=== PATIENT | female | born 1995 | race American Indian/Alaskan Native ===

== ENCOUNTER 2017-08-14 15:13 | Outpatient (CLI) | payer MEDICAID | END 2017-08-14 15:14 | disposition critical access hospital (66) | LOC: EMS 15:13 | PROVIDERS: ATTEND Surgery | DX: M25.562 Pain in left knee (principal); W18.39XA Other fall on same level, initial encounter; Y93.02 Activity, running; Y92.481 Parking lot as the place of occurrence of the external cause | CPT/HCPCS: A0425; A0429 ==

== ENCOUNTER 2017-08-14 15:29 | Emergency (ER) | payer MEDICAID ==
[2017-08-14] MEDS ORDERED: HYDROmorphone 1 MG/ML SYRINGE IM STA ×2 (15:36→16:57)
[2017-08-14] MEDS ORDERED: HYDROmorphone 1 MG/ML SYRINGE ONE ×2 (15:44→17:14)
--- NOTE | 2017-08-14 16:40 | XRAY Preliminary Report ---
Exam: XR Knee 2 View LT IMPRESSION: Stable postoperative changes. No acute findings. [facility] SITE ID: [id number]
--- NOTE | 2017-08-14 16:43 | XRAY Report ---
EXAM: LEFT KNEE RADIOGRAPHY EXAM DATE: 08/14/2017 04:30 PM. CLINICAL HISTORY: Left knee pain and immobility. COMPARISON: 03/03/2014. TECHNIQUE: 2 views. FINDINGS: Bones: No traumatic or destructive bone abnormalities. Stable anterior tibial screws with no sign of loosening or failure. Joints: Normal. No effusion. No subluxations. Soft Tissues: Normal. No soft tissue swelling. IMPRESSION: Stable postoperative changes. No acute findings. [facility] Referring Provider Line: [phone] SITE ID: [id number]
--- NOTE | 2017-08-14 17:57 | PROVIDER PROGRESS NOTE ---
Subjective - Prog Note Date Prog Note Date: 08/14/17 Prog Note Time: 17:54 - Subjective Subjective: [place] left "knee cap" pop out laterally while running today. Hx of multiple knee "dislocations since tibial tubercle transfers in [place] 5 years ago. Objective - Vital Signs/Intake & Output Vital Signs: Vital Signs x48h Temp Pulse Resp BP Pulse Ox 08/14/17 17:31 36.0 C L 64 18 118/66 99 08/14/17 16:17 36.0 C L 70 18 126/74 96 08/14/17 15:32 36.2 C L 76 22 147/79 H 97 - Diagnostic Imaging Diagnostic Imaging Comments: No FRACTURE; ?LATERAL PATELLA SUBLUXATION - Other Results/Comments Other Results/Comments: EXAM: multiple anterior knee scars from prior surgeries. Minimal knee swelling/ effusion. With knee extension and patella manipulation, patella reduced from its lateral subluxed position. Patella is now mobile and tracking better with knee flexion Assessment/Plan - Problem List (1) Lateral subluxation of patella Impression: Reduced PLAN: Knee immobilizer x 3-5 days, then wean off immobilizer. Quadraceps strengthening program. Offered PT but she declined. Follow up as needed in orthopedic office vs follow up with operating surgeon in [place]. Qualifiers: Encounter type: initial encounter Laterality: left Qualified Code(s): S83.012A - Lateral subluxation of left patella, initial encounter
--- NOTE | 2017-08-14 18:08 | ED Physician Documentation ---
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: Ovarian cysts : Chronic bladder infection, Other HEENT: None Psych: None Musculoskeletal: None Derm: Eczema - Past Surgical History Past Surgical History: No Ortho: ACL reconstruction, Arthroscopic surgery HEENT: Myringotomy (tubes), Tonsil/Adenoidectomy - Present Medications Home Medications: Ambulatory Orders Medication Instructions Recorded Confirmed Potassium Chloride 20 meq PO TID 04/08/14 10/07/15 Ibuprofen [Motrin] 800 mg PO Q8H PRN #20 tablet 05/21/14 10/07/15 Magnesium 05/21/14 10/07/15 Potassium Chloride 20 meq PO DAILY #15 tablet.er 09/12/15 10/07/15 Famotidine [Pepcid] 20 mg PO BID #60 tablet 10/07/15 HYDROcod/ACETAM 5/325 [[place] 5/325] 1 ea PO Q6H PRN #10 tablet 10/07/15 Promethazine [Phenergan] 12.5 mg PO Q6H PRN #12 tablet 10/07/15 Sucralfate [Carafate] 1 gm PO ACHS #120 udc 10/07/15 - Allergies Allergies/Adverse Reactions: Allergies Allergy/AdvReac Type Severity Reaction Status Date / Time bismuth subsalicylate Allergy Respiratory Verified 12/11/15 12:45 [From Pepto-Bismol] lorazepam [From Ativan] Allergy Hives Verified 08/14/17 15:38 ondansetron HCl * Allergy Itching Verified 10/07/15 20:36 [From Zofran (as hydrochloride)] - Social History Does the pt smoke?: Yes Smoking Status: Former smoker Does the pt drink ETOH?: No Does the pt have substance abuse?: No - Immunizations Immunizations are current?: Yes Immunizations: Other immun not current - POLST Patient has POLST: No PD ED PE NORMAL - Vitals Vital signs reviewed: Yes - General General: Alert and oriented X 3 - HEENT HEENT: Atraumatic - Extremities Extremities: Other (K knee held slightly bent and externally rotated and her body habitus makes palpation of landmarks diffilcutl, pt scream when she is touched and will not allow me to manipulate her knee in any way to test for ligamentous stability, it appars her patella is laterally subluxed, MSV intact distal) Results - Vitals Vitals: Vital Signs - 24 hr 08/14/17 08/14/17 08/14/17 15:32 16:17 17:31 Temperature 36.2 C L 36.0 C L 36.0 C L Heart Rate 76 70 64 Respiratory 22 18 18 Rate Blood Pressure 147/79 H 126/74 118/66 O2 Saturation 97 96 99 Oxygen O2 Source Room air - Rads (name of study) knee Radiology: See rad report (limited views 2/2 pt pain, no fx, cant tell if subluxed patella) PD MEDICAL DECISION MAKING - ED course ED course: pt arrives screaming loudly and refused to allow me to properly examine her knee or manipulate it in any way after IM dilaudid she is a bit calmer she states she has had prior surgery and has hardware and only orthopedics can reduce her knee because of the hardware and needs to be done a special way so Dr Aixa wiggins came in, gave pt another IM dilaudid shortly prior to his arrival, and with minimal pressure her patella easily reduced - fo future reference he advises that her hardward does not preclude ER reduction of patellar sublux dislocation, MSV after per Dr Vela, given immobilizer and dced Departure - Departure Disposition: 01 Home, Self Care Clinical Impression: Patellar dislocation Qualifiers: Encounter type: initial encounter Laterality: left Qualified Code(s): S83.005A - Unspecified dislocation of left patella, initial encounter Condition: Good Instructions: ED Dislocation Patella Follow-Up: [facility] [Provider Group] Comments: Wear the knee immobilizer to stabilize your patella Ice and elevation for swelling Naproxen for pain Follow up with your internet network specialist or call ortho clinic for follow up if needed Forms: Activity restrictions
[2017-08-14 18:48] VITALS: BP 121/58
== END 2017-08-14 18:49 | disposition home or self-care (01) ==
LOC: EDUNIT# → ED 15:29
DX: S83.005A Unspecified dislocation of left patella, initial encounter (principal); X58.XXXA Exposure to other specified factors, initial encounter; Y93.02 Activity, running; Y92.481 Parking lot as the place of occurrence of the external cause; Z87.891 Personal history of nicotine dependence
CPT/HCPCS: 73560; 96372; 99283; 99284; J1170

== ENCOUNTER 2017-11-14 17:45 | Emergency (ER) | payer MEDICAID ==
[2017-11-14 17:52] VITALS: BP 140/76
[2017-11-14 18:11] LABS: BILIRUBIN,URINE NEGATIVE (NEGATIVE)
[2017-11-14 18:12] LABS: HCG UR QUAL NEGATIVE; UA w/ MICROSCOPIC CHARGE YES
--- NOTE | 2017-11-14 18:13 | ED Physician Documentation ---
PD HPI ABD PAIN - Stated complaint Stated Complaint: FEMALE ,ABD PX - Chief complaint Chief Complaint: Abd Pain - History obtained from History obtained from: Patient - History of Present Illness Timing - onset: Other (This is a 22-year-old G0 with potassium wasting renal tubular acidosis who has not had her blood drawn in 7 months and feels like her potassium is low complicated by a late menses that is quite heavy with clots and some pelvic pain since yesterday. No dizziness though.) Review of Systems Ten Systems: 10 systems reviewed and negative Constitutional: reports: Fatigue. 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: Ovarian cysts : Chronic bladder infection, Other HEENT: None Psych: None Musculoskeletal: None Derm: Eczema Other Past Medical History: potassium disorder chronically runs low - Past Surgical History Past Surgical History: No Ortho: ACL reconstruction, Arthroscopic surgery HEENT: Myringotomy (tubes), Tonsil/Adenoidectomy - Present Medications Home Medications: Ambulatory Orders Medication Instructions Recorded Confirmed Potassium Chloride 20 meq PO BID 04/08/14 11/14/17 Magnesium 30 mg PO BID 05/21/14 11/14/17 Famotidine [Pepcid] 20 mg PO BID #30 tablet 11/14/17 Ibuprofen [Motrin] 800 mg PO Q8H PRN #30 tablet 11/14/17 Potassium Phosphate 11/14/17 - Allergies Allergies/Adverse Reactions: Allergies Allergy/AdvReac Type Severity Reaction Status Date / Time bismuth subsalicylate Allergy Respiratory Verified 12/11/15 12:45 [From Pepto-Bismol] lorazepam [From Ativan] Allergy Hives Verified 08/14/17 15:38 ondansetron HCl * Allergy Itching Verified 10/07/15 20:36 [From Zofran (as hydrochloride)] - Social History Does the pt smoke?: Yes Smoking Status: Current every day smoker Does the pt drink ETOH?: No Does the pt have substance abuse?: No - Immunizations Immunizations are current?: Yes Immunizations: Other immun not current - POLST Patient has POLST: No PD ED PE NORMAL - Vitals Vital signs reviewed: Yes - General General: Alert and oriented X 3, No acute distress - HEENT HEENT: PERRL, EOMI - Neck Neck: Supple, no meningeal sign, No bony TTP - Cardiac Cardiac: RRR, No murmur - Respiratory Respiratory: No respiratory distress, Clear bilaterally - Abdomen Abdomen: Normal bowel sounds, Soft, Non tender - Female Female : Sas Clinical Programmer present (Ese Pennington RN), Other (Mild blood in vault, no TTP , no CMT) - Back Back: No CVA TTP, No spinal TTP - Extremities Extremities: No edema, No calf tenderness / cord - Neuro Neuro: Alert and oriented X 3, Normal speech - Psych Psych: Normal mood, Normal affect Results - Vitals Vitals: Vital Signs - 24 hr 11/14/17 17:49 Temperature 36.7 C Heart Rate 78 Respiratory 16 Rate Blood Pressure 140/76 H O2 Saturation 100 Oxygen O2 Source Room air - Labs Labs: Microbiology 11/14/17 18:15 JOSSUE Preparation - Final Fluid - Vaginal 11/14/17 18:15 Wet Prep - Final Genital - Vaginal Laboratory Tests 11/14/17 11/14/17 11/14/17 17:55 18:25 18:25 WBC 11.6 H RBC 4.45 Hgb 13.9 Hct 39.5 MCV 88.7 MCH 31.2 H MCHC 35.2 RDW 12.8 Plt Count 392 MPV 6.6 L Neut # 7.1 H Lymph # 3.3 [place] # 0.8 Eos # 0.2 Baso # 0.1 Absolute Nucleated RBC 0.00 Nucleated RBC % 0.0 Sodium 139 Potassium 3.2 L Chloride 98 L Carbon Dioxide 27 Anion Gap 14.0 H BUN 9 Creatinine 0.5 Estimated GFR (MDRD) 157 Glucose 111 H Calcium 9.4 Total Bilirubin 0.5 AST 28 ALT 22 Alkaline Phosphatase 47 Total Protein 7.9 Albumin 4.1 Globulin 3.8 Albumin/Globulin Ratio 1.1 Lipase 23 Urine Color YELLOW Urine Clarity HAZY Urine pH 8.0 H Ur Specific [place] 1.015 Urine Protein NEGATIVE Urine Glucose (UA) NEGATIVE Urine Ketones NEGATIVE Urine Occult Blood SMALL H Urine Nitrite NEGATIVE Urine Bilirubin NEGATIVE Urine Urobilinogen 0.2 (NORMAL) Ur Leukocyte Esterase NEGATIVE Urine RBC 11-25 H Urine WBC 6-10 H Ur Squamous Epith Cells FEW Squamous Urine Bacteria Few Urine Yeast PRESENT Ur Microscopic Review INDICATED Urine Culture Comments INDICATED Urine HCG, Qual NEGATIVE Ethyl Alcohol < 5.0 PD MEDICAL DECISION MAKING - ED course ED course: 22-year-old with heavy vaginal bleeding, but she is not and her H&H is fine. She also wanted her potassium checked, it was mildly low and she was given an extra oral dose here. STD testing is pending. Urinalysis was unimpressive and we will wait for the culture. The patient and family were counseled as to the diagnosis and need for follow- up. I counseled the patient with regard to signs and symptoms that would necessitate an urgent reevaluation in the emergency department. They understand they are welcome to return at any time if worse or if not improving as expected. This document was made in part using voice recognition software. While efforts are made to proofread this documents, sound alike and grammatical errors may occur. Departure - Departure Disposition: Home, Self Care Clinical Impression: Hypokalemia, Abnormal uterine bleeding Condition: Good Record reviewed to determine appropriate education?: Yes Instructions: ED Pelvic Pain [facility] Prescriptions: Famotidine [Pepcid] 20 mg PO BID #30 tablet Ibuprofen [Motrin] 800 mg PO Q8H PRN #30 tablet PRN Reason: PAIN &/OR FEVER Comments: You are not , and her potassium was only mildly low, you received an extra dose here. Initially her swabs are negative but we will perform STD testing to and call you if the results are positive. Follow-up with your physician. Your blood pressure was elevated today on check into the emergency department. This does not mean that you have hypertension, it is a common phenomenon to come to the emergency department and have elevated blood pressure. I recommend that you see your primary care physician within the week to have it rechecked when you are feeling better. Forms: Activity restrictions Discharge Date/Time: 11/14/17 18:52
[2017-11-14 18:22] LABS: UR CULTURE IF IND INDICATED
[2017-11-14 18:30] LABS: BASOPHILS # (AUTO) 0.1 10^3/uL (0.0-0.1); BASOPHILS % (AUTO) 0.8 %; EOSINOPHILS # (AUTO) 0.2 10^3/uL (0.0-0.7); HCT - HEMATOCRIT 39.5 % (37.0-47.0); HGB - HEMOGLOBIN 13.9 g/dL (12.0-16.0); LYMPHOCYTES # (AUTO) 3.3 10^3/uL (1.5-3.5); MEAN CORPUSCULAR HEMOGLOBIN 31.2 pg (27.0-31.0); MEAN CORPUSCULAR HGB CONC 35.2 g/dL (32.0-36.0); MEAN CORPUSCULAR VOLUME 88.7 fL (81.0-99.0); MEAN PLATELET VOLUME 6.6 fL (7.9-10.8); MONOCYTES # (AUTO) 0.8 10^3/uL (0.0-1.0); MONOCYTES % (AUTO) 6.7 %; NEUTROPHILS # (AUTO) 7.1 10^3/uL (1.5-6.6); NEUTROPHILS % (AUTO) 61.5 %; RED BLOOD COUNT 4.45 10^6/uL (4.20-5.40); RED CELL DISTRIBUTION WIDTH 12.8 % (12.0-15.0); UNCORRECTED WHITE BLOOD COUNT 11.6 x10^3/uL; WHITE BLOOD COUNT 11.6 x10^3/uL (4.8-10.8)
[2017-11-14 18:42] LABS: ALBUMIN/GLOBULIN RATIO 1.1 (1.0-2.2); BILIRUBIN,TOTAL 0.5 mg/dL (0.2-1.0); BUN - BLOOD UREA NITROGEN 9 mg/dL (6-20); CALCIUM 9.4 mg/dL (8.5-10.3); CARBON DIOXIDE - CO2 27 mmol/L (21-32); CHLORIDE 98 mmol/L (101-111); CREATININE 0.5 mg/dL (0.4-1.0); GFR - MDRD 157 (>89); GLUCOSE 111 mg/dL (70-100); LIPASE 23 U/L (22-51); POTASSIUM 3.2 mmol/L (3.5-5.0); SODIUM 139 mmol/L (135-145); TOTAL PROTEIN 7.9 g/dL (6.7-8.2)
[2017-11-14] MEDS ORDERED: POTASSIUM BICARB 25 MEQ TABLET PO STA (18:44)
== END 2017-11-14 18:52 | disposition home or self-care (01) ==
LOC: ED 17:45
DX: N25.89 Other disorders resulting from impaired renal tubular function (principal); N93.9 Abnormal uterine and vaginal bleeding, unspecified; E87.6 Hypokalemia; R03.0 Elevated blood-pressure reading, without diagnosis of hypertension; F17.200 Nicotine dependence, unspecified, uncomplicated
CPT/HCPCS: 36415; 80053; 80320; 81001; 81025; 83690; 85025; 87086; 87210; 87220; 87491; 87591; 99283; 99284; A9270; 81003; 84132

== ENCOUNTER 2017-11-18 16:31 | Emergency (ER) | payer MEDICAID ==
[2017-11-18 17:01] LABS: BILIRUBIN,URINE NEGATIVE (NEGATIVE); PH,URINE 8.5 PH (5.0-7.5)
[2017-11-18 17:02] LABS: UA w/ MICROSCOPIC CHARGE YES
[2017-11-18 17:03] LABS: HCG UR QUAL NEGATIVE
[2017-11-18 17:12] LABS: UR CULTURE IF IND NOT INDICATED; WBC,URINE 0-3 /HPF (0-5)
--- NOTE | 2017-11-18 17:37 | ED Physician Documentation ---
PD HPI ABD PAIN - Stated complaint Stated Complaint: ABD PX/FEVER - Chief complaint Chief Complaint: Abd Pain - History obtained from History obtained from: Patient - History of Present Illness Timing - onset: How many days ago (several) Timing - duration: Days Timing - details: Gradual onset, Still present, Waxing and waning Quality: Cramping, Aching, Pain Location: LLQ Radiation: Left flank Improved by: Position. No: Eating Worsened by: Position (lying on side), Palpation. No: Eating Associated symptoms: Nausea, Vomiting, Vaginal bleeding, Vaginal dc. No: Fever , Diarrhea, Dysuria Recently seen: Emergency Dept (had pelvic and labs here few days ago. She had not heard back yet on her pelvic cultures.) Review of Systems Constitutional: reports: Chills, Myalgias. denies: Fever Nose: denies: Rhinorrhea / runny nose, Congestion Throat: denies: Sore throat Cardiac: denies: Chest pain / pressure Respiratory: denies: Cough GI: reports: Abdominal Pain, Nausea, Vomiting. denies: Constipation, Diarrhea : reports: Discharge (green). 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: Ovarian cysts : Chronic bladder infection, Other HEENT: None Psych: None Musculoskeletal: None Derm: Eczema - Past Surgical History Past Surgical History: No Ortho: ACL reconstruction, Arthroscopic surgery HEENT: Myringotomy (tubes), Tonsil/Adenoidectomy - Present Medications Home Medications: Ambulatory Orders Medication Instructions Recorded Confirmed Potassium Chloride 20 meq PO BID 04/08/14 11/14/17 Magnesium 30 mg PO BID 05/21/14 11/14/17 Famotidine [Pepcid] 20 mg PO BID #30 tablet 11/14/17 Ibuprofen [Motrin] 800 mg PO Q8H PRN #30 tablet 11/14/17 Potassium Phosphate 11/14/17 Doxycycline Monohydrate 100 mg PO BID #14 tablet 11/18/17 Oxycodone HCl/Acetaminophen 1 each PO Q6H PRN #20 tablet 11/18/17 [Percocet 5-325 mg Tablet] Promethazine [Phenergan] 25 mg PO Q6H PRN #30 tab 11/18/17 - Allergies Allergies/Adverse Reactions: Allergies Allergy/AdvReac Type Severity Reaction Status Date / Time bismuth subsalicylate Allergy Respiratory Verified 11/19/17 20:47 [From Pepto-Bismol] cinnamon Allergy Anaphylaxis Verified 11/20/17 07:54 lorazepam [From Ativan] Allergy Hives Verified 11/19/17 20:47 ondansetron HCl * Allergy Itching Verified 11/19/17 20:47 [From Zofran (as hydrochloride)] - Social History Does the pt smoke?: Yes Smoking Status: Current every day smoker Does the pt drink ETOH?: No Does the pt have substance abuse?: No - Immunizations Immunizations are current?: Yes Immunizations: Other immun not current - POLST Patient has POLST: No PD ED PE NORMAL - Vitals Vital signs reviewed: Yes - General General: Alert and oriented X 3, Well developed/nourished, Other (appears uncomfortable) - HEENT HEENT: Pharynx benign - Neck Neck: Supple, no meningeal sign, No adenopathy - Cardiac Cardiac: RRR, No murmur - Respiratory Respiratory: Clear bilaterally - Abdomen Abdomen: Normal bowel sounds, Soft, Non distended, No organomegaly, Other ( tender left lower abd) - Female Female : Deferred (recent ED visit with pelvic and culture resulting GC, so will treat for that and defer pelvic now. ) - Rectal Rectal: Deferred - Back Back: No CVA TTP - Derm Derm: Normal color, No rash - Extremities Extremities: No deformity, No tenderness to palpate, Normal ROM s pain - Neuro Neuro: Alert and oriented X 3, No motor deficit, Normal speech - Psych Psych: Normal mood Results - Vitals Vitals: Oxygen O2 Source Room air - Labs Labs: Laboratory Tests 11/18/17 11/18/17 16:48 19:30 Sodium 136 Potassium 2.3 L* Chloride 95 L Carbon Dioxide 30 Anion Gap 11.0 BUN 12 Creatinine 0.6 Estimated GFR (MDRD) 127 Glucose 96 Calcium 8.6 Urine Color YELLOW Urine Clarity CLEAR Urine pH 8.5 H Ur Specific [place] 1.020 Urine Protein NEGATIVE Urine Glucose (UA) NEGATIVE Urine Ketones NEGATIVE Urine Occult Blood MODERATE H Urine Nitrite NEGATIVE Urine Bilirubin NEGATIVE Urine Urobilinogen 0.2 (NORMAL) Ur Leukocyte Esterase NEGATIVE Urine RBC 6-10 H Urine WBC 0-3 Ur Squamous Epith Cells NONE SEEN Urine Bacteria None Seen Ur Microscopic Review INDICATED Urine Culture Comments NOT INDICATED Urine HCG, Qual NEGATIVE PD MEDICAL DECISION MAKING - ED course Complexity details: considered differential (several meds for nausea and pain. given IM for the GC. Checked her potassium and it was low, and she still had emesis so started IV. She would prefer going home and taking PO. Was doing better after IV meds, so will see how she does with PO meds at home. ), d/w patient Departure - Departure Disposition: , Self Care Clinical Impression: Lower abdominal pain, PID (acute pelvic inflammatory disease), Hypokalemia, RTA (renal tubular acidosis) Nausea & vomiting Qualifiers: Vomiting type: unspecified Vomiting Intractability: non-intractable Qualified Code(s): R11.2 - Nausea with vomiting, unspecified Condition: Stable Record reviewed to determine appropriate education?: Yes Instructions: ED PID, ED Nausea Vomiting Prescriptions: Doxycycline Monohydrate 100 mg PO BID #14 tablet Oxycodone HCl/Acetaminophen [Percocet 5-325 mg Tablet] 1 each PO Q6H PRN #20 tablet PRN Reason: Pain Promethazine [Phenergan] 25 mg PO Q6H PRN #30 tab PRN Reason: Nausea / Vomiting Comments: Drink lots of fluids. The antibiotics should be improving the infection over the next few days and therefore decrease the pain and nausea. Take her potassium supplements at home. Your potassium level is 2.3 here. Use Phenergan if needed for nausea. Use Percocet if needed for pain. Recheck if not improving over the next few days. We did give you the one Phenergan and some Percocet to go home with this evening. Unfortunately pharmacies will not be open tomorrow. Discharge Date/Time: 11/18/17 22:41
[2017-11-18] MEDS ORDERED: KETOROLAC 60 MG/2 ML VIAL IM STA (18:16)
[2017-11-18] MEDS ORDERED: HYDROmorphone 1 MG/ML SYRINGE IM STA ×2 (18:16→19:15)
[2017-11-18] MEDS ORDERED: cefTRIAXone 500 MG VIAL IM STA (18:17)
[2017-11-18] MEDS ORDERED: DOXYCYCLINE 100 MG TABLET PO STA (18:17)
[2017-11-18] MEDS ORDERED: LIDOCAINE 1% 2 ML VIAL ONE (18:29)
[2017-11-18] MEDS ORDERED: oxyCODONE/ACET 5/325 Prepack 4 PO STA (18:59)
[2017-11-18] MEDS ORDERED: ONDANSETRON ODT 4 MG TABLET TL STA (19:27)
[2017-11-18] MEDS ORDERED: PROMETHAZINE 25 MG TABLET PO STA ×3 (19:36→20:24)
[2017-11-18] MEDS ORDERED: PROMETHAZINE 25 MG TABLET ONE (19:44)
[2017-11-18 20:08] LABS: CALCIUM 8.6 mg/dL (8.5-10.3); CREATININE 0.6 mg/dL (0.4-1.0)
[2017-11-18 20:09] LABS: POTASSIUM 2.3 mmol/L (3.5-5.0)
[2017-11-18] MEDS ORDERED: POTASSIUM BICARB 25 MEQ TABLET PO STA (20:09)
[2017-11-18] MEDS ORDERED: PROMETHAZINE INJ 12.5 MG in SODIUM CHLORIDE 0.9% 50 ML IV STA (20:35)
[2017-11-18] MEDS ORDERED: POTASSIUM CHLOR 10 MEQ/100 ML 10 MEQ/100 ML BAG IV ONE (20:35)
[2017-11-18] MEDS ORDERED: HYDROmorphone 1 MG/ML SYRINGE IVP STA (21:48)
[2017-11-18 22:29] VITALS: BP 137/89
== END 2017-11-18 22:41 | disposition home or self-care (01) ==
LOC: ED 16:31
DX: R10.32 Left lower quadrant pain (principal); N73.9 Female pelvic inflammatory disease, unspecified; E87.6 Hypokalemia; N25.89 Other disorders resulting from impaired renal tubular function; R11.2 Nausea with vomiting, unspecified; F17.200 Nicotine dependence, unspecified, uncomplicated
CPT/HCPCS: 36415; 80048; 81001; 81025; 96365; 96372; 96375; 99283; 99284; A9270; J1170; J7040; Q0169; 81003; 87086

== ENCOUNTER 2017-11-19 20:41 | Observation (INO) | payer MEDICAID ==
[2017-11-19] MEDS ORDERED: MORPHINE 10 MG/ML VIAL IVP STA ×2 (21:04→22:50)
--- NOTE | 2017-11-19 21:07 | ED Physician Documentation ---
History of Present Illness - Stated complaint Stated Complaint: ABD PX - Chief complaint Chief Complaint: Abd Pain - History obtained from History obtained from: Patient - History of Present Illness Timing: How many days ago (4) Pain level max: 8 Pain level now: 8 Improved by: percocet Worsened by: movement, palpation - Additonal information Additional information: Patient is a 22-year-old female who presents to the emergency department with lower abdominal and pelvic pain for the past 4 days. She is being treated for gonorrhea. She is being treated for pelvic inflammatory disease. Given Rocephin last night and unable to fill her doxycycline today because of the holiday. She also has a history of Gettleman syndrome and frequently has issues with her potassium and magnesium. She states that she is especially susceptible of these issues when she has an infection. She is concerned that her potassium and magnesium are dropping today. Review of Systems Ten Systems: 10 systems reviewed and negative Constitutional: denies: Fever, Chills Ears: denies: Ear pain Nose: denies: Rhinorrhea / runny nose, Congestion Throat: denies: Sore throat Cardiac: denies: Chest pain / pressure Respiratory: denies: Cough GI: reports: Abdominal Pain (pelvic pain). denies: Nausea, Vomiting, Diarrhea : reports: Dysuria. denies: Frequency, Hesitancy, Incontinent Skin: denies: Rash Musculoskeletal: denies: Neck pain, Back pain Neurologic: reports: Generalized weakness. denies: Focal weakness, Numbness, Headache PD PAST MEDICAL HISTORY - Past Medical History Cardiovascular: None Respiratory: Pneumonia Neuro: Headache/migraine Endocrine/Autoimmune: None GI: None RN WOUND CARE: Ovarian cysts : Chronic bladder infection, Other HEENT: None Psych: None Musculoskeletal: None Derm: Eczema - Past Surgical History Past Surgical History: No Ortho: ACL reconstruction, Arthroscopic surgery HEENT: Myringotomy (tubes), Tonsil/Adenoidectomy - Present Medications Home Medications: Ambulatory Orders Medication Instructions Recorded Confirmed Potassium Chloride 20 meq PO BID 04/08/14 11/14/17 Magnesium 30 mg PO BID 05/21/14 11/14/17 Famotidine [Pepcid] 20 mg PO BID #30 tablet 11/14/17 Ibuprofen [Motrin] 800 mg PO Q8H PRN #30 tablet 11/14/17 Potassium Phosphate 11/14/17 Doxycycline Monohydrate 100 mg PO BID #14 tablet 11/18/17 Oxycodone HCl/Acetaminophen 1 each PO Q6H PRN #20 tablet 11/18/17 [Percocet 5-325 mg Tablet] Promethazine [Phenergan] 25 mg PO Q6H PRN #30 tab 11/18/17 - Allergies Allergies/Adverse Reactions: Allergies Allergy/AdvReac Type Severity Reaction Status Date / Time bismuth subsalicylate Allergy Respiratory Verified 11/19/17 20:47 [From Pepto-Bismol] lorazepam [From Ativan] Allergy Hives Verified 11/19/17 20:47 ondansetron HCl * Allergy Itching Verified 11/19/17 20:47 [From Zofran (as hydrochloride)] - Social History Does the pt smoke?: Yes Smoking Status: Current every day smoker Does the pt drink ETOH?: No Does the pt have substance abuse?: No - Immunizations Immunizations are current?: Yes Immunizations: Other immun not current - POLST Patient has POLST: No PD ED PE NORMAL - Vitals Vital signs reviewed: Yes - General General: Alert and oriented X 3, No acute distress - HEENT HEENT: Moist mucous membranes - Neck Neck: Supple, no meningeal sign - Cardiac Cardiac: RRR, Strong equal pulses - Respiratory Respiratory: No respiratory distress, Clear bilaterally - Abdomen Abdomen: Soft, Non distended, Other (mild low abd TTP. ) - Derm Derm: Warm and dry, No rash - Neuro Neuro: Alert and oriented X 3 - Psych Psych: Normal mood, Normal affect Results - Vitals Vitals: Vital Signs - 24 hr 11/19/17 11/19/17 20:43 22:47 Temperature 36.4 C L Heart Rate 101 H 72 Respiratory 20 12 Rate Blood Pressure 135/71 H 117/53 L O2 Saturation 100 99 Oxygen O2 Source Room air - Labs Labs: Laboratory Tests 11/19/17 11/19/17 21:10 21:10 WBC 13.4 H RBC 4.31 Hgb 13.4 Hct 38.5 MCV 89.3 MCH 31.1 H MCHC 34.8 RDW 12.8 Plt Count 401 MPV 6.5 L Neut # 8.7 H Lymph # 3.5 [place] # 0.9 Eos # 0.4 Baso # 0.1 Absolute Nucleated RBC 0.01 Nucleated RBC % 0.0 Sodium 137 Potassium 2.6 L Chloride 97 L Carbon Dioxide 30 Anion Gap 10.0 BUN 8 Creatinine 0.6 Estimated GFR (MDRD) 127 Glucose 91 Calcium 8.4 L Phosphorus 2.8 Magnesium 1.4 L Total Bilirubin 0.7 AST 24 ALT 25 Alkaline Phosphatase 62 Total Protein 8.3 H Albumin 4.0 Globulin 4.3 H Albumin/Globulin Ratio 0.9 L Lipase 26 - Rads (name of study) pelvic US Radiology: Prelim report reviewed, EMP read contemporaneously, See rad report ( uterus and ovaries normal except dominant 1.8x1.5cm R ovarian follicle. Blood flow seen in both ovaries. ) PD MEDICAL DECISION MAKING - ED course Complexity details: reviewed old records, reviewed results, re-evaluated patient , considered differential, d/w patient, d/w clinical science consultant ED course: Patient is a 22-year-old female with a history of Gettleman syndrome that presents to the emergency department with continued pain from pelvic inflammatory disease. Has not started her doxycycline at home. He was given a dose of doxycycline here. Was also given a pelvic ultrasound to rule out TOA. No tubo-ovarian abscess seen on ultrasound. She does have a simple cyst on the right ovary. She also has an increasing leukocytosis over the past 4 days. Her white blood cell count is now up to 13. Her potassium and magnesium are both low here. Was treated with oral potassium and IV magnesium. She states that normally when her infections are worsening her Gettleman syndrome becomes worse and her magnesium and potassium levels can drop precipitously. Therefore we will place her in observation tonight to ensure that her electrolytes did not drop further in the morning. Discussed the case with Dr. Cassidy, hospitalist who accepts. This document was made in part using voice recognition software. While efforts are made to proofread this document, sound alike and grammatical errors may occur. Departure - Departure Disposition: ED Place in Observation Clinical Impression: PID (acute pelvic inflammatory disease), Hypokalemia, Hypomagnesemia Ovarian cyst Qualifiers: Laterality: right Qualified Code(s): N83.201 - Unspecified ovarian cyst, right side Leukocytosis Qualifiers: Leukocytosis type: unspecified Qualified Code(s): D72.829 - Elevated white blood cell count, unspecified Condition: Stable
[2017-11-19] MEDS ORDERED: DOXYCYCLINE 100 MG TABLET PO STA (21:13)
[2017-11-19 21:18] LABS: BASOPHILS # (AUTO) 0.1 10^3/uL (0.0-0.1); BASOPHILS % (AUTO) 0.5 %; EOSINOPHILS # (AUTO) 0.4 10^3/uL (0.0-0.7); EOSINOPHILS % (AUTO) 2.7 %; HGB - HEMOGLOBIN 13.4 g/dL (12.0-16.0); LYMPHOCYTES # (AUTO) 3.5 10^3/uL (1.5-3.5); LYMPHOCYTES % (AUTO) 25.8 %; MEAN CORPUSCULAR HEMOGLOBIN 31.1 pg (27.0-31.0); MEAN CORPUSCULAR HGB CONC 34.8 g/dL (32.0-36.0); MEAN CORPUSCULAR VOLUME 89.3 fL (81.0-99.0); MEAN PLATELET VOLUME 6.5 fL (7.9-10.8); MONOCYTES # (AUTO) 0.9 10^3/uL (0.0-1.0); MONOCYTES % (AUTO) 6.4 %; NEUTROPHILS # (AUTO) 8.7 10^3/uL (1.5-6.6); NEUTROPHILS % (AUTO) 64.6 %; PLT - PLATELET COUNT 401 10^3/uL (130-450); RED BLOOD COUNT 4.31 10^6/uL (4.20-5.40); RED CELL DISTRIBUTION WIDTH 12.8 % (12.0-15.0); WHITE BLOOD COUNT 13.4 x10^3/uL (4.8-10.8)
[2017-11-19] MEDS: SODIUM CHLORIDE 0.9% 1,000 ML IV ONE (21:18)
[2017-11-19] MEDS ORDERED: PROMETHAZINE INJ 25 MG in SODIUM CHLORIDE 0.9% 50 ML IV STA (21:24)
[2017-11-19 21:33] LABS: ALBUMIN/GLOBULIN RATIO 0.9 (1.0-2.2); BILIRUBIN,TOTAL 0.7 mg/dL (0.2-1.0); CALCIUM 8.4 mg/dL (8.5-10.3); CREATININE 0.6 mg/dL (0.4-1.0); MAGNESIUM 1.4 mg/dL (1.7-2.8); PHOSPHORUS 2.8 mg/dL (2.5-4.6); TOTAL PROTEIN 8.3 g/dL (6.7-8.2)
[2017-11-19] MEDS ORDERED: MAGNESIUM SULFATE 2 GRAM 2 GM/50 ML BAG IV ONE (21:41)
[2017-11-19] MEDS ORDERED: POTASSIUM BICARB 25 MEQ TABLET PO STA (21:45)
[2017-11-19] MEDS ORDERED: cefOXitin 2 GM in SODIUM CHLORIDE 0.9% MINIBAG 100 ML IV STA (22:49)
--- NOTE | 2017-11-19 22:49 | Ultrasound Preliminary Report ---
Exam: US PELVIC NON OB W/DOPPLER LTD IMPRESSION: 1. Uterus and ovaries appear normal aside from a dominant 1.8 x 1.5 cm right ovarian follicle. 2. Blood flow seen in both ovaries. 3. No free fluid seen. [facility] SITE ID: [id number]
--- NOTE | 2017-11-19 22:49 | Ultrasound Preliminary Report ---
Exam: US TRANSVAGINAL IMPRESSION: 1. Uterus and ovaries appear normal aside from a dominant 1.8 x 1.5 cm right ovarian follicle. 2. Blood flow seen in both ovaries. 3. No free fluid seen. [facility] SITE ID: [id number]
--- NOTE | 2017-11-19 22:51 | Ultrasound Report ---
EXAM: PELVIC ULTRASOUND EXAM DATE: 11/19/2017 10:37 PM. CLINICAL HISTORY: Pelvic pain, + gonorrhea, LLQ pain. COMPARISON: None. TECHNIQUE: Realtime transabdominal pelvic scan performed to identify the uterus and adnexa and as an overview of other pelvic structures, followed by transvaginal scan to provide greater detail of the u terus and adnexa, with static image documentation. FINDINGS: Uterus: 6.2 x 3.0 x 4 cm, volume 39 cc. Retroverted position. Normal overall size and echotexture. Masses: None. Endometrium: 4 mm. Normal. Cervix: Unremarkable. Right Ovary: 2.7 x 2.4 x 1.9 cm, volume 6.3 cc. Dominant follicle measuring 1.8 x 1.5 x 1.5 cm. Trish l echotexture and blood flow. Left Ovary: 3.7 x 1.8 x 2.1 cm, volume 7.3 cc. Normal echotexture and blood flow. Free Fluid: None. Other: None. IMPRESSION: 1. Uterus and ovaries appear normal aside from a dominant 1.8 x 1.5 cm right ovarian follicle. 2. Blood flow seen in both ovaries. 3. No free fluid seen. [facility] Referring Provider Line: [phone] SITE ID: [id number]
[2017-11-19] MEDS ORDERED: TEMAZEPAM 15 MG CAPSULE PO PRN (23:12)
--- NOTE | 2017-11-19 23:41 | HISTORY & PHYSICAL EXAMINATION ---
Chief Complaint - Chief Complaint Chief Complaint: Abdominal/pelvic pain History of Present Illness - Admitted From Admitted From:: Home - History of Present Illness HPI Comment/Other: Ms. Elayne Roman is a 22-year-old female who began to have abdominal/pelvic pain about 2 or 3 days ago. She was diagnosed with pelvic inflammatory disease here at the [facility] emergency department. She has a history significant for Gitelman syndrome which affects her potassium and magnesium levels specifically, especially when she has an infection.At this time she is very concerned about her electrolyte levels as she has had problems with this in the past. She relates that she has a brother who also has Gitelman syndrome.At the time of her admission her potassium level was 2.6 and her magnesium level was 1.4. History - Past Medical History Cardiovascular: reports: None Respiratory: reports: Pneumonia Neuro: reports: Headache/migraine Endocrine/Autoimmune: reports: None GI: reports: None RESEARCH EDITOR: reports: Ovarian cysts : reports: Chronic bladder infection, Other HEENT: reports: None Psych: reports: None Musculoskeletal: reports: None Derm: reports: Eczema MRSA Hx?: No - Past Surgical History Ortho: reports: ACL reconstruction, Arthroscopic surgery HEENT: reports: Myringotomy (tubes), Tonsil/Adenoidectomy - Family & Social History Family History: Mother: Alive and Well, Hypertension, Father: Alive and Well, Diabetes, Type 2, Brother: Alive and Well, Other family: CAD, Cancer Living arrangement: At home Living Situation: With family Social History Notes: The patient's Mother sent a note with the patient expressing her permission/desire that the patient be treated in the ED. - Substance History Use: Uses substance without health or social issues: NONE Abuse: Recurrent use of substance despite neg consequences: NONE Dependence: Experiences withdrawal or developed tolerances: NONE - POLST Patient has POLST: No Meds/Allgy - Home Medications Home Medications: Ambulatory Orders Medication Instructions Recorded Confirmed Potassium Chloride 20 meq PO BID 04/08/14 11/14/17 Magnesium 30 mg PO BID 05/21/14 11/14/17 Famotidine [Pepcid] 20 mg PO BID #30 tablet 11/14/17 Ibuprofen [Motrin] 800 mg PO Q8H PRN #30 tablet 11/14/17 Potassium Phosphate 11/14/17 Doxycycline Monohydrate 100 mg PO BID #14 tablet 11/18/17 Oxycodone HCl/Acetaminophen 1 each PO Q6H PRN #20 tablet 11/18/17 [Percocet 5-325 mg Tablet] Promethazine [Phenergan] 25 mg PO Q6H PRN #30 tab 11/18/17 - Allergies Allergies/Adverse Reactions: Allergies Allergy/AdvReac Type Severity Reaction Status Date / Time bismuth subsalicylate Allergy Respiratory Verified 11/19/17 20:47 [From Pepto-Bismol] lorazepam [From Ativan] Allergy Hives Verified 11/19/17 20:47 ondansetron HCl * Allergy Itching Verified 11/19/17 20:47 [From Zofran (as hydrochloride)] Review of Systems - Constitutional Constitutional: reports: Fatigue, Malaise, Weakness. denies: Fever, Chills, Poor appetite - Eyes Eyes: denies: Pain, Irritation, Amaurosis, Blurred vision, Field loss - Ears, Nose & Throat Ears, Nose & Throat: denies: Ear pain, Hearing loss, Hearing aids, Tinnitus, Vertigo - Cardiovascular Cariovascular: denies: Irregular heart rate, Palpitations, Chest pain, Edema - Respiratory Respiratory: denies: Cough, Sputum production, Wheezing, Snoring - Gastrointestinal Gastrointestinal: denies: Abdominal pain, Abdominal distention, Constipation, Diarrhea, Change in bowel habits - Genitourinary Genitourinary: denies: Dysuria, Frequency, Urgency, Hematuria - Musculoskeletal Musculoskeletal: reports: Back pain, Muscle weakness. denies: Muscle pain, Muscle aches, Stiffness - Integumentary Integumentary: denies: Rash, Pruritis, Lesions, Dryness - Neurological Neurological: denies: General weakness, Focal weakness, Headache, Dizziness - Psychiatric Psychiatric: reports: Depression, Anxiety. denies: Suicidal, Delusions, Hallucinations - Endocrine Endocrine: denies: Polyuria, Polydypsia, Polyphagia - Hematologic/Lymphatic Hematologic/Lymphatic: denies: Anemia, Bruising, Petechiae, Blood clots - All Other Systems All Other Systems: reports: Reviewed and negative Exam - Vital Signs Reviewed Vital Signs: Yes Vital Signs: Vital Signs x48h Temp Pulse Resp BP Pulse Ox 11/19/17 22:47 72 12 117/53 L 99 11/19/17 20:43 36.4 C L 101 H 20 135/71 H 100 - Physical Exam General Appearance: positive: No acute distress, Alert. negative: Anxious Eyes Bilateral: positive: Normal inspection, PERRL, EOMI ENT: positive: ENT inspection nml, Pharynx nml, No signs of dehydration Neck: positive: Nml inspection, Thyroid nml, No JVD, Trachea midline. negative : Thyromegaly Respiratory: positive: Chest non-tender, No respiratory distress, Breath sounds nml. negative: Wheezes, Rales, Rhonchi Cardiovascular: positive: Regular rate & rhythm, No murmur, No gallop. negative : Systolic murmur, Diastolic murmur Peripheral Pulses: positive: 2+ Abdomen: positive: No organomegaly, Nml bowel sounds, No distention, Tenderness , Guarding Back: positive: Nml inspection. negative: CVA tenderness (R), CVA tenderness (L ) Skin: positive: Color nml, No rash, Warm, Dry. negative: Diaphoresis Extremities: positive: Non-tender, Full ROM, Nml appearance, No pedal edema Neurologic/Psychiatric: positive: Oriented x3, CN's nml (2-12), Motor nml, Sensation nml, Mood/affect nml Conclusion/Plan - Problem List (1) PID (acute pelvic inflammatory disease) Conclusion/Plan: We will continue with the IV antibiotics that were started in the emergency department and will monitor her closely overnight. We will address any other issues as they arise. (2) Hypokalemia Conclusion/Plan: Related to the patient's Gitelman syndrome.Will replace potassium through both IV and oral routes. (3) Hypomagnesemia Conclusion/Plan: Likely related to the patient's Gitelman syndrome.We will monitor closely and order replacement magnesium. - Lab Results Fish Bones: 11/19/17 21:10 11/19/17 21:10 - Diagnostic Imaging Results Diagnostic Imaging Results: positive: Final report reviewed Diagnostic Imaging Results Comments: EXAM: PELVIC ULTRASOUND EXAM DATE: 11/19/2017 10:37 PM. CLINICAL HISTORY: Pelvic pain, + gonorrhea, LLQ pain. COMPARISON: None. TECHNIQUE: Realtime transabdominal pelvic scan performed to identify the uterus and adnexa and as an overview of other pelvic structures, followed by transvaginal scan to provide greater detail of the uterus and adnexa, with static image documentation. FINDINGS: Uterus: 6.2 x 3.0 x 4 cm, volume 39 cc. Retroverted position. Normal overall size and echotexture. Masses: None. Endometrium: 4 mm. Normal. Cervix: Unremarkable. Right Ovary: 2.7 x 2.4 x 1.9 cm, volume 6.3 cc. Dominant follicle measuring 1.8 x 1.5 x 1.5 cm. Normal echotexture and blood flow. Left Ovary: 3.7 x 1.8 x 2.1 cm, volume 7.3 cc. Normal echotexture and blood flow. Free Fluid: None. Other: None. IMPRESSION: 1. Uterus and ovaries appear normal aside from a dominant 1.8 x 1.5 cm right ovarian follicle. 2. Blood flow seen in both ovaries. 3. No free fluid seen. Issues/Core Measures - Anticipated LOS Anticipated Stay Length: Less than 2 midnights - [facility] Requirement for [facility] I expect patient to be DC'd or transferred within 96 hours.: Yes - DVT/VTE - Prophylaxis VTE/DVT Device ordered at admit?: Yes
[2017-11-20] MEDS ORDERED: POTASSIUM CHLOR 20 MEQ/100 ML 20 MEQ/100 ML BAG IV SCH
[2017-11-20] MEDS: oxyCOD/ACETAMIN 5 MG/325 MG TABLET PO PRN ×2 (00:29→10:47)
[2017-11-20] MEDS: cefOXitin 2 GM in SODIUM CHLORIDE 0.9% MINIBAG 100 ML IV SCH ×2 (01:04→01:06)
[2017-11-20] MEDS: MAGNESIUM SULFATE 2 GRAM 2 GM/50 ML BAG IV SCH ×2 (01:05→01:06)
[2017-11-20] MEDS: MORPHINE 2 MG/ML SYRINGE IVP PRN ×5 (03:37→20:12)
[2017-11-20] MEDS: SODIUM CHLORIDE FLUSH 0.9% 10 ML SYRINGE IVP SCH ×3 (04:18→20:13)
[2017-11-20] MEDS: POTASSIUM CHLOR 10 MEQ/100 ML 20 MEQ/200 ML BAG IV SCH ×2 (05:21→10:48)
[2017-11-20] MEDS: SODIUM CHLORIDE 0.9% 1,000 ML IV ONE (05:45)
[2017-11-20 06:25] LABS: BASOPHILS # (AUTO) 0.1 10^3/uL (0.0-0.1); BASOPHILS % (AUTO) 1.2 %; EOSINOPHILS # (AUTO) 0.5 10^3/uL (0.0-0.7); EOSINOPHILS % (AUTO) 4.7 %; HGB - HEMOGLOBIN 11.6 g/dL (12.0-16.0); LYMPHOCYTES # (AUTO) 3.7 10^3/uL (1.5-3.5); LYMPHOCYTES % (AUTO) 36.8 %; MEAN CORPUSCULAR HGB CONC 34.8 g/dL (32.0-36.0); MEAN CORPUSCULAR VOLUME 89.3 fL (81.0-99.0); MEAN PLATELET VOLUME 6.6 fL (7.9-10.8); MONOCYTES # (AUTO) 0.7 10^3/uL (0.0-1.0); MONOCYTES % (AUTO) 6.9 %; NEUTROPHILS # (AUTO) 5.1 10^3/uL (1.5-6.6); NEUTROPHILS % (AUTO) 50.4 %; PLT - PLATELET COUNT 332 10^3/uL (130-450); RED BLOOD COUNT 3.73 10^6/uL (4.20-5.40); RED CELL DISTRIBUTION WIDTH 12.7 % (12.0-15.0); WHITE BLOOD COUNT 10.1 x10^3/uL (4.8-10.8)
[2017-11-20 06:33] LABS: CALCIUM 7.9 mg/dL (8.5-10.3); CREATININE 0.5 mg/dL (0.4-1.0); MAGNESIUM 1.8 mg/dL (1.7-2.8); PHOSPHORUS 2.5 mg/dL (2.5-4.6)
[2017-11-20] MEDS: DOXYCYCLINE 100 MG TABLET PO SCH ×2 (08:15→20:10)
[2017-11-20] MEDS: POLYETHYLENE GLYCOL 3350 17 GM PACKET PO SCH (08:15)
[2017-11-20] MEDS: FAMOTIDINE 20 MG TABLET PO SCH ×2 (08:15→20:10)
[2017-11-20] MEDS ORDERED: DOXYCYCLINE 100 MG TABLET PO SCH (09:00)
[2017-11-20] MEDS ORDERED: POTASSIUM CHLORIDE 20 MEQ TABLET PO SCH ×2 (09:00→10:30)
[2017-11-20] MEDS ORDERED: A & D OINTMENT 5 GM PACKET TOP PRN (09:24)
[2017-11-20] MEDS ORDERED: POTASS CIT/CITRIC ACID ORAL 1 EACH PACKET PO SCH (10:00)
[2017-11-20] MEDS: PHENAZOPYRIDINE 100 MG TABLET PO SCH ×3 (10:47→21:28)
[2017-11-20] MEDS: PROCHLORPERAZINE 10 MG/2 ML VIAL IVP PRN ×2 (12:49→17:11)
--- NOTE | 2017-11-20 16:34 | PROVIDER PROGRESS NOTE ---
Assessment/Plan - Problem List (1) Ectopic atrial rhythm Assessment/Plan: This is asymptomatic Could be due to electrolyte abnormalities or structural or intrinsic electrical abnormality Will continue to monitor on telemetry and obtain an Echo (2) Hypokalemia Assessment/Plan: Pt gets hypokalemic when has infection and she currently has pelvic inflammatory disease. Continue to replace K and monitor labs (3) Hypomagnesemia Assessment/Plan: Mg was low at admission but is corrected. Continue to monitor labs (4) PID (acute pelvic inflammatory disease) Assessment/Plan: Pt on oral antibiotic for PUD Will add A&D ointment plus Pyridium for dysuria - Current Meds Current Meds: Current Medications Generic Name Dose Route Start Last Admin Trade Name Freq PRN Reason Stop Dose Admin Doxycycline Hyclate 100 mg 11/20/17 09:00 11/20/17 08:15 Vibramycin PO 100 mg BID YOLANDA Administration Famotidine 20 mg 11/20/17 09:00 11/20/17 08:15 Pepcid PO 20 mg BID YOLANDA Administration Morphine Sulfate 2 mg 11/20/17 02:56 11/20/17 08:08 Morphine IVP 2 mg Q2H PRN Administration PAIN Oxycodone/Acetaminophen 1 tab 11/19/17 23:35 11/20/17 10:47 Percocet 5 Mg/325 Mg PO 1 tab Q6H PRN Administration PAIN (Magnesium [ 1 each 11/20/17 09:00 11/20/17 11:03 Magnesium] 30 Mg) PO Not Given Tab BID YOLANDA Phenazopyridine HCl 100 mg 11/20/17 10:00 11/20/17 15:20 Pyridium PO 100 mg TID YOLANDA Administration Polyethylene Glycol 17 gm 11/20/17 09:00 11/20/17 08:15 Miralax PO Not Given DAILY YOLANDA Prochlorperazine Edisylate 10 mg 11/19/17 23:12 11/20/17 12:49 Compazine Inj IVP 10 mg Q6HR PRN Administration Nausea / Vomiting Sodium Chloride 10 ml 11/20/17 06:00 11/20/17 13:50 Normal Saline Flush 0.9% IVP Not Given Q8HR YOLANDA - Lab Result Fish Bone Diagrams: 11/20/17 06:15 11/20/17 15:08 - Additional Planning My Orders: My Active Orders 11/20/17 09:24 A & D Ointment [Vitamin A & D Ointment] 1 applic TOP TID PRN 11/20/17 10:00 Phenazopyridine [Pyridium] 100 mg PO TID 11/20/17 12:12 Telemetry (24 Hour) [RC] Q4HR 11/20/17 16:00 Calcium Carbonate [Tums] 500 mg PO BID 11/20/17 17:30 Potassium Chloride [K-Dur] 40 meq PO BIDWM Subjective - Subjective Patient Reports: Other (Feels weak) Nursing Reports: Other (Has new dysuria. Telemetry showing runs of low atrial pacemaker, HR OK) Objective Vital Signs: Vital Signs - 24 hr 11/19/17 11/20/17 11/20/17 23:49 00:08 04:49 Temperature 36.7 C 36.5 C 36.7 C Heart Rate 88 Heart Rate [ 84 70 Brachial] Respiratory 18 20 18 Rate Blood Pressure 118/64 Blood Pressure [Left Brachial artery] Blood Pressure 106/49 L 97/46 L [Right Brachial artery] O2 Saturation 98 99 97 11/20/17 11/20/17 11/20/17 07:47 13:09 16:00 Temperature 36.8 C 36.4 C L 36.4 C L Heart Rate Heart Rate [ 64 76 80 Brachial] Respiratory 18 20 16 Rate Blood Pressure Blood Pressure 103/50 L 108/54 L 92/46 L [Left Brachial artery] Blood Pressure [Right Brachial artery] O2 Saturation 99 97 98 Oxygen O2 Source Room air I&O (Last 24 Hrs): Intake and Output Totals x24h 11/18/17 11/19/17 11/20/17 23:59 23:59 23:59 Intake Total 650 3640 Balance 650 3640 General: Alert, Other (Appears fatigued) HEENT: Mucous membr. moist/pink Neck: Supple Neuro: Oriented Times 3 Cardiovascular: Regular rate Respiratory: No respiratory distress Abdomen: Soft Genitourinary: Other (Per RN: redness in vaginal area) Extremities: No edema - Results Results: Laboratory Results WBC 10.1 x10^3/uL (4.8-10.8) 11/20/17 06:15 RBC 3.73 10^6/uL (4.20-5.40) L 11/20/17 06:15 Hgb 11.6 g/dL (12.0-16.0) L 11/20/17 06:15 Hct 33.3 % (37.0-47.0) L 11/20/17 06:15 MCV 89.3 fL (81.0-99.0) 11/20/17 06:15 MCH 31.0 pg (27.0-31.0) 11/20/17 06:15 MCHC 34.8 g/dL (32.0-36.0) 11/20/17 06:15 RDW 12.7 % (12.0-15.0) 11/20/17 06:15 Plt Count 332 10^3/uL (130-450) 11/20/17 06:15 MPV 6.6 fL (7.9-10.8) L 11/20/17 06:15 Neut # 5.1 10^3/uL (1.5-6.6) 11/20/17 06:15 Lymph # 3.7 10^3/uL (1.5-3.5) H 11/20/17 06:15 [place] # 0.7 10^3/uL (0.0-1.0) 11/20/17 06:15 Eos # 0.5 10^3/uL (0.0-0.7) 11/20/17 06:15 Baso # 0.1 10^3/uL (0.0-0.1) 11/20/17 06:15 Absolute Nucleated RBC 0.01 x10^3/uL 11/20/17 06:15 Nucleated RBC % 0.1 /100WBC 11/20/17 06:15 Sodium 137 mmol/L (135-145) 11/20/17 06:15 Potassium 3.5 mmol/L (3.5-5.0) 11/20/17 15:08 Chloride 98 mmol/L (101-111) L 11/20/17 06:15 Carbon Dioxide 30 mmol/L (21-32) 11/20/17 06:15 Anion Gap 9.0 (6-13) 11/20/17 06:15 BUN 8 mg/dL (6-20) 11/20/17 06:15 Creatinine 0.5 mg/dL (0.4-1.0) 11/20/17 06:15 Estimated GFR (MDRD) 157 (>89) 11/20/17 06:15 Glucose 117 mg/dL (70-100) H 11/20/17 06:15 Calcium 7.8 mg/dL (8.5-10.3) L 11/20/17 06:15 Phosphorus 2.5 mg/dL (2.5-4.6) 11/20/17 06:15 Magnesium 1.8 mg/dL (1.7-2.8) 11/20/17 06:15 Total Bilirubin 0.7 mg/dL (0.2-1.0) 11/19/17 21:10 AST 24 IU/L (10-42) 11/19/17 21:10 ALT 25 IU/L (10-60) 11/19/17 21:10 Alkaline Phosphatase 62 IU/L (42-121) 11/19/17 21:10 Total Protein 8.3 g/dL (6.7-8.2) H 11/19/17 21:10 Albumin 4.0 g/dL (3.2-5.5) 11/19/17 21:10 Globulin 4.3 g/dL (2.1-4.2) H 11/19/17 21:10 Albumin/Globulin Ratio 0.9 (1.0-2.2) L 11/19/17 21:10 Lipase 26 U/L (22-51) 11/19/17 21:10
[2017-11-20] MEDS: CALCIUM CARBONATE CHEW 500 MG TABLET PO SCH ×2 (17:11→20:12)
[2017-11-20] MEDS: POTASSIUM CHLORIDE 20 MEQ TABLET PO SCH (17:11)
[2017-11-20] MEDS: SODIUM CHLORIDE FLUSH 0.9% 10 ML SYRINGE IVP PRN (20:13)
[2017-11-21] MEDS: SODIUM CHLORIDE FLUSH 0.9% 10 ML SYRINGE IVP PRN (00:10)
[2017-11-21] MEDS: MORPHINE 2 MG/ML SYRINGE IVP PRN ×2 (00:10→10:20)
[2017-11-21] MEDS: oxyCOD/ACETAMIN 5 MG/325 MG TABLET PO PRN ×2 (05:32→16:44)
[2017-11-21] MEDS: PHENAZOPYRIDINE 100 MG TABLET PO SCH ×2 (05:32→14:38)
[2017-11-21] MEDS: SODIUM CHLORIDE FLUSH 0.9% 10 ML SYRINGE IVP SCH ×2 (05:33→14:40)
[2017-11-21 05:55] LABS: CALCIUM 8.5 mg/dL (8.5-10.3); CREATININE 0.5 mg/dL (0.4-1.0); MAGNESIUM 1.4 mg/dL (1.7-2.8); PHOSPHORUS 4.2 mg/dL (2.5-4.6)
[2017-11-21] MEDS ORDERED: MAGNESIUM SULFATE 2 GRAM 2 GM/50 ML BAG IV ONE (08:00)
[2017-11-21] MEDS: PROCHLORPERAZINE 10 MG/2 ML VIAL IVP PRN (08:20)
[2017-11-21] MEDS: POTASSIUM CHLORIDE 20 MEQ TABLET PO SCH ×2 (08:23→16:43)
[2017-11-21] MEDS: IBUPROFEN 600 MG TABLET PO PRN ×2 (08:23→16:44)
[2017-11-21] MEDS: FAMOTIDINE 20 MG TABLET PO SCH (08:23)
[2017-11-21] MEDS: POLYETHYLENE GLYCOL 3350 17 GM PACKET PO SCH (08:24)
[2017-11-21] MEDS: CALCIUM CARBONATE CHEW 500 MG TABLET PO SCH (08:24)
[2017-11-21] MEDS: DOXYCYCLINE 100 MG TABLET PO SCH (08:24)
[2017-11-21] MEDS ORDERED: POTASSIUM CHLORIDE IV SCH (10:00)
[2017-11-21] MEDS ORDERED: NACL IV SCH (10:00)
[2017-11-21] MEDS ORDERED: DEXTROSE IV SCH (10:00)
[2017-11-21 15:32] VITALS: BP 137/68
--- NOTE | 2017-11-21 16:55 | Discharge Plan ---
Discharge Plan Disposition: 01 Home, Self Care Condition: Fair Prescriptions: Ibuprofen [Motrin] 600 mg PO Q6HR PRN #30 tablet PRN Reason: Pain 1 to 4 Doxycycline Hyclate [Vibramycin] 100 mg PO BID #24 capsule Phenazopyridine [Pyridium] 100 mg PO BID #14 tablet Vits A and D/White Pet/Lanolin [A and D Ointment] 1 applic TP BID PRN #42.5 oint...g. PRN Reason: Pain Diet: Regular Activity Restrictions: Activity as Tolerated Shower Restrictions: No Driving Restrictions: No Additional Instructions or Follow Up instructions: See your PAPER BAGS SEWING MACHINE OPERATOR or your PCP for follow-up in 1-2 weeks. Take all the new antibiotic pills till they are done. There are new prescriptions for Pyridium and A&D ointment for painful urination , an Motrin for pain. Resume your Potassium and Magnesium tablets as you took before. No Smoking: If you smoke, Please STOP! Call for help.
--- NOTE | 2018-01-07 07:07 | DISCHARGE SUMMARY ---
Physician: Virginia Olson MD DATE OF ADMISSION: 11/19/2017 DATE OF DISCHARGE: 11/21/2017 HISTORY OF PRESENT ILLNESS: This is a 22-year-old white female with a history of obesity, Gitelman's syndrome and she has significant drops in potassium and magnesium because of this when she has infections. She also has migraine headaches, ovarian cysts, recurrent UTIs and eczema. The patient was diagnosed with pelvic inflammatory disease after developing abdominal and pelvic pain 2 or 3 days prior to this admission. She started to develop weakness and was concerned that she had low electrolytes and therefore presented to the emergency room. She was indeed low and kept in observation because of admission potassium of 2.6 and magnesium of 1.4 that required replacement therapy. HOSPITAL COURSE AND DISCHARGE DIAGNOSES: 1. Pelvic inflammatory disease. The patient received several doses of iv cefoxitin and then was returned back to her doxycycline 100 mg p.o. b.i.d. that had been started prior to this admission. The patient did have dysuria for which she required initiation of Pyridium, A and D ointment and Motrin p.r.n. pain and these were new prescriptions at the time of discharge. 2. Hypokalemia, due to Gitelman's syndrome. The patient required oral and IV replacement of potassium. At discharge, she was advised to resume her usual dose of oral Potassium as prescribed by her PCP. 3. Hypomagnesemia. She required IV and p.o. replacement of magnesium. She had significant weakness when potassium and magnesium levels were low, but felt better after approximately 48 hours with replacement. She was advised to resume her prior dose of magnesium at the time of discharge. 4. Ectopic atrial rhythm. The patient was noted to have bradycardia and was placed on telemetry, which showed that she had abnormal P waves and was diagnosed with ectopic atrial rhythm. Her blood pressure was stable and she had no symptoms related to this. This was felt to be possibly due to her low electrolytes, but a structural cardiac abnormality or intrinsic electric abnormality were not ruled out and should be considered for evaluation in the future. LABS AND IMAGING: Reviewed and summarized above ALLERGIES: PEPTO-BISMOL, ATIVAN, ZOFRAN. MEDICATIONS AT THE TIME OF DISCHARGE: 1. Potassium chloride 20 mEq p.o. b.i.d. 2. Magnesium 30 mg p.o. b.i.d. 3. Pepcid 20 mg p.o. b.i.d. 4. Motrin 800 mg q.8h. p.r.n. pain. 5. Doxycycline 100 mg p.o. b.i.d. for an additional 12 days more. 6. Phenergan p.r.n. 7. Oxycodone/Tylenol which she had before admission. 8. Pyridium 100 mg p.o. b.i.d. p.r.n. dysuria. 9. A and D ointment topically p.r.n. dysuria. CONDITION AT DISCHARGE: Stable. PHYSICAL EXAMINATION AT DISCHARGE: VITAL SIGNS: Afebrile, blood pressure 137/68, pulse of 87 in normal sinus rhythm. HEENT: Unremarkable with moist mucosa. NECK: No JVD or lymphadenopathy. CHEST: Clear. CARDIOVASCULAR: Sounds normal. ABDOMEN: Soft and normal bowel sounds, obese. EXTREMITIES: No clubbing, cyanosis or edema. NEUROLOGIC: Grossly intact. CODE STATUS: FULL CODE. FOLLOWUP: With her PCP in 1-2 weeks. Time required to complete this entire discharge: 30 minutes. TD: 01/07/2018 07:05 JL
== END 2017-11-21 17:30 | disposition home or self-care (01) ==
LOC: ED 20:41 → OBS 23:12
PROVIDERS: ADMIT Hospitalist; ATTEND Internal Medicine
DX: A54.24 Gonococcal female pelvic inflammatory disease (principal); E83.42 Hypomagnesemia; N25.89 Other disorders resulting from impaired renal tubular function; I49.1 Atrial premature depolarization; N83.291 Other ovarian cyst, right side; F17.200 Nicotine dependence, unspecified, uncomplicated; E66.9 Obesity, unspecified; Z68.41 Body mass index [BMI] 40.0-44.9, adult
CPT/HCPCS: 36415; 76830; 76856; 80048; 80053; 82310; 83690; 83735; 84100; 84132; 85025; 93976; 96361; 96365; 96366; 96367; 96368; 96375; 96376; 99283; 99285; A9270; G0378; J2270; J7040

== ENCOUNTER 2017-11-28 23:49 | Emergency (ER) | payer MEDICAID ==
[2017-11-29 00:17] LABS: BASOPHILS # (AUTO) 0.2 10^3/uL (0.0-0.1); BASOPHILS % (AUTO) 1.2 %; EOSINOPHILS # (AUTO) 0.6 10^3/uL (0.0-0.7); HGB - HEMOGLOBIN 13.1 g/dL (12.0-16.0); LYMPHOCYTES % (AUTO) 33.2 %; MEAN CORPUSCULAR HEMOGLOBIN 31.4 pg (27.0-31.0); MEAN CORPUSCULAR HGB CONC 35.7 g/dL (32.0-36.0); MEAN PLATELET VOLUME 6.4 fL (7.9-10.8); MONOCYTES # (AUTO) 0.8 10^3/uL (0.0-1.0); MONOCYTES % (AUTO) 5.2 %; NEUTROPHILS # (AUTO) 8.5 10^3/uL (1.5-6.6); NEUTROPHILS % (AUTO) 56.4 %; PLT - PLATELET COUNT 405 10^3/uL (130-450); RED BLOOD COUNT 4.18 10^6/uL (4.20-5.40); RED CELL DISTRIBUTION WIDTH 12.8 % (12.0-15.0); WHITE BLOOD COUNT 15.1 x10^3/uL (4.8-10.8)
[2017-11-29 00:22] LABS: BILIRUBIN,URINE NEGATIVE (NEGATIVE); GLUCOSE, URINE (UA) NEGATIVE (NEGATIVE); KETONES,URINE (UA) NEGATIVE (NEGATIVE); LEUKOCYTE ESTERASE, URINE NEGATIVE (NEGATIVE); NITRITE,URINE NEGATIVE (NEGATIVE); OCCULT BLOOD,URINE SMALL (NEGATIVE); PH,URINE 7.5 PH (5.0-7.5); PROTEIN,URINE NEGATIVE (NEGATIVE); UROBILINOGEN,URINE 0.2 (NORMAL) E.U./dL (NORMAL)
[2017-11-29 00:24] LABS: CLARITY,URINE CLEAR (CLEAR); HCG UR QUAL NEGATIVE
[2017-11-29 00:27] LABS: BACTERIA,URINE Rare /HPF (None Seen); SQUAMOUS EPITHELIAL CELL,UR FEW Squamous (<= Few)
--- NOTE | 2017-11-29 00:31 | ED Physician Documentation ---
History of Present Illness - Stated complaint Stated Complaint: CHEST PX - Chief complaint Chief Complaint: Cardiac - History obtained from History obtained from: Patient - History of Present Illness Timing: Today - Additonal information Additional information: patient is a 22 year old female with a history of giltman's syndrome who is presenting to the emergency department for body cramps and spasm. patient states that she gets this way when her potassium and magnesium get too low. they normally get low when patient is fighting and infection, and currently patient is being treated for pid. Review of Systems Constitutional: reports: Myalgias. denies: Fever, Chills Eyes: denies: Decreased vision, Photophobia Ears: denies: Ear pain, Drainage/discharge Nose: denies: Congestion Throat: denies: Sore throat Cardiac: reports: Palpitations Respiratory: denies: Cough, Wheezing GI: reports: Abdominal Pain. 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 - Past Surgical History Past Surgical History: No Ortho: ACL reconstruction, Arthroscopic surgery HEENT: Myringotomy (tubes), Tonsil/Adenoidectomy - Present Medications Home Medications: Ambulatory Orders Medication Instructions Recorded Confirmed Doxycycline Hyclate [Vibramycin] 100 mg PO BID #24 capsule 11/21/17 11/29/17 Ibuprofen [Motrin] 600 mg PO Q6HR PRN #30 tablet 11/21/17 11/29/17 Magnesium Oxide [Mag Ox] 400 mg PO TIDWM 11/21/17 11/29/17 Phenazopyridine [Pyridium] 100 mg PO BID #14 tablet 11/21/17 11/29/17 Potassium Chloride [Klor-Con 10] 60 meq PO BIDWM 11/21/17 11/29/17 Potassium Phosphate,Monobasic 500 mg PO .1-2 TIMES DAILY 11/21/17 11/29/17 [K-Phos Original] Vits A and D/White Pet/Lanolin [A 1 applic TP BID PRN #42.5 oint...g. 11/21/17 11/29/17 and D Ointment] - Allergies Allergies/Adverse Reactions: Allergies Allergy/AdvReac Type Severity Reaction Status Date / Time bismuth subsalicylate Allergy Respiratory Verified 11/29/17 00:01 [From Pepto-Bismol] cinnamon Allergy Anaphylaxis Verified 11/29/17 00:01 lorazepam [From Ativan] Allergy Hives Verified 11/29/17 00:01 ondansetron HCl * Allergy Itching Verified 11/29/17 00:01 [From Zofran (as hydrochloride)] - Social History Does the pt smoke?: Yes Smoking Status: Current every day smoker Does the pt drink ETOH?: No Does the pt have substance abuse?: No - Immunizations Immunizations are current?: Yes Immunizations: Other immun not current - POLST Patient has POLST: No PD ED PE NORMAL - Vitals Vital signs reviewed: Yes - General General: Alert and oriented X 3, No acute distress - HEENT HEENT: Atraumatic, PERRL - Neck Neck: Supple, no meningeal sign - Cardiac Cardiac: RRR, No murmur - Respiratory Respiratory: No respiratory distress, Clear bilaterally - Abdomen Abdomen: Soft, Non tender, Non distended - Female Female : Deferred - Derm Derm: Normal color, Warm and dry, No rash - Extremities Extremities: No deformity, No edema - Neuro Neuro: Alert and oriented X 3, No motor deficit, No sensory deficit, Normal speech Results - Vitals Vitals: Vital Signs - 24 hr 11/28/17 11/29/17 23:52 01:18 Temperature 36.9 C Heart Rate 81 87 Respiratory 18 18 Rate Blood Pressure 137/60 H 123/56 L O2 Saturation 100 100 Oxygen O2 Source Room air - EKG (time done) 2359 Rate: Rate (enter#) (76) Rhythm: NSR [place]: Normal Intervals: Normal [place] QRS: Normal Ischemia: Normal ST segments Compare to prior EKG: Unchanged from prior EKG - Labs Labs: Laboratory Tests 11/29/17 11/29/17 11/29/17 00:09 00:09 00:14 WBC 15.1 H RBC 4.18 L Hgb 13.1 Hct 36.8 L MCV 88.0 MCH 31.4 H MCHC 35.7 RDW 12.8 Plt Count 405 MPV 6.4 L Neut # 8.5 H Lymph # 5.0 H [place] # 0.8 Eos # 0.6 Baso # 0.2 H Absolute Nucleated RBC 0.01 Nucleated RBC % 0.0 Sodium 138 Potassium 2.6 L Chloride 100 L Carbon Dioxide 27 Anion Gap 11.0 BUN 12 Creatinine 0.7 Estimated GFR (MDRD) 107 Glucose 90 Calcium 8.4 L Phosphorus 3.9 Magnesium 1.3 L Total Bilirubin 0.4 AST 28 ALT 23 Alkaline Phosphatase 48 Total Protein 7.4 Albumin 4.0 Globulin 3.4 Albumin/Globulin Ratio 1.2 Lipase 32 Urine Color YELLOW Urine Clarity CLEAR Urine pH 7.5 Ur Specific [place] 1.015 Urine Protein NEGATIVE Urine Glucose (UA) NEGATIVE Urine Ketones NEGATIVE Urine Occult Blood SMALL H Urine Nitrite NEGATIVE Urine Bilirubin NEGATIVE Urine Urobilinogen 0.2 (NORMAL) Ur Leukocyte Esterase NEGATIVE Urine RBC 6-10 H Urine WBC 0-3 Ur Squamous Epith Cells FEW Squamous Urine Bacteria Rare Ur Microscopic Review INDICATED Urine Culture Comments NOT INDICATED Urine HCG, Qual NEGATIVE PD MEDICAL DECISION MAKING - ED course Complexity details: reviewed old records, reviewed results, re-evaluated patient , considered differential, d/w patient ED course: Patient was seen and examined at bedside. ekg was performed and within normal limits. labs were drawn and urine was collected. when patient's results came back she was found to have low magnesium and potassium. patient was treated with IV 10meq and 40meq or oral potassium. Patient refused the second IV dose stating she had oral potassium at home she would take and she felt better with the first dose of potassium. patient's magnesium was also replenished. Patient was educated on the importance of antibiotic compliance. Patient asked for and HIV test as well and it was sent off. Patient was able to tolerate PO and could continue with oral electrolyte therapy. patient required no further inpatient work up and was stable for discharge with outpatient follow up. Departure - Departure Disposition: 01 Home, Self Care Clinical Impression: Hypokalemia, Hypomagnesemia Condition: Good Instructions: ED Diet High Potassium Follow-Up: primary,care provider [Other] - Tomorrow Comments: Your labs today showed that your potassium and magnesium were both low. while we replaced some in the emergency department today it is important that you take your supplements when you get home. You also need to make sure you are taking the antibiotics as scheduled to get the full effect. You should follow up with your doctor this week for re-evaluation and lab draw. You may return to the emergency department at any time for new, worsening or uncontrollable symptoms.
[2017-11-29 00:44] LABS: ALBUMIN/GLOBULIN RATIO 1.2 (1.0-2.2); BILIRUBIN,TOTAL 0.4 mg/dL (0.2-1.0); CALCIUM 8.4 mg/dL (8.5-10.3); CREATININE 0.7 mg/dL (0.4-1.0); MAGNESIUM 1.3 mg/dL (1.7-2.8); PHOSPHORUS 3.9 mg/dL (2.5-4.6); TOTAL PROTEIN 7.4 g/dL (6.7-8.2)
[2017-11-29] MEDS ORDERED: POTASSIUM CHLOR 10 MEQ/100 ML 10 MEQ/100 ML BAG IV ONE ×2 (00:48→02:07)
[2017-11-29] MEDS ORDERED: POTASSIUM CHLORIDE 20 MEQ TABLET PO STA (00:49)
[2017-11-29] MEDS ORDERED: MAGNESIUM SULFATE 2 GRAM 2 GM/50 ML BAG IV ONE (00:49)
[2017-11-29 03:23] VITALS: BP 111/68
[2017-11-29 08:54] LABS: PLATELET ESTIMATE, MANUAL NORMAL (130-450,000) (NORMAL)
[2017-11-30 14:18] LABS: HIV AG/AB 4TH GEN NON-REACTIVE (NON-REACTIVE)
== END 2017-11-29 03:25 | disposition home or self-care (01) ==
LOC: ED 23:49
DX: E87.6 Hypokalemia (principal); E83.42 Hypomagnesemia; F17.200 Nicotine dependence, unspecified, uncomplicated
CPT/HCPCS: 36415; 80053; 81001; 81025; 83690; 83735; 84100; 85025; 87389; 93005; 96365; 96367; 99283; 99284; A9270; 81003; 87086

== ENCOUNTER 2018-01-02 13:57 | Inpatient (IN) | payer MEDICAID ==
--- NOTE | 2018-01-02 14:13 | ED Physician Documentation ---
History of Present Illness - Stated complaint Stated Complaint: HEART FLUTTERS/BLURRY VISION - Chief complaint Chief Complaint: General - History obtained from History obtained from: Patient - History of Present Illness Timing: Other (22-year-old woman with chronic electrolyte abnormalities, she says she has been compliant with her supplements but has been working more and feels like her electrolytes are low with classic symptoms of muscle cramps and heart fluttering. She also has pelvic pain and vaginal discharge feeling like the gonorrhea that she had a few months ago was back. She has been sexually active using condoms since then.) Review of Systems Ten Systems: 10 systems reviewed and negative Constitutional: denies: Fever, Chills Nose: denies: Rhinorrhea / runny nose, Congestion Cardiac: reports: Palpitations. 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: Ovarian cysts : Chronic bladder infection, Other HEENT: None Psych: None Musculoskeletal: None Derm: Eczema - Past Surgical History Past Surgical History: No Ortho: ACL reconstruction, Arthroscopic surgery HEENT: Myringotomy (tubes), Tonsil/Adenoidectomy - Present Medications Home Medications: Ambulatory Orders Medication Instructions Recorded Confirmed Magnesium Oxide [Mag Ox] 400 mg PO TIDWM 11/21/17 01/02/18 Potassium Chloride [Klor-Con 10] 60 meq PO BIDWM 11/21/17 01/02/18 Potassium Phosphate,Monobasic 500 mg PO BIDWM 11/21/17 01/02/18 [K-Phos Original] Loperamide [Imodium] 2 mg PO BIDWM 01/02/18 01/02/18 - Allergies Allergies/Adverse Reactions: Allergies Allergy/AdvReac Type Severity Reaction Status Date / Time bismuth subsalicylate Allergy Respiratory Verified 11/29/17 00:01 [From Pepto-Bismol] cinnamon Allergy Anaphylaxis Verified 11/29/17 00:01 lorazepam [From Ativan] Allergy Hives Verified 11/29/17 00:01 ondansetron HCl * Allergy Itching Verified 11/29/17 00:01 [From Zofran (as hydrochloride)] - Social History Does the pt smoke?: Yes Smoking Status: Current every day smoker Does the pt drink ETOH?: No Does the pt have substance abuse?: No - Family History Family history: reports: Non contributory - Immunizations Immunizations are current?: Yes Immunizations: Other immun not current - POLST Patient has POLST: No PD ED PE NORMAL - Vitals Vital signs reviewed: Yes - General General: Alert and oriented X 3, No acute distress - HEENT HEENT: PERRL, EOMI - Neck Neck: Supple, no meningeal sign, No bony TTP - Cardiac Cardiac: RRR, No murmur - Respiratory Respiratory: No respiratory distress, Clear bilaterally - Abdomen Abdomen: Normal bowel sounds, Soft, Non tender - Female Female : Veterinary Bacteriologist present (Annia Chamorro RN), Other (some blood in vault: on menses, cx closed. Swabs taken. No CMT.) - Back Back: No CVA TTP, No spinal TTP - Derm Derm: Normal color, Warm and dry, No rash - Extremities Extremities: No edema, No calf tenderness / cord - Neuro Neuro: Alert and oriented X 3 - Psych Psych: Normal mood, Normal affect Results - Vitals Vitals: Vital Signs - 24 hr 01/02/18 01/02/18 14:02 14:37 Temperature 36.4 C L Heart Rate 75 Respiratory 14 Rate Blood Pressure 132/71 H O2 Saturation 97 Oxygen O2 Source Room air - EKG (time done) 1405 Rate: Rate (enter#) (72) Rhythm: NSR [place]: Normal Intervals: Normal [place] QRS: Normal Ischemia: Normal ST segments Computer interpretation: Agree with computer - Labs Labs: Microbiology 01/02/18 14:52 Wet Prep - Final Cervix Laboratory Tests 01/02/18 01/02/18 01/02/18 14:11 14:20 14:20 WBC 11.5 H RBC 4.52 Hgb 13.8 Hct 39.2 MCV 86.8 MCH 30.6 MCHC 35.2 RDW 12.7 Plt Count 431 MPV 6.4 L Neut # 8.8 H Lymph # 2.0 [place] # 0.5 Eos # 0.1 Baso # 0.1 Absolute Nucleated RBC 0.00 Nucleated RBC % 0.0 Sodium 138 Potassium 2.5 L* Chloride 98 L Carbon Dioxide 28 Anion Gap 12.0 BUN 11 Creatinine 0.6 Estimated GFR (MDRD) 127 Glucose 106 H Calcium 9.0 Phosphorus 3.3 Magnesium 1.0 L* Total Bilirubin 0.4 AST 25 ALT 26 Alkaline Phosphatase 46 Troponin I < 0.04 Total Protein 8.1 Albumin 4.5 Globulin 3.6 Albumin/Globulin Ratio 1.3 Lipase 23 Urine Color Urine Clarity Urine pH Ur Specific [place] Urine Protein Urine Glucose (UA) Urine Ketones Urine Occult Blood Urine Nitrite Urine Bilirubin Urine Urobilinogen Ur Leukocyte Esterase Urine RBC Urine WBC Ur Squamous Epith Cells Urine Crystals Urine Bacteria Ur Microscopic Review Urine Culture Comments Urine HCG, Qual 01/02/18 14:35 WBC RBC Hgb Hct MCV MCH MCHC RDW Plt Count MPV Neut # Lymph # [place] # Eos # Baso # Absolute Nucleated RBC Nucleated RBC % Sodium Potassium Chloride Carbon Dioxide Anion Gap BUN Creatinine Estimated GFR (MDRD) Glucose Calcium Phosphorus Magnesium Total Bilirubin AST ALT Alkaline Phosphatase Troponin I Total Protein Albumin Globulin Albumin/Globulin Ratio Lipase Urine Color YELLOW Urine Clarity CLEAR Urine pH 8.5 H Ur Specific [place] 1.010 Urine Protein 100 H Urine Glucose (UA) NEGATIVE Urine Ketones NEGATIVE Urine Occult Blood LARGE H Urine Nitrite NEGATIVE Urine Bilirubin NEGATIVE Urine Urobilinogen 0.2 (NORMAL) Ur Leukocyte Esterase NEGATIVE Urine RBC 11-25 H Urine WBC 0-3 Ur Squamous Epith Cells NONE SEEN Urine Crystals 11-25 Triple Phos Urine Bacteria Few Ur Microscopic Review INDICATED Urine Culture Comments NOT INDICATED Urine HCG, Qual NEGATIVE PD MEDICAL DECISION MAKING - ED course ED course: 22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 IV repletion started in the emergency department but probably needs one night in the hospital for continued medications and lab recheck. Spoke with Dr. Mancilla for observation at 2:52 PM. At approximately 3:40 PM I was notified by the nurse that she did have a 9 beat run of V. tach without syncope on the monitor, I called Dr. Mancilla to update. Departure - Departure Disposition: ED Place in Observation Clinical Impression: Hypokalemia Condition: Stable Discharge Date/Time: 01/02/18 16:15
[2018-01-02 14:26] LABS: BASOPHILS # (AUTO) 0.1 10^3/uL (0.0-0.1); BASOPHILS % (AUTO) 0.8 %; EOSINOPHILS # (AUTO) 0.1 10^3/uL (0.0-0.7); EOSINOPHILS % (AUTO) 0.9 %; HGB - HEMOGLOBIN 13.8 g/dL (12.0-16.0); LYMPHOCYTES % (AUTO) 17.5 %; MEAN CORPUSCULAR HEMOGLOBIN 30.6 pg (27.0-31.0); MEAN CORPUSCULAR HGB CONC 35.2 g/dL (32.0-36.0); MEAN CORPUSCULAR VOLUME 86.8 fL (81.0-99.0); MEAN PLATELET VOLUME 6.4 fL (7.9-10.8); MONOCYTES # (AUTO) 0.5 10^3/uL (0.0-1.0); MONOCYTES % (AUTO) 4.4 %; NEUTROPHILS # (AUTO) 8.8 10^3/uL (1.5-6.6); NEUTROPHILS % (AUTO) 76.4 %; PLT - PLATELET COUNT 431 10^3/uL (130-450); RED BLOOD COUNT 4.52 10^6/uL (4.20-5.40); RED CELL DISTRIBUTION WIDTH 12.7 % (12.0-15.0); WHITE BLOOD COUNT 11.5 x10^3/uL (4.8-10.8)
[2018-01-02] MEDS ORDERED: POTASSIUM CHLOR 10 MEQ/100 ML 10 MEQ/100 ML BAG IV ONE ×2 (14:39)
[2018-01-02] MEDS ORDERED: MAGNESIUM SULFATE 2 GRAM 2 GM/50 ML BAG IV ONE (14:39)
[2018-01-02 14:40] LABS: ALBUMIN 4.5 g/dL (3.2-5.5); ALBUMIN/GLOBULIN RATIO 1.3 (1.0-2.2); BILIRUBIN,TOTAL 0.4 mg/dL (0.2-1.0); CREATININE 0.6 mg/dL (0.4-1.0); PHOSPHORUS 3.3 mg/dL (2.5-4.6); TOTAL PROTEIN 8.1 g/dL (6.7-8.2)
[2018-01-02 14:55] LABS: BILIRUBIN,URINE NEGATIVE (NEGATIVE); GLUCOSE, URINE (UA) NEGATIVE (NEGATIVE); KETONES,URINE (UA) NEGATIVE (NEGATIVE); LEUKOCYTE ESTERASE, URINE NEGATIVE (NEGATIVE); NITRITE,URINE NEGATIVE (NEGATIVE); OCCULT BLOOD,URINE LARGE (NEGATIVE); PH,URINE 8.5 PH (5.0-7.5); PROTEIN,URINE 100 mg/dL (NEGATIVE); UROBILINOGEN,URINE 0.2 (NORMAL) E.U./dL (NORMAL)
[2018-01-02 14:58] LABS: CLARITY,URINE CLEAR (CLEAR)
[2018-01-02 14:59] LABS: HCG UR QUAL NEGATIVE
[2018-01-02] MEDS ORDERED: SODIUM CHLORIDE 0.9% 1,000 ML IV ONE (15:04)
[2018-01-02 15:07] LABS: BACTERIA,URINE Few /HPF (None Seen); SQUAMOUS EPITHELIAL CELL,UR NONE SEEN (<= Few)
[2018-01-02 15:08] LABS: CRYSTALS,URINE 11-25 Triple Phos /LPF
[2018-01-02] MEDS ORDERED: SODIUM CHLORIDE FLUSH 0.9% 10 ML SYRINGE IVP PRN (15:17)
[2018-01-02] MEDS ORDERED: POTASSIUM CHLOR 20 MEQ/100 ML 20 MEQ/100 ML BAG IV ONE (15:28)
--- NOTE | 2018-01-02 15:39 | HISTORY & PHYSICAL EXAMINATION ---
Chief Complaint - Chief Complaint Chief Complaint: palpitation and whole body muscle spasm and cramp History of Present Illness - Admitted From Admitted From:: ER - History Obtained From History obtained from: pt - History of Present Illness HPI Comment/Other: is 22-year-old female with a past medical history significant for family potassium wasting renal tubular acidosis, hypokalemia, hypomagnesemia, headache/migraine, ovarian cysts, chronic bladder infection, who present ER for complaint of midsternal chest pain, palpitation and whole body muscle spasm and cramp. Pt report she recently works lots, and feel whole body ache, muscle spasm. Pt also report right chest and midsternal sharp chest pain. The chest pain does not radiate to other locations. Pt denies diaphoresis. Pt report nausea but without vomiting. Pt report she missed her Magnesium medications before yesterday. Pt state " I know my potassium and magnesium is lower. As before, I had the similar situation." Lab test in ER reveals her potassium is 2.5, Mag is 1. Troponin and D-dimer all negative. EKG is SR. Pt is admitted in observation for electrolytic replacement, and chest pain work up. 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 Living arrangement: At home Living Situation: With family Social History Notes: The patient's Mother sent a note with the patient expressing her permission/desire that the patient be treated in the ED. - Substance History Use: Uses substance without health or social issues: NONE - POLST Patient has POLST: No POLST Status: Full Code Meds/Allgy - Home Medications Home Medications: Ambulatory Orders Medication Instructions Recorded Confirmed Magnesium Oxide [Mag Ox] 400 mg PO TIDWM 11/21/17 01/02/18 Potassium Chloride [Klor-Con 10] 60 meq PO BIDWM 11/21/17 01/02/18 Potassium Phosphate,Monobasic 500 mg PO BIDWM 11/21/17 01/02/18 [K-Phos Original] Loperamide [Imodium] 2 mg PO BIDWM 01/02/18 01/02/18 - Allergies Allergies/Adverse Reactions: Allergies Allergy/AdvReac Type Severity Reaction Status Date / Time bismuth subsalicylate Allergy Respiratory Verified 11/29/17 00:01 [From Pepto-Bismol] cinnamon Allergy Anaphylaxis Verified 11/29/17 00:01 lorazepam [From Ativan] Allergy Hives Verified 11/29/17 00:01 ondansetron HCl * Allergy Itching Verified 11/29/17 00:01 [From Zofran (as hydrochloride)] Review of Systems - Constitutional Constitutional: denies: Fatigue, Fever, Chills, Malaise, Weakness, Poor appetite , Diaphoresis, Night sweats - Eyes Eyes: denies: Pain, Irritation, Amaurosis, Blurred vision, Spots in vision, Field loss, Vision loss, Dipolpia - Ears, Nose & Throat Ears, Nose & Throat: denies: Ear pain, Hearing loss, Hearing aids, Tinnitus, Vertigo, Nasal pain, Nasal discharge, Nosebleeds, Nasal obstruction, Nasal congestion, Postnasal drainage, Sore throat, Mouth lesions, Bleeding gums - Cardiovascular Cariovascular: reports: Palpitations, Chest pain. denies: Irregular heart rate , Edema, Lightheadedness, Syncope, Exertional dyspnea, Decr. exercise tolerance - Respiratory Respiratory: denies: Cough, Sputum production, Wheezing, Snoring, Hemoptysis, Orthopnea, SOB at rest, SOB with exertion, Apnea - Gastrointestinal Gastrointestinal: reports: Abdominal pain, Nausea. denies: Abdominal distention , Constipation, Diarrhea, Change in bowel habits, Rectal bleeding, Black stools , Bloody stools, Vomiting, Bile emesis, [place] blood emesis, Coffee grounds emesis, Reflux/heartburn, Bloating, Poor appetite - Genitourinary Genitourinary: denies: Dysuria, Frequency, Urgency, Hematuria, Incontinence, Flank pain, Nocturia, Urethral discharge - Musculoskeletal Musculoskeletal: reports: Muscle aches. denies: Back pain, Stiffness, Limited range of motion, Muscle weakness, Gout, Joint pain, Joint swelling - Integumentary Integumentary: denies: Rash, Pruritis, Lesions, Dryness, Lumps, Acne, Pigment changes - Neurological Neurological: denies: General weakness, Focal weakness, Headache, Dizziness, Numbness, Memory problems, Pre-existing deficit, Abnormal gait, Seizures, Incoordination, Slurred speech - Psychiatric Psychiatric: denies: Depression, Anxiety, Suicidal, Delusions, Hallucinations, Homicidal - Endocrine Endocrine: denies: Polyuria, Polydypsia, Polyphagia, Intolerance to cold, Intolerance to heat - Hematologic/Lymphatic Hematologic/Lymphatic: denies: Anemia, Bruising, Petechiae, Blood clots, Lymphadenopathy, Bleeding tendencies Exam - Vital Signs Reviewed Vital Signs: Yes Vital Signs: Vital Signs x48h Temp Pulse Resp BP Pulse Ox 01/02/18 15:17 69 18 117/63 99 01/02/18 14:37 36.4 C L 01/02/18 14:02 75 14 132/71 H 97 - Physical Exam General Appearance: positive: No acute distress, Alert. negative: Lethargic Eyes Bilateral: positive: Normal inspection, PERRL, No lid inflammation, Conjunctivae nml ENT: positive: ENT inspection nml, Pharynx nml, No signs of dehydration. negative: Purulent nasal drainage, Pharyngeal erythema, Oral lesions Neck: positive: Nml inspection, Thyroid nml, No JVD, Trachea midline. negative : Thyromegaly, Lymphadenopathy (R), Lymphadenopathy (L), Stiff neck, Carotid bruit, Swelling/bruising, Tracheal deviation Respiratory: positive: Chest non-tender, No respiratory distress, Breath sounds nml. negative: Wheezes, Rales, Rhonchi Cardiovascular: positive: Regular rate & rhythm, No murmur, No gallop. negative : Irregularly irregular, Extrasystoles, Tachycardia, Bradycardia, JVD present, Systolic murmur, Diastolic murmur Peripheral Pulses: positive: 2+ Abdomen: positive: Non-tender, No organomegaly, Nml bowel sounds, No distention. negative: Tenderness, Guarding, Rebound Back: positive: Nml inspection. negative: CVA tenderness (R), CVA tenderness (L ) Skin: positive: Color nml, No rash, Warm, Dry. negative: Cyanosis, Diaphoresis , Pallor, Skin rash Extremities: positive: Non-tender, Full ROM, Nml appearance. negative: Calf tenderness, Joint swelling, Kylee's sign/cords Neurologic/Psychiatric: positive: Oriented x3, Motor nml, Sensation nml. negative: Sensory loss, Facial droop, Slurred/abnml speech, Depressed mood/ affect Conclusion/Plan - Problem List (1) Chest pain Conclusion/Plan: pt with family potassium wasting renal tubular acidosis syndrome, significant lower potassium and mag, whole body ache, initiate Troponin is negative, EKG NSR. serial troponin EKG PRN ECHO replacement of K and Mag recheck K and Mag once Aspirin 325 mg daily aspirin 81 mg (2) Hypokalemia Conclusion/Plan: chronic, with family potassium wasting renal tubular acidosis. pt took 120 meq potassium daily at home replacement of potassium resume home potassium recheck potassium EKG PRN on tele monitor vital monitor (3) Hypomagnesemia Conclusion/Plan: chronic, with family potassium wasting renal tubular acidosis, pt has home Mag 400mg Tid resume home Mag replacement of Mag recheck Mag tele, vital monitor (4) Medical non-compliance Conclusion/Plan: pt state she did not take Magnesium at home consult for pt's medical compliance for pt (5) Potassium wasting nephropathy Conclusion/Plan: chronic, family, pt's brother with the similar medical problem continue manage and electrolytic monitor, and replacement follow up nephrology as out-pt (6) DVT prophylaxis Conclusion/Plan: pt refuse SCD, add Lovenox (7) Full code status Conclusion/Plan: pt request full code status - Lab Results Fish Bones: 01/03/18 03:05 01/03/18 03:05 Core Measures - Anticipated LOS I expect patient to be DC'd or transferred within 96 hours.: Yes - DVT/VTE - Prophylaxis VTE/DVT Device ordered at admit?: No VTE/DVT Prophylaxis med ordered at admit?: Yes - Stroke - Rehab Assessment Rehab services assessment to be ordered?: No - AMI - Statin at Admit Aspirin Prescribed on Admit: Yes
[2018-01-02] MEDS ORDERED: POTASSIUM CHLORIDE 20 MEQ TABLET PO SCH (16:00)
[2018-01-02] MEDS ORDERED: POTASSIUM CHLOR 10 MEQ/100 ML 10 MEQ/100 ML BAG IV SCH ×2 (16:00→17:00)
[2018-01-02] MEDS ORDERED: MORPHINE 10 MG/ML VIAL IVP PRN (16:22)
[2018-01-02] MEDS: PROCHLORPERAZINE 10 MG/2 ML VIAL IVP PRN ×2 (16:57→21:35)
[2018-01-02] MEDS: ACETAMINOPHEN 325 MG TABLET PO PRN (16:57)
--- NOTE | 2018-01-02 16:57 | XRAY Report ---
EXAM: CHEST RADIOGRAPHY EXAM DATE: 01/02/2018 04:37 PM. CLINICAL HISTORY: Right chest pain. COMPARISON: 03/03/2014. TECHNIQUE: 1 view. FINDINGS: Lungs/Pleura: No focal opacities evident. No pleural effusion. No pneumothorax. Mediastinum: Within exam limitations, the cardiomediastinal contour is normal. Other: No bony abnormalities noted. IMPRESSION: Normal single view chest. [facility] Referring Provider Line: [phone] SITE ID: [id number]
[2018-01-02] MEDS ORDERED: ASPIRIN 325 MG TABLET PO SCH (17:00)
[2018-01-02] MEDS: SODIUM CHLORIDE FLUSH 0.9% 10 ML SYRINGE IVP SCH (18:56)
[2018-01-02] MEDS: POTASSIUM CHLOR 10 MEQ/100 ML 10 MEQ/100 ML BAG IV SCH ×2 (18:56→20:14)
[2018-01-02] MEDS: MAGNESIUM OXIDE 400 MG TABLET PO SCH (18:57)
[2018-01-02] MEDS: POTASSIUM CHLORIDE 10 MEQ CAPSULE PO SCH (18:57)
[2018-01-02] MEDS: NEUTRA-PHOS 250 MG TABLET PO SCH (19:06)
[2018-01-02] MEDS: MORPHINE 2 MG/ML CARPUJECT IVP PRN (21:30)
[2018-01-02] MEDS: BACLOFEN 10 MG TABLET PO SCH (21:31)
[2018-01-02] MEDS: SODIUM CHLORIDE 0.9% 1,000 ML IV SCH (21:39)
[2018-01-03 03:20] LABS: BASOPHILS # (AUTO) 0.1 10^3/uL (0.0-0.1); BASOPHILS % (AUTO) 1.3 %; EOSINOPHILS # (AUTO) 0.4 10^3/uL (0.0-0.7); EOSINOPHILS % (AUTO) 4.1 %; HGB - HEMOGLOBIN 12.7 g/dL (12.0-16.0); LYMPHOCYTES # (AUTO) 4.2 10^3/uL (1.5-3.5); LYMPHOCYTES % (AUTO) 40.8 %; MEAN CORPUSCULAR HEMOGLOBIN 31.2 pg (27.0-31.0); MEAN CORPUSCULAR HGB CONC 35.6 g/dL (32.0-36.0); MEAN CORPUSCULAR VOLUME 87.8 fL (81.0-99.0); MEAN PLATELET VOLUME 6.4 fL (7.9-10.8); MONOCYTES # (AUTO) 0.8 10^3/uL (0.0-1.0); MONOCYTES % (AUTO) 8.2 %; NEUTROPHILS # (AUTO) 4.7 10^3/uL (1.5-6.6); NEUTROPHILS % (AUTO) 45.6 %; PLT - PLATELET COUNT 387 10^3/uL (130-450); RED BLOOD COUNT 4.05 10^6/uL (4.20-5.40); RED CELL DISTRIBUTION WIDTH 12.6 % (12.0-15.0); WHITE BLOOD COUNT 10.2 x10^3/uL (4.8-10.8)
[2018-01-03 03:28] LABS: ALBUMIN 3.5 g/dL (3.2-5.5); ALBUMIN/GLOBULIN RATIO 1.1 (1.0-2.2); BILIRUBIN,TOTAL 0.5 mg/dL (0.2-1.0); CALCIUM 8.5 mg/dL (8.5-10.3); CREATININE 0.5 mg/dL (0.4-1.0); MAGNESIUM 1.5 mg/dL (1.7-2.8); TOTAL PROTEIN 6.8 g/dL (6.7-8.2)
[2018-01-03] MEDS ORDERED: POTASSIUM CHLOR 10 MEQ/100 ML 10 MEQ/100 ML BAG IV ONE ×3 (06:03→08:30)
[2018-01-03] MEDS ORDERED: MAGNESIUM SULFATE 2 GRAM 2 GM/50 ML BAG IV ONE ×2 (06:04→15:02)
[2018-01-03] MEDS: BACLOFEN 10 MG TABLET PO SCH ×3 (06:30→21:10)
[2018-01-03] MEDS: SODIUM CHLORIDE FLUSH 0.9% 10 ML SYRINGE IVP SCH ×3 (07:32→21:10)
[2018-01-03] MEDS: SODIUM CHLORIDE 0.9% 1,000 ML IV SCH (07:33)
[2018-01-03] MEDS: POTASSIUM CHLORIDE 10 MEQ CAPSULE PO SCH ×2 (08:53→16:26)
[2018-01-03] MEDS: MAGNESIUM OXIDE 400 MG TABLET PO SCH ×3 (08:53→16:26)
[2018-01-03] MEDS: NEUTRA-PHOS 250 MG TABLET PO SCH ×2 (08:53→16:26)
[2018-01-03] MEDS: ENOXAPARIN 40 MG/0.4 ML SYRINGE SUBQ SCH (08:54)
[2018-01-03] MEDS: ASPIRIN CHEW 81 MG TABLET PO SCH (08:54)
[2018-01-03] MEDS: POLYETHYLENE GLYCOL 3350 17 GM PACKET PO SCH (08:54)
[2018-01-03] MEDS: FAMOTIDINE 20 MG TABLET PO SCH (08:54)
[2018-01-03] MEDS ORDERED: POTASSIUM CHLORIDE 20 MEQ TABLET PO ONE ×2 (12:00→15:05)
[2018-01-03] MEDS ORDERED: POTASSIUM CHLOR 20 MEQ/100 ML 20 MEQ/100 ML BAG IV ONE (15:04)
[2018-01-03] MEDS ORDERED: MAGNESIUM OXIDE 400 MG TABLET PO SCH (16:00)
[2018-01-03] MEDS: PROCHLORPERAZINE 10 MG/2 ML VIAL IVP PRN ×2 (16:27→21:09)
[2018-01-03] MEDS: MORPHINE 2 MG/ML CARPUJECT IVP PRN ×2 (16:27→21:10)
--- NOTE | 2018-01-03 16:37 | PROVIDER PROGRESS NOTE ---
Subjective - Prog Note Date Prog Note Date: 01/03/18 - Subjective Pt reports feeling: Improved Subjective: pt feels per body pain is much better. Denies chest pain, shortness of breath, cough, fever, chill Current Medications - Current Medications Current Medications: Potassium Chloride [Klor-Con 10] 60 meq PO BIDWM 11/21/17 Potassium Phosphate,Monobasic [K-Phos Original] 500 mg PO BIDWM 11/21/17 Loperamide [Imodium] 2 mg PO BIDWM 01/02/18 Objective - Vital Signs/Intake & Output Vital Signs: Vital Signs x48h Temp Pulse Resp BP Pulse Ox 01/03/18 16:06 36.7 C 72 18 114/59 L 99 01/03/18 11:45 36.5 C 80 16 121/60 98 Intake & Output: Intake & Output 12/31/17 01/01/18 01/02/18 01/03/18 23:59 23:59 23:59 23:59 Intake Total 1849 2034 Balance 1849 2034 - Objective General Appearance: positive: No acute distress, Alert. negative: Lethargic Eyes Bilateral: positive: Normal inspection, PERRL, No lid inflammation, Conjunctivae nml ENT: positive: ENT inspection nml, Pharynx nml, No signs of dehydration. negative: Purulent nasal drainage, Pharyngeal erythema, Oral lesions Neck: positive: Nml inspection, Thyroid nml, No JVD, Trachea midline. negative : Thyromegaly, Lymphadenopathy (R), Lymphadenopathy (L), Stiff neck, Carotid bruit, Swelling/bruising, Tracheal deviation Respiratory: positive: Chest non-tender, No respiratory distress, Breath sounds nml. negative: Wheezes, Rales, Rhonchi Cardiovascular: positive: Regular rate & rhythm, No murmur, No gallop. negative : Irregularly irregular, Extrasystoles, Tachycardia, Bradycardia, JVD present, Systolic murmur, Diastolic murmur Peripheral Pulses: 2+ Radial (R), 2+ Radial (L), 2+ Dorsalis pedis (R), 2+ Dorsalis pedis (L) Abdomen: positive: Non-tender, No organomegaly, Nml bowel sounds, No distention. negative: Tenderness, Guarding, Rebound Back: positive: Nml inspection. negative: CVA tenderness (R), CVA tenderness (L ) Skin: positive: Color nml, No rash, Warm, Dry. negative: Cyanosis, Diaphoresis , Pallor, Skin rash Extremities: positive: Non-tender, Full ROM, Nml appearance. negative: Calf tenderness, Joint swelling, Kylee's sign/cords Neurologic/Psychiatric: positive: Oriented x3, Motor nml, Sensation nml, Mood/ affect nml. negative: Sensory loss, Facial droop, Slurred/abnml speech, Depressed mood/affect - Lab Results Fish Bones: 01/04/18 05:28 01/04/18 05:28 Other Labs: Lab Results x24hrs 01/03/18 01/03/18 01/03/18 Range/Units 14:10 14:10 03:05 WBC (4.8-10.8) x10^3/uL RBC (4.20-5.40) 10^6/uL Hgb (12.0-16.0) g/dL Hct (37.0-47.0) % MCV (81.0-99.0) fL MCH (27.0-31.0) pg MCHC (32.0-36.0) g/dL RDW (12.0-15.0) % Plt Count (130-450) 10^3/uL MPV (7.9-10.8) fL Neut # (1.5-6.6) 10^3/uL Lymph # (1.5-3.5) 10^3/uL Kimball # (0.0-1.0) 10^3/uL Eos # (0.0-0.7) 10^3/uL Baso # (0.0-0.1) 10^3/uL Absolute Nucleated RBC x10^3/uL Nucleated RBC % /100WBC Sodium (135-145) mmol/L Potassium 3.1 L (3.5-5.0) mmol/L Chloride (101-111) mmol/L Carbon Dioxide (21-32) mmol/L Anion Gap (6-13) BUN (6-20) mg/dL Creatinine (0.4-1.0) mg/dL Estimated GFR (MDRD) (>89) Glucose (70-100) mg/dL Calcium (8.5-10.3) mg/dL Magnesium 1.4 L (1.7-2.8) mg/dL Total Bilirubin (0.2-1.0) mg/dL AST (10-42) IU/L ALT (10-60) IU/L Alkaline Phosphatase (42-121) IU/L Troponin I < 0.04 (<0.49) ng/mL Total Protein (6.7-8.2) g/dL Albumin (3.2-5.5) g/dL Globulin (2.1-4.2) g/dL Albumin/Globulin Ratio (1.0-2.2) 01/03/18 01/03/18 Range/Units 03:05 03:05 WBC 10.2 (4.8-10.8) x10^3/uL RBC 4.05 L (4.20-5.40) 10^6/uL Hgb 12.7 (12.0-16.0) g/dL Hct 35.6 L (37.0-47.0) % MCV 87.8 (81.0-99.0) fL MCH 31.2 H (27.0-31.0) pg MCHC 35.6 (32.0-36.0) g/dL RDW 12.6 (12.0-15.0) % Plt Count 387 (130-450) 10^3/uL MPV 6.4 L (7.9-10.8) fL Neut # 4.7 (1.5-6.6) 10^3/uL Lymph # 4.2 H (1.5-3.5) 10^3/uL Kimball # 0.8 (0.0-1.0) 10^3/uL Eos # 0.4 (0.0-0.7) 10^3/uL Baso # 0.1 (0.0-0.1) 10^3/uL Absolute Nucleated RBC 0.00 x10^3/uL Nucleated RBC % 0.0 /100WBC Sodium 139 (135-145) mmol/L Potassium 2.8 L (3.5-5.0) mmol/L Chloride 102 (101-111) mmol/L Carbon Dioxide 25 (21-32) mmol/L Anion Gap 12.0 (6-13) BUN 11 (6-20) mg/dL Creatinine 0.5 (0.4-1.0) mg/dL Estimated GFR (MDRD) 157 (>89) Glucose 99 (70-100) mg/dL Calcium 8.5 (8.5-10.3) mg/dL Magnesium 1.5 L (1.7-2.8) mg/dL Total Bilirubin 0.5 (0.2-1.0) mg/dL AST 23 (10-42) IU/L ALT 22 (10-60) IU/L Alkaline Phosphatase 35 L (42-121) IU/L Troponin I (<0.49) ng/mL Total Protein 6.8 (6.7-8.2) g/dL Albumin 3.5 (3.2-5.5) g/dL Globulin 3.3 (2.1-4.2) g/dL Albumin/Globulin Ratio 1.1 (1.0-2.2) Assessment/Plan - Problem List (1) Chest pain Impression: (1) Chest pain Conclusion/Plan: pt denies more chest pain, but state she still feel some flutter and palpitations in her chest. Troponin serial negative, ECHO unremarkable. pt refused several times scheduled medications per nurse reported continue tele, EKG prn continue replace potassium and mag, since test showed serum Potassium and Mag is still lower, because pt refused to take some meds pt with family potassium wasting renal tubular acidosis syndrome, significant lower potassium and mag, whole body ache, initiate Troponin is negative, EKG NSR. serial troponin EKG PRN ECHO replacement of K and Mag recheck K and Mag once Aspirin 325 mg daily aspirin 81 mg (2) Hypokalemia Conclusion/Plan: still lower, continue replacement. pt refused to take some potassium replacement chronic, with family potassium wasting renal tubular acidosis. pt took 120 meq potassium daily at home replacement of potassium resume home potassium recheck potassium EKG PRN on tele monitor vital monitor (3) Hypomagnesemia Conclusion/Plan: still lower, continue replacement. pt refused to take some potassium replacement chronic, with family potassium wasting renal tubular acidosis, pt has home Mag 400mg Tid resume home Mag replacement of Mag recheck Mag tele, vital monitor (4) Medical non-compliance Conclusion/Plan: pt refused to take some medications even at hospital advise pt for medical compliance pt state she did not take Magnesium at home consult for pt's medical compliance for pt (5) Potassium wasting nephropathy Conclusion/Plan: chronic, family, pt's brother with the similar medical problem continue manage and electrolytic monitor, and replacement follow up nephrology as out-pt
[2018-01-03] MEDS: POTASSIUM CHLOR 10 MEQ/100 ML 10 MEQ/100 ML BAG IV SCH ×2 (16:48→17:39)
[2018-01-03] MEDS ORDERED: LOPERAMIDE 2 MG CAPSULE PO PRN (23:21)
[2018-01-04] MEDS: SODIUM CHLORIDE FLUSH 0.9% 10 ML SYRINGE IVP SCH ×2 (05:46→08:43)
[2018-01-04] MEDS: BACLOFEN 10 MG TABLET PO SCH (05:46)
[2018-01-04 05:57] LABS: BASOPHILS # (AUTO) 0.1 10^3/uL (0.0-0.1); BASOPHILS % (AUTO) 0.7 %; EOSINOPHILS # (AUTO) 0.5 10^3/uL (0.0-0.7); EOSINOPHILS % (AUTO) 5.9 %; LYMPHOCYTES # (AUTO) 3.4 10^3/uL (1.5-3.5); LYMPHOCYTES % (AUTO) 38.3 %; MEAN CORPUSCULAR HEMOGLOBIN 30.4 pg (27.0-31.0); MEAN CORPUSCULAR HGB CONC 34.1 g/dL (32.0-36.0); MEAN CORPUSCULAR VOLUME 89.2 fL (81.0-99.0); MEAN PLATELET VOLUME 6.6 fL (7.9-10.8); MONOCYTES # (AUTO) 0.6 10^3/uL (0.0-1.0); MONOCYTES % (AUTO) 7.1 %; NEUTROPHILS # (AUTO) 4.3 10^3/uL (1.5-6.6); PLT - PLATELET COUNT 387 10^3/uL (130-450); RED BLOOD COUNT 4.27 10^6/uL (4.20-5.40); RED CELL DISTRIBUTION WIDTH 12.7 % (12.0-15.0)
[2018-01-04 06:07] LABS: ALBUMIN 3.6 g/dL (3.2-5.5); ALBUMIN/GLOBULIN RATIO 1.2 (1.0-2.2); BILIRUBIN,TOTAL 0.6 mg/dL (0.2-1.0); CALCIUM 8.8 mg/dL (8.5-10.3); CREATININE 0.5 mg/dL (0.4-1.0); MAGNESIUM 1.5 mg/dL (1.7-2.8); TOTAL PROTEIN 6.7 g/dL (6.7-8.2)
[2018-01-04] MEDS ORDERED: MAGNESIUM SULFATE 2 GRAM 2 GM/50 ML BAG IV ONE (07:07)
[2018-01-04] MEDS: ACETAMINOPHEN 325 MG TABLET PO PRN (07:42)
[2018-01-04] MEDS: ENOXAPARIN 40 MG/0.4 ML SYRINGE SUBQ SCH (08:18)
[2018-01-04] MEDS: NEUTRA-PHOS 250 MG TABLET PO SCH (08:18)
[2018-01-04] MEDS: FAMOTIDINE 20 MG TABLET PO SCH (08:18)
[2018-01-04] MEDS: POTASSIUM CHLORIDE 10 MEQ CAPSULE PO SCH (08:18)
[2018-01-04] MEDS: ASPIRIN CHEW 81 MG TABLET PO SCH (08:18)
[2018-01-04] MEDS: MAGNESIUM OXIDE 400 MG TABLET PO SCH ×2 (08:19→09:18)
[2018-01-04] MEDS: POLYETHYLENE GLYCOL 3350 17 GM PACKET PO SCH (08:24)
[2018-01-04 08:32] VITALS: BP 118/60
[2018-01-04] MEDS ORDERED: HYDROcod/ACETAM 5/325 MG TABLET PO PRN (08:47)
[2018-01-04] MEDS ORDERED: MAGNESIUM OXIDE 400 MG TABLET PO SCH (09:00)
--- NOTE | 2018-01-04 10:38 | Discharge Plan ---
Discharge Plan Disposition: 01 Home, Self Care Condition: Stable Diet: Regular Activity Restrictions: Activity as Tolerated Shower Restrictions: No Driving Restrictions: No Weight Bearing: Full Weight Instruction Topics: Heart Risk, Potassium, Hypomagnesemia Dc Additional Instructions or Follow Up instructions: May follow up PCP in 3-4 days, follow up factory engineer in one week. Should symptoms return or worsen, present ER or call 911 for help. No Smoking: If you smoke, Please STOP! Call for help.
--- NOTE | 2018-01-04 10:45 | DISCHARGE SUMMARY ---
Discharge Summary Discharge Date: 01/04/18 Discharging Provider: ORTEGA Primary Care Provider: give pt a new PCP list, pt can choose her PCP Condition at Discharge: Stable Discharge Disposition: 01 Home, Self Care Discharge Facility Name: home - DIAGNOSES Admission Diagnoses: (1) Chest pain (2) Hypokalemia (3) Hypomagnesemia (4) Medical non-compliance (5) Potassium wasting nephropathy Discharge Diagnoses with Status of Each Condition: (1) Chest pain resolved. no more chest pain. troponin serial negative, EKG NSR, ECHO unremarkable (2) Hypokalemia resolved, continue home meds regime, follow up PCP and radiation control technician (3) Hypomagnesemia replaced, improved. pt refused to take some scheduled medication at hospital. continue home meds regime, follow up PCP and radiation control technician (4) Medical non-compliance advise pt for medical compliance. pt even refused to take medications at hospital. (5) Potassium wasting nephropathy follow up radiation control technician as out-pt - HPI History of Present Illness: is 22-year-old female with a past medical history significant for family potassium wasting renal tubular acidosis, hypokalemia, hypomagnesemia, headache/migraine, ovarian cysts, chronic bladder infection, who present ER for complaint of midsternal chest pain, palpitation and whole body muscle spasm and cramp. Pt report she recently works lots, and feel whole body ache, muscle spasm. Pt also report right chest and midsternal sharp chest pain. The chest pain does not radiate to other locations. Pt denies diaphoresis. Pt report nausea but without vomiting. Pt report she missed her Magnesium medications before yesterday. Pt state " I know my potassium and magnesium is lower. As before, I had the similar situation." Lab test in ER reveals her potassium is 2.5, Mag is 1. Troponin and D-dimer all negative. EKG is SR. Pt is admitted in observation for electrolytic replacement, and chest pain work up. - HOSPITAL COURSE Hospital Course: pt was admitted for hypokalemia and hypomagnesium, and chest pain. Chest pain seems atypical, and be caused by abnormal electrolytic. The troponin serial negative, EKG is NSR, ECHO is unremarkable, no more chest pain reported after first episode. Potassium and Mag were replaced but unfortunately pt refused to take some meds at hospital. Pt was discharged today, Her potassium became normal , Mag is great improved and continue to be replaced. - ALLERGIES Allergies/Adverse Reactions: Allergies Allergy/AdvReac Type Severity Reaction Status Date / Time bismuth subsalicylate Allergy Respiratory Verified 11/29/17 00:01 [From Pepto-Bismol] cinnamon Allergy Anaphylaxis Verified 11/29/17 00:01 lorazepam [From Ativan] Allergy Hives Verified 11/29/17 00:01 ondansetron HCl * Allergy Itching Verified 11/29/17 00:01 [From Zofran (as hydrochloride)] - MEDICATIONS Home Medications: Ambulatory Orders Medication Instructions Recorded Confirmed Potassium Chloride [Klor-Con 10] 60 meq PO BIDWM 11/21/17 01/02/18 Potassium Phosphate,Monobasic 500 mg PO BIDWM 11/21/17 01/02/18 [K-Phos Original] Loperamide [Imodium] 2 mg PO BIDWM 01/02/18 01/02/18 Magnesium Oxide 400 mg PO QID #50 tablet 01/04/18 Magnesium Oxide [Mag Ox] 400 mg PO QID #0 01/04/18 01/02/18 - PHYSICAL EXAM AT DISCHARGE General Appearance: positive: No acute distress, Alert. negative: Lethargic Eyes Bilateral: positive: Normal inspection, PERRL, No lid inflammation, Conjunctivae nml ENT: positive: ENT inspection nml, Pharynx nml, No signs of dehydration. negative: Purulent nasal drainage, Pharyngeal erythema, Oral lesions Neck: positive: Nml inspection, Thyroid nml, No JVD, Trachea midline. negative : Thyromegaly, Lymphadenopathy (R), Lymphadenopathy (L), Stiff neck, Carotid bruit, Swelling/bruising, Tracheal deviation Respiratory: positive: Chest non-tender, No respiratory distress, Breath sounds nml. negative: Wheezes, Rales, Rhonchi Cardiovascular: positive: Regular rate & rhythm, No murmur, No gallop. negative : Irregularly irregular, Extrasystoles, Tachycardia, Bradycardia, Systolic murmur, Diastolic murmur Peripheral Pulses: positive: 2+ Abdomen: positive: Non-tender, No organomegaly, Nml bowel sounds, No distention. negative: Tenderness, Guarding, Rebound Back: positive: Nml inspection. negative: CVA tenderness (R), CVA tenderness (L ) Skin: positive: Color nml, No rash, Warm, Dry. negative: Cyanosis, Diaphoresis , Pallor Extremities: positive: Non-tender, Full ROM, Nml appearance. negative: Calf tenderness, Joint swelling, Kylee's sign/cords Neurologic/Psychiatric: positive: Oriented x3, Motor nml, Sensation nml, Mood/ affect nml. negative: Sensory loss, Facial droop, Slurred/abnml speech, Depressed mood/affect - LABS Result Diagrams: 01/04/18 05:28 01/04/18 05:28 - FOLLOW UP Follow Up: May follow up PCP in 3-4 days, follow up radiation control technician in one week. Resume home meds. Magnesium is up to 400mg QID. Should symptoms return or worsen, present ER or call 911 for help. - TIME SPENT Time Spent in Discharge (Minutes): 50
== END 2018-01-04 11:25 | disposition home or self-care (01) | DRG 700 ==
LOC: ED 13:57 → OBS 15:17 → OBSVTOIN 01-03 18:14 → MS2 01-03 18:31
PROVIDERS: ADMIT Nurse Practitioner Gerontology; ATTEND Nurse Practitioner Gerontology
DX: N25.89 Other disorders resulting from impaired renal tubular function (principal); E83.42 Hypomagnesemia; T47.1X6A Underdosing of other antacids and anti-gastric-secretion drugs, initial encounter; T50.3X6A Underdosing of electrolytic, caloric and water-balance agents, initial encounter; Z91.128 Patient's intentional underdosing of medication regimen for other reason; Y92.230 Patient room in hospital as the place of occurrence of the external cause; F17.200 Nicotine dependence, unspecified, uncomplicated; Z87.440 Personal history of urinary (tract) infections; Z86.19 Personal history of other infectious and parasitic diseases
CPT/HCPCS: 36415; 71045; 80053; 81001; 81003; 81025; 83690; 83735; 84100; 84132; 84484; 85025; 85379; 87086; 87210; 87491; 87591; 93005; 93306; 96361; 96365; 96366; 96375; 96376; 99284; 99285

== ENCOUNTER 2018-03-15 19:57 | Emergency (ER) | payer SELFPAY ==
--- NOTE | 2018-03-15 20:54 | ED Physician Documentation ---
PD HPI CHEST PAIN - Stated complaint Stated Complaint: PALPITATIONS - Chief complaint Chief Complaint: General - History obtained from History obtained from: Patient - History of Present Illness Timing - onset: How many days ago Timing - onset during: Rest, Light activity Timing - duration: Days (she has felt general weakness and palpitations the past 2 days, worsening. This is common when her electrolytes get too low from her Gitelman syndrome (variant of RTA). She has been taking her medications.) Timing - details: Gradual onset, Still present Quality: Aching, Other (muscle spasms generally and feeling of palpitations of heart.) Location: Substernal Worsened by: No: Exertion, Inspiration Associated symptoms: Nausea, Palpitations. No: Shortness of air, Feeling faint / dizzy Similar symptoms before: Diagnosis (hypokalemia and hypomag from her kidney disease.) Recently seen: Not recently seen (last seen 2 months ago for similar and was placed in OBS due to mag=1.0 and K=2.3) Review of Systems Constitutional: denies: Fever, Chills Nose: denies: Rhinorrhea / runny nose, Congestion Throat: denies: Sore throat Respiratory: denies: Cough GI: reports: Nausea. 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: Ovarian cysts : Chronic bladder infection, Other HEENT: None Psych: None Musculoskeletal: None Derm: Eczema - Past Surgical History Past Surgical History: No Ortho: ACL reconstruction, Arthroscopic surgery HEENT: Myringotomy (tubes), Tonsil/Adenoidectomy - Present Medications Home Medications: Ambulatory Orders Medication Instructions Recorded Confirmed Potassium Chloride [Klor-Con 10] 60 meq PO BIDWM 11/21/17 01/02/18 Potassium Phosphate,Monobasic 500 mg PO BIDWM 11/21/17 01/02/18 [K-Phos Original] Loperamide [Imodium] 2 mg PO BIDWM 01/02/18 01/02/18 Magnesium Oxide 400 mg PO QID #50 tablet 01/04/18 Magnesium Oxide [Mag Ox] 400 mg PO QID #0 01/04/18 01/02/18 - Allergies Allergies/Adverse Reactions: Allergies Allergy/AdvReac Type Severity Reaction Status Date / Time bismuth subsalicylate Allergy Respiratory Verified 03/15/18 20:04 [From Pepto-Bismol] cinnamon Allergy Anaphylaxis Verified 03/15/18 20:04 lorazepam [From Ativan] Allergy Hives Verified 03/15/18 20:04 ondansetron HCl * Allergy Itching Verified 03/15/18 20:04 [From Zofran (as hydrochloride)] - Social History Does the pt smoke?: Yes Smoking Status: Current every day smoker Does the pt drink ETOH?: No Does the pt have substance abuse?: No - Immunizations Immunizations are current?: Yes Immunizations: Other immun not current - POLST Patient has POLST: No POLST Status: Full Code PD ED PE NORMAL - Vitals Vital signs reviewed: Yes - General General: Alert and oriented X 3, No acute distress, Well developed/nourished - HEENT HEENT: Pharynx benign - Neck Neck: Supple, no meningeal sign, No adenopathy - Cardiac Cardiac: RRR, No murmur - Respiratory Respiratory: Clear bilaterally - Abdomen Abdomen: Soft, Non tender - Derm Derm: Normal color, Warm and dry - Extremities Extremities: No tenderness to palpate, Normal ROM s pain, No edema, No calf tenderness / cord - Neuro Neuro: Alert and oriented X 3, 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, No motor deficit, No sensory deficit, Normal speech Results - Vitals Vitals: Oxygen O2 Source Room air - Labs Labs: Laboratory Tests 03/15/18 03/15/18 03/16/18 20:51 20:51 00:10 WBC 12.3 H RBC 4.08 L Hgb 12.6 Hct 36.6 L MCV 89.7 MCH 31.0 MCHC 34.5 RDW 12.8 Plt Count 418 MPV 6.5 L Neut # 7.0 H Lymph # 3.8 H Baxter # 0.6 Eos # 0.7 Baso # 0.2 H Absolute Nucleated RBC 0.00 Nucleated RBC % 0.0 Sodium 137 Potassium 2.4 L* Chloride 99 L Carbon Dioxide 31 Anion Gap 7.0 BUN 7 Creatinine 0.5 Estimated GFR (MDRD) 157 Glucose 98 Calcium 8.1 L Phosphorus 3.0 Magnesium 1.2 L Total Bilirubin 0.3 AST 24 ALT 23 Alkaline Phosphatase 43 Total Protein 6.8 Albumin 3.8 Globulin 3.0 Albumin/Globulin Ratio 1.3 Lipase 40 Urine Color YELLOW Urine Clarity CLEAR Urine pH 7.5 Ur Specific [place] 1.010 Urine Protein NEGATIVE Urine Glucose (UA) NEGATIVE Urine Ketones NEGATIVE Urine Occult Blood TRACE-LYSE Urine Nitrite NEGATIVE Urine Bilirubin NEGATIVE Urine Urobilinogen 0.2 (NORMAL) Ur Leukocyte Esterase NEGATIVE Ur Microscopic Review NOT INDICATED Urine Culture Comments NOT INDICATED PD MEDICAL DECISION MAKING - ED course Complexity details: reviewed results, re-evaluated patient (patient feeling moderately better with IV meds, and only wanted couple doses of potassium and then was taking orals. Wanted to go home and increase oral supplements. ), considered differential, d/w patient Departure - Departure Disposition: 01 Home, Self Care Clinical Impression: Hypomagnesemia, Hypokalemia due to loss of potassium, Heart palpitations, Generalized weakness Condition: Stable Record reviewed to determine appropriate education?: Yes Comments: Stay well-hydrated. Continue usual oral supplements of potassium and magnesium and take extra doses of potassium the next 2-3 days. Return if persistent or worsening symptoms to get more IV doses if needed. Forms: Activity restrictions Discharge Date/Time: 03/16/18 00:40
[2018-03-15 20:56] LABS: BASOPHILS # (AUTO) 0.2 10^3/uL (0.0-0.1); BASOPHILS % (AUTO) 1.3 %; EOSINOPHILS # (AUTO) 0.7 10^3/uL (0.0-0.7); EOSINOPHILS % (AUTO) 5.6 %; HGB - HEMOGLOBIN 12.6 g/dL (12.0-16.0); LYMPHOCYTES # (AUTO) 3.8 10^3/uL (1.5-3.5); MEAN CORPUSCULAR HGB CONC 34.5 g/dL (32.0-36.0); MEAN CORPUSCULAR VOLUME 89.7 fL (81.0-99.0); MEAN PLATELET VOLUME 6.5 fL (7.9-10.8); MONOCYTES # (AUTO) 0.6 10^3/uL (0.0-1.0); MONOCYTES % (AUTO) 5.2 %; NEUTROPHILS % (AUTO) 56.9 %; PLT - PLATELET COUNT 418 10^3/uL (130-450); RED BLOOD COUNT 4.08 10^6/uL (4.20-5.40); RED CELL DISTRIBUTION WIDTH 12.8 % (12.0-15.0); WHITE BLOOD COUNT 12.3 x10^3/uL (4.8-10.8)
[2018-03-15] MEDS ORDERED: SODIUM CHLORIDE 0.9% 1,000 ML IV ONE (21:10)
[2018-03-15] MEDS ORDERED: KETOROLAC 30 MG/ML VIAL IVP STA (21:10)
[2018-03-15] MEDS ORDERED: MAGNESIUM SULFATE 2 GRAM 2 GM/50 ML BAG IV ONE (21:10)
[2018-03-15] MEDS ORDERED: MORPHINE 10 MG/ML VIAL IVP STA (21:10)
[2018-03-15] MEDS ORDERED: POTASSIUM CHLOR 10 MEQ/100 ML 10 MEQ/100 ML BAG IV ONE ×2 (21:10→22:26)
[2018-03-15 21:23] LABS: ALBUMIN 3.8 g/dL (3.2-5.5); ALBUMIN/GLOBULIN RATIO 1.3 (1.0-2.2); BILIRUBIN,TOTAL 0.3 mg/dL (0.2-1.0); CALCIUM 8.1 mg/dL (8.5-10.3); CREATININE 0.5 mg/dL (0.4-1.0); MAGNESIUM 1.2 mg/dL (1.7-2.8); TOTAL PROTEIN 6.8 g/dL (6.7-8.2)
[2018-03-16 00:17] VITALS: BP 108/64
[2018-03-16 00:23] LABS: BILIRUBIN,URINE NEGATIVE (NEGATIVE); GLUCOSE, URINE (UA) NEGATIVE (NEGATIVE); KETONES,URINE (UA) NEGATIVE (NEGATIVE); LEUKOCYTE ESTERASE, URINE NEGATIVE (NEGATIVE); NITRITE,URINE NEGATIVE (NEGATIVE); OCCULT BLOOD,URINE TRACE-LYSE (NEGATIVE); PH,URINE 7.5 PH (5.0-7.5); PROTEIN,URINE NEGATIVE (NEGATIVE); UROBILINOGEN,URINE 0.2 (NORMAL) E.U./dL (NORMAL)
[2018-03-16 00:35] LABS: CLARITY,URINE CLEAR (CLEAR)
== END 2018-03-16 00:40 | disposition home or self-care (01) ==
LOC: ED 19:57
DX: R00.2 Palpitations (principal); E83.42 Hypomagnesemia; E87.6 Hypokalemia; R53.1 Weakness; F17.200 Nicotine dependence, unspecified, uncomplicated
CPT/HCPCS: 36415; 80053; 81001; 81003; 83690; 83735; 84100; 85025; 87086; 93005; 99283

== ENCOUNTER 2018-03-21 19:08 | Emergency (ER) | payer SELFPAY ==
[2018-03-21 20:26] LABS: ALBUMIN 3.7 g/dL (3.2-5.5); ALBUMIN/GLOBULIN RATIO 1.2 (1.0-2.2); BILIRUBIN,TOTAL 0.2 mg/dL (0.2-1.0); CALCIUM 8.6 mg/dL (8.5-10.3); CREATININE 0.6 mg/dL (0.4-1.0); MAGNESIUM 1.2 mg/dL (1.7-2.8); TOTAL PROTEIN 6.7 g/dL (6.7-8.2)
[2018-03-21] MEDS ORDERED: MAGNESIUM SULFATE 2 GRAM 2 GM/50 ML BAG IV ONE (20:38)
[2018-03-21] MEDS ORDERED: POTASSIUM CHLOR 10 MEQ/100 ML 10 MEQ/100 ML BAG IV ONE (20:38)
[2018-03-21] MEDS ORDERED: SODIUM CHLORIDE 0.9% 1,000 ML IV ONE (20:38)
[2018-03-21 20:39] LABS: BASOPHILS # (AUTO) 0.1 10^3/uL (0.0-0.1); BASOPHILS % (AUTO) 0.9 %; EOSINOPHILS # (AUTO) 0.7 10^3/uL (0.0-0.7); EOSINOPHILS % (AUTO) 5.4 %; HGB - HEMOGLOBIN 12.5 g/dL (12.0-16.0); LYMPHOCYTES # (AUTO) 3.9 10^3/uL (1.5-3.5); LYMPHOCYTES % (AUTO) 29.8 %; MEAN CORPUSCULAR HGB CONC 35.5 g/dL (32.0-36.0); MEAN CORPUSCULAR VOLUME 90.2 fL (81.0-99.0); MEAN PLATELET VOLUME 6.5 fL (7.9-10.8); MONOCYTES # (AUTO) 0.9 10^3/uL (0.0-1.0); MONOCYTES % (AUTO) 6.9 %; NEUTROPHILS # (AUTO) 7.4 10^3/uL (1.5-6.6); PLT - PLATELET COUNT 362 10^3/uL (130-450); RED CELL DISTRIBUTION WIDTH 12.7 % (12.0-15.0); WHITE BLOOD COUNT 12.9 x10^3/uL (4.8-10.8)
[2018-03-21 20:50] LABS: MUDS CUTOFF CONCENTRATIONS CUTOFF CONC BELOW:
[2018-03-21 20:53] LABS: BILIRUBIN,URINE NEGATIVE (NEGATIVE); GLUCOSE, URINE (UA) NEGATIVE (NEGATIVE); KETONES,URINE (UA) NEGATIVE (NEGATIVE); LEUKOCYTE ESTERASE, URINE NEGATIVE (NEGATIVE); NITRITE,URINE NEGATIVE (NEGATIVE); OCCULT BLOOD,URINE MODERATE (NEGATIVE); PH,URINE 7.5 PH (5.0-7.5); PROTEIN,URINE NEGATIVE (NEGATIVE); UROBILINOGEN,URINE 0.2 (NORMAL) E.U./dL (NORMAL)
--- NOTE | 2018-03-21 20:53 | ED Physician Documentation ---
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 patient reports that today she felt like her magnesium was low. patient states that she had muscle spams and cramping and passed out at work. patient states that she has been compliant with her potassium and denies any recent illness. Review of Systems Constitutional: reports: Myalgias. denies: Fever, Chills Eyes: reports: Photophobia Ears: reports: Reviewed and negative Nose: reports: Reviewed and negative GI: reports: Nausea, Vomiting. denies: Diarrhea : denies: Dysuria, Frequency, Hesitancy Neurologic: reports: Generalized weakness, Numbness, Syncope. 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: Ovarian cysts : Chronic bladder infection, Other HEENT: None Psych: None Musculoskeletal: None Derm: Eczema - Past Surgical History Past Surgical History: No Ortho: ACL reconstruction, Arthroscopic surgery HEENT: Myringotomy (tubes), Tonsil/Adenoidectomy - Present Medications Home Medications: Ambulatory Orders Medication Instructions Recorded Confirmed Potassium Chloride [Klor-Con 10] 60 meq PO BIDWM 11/21/17 01/02/18 Loperamide [Imodium] 2 mg PO BIDWM 01/02/18 01/02/18 Magnesium Oxide 400 mg PO QID #50 tablet 01/04/18 - Allergies Allergies/Adverse Reactions: Allergies Allergy/AdvReac Type Severity Reaction Status Date / Time bismuth subsalicylate Allergy Respiratory Verified 03/21/18 19:14 [From Pepto-Bismol] cinnamon Allergy Anaphylaxis Verified 03/21/18 19:14 lorazepam [From Ativan] Allergy Hives Verified 03/21/18 19:14 ondansetron HCl * Allergy Itching Verified 03/21/18 19:14 [From Zofran (as hydrochloride)] - Social History Does the pt smoke?: Yes Smoking Status: Current every day smoker Does the pt drink ETOH?: No Does the pt have substance abuse?: No - Immunizations Immunizations are current?: Yes Immunizations: Other immun not current - POLST Patient has POLST: No POLST Status: Full Code PD ED PE NORMAL - Vitals Vital signs reviewed: Yes - General General: Alert and oriented X 3, No acute distress, Well developed/nourished - HEENT HEENT: Atraumatic, Moist mucous membranes - Cardiac Cardiac: RRR, No murmur - Respiratory Respiratory: No respiratory distress - Abdomen Abdomen: Non distended - Derm Derm: Normal color, Warm and dry, No rash - Extremities Extremities: No deformity - Neuro Neuro: Alert and oriented X 3, scheduler 2-12 intact, No motor deficit, No sensory deficit, Normal speech Eye Opening: Spontaneous Motor: Obeys Commands Verbal: Oriented GCS Score: 15 Results - Vitals Vitals: Vital Signs - 24 hr 03/21/18 03/21/18 19:11 21:06 Temperature 36.8 C Heart Rate 81 87 Respiratory 16 20 Rate Blood Pressure 140/80 H 96/55 L O2 Saturation 97 100 Oxygen O2 Source Room air - EKG (time done) 1920 Rate: Rate (enter#) (79) Rhythm: NSR [place]: Normal Intervals: Normal [place] QRS: Normal Ischemia: Normal ST segments Compare to prior EKG: Unchanged from prior EKG - Labs Labs: Laboratory Tests 03/21/18 03/21/18 03/21/18 20:05 20:26 20:45 WBC 12.9 H RBC 3.90 L Hgb 12.5 Hct 35.2 L MCV 90.2 MCH 32.0 H MCHC 35.5 RDW 12.7 Plt Count 362 MPV 6.5 L Neut # 7.4 H Lymph # 3.9 H [place] # 0.9 Eos # 0.7 Baso # 0.1 Absolute Nucleated RBC 0.00 Nucleated RBC % 0.0 Sodium 136 Potassium 3.0 L Chloride 100 L Carbon Dioxide 26 Anion Gap 10.0 BUN 9 Creatinine 0.6 Estimated GFR (MDRD) 127 Glucose 94 Calcium 8.6 Phosphorus 4.0 Magnesium 1.2 L Total Bilirubin 0.2 AST 23 ALT 20 Alkaline Phosphatase 46 Total Protein 6.7 Albumin 3.7 Globulin 3.0 Albumin/Globulin Ratio 1.2 Lipase 37 Urine Color Urine Clarity Urine pH Ur Specific [place] Urine Protein Urine Glucose (UA) Urine Ketones Urine Occult Blood Urine Nitrite Urine Bilirubin Urine Urobilinogen Ur Leukocyte Esterase Urine RBC Urine WBC Ur Squamous Epith Cells Urine Bacteria Ur Microscopic Review Urine Culture Comments Urine HCG, Qual Urine Opiates Screen NEGATIVE Ur Oxycodone Screen NEGATIVE Urine Methadone Screen NEGATIVE Ur Propoxyphene Screen NEGATIVE Ur Barbiturates Screen NEGATIVE Ur Tricyclics Screen NEGATIVE Ur Phencyclidine Scrn NEGATIVE Ur Amphetamine Screen NEGATIVE U Methamphetamines Scrn NEGATIVE U Benzodiazepines Scrn NEGATIVE Urine Cocaine Screen NEGATIVE U Cannabinoids Screen POSITIVE H 03/21/18 20:45 WBC RBC Hgb Hct MCV MCH MCHC RDW Plt Count MPV Neut # Lymph # [place] # Eos # Baso # Absolute Nucleated RBC Nucleated RBC % Sodium Potassium Chloride Carbon Dioxide Anion Gap BUN Creatinine Estimated GFR (MDRD) Glucose Calcium Phosphorus Magnesium Total Bilirubin AST ALT Alkaline Phosphatase Total Protein Albumin Globulin Albumin/Globulin Ratio Lipase Urine Color YELLOW Urine Clarity CLEAR Urine pH 7.5 Ur Specific [place] 1.015 Urine Protein NEGATIVE Urine Glucose (UA) NEGATIVE Urine Ketones NEGATIVE Urine Occult Blood MODERATE H Urine Nitrite NEGATIVE Urine Bilirubin NEGATIVE Urine Urobilinogen 0.2 (NORMAL) Ur Leukocyte Esterase NEGATIVE Urine RBC 6-10 H Urine WBC 0-3 Ur Squamous Epith Cells FEW Squamous Urine Bacteria None Seen Ur Microscopic Review INDICATED Urine Culture Comments NOT INDICATED Urine HCG, Qual NEGATIVE Urine Opiates Screen Ur Oxycodone Screen Urine Methadone Screen Ur Propoxyphene Screen Ur Barbiturates Screen Ur Tricyclics Screen Ur Phencyclidine Scrn Ur Amphetamine Screen U Methamphetamines Scrn U Benzodiazepines Scrn Urine Cocaine Screen U Cannabinoids Screen PD MEDICAL DECISION MAKING - ED course Complexity details: reviewed old records, reviewed results, re-evaluated patient , considered differential, d/w patient ED course: Patient was seen and examined at bedside. Patient was well appearing and in no acute distress. Labs were drawn. Patient was found to have low potassium and magnesium. patient stated that her potassium was normally around three and that she could take the potassium orally. patient's magnesium was replaced via IV and was treated with tylenol for pain. Patient required no further work up and was stable for discharge with outpatient follow up. Departure - Departure Disposition: Home, Self Care Clinical Impression: Hypomagnesemia Condition: Good Instructions: Electrolytes Follow-Up: primary,care provider [Other] - Within 3 Days Comments: Your magnesium and potassium were low today. it is important that you stick with your electrolyte replacement management. You should follow up with your doctor if your symptoms return. You may return to the emergency department at any time for new, worsening or uncontrollable symptoms.
[2018-03-21 20:55] LABS: CLARITY,URINE CLEAR (CLEAR); HCG UR QUAL NEGATIVE
[2018-03-21 21:00] LABS: BACTERIA,URINE None Seen /HPF (None Seen); SQUAMOUS EPITHELIAL CELL,UR FEW Squamous (<= Few)
[2018-03-21] MEDS ORDERED: POTASSIUM CHLORIDE 20 MEQ/15 ML UDC PO SCH (21:00)
[2018-03-21 21:04] LABS: AMPHETAMINE SCREEN,URINE NEGATIVE (NEGATIVE); BENZODIAZEPINES SCREEN, URINE NEGATIVE (NEGATIVE); COCAINE SCREEN URINE NEGATIVE (NEGATIVE); METHADONE SCREEN, URINE NEGATIVE (NEGATIVE); METHAMPHETAMINES SCREEN, URINE NEGATIVE (NEGATIVE); OPIATE SCREEN, URINE NEGATIVE (NEGATIVE); OXYCODONE SCREEN, URINE NEGATIVE (NEGATIVE); PROPOXYPHENE SCREEN, URINE NEGATIVE (NEGATIVE); TRICYCLIC ANTIDEPRESSANT,URINE NEGATIVE (NEGATIVE)
[2018-03-21] MEDS ORDERED: ACETAMINOPHEN 500 MG TABLET PO STA (21:11)
[2018-03-21 21:54] VITALS: BP 109/57
== END 2018-03-21 22:30 | disposition home or self-care (01) ==
LOC: ED 19:08
DX: E83.42 Hypomagnesemia (principal); F17.200 Nicotine dependence, unspecified, uncomplicated
CPT/HCPCS: 36415; 80053; 80306; 81001; 81025; 83690; 83735; 84100; 85025; 93005; 96365; 96368; 99283; 99284; A9270; 81003; 87086

== ENCOUNTER 2018-03-28 19:02 | Emergency (ER) | payer SELFPAY ==
[2018-03-28] MEDS ORDERED: LACTATED RINGERS 1,000 ML IV STA (19:09)
--- NOTE | 2018-03-28 19:12 | ED Physician Documentation ---
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 denies: Fever, Chills Respiratory: denies: Dyspnea, Cough GI: reports: Nausea. 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: Ovarian cysts : Chronic bladder infection, Other HEENT: None Psych: None Musculoskeletal: None Derm: Eczema - Past Surgical History Past Surgical History: No Ortho: ACL reconstruction, Arthroscopic surgery HEENT: Myringotomy (tubes), Tonsil/Adenoidectomy - Present Medications Home Medications: Ambulatory Orders Medication Instructions Recorded Confirmed Potassium Chloride [Klor-Con 10] 60 meq PO BIDWM 11/21/17 01/02/18 Loperamide [Imodium] 2 mg PO BIDWM 01/02/18 01/02/18 Magnesium Oxide 400 mg PO QID #50 tablet 01/04/18 - Allergies Allergies/Adverse Reactions: Allergies Allergy/AdvReac Type Severity Reaction Status Date / Time bismuth subsalicylate Allergy Respiratory Verified 03/28/18 19:11 [From Pepto-Bismol] cinnamon Allergy Anaphylaxis Verified 03/28/18 19:11 lorazepam [From Ativan] Allergy Hives Verified 03/28/18 19:11 ondansetron HCl * Allergy Itching Verified 03/28/18 19:11 [From Zofran (as hydrochloride)] - Social History Does the pt smoke?: Yes Smoking Status: Current every day smoker Does the pt drink ETOH?: No Does the pt have substance abuse?: No - Family History Family history: reports: Non contributory - Immunizations Immunizations are current?: Yes Immunizations: Other immun not current - POLST Patient has POLST: No POLST Status: Full Code PD ED PE NORMAL - Vitals Vital signs reviewed: Yes - General General: Alert and oriented X 3, Other (She smells heavily of marijuana but denies use today.) - HEENT HEENT: PERRL, EOMI - Neck Neck: Supple, no meningeal sign, No bony TTP - Cardiac Cardiac: RRR, No murmur - Respiratory Respiratory: No respiratory distress, Clear bilaterally - Abdomen Abdomen: Normal bowel sounds, Soft, Non tender - Extremities Extremities: No edema, No calf tenderness / cord - Neuro Neuro: Alert and oriented X 3 Eye Opening: Spontaneous Motor: Obeys Commands Verbal: Oriented GCS Score: 15 - Psych Psych: Normal mood, Normal affect Results - Vitals Vitals: Vital Signs - 24 hr 03/28/18 19:07 Temperature 36.7 C Heart Rate 78 Respiratory 18 Rate Blood Pressure 102/49 L O2 Saturation 100 Oxygen O2 Source Room air - EKG (time done) 1916 Rate: Rate (enter#) (68) Rhythm: NSR [place]: Normal Intervals: Normal [place] QRS: Normal Ischemia: Non specific changes (Flat T waves especially inferior) Computer interpretation: Agree with computer - Labs Labs: Laboratory Tests 03/28/18 03/28/18 03/28/18 19:30 19:30 19:54 WBC 13.5 H RBC 4.14 L Hgb 12.7 Hct 37.3 MCV 90.0 MCH 30.6 MCHC 34.0 RDW 12.3 Plt Count 418 MPV 6.5 L Neut # 8.4 H Lymph # 3.4 [place] # 0.8 Eos # 0.8 H Baso # 0.1 Absolute Nucleated RBC 0.00 Nucleated RBC % 0.0 Sodium Potassium Chloride Carbon Dioxide Anion Gap BUN Creatinine Estimated GFR (MDRD) Glucose Calcium Phosphorus Magnesium Total Bilirubin AST ALT Alkaline Phosphatase Total Protein Albumin Globulin Albumin/Globulin Ratio Lipase Ur Specific [place] <=1.005 Urine HCG, Qual NEGATIVE Urine Opiates Screen NEGATIVE Ur Oxycodone Screen NEGATIVE Urine Methadone Screen NEGATIVE Ur Propoxyphene Screen NEGATIVE Ur Barbiturates Screen NEGATIVE Ur Tricyclics Screen NEGATIVE Ur Phencyclidine Scrn NEGATIVE Ur Amphetamine Screen NEGATIVE U Methamphetamines Scrn NEGATIVE U Benzodiazepines Scrn NEGATIVE Urine Cocaine Screen NEGATIVE U Cannabinoids Screen POSITIVE H 03/28/18 19:54 WBC RBC Hgb Hct MCV MCH MCHC RDW Plt Count MPV Neut # Lymph # [place] # Eos # Baso # Absolute Nucleated RBC Nucleated RBC % Sodium 137 Potassium 2.4 L* Chloride 98 L Carbon Dioxide 28 Anion Gap 11.0 BUN 10 Creatinine 0.6 Estimated GFR (MDRD) 127 Glucose 97 Calcium 9.1 Phosphorus 3.9 Magnesium 1.2 L Total Bilirubin 0.4 AST 29 ALT 23 Alkaline Phosphatase 44 Total Protein 7.9 Albumin 4.4 Globulin 3.5 Albumin/Globulin Ratio 1.3 Lipase 34 Ur Specific [place] Urine HCG, Qual Urine Opiates Screen Ur Oxycodone Screen Urine Methadone Screen Ur Propoxyphene Screen Ur Barbiturates Screen Ur Tricyclics Screen Ur Phencyclidine Scrn Ur Amphetamine Screen U Methamphetamines Scrn U Benzodiazepines Scrn Urine Cocaine Screen U Cannabinoids Screen PD MEDICAL DECISION MAKING - ED course ED course: 22-year-old woman with history of hypomagnesemia and hypokalemia presents with symptoms of same, also concern for recurrent gonorrhea which she was tested for at her request. Potassium was 2.4 and magnesium was 1.2. She refused IV potassium supplementation so was repleted aggressively orally and she was given IV magnesium. Departure - Departure Disposition: 01 Home, Self Care Clinical Impression: Hypokalemia, Hypomagnesemia Condition: Stable Record reviewed to determine appropriate education?: Yes Comments: Take your regular make medications including her potassium tonight. Return for new or worsening symptoms. Follow-up with your physician, next available appointment. If STD testing is positive we will call you. Forms: Activity restrictions
[2018-03-28 19:57] LABS: MUDS CUTOFF CONCENTRATIONS CUTOFF CONC BELOW:
[2018-03-28 20:00] LABS: HCG UR QUAL NEGATIVE
[2018-03-28 20:02] LABS: BASOPHILS # (AUTO) 0.1 10^3/uL (0.0-0.1); BASOPHILS % (AUTO) 0.9 %; EOSINOPHILS # (AUTO) 0.8 10^3/uL (0.0-0.7); EOSINOPHILS % (AUTO) 5.9 %; HGB - HEMOGLOBIN 12.7 g/dL (12.0-16.0); LYMPHOCYTES # (AUTO) 3.4 10^3/uL (1.5-3.5); MEAN CORPUSCULAR HEMOGLOBIN 30.6 pg (27.0-31.0); MEAN PLATELET VOLUME 6.5 fL (7.9-10.8); MONOCYTES # (AUTO) 0.8 10^3/uL (0.0-1.0); MONOCYTES % (AUTO) 6.1 %; NEUTROPHILS # (AUTO) 8.4 10^3/uL (1.5-6.6); NEUTROPHILS % (AUTO) 62.1 %; PLT - PLATELET COUNT 418 10^3/uL (130-450); RED BLOOD COUNT 4.14 10^6/uL (4.20-5.40); RED CELL DISTRIBUTION WIDTH 12.3 % (12.0-15.0); WHITE BLOOD COUNT 13.5 x10^3/uL (4.8-10.8)
[2018-03-28 20:09] LABS: AMPHETAMINE SCREEN,URINE NEGATIVE (NEGATIVE); BENZODIAZEPINES SCREEN, URINE NEGATIVE (NEGATIVE); COCAINE SCREEN URINE NEGATIVE (NEGATIVE); METHADONE SCREEN, URINE NEGATIVE (NEGATIVE); METHAMPHETAMINES SCREEN, URINE NEGATIVE (NEGATIVE); OPIATE SCREEN, URINE NEGATIVE (NEGATIVE); OXYCODONE SCREEN, URINE NEGATIVE (NEGATIVE); PROPOXYPHENE SCREEN, URINE NEGATIVE (NEGATIVE); TRICYCLIC ANTIDEPRESSANT,URINE NEGATIVE (NEGATIVE)
[2018-03-28] MEDS ORDERED: POTASS CIT/CITRIC ACID ORAL 1 EACH PACKET PO STA (20:26)
[2018-03-28 20:27] LABS: ALBUMIN 4.4 g/dL (3.2-5.5); ALBUMIN/GLOBULIN RATIO 1.3 (1.0-2.2); BILIRUBIN,TOTAL 0.4 mg/dL (0.2-1.0); CALCIUM 9.1 mg/dL (8.5-10.3); CREATININE 0.6 mg/dL (0.4-1.0); MAGNESIUM 1.2 mg/dL (1.7-2.8); PHOSPHORUS 3.9 mg/dL (2.5-4.6); TOTAL PROTEIN 7.9 g/dL (6.7-8.2)
[2018-03-28] MEDS ORDERED: MAGNESIUM SULFATE 2 GRAM 2 GM/50 ML BAG IV ONE (20:27)
[2018-03-28 21:43] VITALS: BP 123/77
== END 2018-03-28 21:44 | disposition home or self-care (01) ==
LOC: ED 19:02
DX: E83.42 Hypomagnesemia (principal); E87.6 Hypokalemia; Z86.39 Personal history of other endocrine, nutritional and metabolic disease; F17.200 Nicotine dependence, unspecified, uncomplicated
CPT/HCPCS: 36415; 80053; 80306; 81025; 83690; 83735; 84100; 85025; 87491; 87591; 93005; 96365; 99283; A9270; J7120

== ENCOUNTER 2018-04-19 15:17 | Emergency (ER) | payer SELFPAY ==
--- NOTE | 2018-04-19 15:33 | ED Physician Documentation ---
PD HPI NVD - Stated complaint Stated Complaint: CHEST TIGHTNESS/VOMITING - History obtained from History obtained from: Patient - History of Present Illness Timing - onset: Today Timing - details: Gradual onset, Still present (worsening) Associated symptoms: Other (nausea with only couple episodes of vomiting. Feeling general malaise and weakness.). No: Near syncope / syncope, Loss of appetite Contributing factors: No: Sick contact, Bad food, Recent antibiotics, Diabetes Worsened by: Eating Similar symptoms before: Diagnosis (feeling similar to very low electrolytes. She has been taking her supplements. She says she feels general malaise as well which is not common with her low potassium.) Review of Systems Constitutional: denies: Fever, Chills Nose: denies: Rhinorrhea / runny nose, Congestion Cardiac: denies: Chest pain / pressure Respiratory: reports: Dyspnea. denies: Cough GI: reports: Nausea, Vomiting. denies: Abdominal Pain, Diarrhea : denies: Dysuria, Frequency, Discharge Musculoskeletal: denies: Neck pain, Back pain Neurologic: reports: Generalized weakness. 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 ) HEENT: None Psych: None Musculoskeletal: None Derm: Eczema - Past Surgical History Past Surgical History: No Ortho: ACL reconstruction, Arthroscopic surgery HEENT: Myringotomy (tubes), Tonsil/Adenoidectomy - Present Medications Home Medications: Ambulatory Orders Medication Instructions Recorded Confirmed Potassium Chloride [Klor-Con 10] 60 meq PO BIDWM 11/21/17 01/02/18 Loperamide [Imodium] 2 mg PO BIDWM 01/02/18 01/02/18 Magnesium Oxide 400 mg PO QID #50 tablet 01/04/18 - Allergies Allergies/Adverse Reactions: Allergies Allergy/AdvReac Type Severity Reaction Status Date / Time bismuth subsalicylate Allergy Respiratory Verified 03/28/18 19:11 [From Pepto-Bismol] cinnamon Allergy Anaphylaxis Verified 03/28/18 19:11 lorazepam [From Ativan] Allergy Hives Verified 03/28/18 19:11 ondansetron HCl * Allergy Itching Verified 03/28/18 19:11 [From Zofran (as hydrochloride)] - Social History Does the pt smoke?: Yes Smoking Status: Current every day smoker Does the pt drink ETOH?: No Does the pt have substance abuse?: No - Immunizations Immunizations are current?: Yes Immunizations: Other immun not current - POLST Patient has POLST: No POLST Status: Full Code PD ED PE NORMAL - Vitals Vital signs reviewed: Yes - General General: Alert and oriented X 3, No acute distress, Well developed/nourished - HEENT HEENT: Moist mucous membranes, Pharynx benign - Neck Neck: Supple, no meningeal sign, No adenopathy - Cardiac Cardiac: RRR, No murmur - Respiratory Respiratory: Clear bilaterally - Abdomen Abdomen: Soft, Non tender - Derm Derm: Normal color, Warm and dry - Extremities Extremities: No tenderness to palpate, Normal ROM s pain, No edema, No calf tenderness / cord - Neuro Neuro: Alert and oriented X 3, No motor deficit, Normal speech Results - Vitals Vitals: Vital Signs - 24 hr 04/19/18 04/19/18 04/19/18 15:36 16:54 19:17 Temperature 36.8 C Heart Rate 86 68 81 Respiratory 16 14 17 Rate Blood Pressure 140/89 H 140/89 H 128/76 O2 Saturation 99 98 100 Oxygen O2 Source Room air - Labs Labs: Laboratory Tests 04/19/18 04/19/18 04/19/18 16:18 16:18 18:48 WBC 12.3 H RBC 4.11 L Hgb 12.7 Hct 36.7 L MCV 89.2 MCH 30.9 MCHC 34.6 RDW 12.3 Plt Count 355 MPV 6.8 L Neut # 8.4 H Lymph # 2.2 [place] # 0.9 Eos # 0.8 H Baso # 0.1 Absolute Nucleated RBC 0.01 Nucleated RBC % 0.1 Sodium 135 Potassium 2.6 L Chloride 100 L Carbon Dioxide 27 Anion Gap 8.0 BUN 9 Creatinine 0.6 Estimated GFR (MDRD) 127 Glucose 128 H Calcium 8.4 L Phosphorus 2.1 L Magnesium 1.4 L Total Bilirubin 0.8 AST 24 ALT 21 Alkaline Phosphatase 40 L Total Protein 7.0 Albumin 3.8 Globulin 3.2 Albumin/Globulin Ratio 1.2 Lipase 37 Urine Color Urine Clarity Urine pH Ur Specific [place] <=1.005 Urine Protein Urine Glucose (UA) Urine Ketones Urine Occult Blood Urine Nitrite Urine Bilirubin Urine Urobilinogen Ur Leukocyte Esterase Urine RBC Urine WBC Ur Squamous Epith Cells Urine Bacteria Ur Microscopic Review Urine Culture Comments Urine HCG, Qual NEGATIVE 04/19/18 18:48 WBC RBC Hgb Hct MCV MCH MCHC RDW Plt Count MPV Neut # Lymph # [place] # Eos # Baso # Absolute Nucleated RBC Nucleated RBC % Sodium Potassium Chloride Carbon Dioxide Anion Gap BUN Creatinine Estimated GFR (MDRD) Glucose Calcium Phosphorus Magnesium Total Bilirubin AST ALT Alkaline Phosphatase Total Protein Albumin Globulin Albumin/Globulin Ratio Lipase Urine Color YELLOW Urine Clarity CLEAR Urine pH 7.0 Ur Specific [place] <=1.005 Urine Protein NEGATIVE Urine Glucose (UA) NEGATIVE Urine Ketones NEGATIVE Urine Occult Blood SMALL H Urine Nitrite NEGATIVE Urine Bilirubin NEGATIVE Urine Urobilinogen 0.2 (NORMAL) Ur Leukocyte Esterase NEGATIVE Urine RBC 6-10 H Urine WBC 0-3 Ur Squamous Epith Cells MOD Squamous H Urine Bacteria Rare Ur Microscopic Review INDICATED Urine Culture Comments NOT INDICATED Urine HCG, Qual PD MEDICAL DECISION MAKING - ED course Complexity details: considered differential (symptoms common with her electrolytes getting low. However she did have feeling of general malaise as well. No URI symptoms per se. UA and HCG negative. She is feeling better with lytes replacement. ), d/w patient Departure - Departure Disposition: 01 Home, Self Care Clinical Impression: General weakness, Electrolyte and fluid disorder Condition: Stable Record reviewed to determine appropriate education?: Yes Comments: Continue usual medications. Drink lots of fluids. Recheck if not improved over the next couple of days. Your urine test looked normal without any signs of infection. He may have a little bit of a cold or virus type illness making you feel ill as well. Tylenol if needed for pains. Forms: Activity restrictions Discharge Date/Time: 04/19/18 19:21
[2018-04-19] MEDS ORDERED: POTASSIUM CHLOR 10 MEQ/100 ML 10 MEQ/100 ML BAG IV ONE (15:37)
[2018-04-19] MEDS ORDERED: SODIUM CHLORIDE 0.9% 1,000 ML IV ONE (15:37)
[2018-04-19] MEDS ORDERED: MAGNESIUM SULFATE 2 GRAM 2 GM/50 ML BAG IV ONE (15:39)
[2018-04-19 16:35] LABS: BASOPHILS # (AUTO) 0.1 10^3/uL (0.0-0.1); BASOPHILS % (AUTO) 0.6 %; EOSINOPHILS # (AUTO) 0.8 10^3/uL (0.0-0.7); EOSINOPHILS % (AUTO) 6.2 %; HGB - HEMOGLOBIN 12.7 g/dL (12.0-16.0); LYMPHOCYTES # (AUTO) 2.2 10^3/uL (1.5-3.5); LYMPHOCYTES % (AUTO) 17.9 %; MEAN CORPUSCULAR HEMOGLOBIN 30.9 pg (27.0-31.0); MEAN CORPUSCULAR HGB CONC 34.6 g/dL (32.0-36.0); MEAN CORPUSCULAR VOLUME 89.2 fL (81.0-99.0); MEAN PLATELET VOLUME 6.8 fL (7.9-10.8); MONOCYTES # (AUTO) 0.9 10^3/uL (0.0-1.0); MONOCYTES % (AUTO) 7.1 %; NEUTROPHILS # (AUTO) 8.4 10^3/uL (1.5-6.6); NEUTROPHILS % (AUTO) 68.2 %; PLT - PLATELET COUNT 355 10^3/uL (130-450); RED BLOOD COUNT 4.11 10^6/uL (4.20-5.40); RED CELL DISTRIBUTION WIDTH 12.3 % (12.0-15.0); WHITE BLOOD COUNT 12.3 x10^3/uL (4.8-10.8)
[2018-04-19 16:46] LABS: ALBUMIN 3.8 g/dL (3.2-5.5); ALBUMIN/GLOBULIN RATIO 1.2 (1.0-2.2); BILIRUBIN,TOTAL 0.8 mg/dL (0.2-1.0); CALCIUM 8.4 mg/dL (8.5-10.3); CREATININE 0.6 mg/dL (0.4-1.0); MAGNESIUM 1.4 mg/dL (1.7-2.8); PHOSPHORUS 2.1 mg/dL (2.5-4.6)
[2018-04-19] MEDS ORDERED: NEUTRA-PHOS 250 MG TABLET PO STA (17:02)
[2018-04-19 18:56] LABS: BILIRUBIN,URINE NEGATIVE (NEGATIVE); GLUCOSE, URINE (UA) NEGATIVE (NEGATIVE); KETONES,URINE (UA) NEGATIVE (NEGATIVE); LEUKOCYTE ESTERASE, URINE NEGATIVE (NEGATIVE); NITRITE,URINE NEGATIVE (NEGATIVE); OCCULT BLOOD,URINE SMALL (NEGATIVE); PROTEIN,URINE NEGATIVE (NEGATIVE); UROBILINOGEN,URINE 0.2 (NORMAL) E.U./dL (NORMAL)
[2018-04-19 18:58] LABS: CLARITY,URINE CLEAR (CLEAR)
[2018-04-19 18:59] LABS: HCG UR QUAL NEGATIVE
[2018-04-19 19:09] LABS: SQUAMOUS EPITHELIAL CELL,UR MOD Squamous (<= Few)
[2018-04-19 19:10] LABS: BACTERIA,URINE Rare /HPF (None Seen)
[2018-04-19 19:19] VITALS: BP 128/76
== END 2018-04-19 19:21 | disposition home or self-care (01) ==
LOC: ED 15:17
DX: R53.1 Weakness (principal); E87.8 Other disorders of electrolyte and fluid balance, not elsewhere classified; R53.81 Other malaise; R11.2 Nausea with vomiting, unspecified; F17.200 Nicotine dependence, unspecified, uncomplicated
CPT/HCPCS: 36415; 80053; 81001; 81025; 83690; 83735; 84100; 85025; 93005; 96365; 96375; 99283; 99284; A9270; 81003; 87086

== ENCOUNTER 2018-05-09 05:05 | Emergency (ER) | payer SELFPAY ==
[2018-05-09] MEDS ORDERED: POTASSIUM CHLOR 10 MEQ/100 ML 10 MEQ/100 ML BAG IV ONE ×2 (05:21→06:20)
[2018-05-09] MEDS ORDERED: SODIUM CHLORIDE 0.9% 1,000 ML IV ONE (05:28)
--- NOTE | 2018-05-09 05:29 | ED Physician Documentation ---
PD HPI CHEST PAIN - Stated complaint Stated Complaint: CHEST PX - Chief complaint Chief Complaint: Cardiac - History obtained from History obtained from: Patient - History of Present Illness Timing - onset: How many days ago (3) Timing - details: Gradual onset, Still present Quality: Pressure, Tightness Location: Substernal Associated symptoms: No: Shortness of air, Diaphoresis Similar symptoms before: Work up / diagnostics, Treatment Recently seen: Not recently seen - Additional information Additional information: Patient is a 22 year old female with a history of RTA and recurrent electrolyte imbalance who is presenting to the emergency department for chest pressure and cramping. patient states that it has been going on for the last few days. patient states that she has been compliant with her medications. Review of Systems Constitutional: denies: Fever, Chills Cardiac: reports: Chest pain / pressure, Palpitations Respiratory: reports: Dyspnea. 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 ) HEENT: None Psych: None Musculoskeletal: None Derm: Eczema - Past Surgical History Past Surgical History: No Ortho: ACL reconstruction, Arthroscopic surgery HEENT: Myringotomy (tubes), Tonsil/Adenoidectomy - Present Medications Home Medications: Ambulatory Orders Medication Instructions Recorded Confirmed Potassium Chloride [Klor-Con 10] 60 meq PO BIDWM 11/21/17 01/02/18 Loperamide [Imodium] 2 mg PO BIDWM 01/02/18 01/02/18 Magnesium Oxide 400 mg PO QID #50 tablet 01/04/18 Cyclobenzaprine [Flexeril] 10 mg PO TID PRN #10 tablet 05/09/18 - Allergies Allergies/Adverse Reactions: Allergies Allergy/AdvReac Type Severity Reaction Status Date / Time bismuth subsalicylate Allergy Respiratory Verified 05/09/18 05:43 [From Pepto-Bismol] cinnamon Allergy Anaphylaxis Verified 05/09/18 05:43 lorazepam [From Ativan] Allergy Hives Verified 05/09/18 05:43 ondansetron HCl * Allergy Itching Verified 05/09/18 05:43 [From Zofran (as hydrochloride)] - Social History Does the pt smoke?: Yes Smoking Status: Current every day smoker Does the pt drink ETOH?: No Does the pt have substance abuse?: No - Immunizations Immunizations are current?: Yes Immunizations: Other immun not current - POLST Patient has POLST: No POLST Status: Full Code PD ED PE NORMAL - Vitals Vital signs reviewed: Yes - General General: Alert and oriented X 3, No acute distress - HEENT HEENT: Atraumatic - Neck Neck: Supple, no meningeal sign - Cardiac Cardiac: RRR, No murmur - Respiratory Respiratory: Clear bilaterally - Abdomen Abdomen: Soft, Non tender, Non distended - Derm Derm: Normal color, Warm and dry - Extremities Extremities: No deformity - Neuro Neuro: Alert and oriented X 3, No motor deficit, Normal speech Eye Opening: Spontaneous Results - Vitals Vitals: Vital Signs - 24 hr 05/09/18 05/09/18 05/09/18 05:05 05:54 06:51 Temperature 36.5 C Heart Rate 67 80 57 L Respiratory 18 21 14 Rate Blood Pressure 122/49 L 100/79 94/46 L O2 Saturation 98 100 100 Oxygen O2 Source Room air - EKG (time done) 0517 Rate: Rate (enter#) (60) Rhythm: NSR [place]: Normal Intervals: Normal [place] QRS: Normal Compare to prior EKG: Unchanged from prior EKG - Labs Labs: Laboratory Tests 05/09/18 05/09/18 05/09/18 05:20 05:20 05:20 WBC 12.9 H RBC 4.08 L Hgb 12.8 Hct 37.1 MCV 90.9 MCH 31.4 H MCHC 34.5 RDW 11.9 L Plt Count 419 MPV 6.7 L Neut # (Auto) 6.7 H Lymph # (Auto) 4.3 H [place] # (Auto) 0.9 Eos # (Auto) 0.9 H Baso # (Auto) 0.1 Absolute Nucleated RBC 0.01 Nucleated RBC % 0.1 Sodium 134 L Potassium 2.7 L Chloride 98 L Carbon Dioxide 30 Anion Gap 6.0 BUN 9 Creatinine 0.5 Estimated GFR (MDRD) 157 Glucose 89 Calcium 8.0 L Phosphorus 4.2 Magnesium 1.3 L Total Bilirubin 0.3 AST 28 ALT 22 Alkaline Phosphatase 43 Troponin I < 0.04 Total Protein 7.0 Albumin 3.6 Globulin 3.4 Albumin/Globulin Ratio 1.1 Lipase 40 Urine Color Urine Clarity Urine pH Ur Specific [place] Urine Protein Urine Glucose (UA) Urine Ketones Urine Occult Blood Urine Nitrite Urine Bilirubin Urine Urobilinogen Ur Leukocyte Esterase Urine RBC Urine WBC Ur Squamous Epith Cells Urine Bacteria Ur Microscopic Review Urine Culture Comments Urine HCG, Qual Urine Opiates Screen Ur Oxycodone Screen Urine Methadone Screen Ur Propoxyphene Screen Ur Barbiturates Screen Ur Tricyclics Screen Ur Phencyclidine Scrn Ur Amphetamine Screen U Methamphetamines Scrn U Benzodiazepines Scrn Urine Cocaine Screen U Cannabinoids Screen Ethyl Alcohol < 5.0 05/09/18 05/09/18 05:30 05:30 WBC RBC Hgb Hct MCV MCH MCHC RDW Plt Count MPV Neut # (Auto) Lymph # (Auto) [place] # (Auto) Eos # (Auto) Baso # (Auto) Absolute Nucleated RBC Nucleated RBC % Sodium Potassium Chloride Carbon Dioxide Anion Gap BUN Creatinine Estimated GFR (MDRD) Glucose Calcium Phosphorus Magnesium Total Bilirubin AST ALT Alkaline Phosphatase Troponin I Total Protein Albumin Globulin Albumin/Globulin Ratio Lipase Urine Color YELLOW Urine Clarity CLEAR Urine pH 7.0 Ur Specific [place] 1.010 Urine Protein NEGATIVE Urine Glucose (UA) NEGATIVE Urine Ketones NEGATIVE Urine Occult Blood SMALL H Urine Nitrite NEGATIVE Urine Bilirubin NEGATIVE Urine Urobilinogen 0.2 (NORMAL) Ur Leukocyte Esterase NEGATIVE Urine RBC 6-10 H Urine WBC 0-3 Ur Squamous Epith Cells FEW Squamous Urine Bacteria Rare Ur Microscopic Review INDICATED Urine Culture Comments NOT INDICATED Urine HCG, Qual NEGATIVE Urine Opiates Screen NEGATIVE Ur Oxycodone Screen NEGATIVE Urine Methadone Screen NEGATIVE Ur Propoxyphene Screen NEGATIVE Ur Barbiturates Screen NEGATIVE Ur Tricyclics Screen NEGATIVE Ur Phencyclidine Scrn NEGATIVE Ur Amphetamine Screen NEGATIVE U Methamphetamines Scrn NEGATIVE U Benzodiazepines Scrn NEGATIVE Urine Cocaine Screen NEGATIVE U Cannabinoids Screen POSITIVE H Ethyl Alcohol - Rads (name of study) chest x-ray Radiology: Final report received (normal) PD MEDICAL DECISION MAKING - ED course Complexity details: reviewed old records, reviewed results, re-evaluated patient , considered differential, d/w patient ED course: patient was seen and examined at bedside. ekg was performed and showed normal sinus. Iv access was gained and labs were drawn. chest x-ray was ordered. Patient was found to have low potassium and magnesium which is fairly common for her. patient was treated with two runs of potassium 10meq IV, oral potassium and magnesium IV . Patient's chest x-ray was within normal limits. patient required no further inpatient work up at this time and was stable for discharge with outpatient follow up. - Sepsis Event Vital Signs: Vital Signs - 24 hr 05/09/18 05/09/18 05/09/18 05:05 05:54 06:51 Temperature 36.5 C Heart Rate 67 80 57 L Respiratory 18 21 14 Rate Blood Pressure 122/49 L 100/79 94/46 L O2 Saturation 98 100 100 Oxygen O2 Source Room air Departure - Departure Disposition: Home, Self Care Clinical Impression: RTA (renal tubular acidosis) Condition: Good Instructions: ED Diet High Potassium Follow-Up: [facility] [Provider Group] [facility] [Provider Group] Prescriptions: Cyclobenzaprine [Flexeril] 10 mg PO TID PRN #10 tablet PRN Reason: Spasms Forms: Activity restrictions
[2018-05-09 05:31] LABS: BASOPHILS # (AUTO) 0.1 10^3/uL (0.0-0.1); EOSINOPHILS # (AUTO) 0.9 10^3/uL (0.0-0.7); EOSINOPHILS % (AUTO) 6.9 %; HGB - HEMOGLOBIN 12.8 g/dL (12.0-16.0); LYMPHOCYTES # (AUTO) 4.3 10^3/uL (1.5-3.5); LYMPHOCYTES % (AUTO) 33.4 %; MEAN CORPUSCULAR HEMOGLOBIN 31.4 pg (27.0-31.0); MEAN CORPUSCULAR HGB CONC 34.5 g/dL (32.0-36.0); MEAN CORPUSCULAR VOLUME 90.9 fL (81.0-99.0); MEAN PLATELET VOLUME 6.7 fL (7.9-10.8); MONOCYTES # (AUTO) 0.9 10^3/uL (0.0-1.0); MONOCYTES % (AUTO) 6.7 %; NEUTROPHILS # (AUTO) 6.7 10^3/uL (1.5-6.6); PLT - PLATELET COUNT 419 10^3/uL (130-450); RED BLOOD COUNT 4.08 10^6/uL (4.20-5.40); RED CELL DISTRIBUTION WIDTH 11.9 % (12.0-15.0); WHITE BLOOD COUNT 12.9 x10^3/uL (4.8-10.8)
[2018-05-09 05:42] LABS: ALBUMIN 3.6 g/dL (3.2-5.5); ALBUMIN/GLOBULIN RATIO 1.1 (1.0-2.2); ALKALINE PHOSPHATASE 43 IU/L (42-121); ALT ALANINE AMINOTRANSFERASE 22 IU/L (10-60); AST ASPARTATE AMINOTRANSFERASE 28 IU/L (10-42); BILIRUBIN,TOTAL 0.3 mg/dL (0.2-1.0); BUN - BLOOD UREA NITROGEN 9 mg/dL (6-20); CARBON DIOXIDE - CO2 30 mmol/L (21-32); CHLORIDE 98 mmol/L (101-111); CREATININE 0.5 mg/dL (0.4-1.0); GFR - MDRD 157 (>89); GLUCOSE 89 mg/dL (70-100); LIPASE 40 U/L (22-51); MAGNESIUM 1.3 mg/dL (1.7-2.8); PHOSPHORUS 4.2 mg/dL (2.5-4.6); SODIUM 134 mmol/L (135-145)
[2018-05-09] MEDS ORDERED: MAGNESIUM SULFATE 1 GM/2 ML VIAL IVP STA (05:43)
[2018-05-09] MEDS ORDERED: POTASSIUM BICARB 25 MEQ TABLET PO STA (05:44)
[2018-05-09 05:46] LABS: MUDS CUTOFF CONCENTRATIONS CUTOFF CONC BELOW:
[2018-05-09 05:49] LABS: BILIRUBIN,URINE NEGATIVE (NEGATIVE); GLUCOSE, URINE (UA) NEGATIVE (NEGATIVE); KETONES,URINE (UA) NEGATIVE (NEGATIVE); LEUKOCYTE ESTERASE, URINE NEGATIVE (NEGATIVE); NITRITE,URINE NEGATIVE (NEGATIVE); OCCULT BLOOD,URINE SMALL (NEGATIVE); PROTEIN,URINE NEGATIVE (NEGATIVE); UROBILINOGEN,URINE 0.2 (NORMAL) E.U./dL (NORMAL)
[2018-05-09 05:51] LABS: CLARITY,URINE CLEAR (CLEAR); HCG UR QUAL NEGATIVE
--- NOTE | 2018-05-09 05:52 | XRAY Report ---
Procedure Date: 05/09/2018 Accession Number: [id number] / [id number] Procedure: XR - Chest 1 View X-Ray CPT Code: 21646 FULL RESULT: EXAM: CHEST RADIOGRAPHY EXAM DATE: 05/09/2018 05:44 AM. CLINICAL HISTORY: Chest pain. COMPARISON: 01/02/2018. TECHNIQUE: 1 view. FINDINGS: Lungs/Pleura: No focal opacities evident. No pleural effusion. No pneumothorax. Mediastinum: Within exam limitations, the cardiomediastinal contour is normal. Other: None. IMPRESSION: Stable negative single view chest. RADIA
[2018-05-09 05:55] LABS: BACTERIA,URINE Rare /HPF (None Seen); SQUAMOUS EPITHELIAL CELL,UR FEW Squamous (<= Few)
[2018-05-09 05:59] LABS: AMPHETAMINE SCREEN,URINE NEGATIVE (NEGATIVE); BENZODIAZEPINES SCREEN, URINE NEGATIVE (NEGATIVE); COCAINE SCREEN URINE NEGATIVE (NEGATIVE); METHADONE SCREEN, URINE NEGATIVE (NEGATIVE); METHAMPHETAMINES SCREEN, URINE NEGATIVE (NEGATIVE); OPIATE SCREEN, URINE NEGATIVE (NEGATIVE); OXYCODONE SCREEN, URINE NEGATIVE (NEGATIVE); PROPOXYPHENE SCREEN, URINE NEGATIVE (NEGATIVE); TRICYCLIC ANTIDEPRESSANT,URINE NEGATIVE (NEGATIVE)
[2018-05-09] MEDS ORDERED: MAGNESIUM SULFATE 2 GRAM 2 GM/50 ML BAG IV ONE (06:13)
[2018-05-09 09:07] VITALS: BP 118/56
== END 2018-05-09 09:38 | disposition home or self-care (01) ==
LOC: ED 05:05
DX: N25.89 Other disorders resulting from impaired renal tubular function (principal); F17.200 Nicotine dependence, unspecified, uncomplicated
CPT/HCPCS: 36415; 71045; 80053; 80306; 80320; 81001; 81025; 83690; 83735; 84100; 84484; 85025; 93005; 96365; 96366; 96375; 99283; 99284; A9270; 81003; 87086

== ENCOUNTER 2018-07-16 11:17 | Emergency (ER) | payer SELFPAY ==
[2018-07-16 11:31] VITALS: BP 116/57
== END 2018-07-16 13:32 | disposition left against medical advice (07) ==
LOC: ED 11:17
DX: Z53.21 Procedure and treatment not carried out due to patient leaving prior to being seen by health care provider (principal)
CPT/HCPCS: 80053; 83690; 83735; 84100; 85025

== ENCOUNTER 2018-07-16 17:23 | Emergency (ER) | payer SELFPAY ==
[2018-07-16] MEDS ORDERED: SODIUM CHLORIDE 0.9% 1,000 ML IV ONE ×2 (18:01→18:54)
--- NOTE | 2018-07-16 18:18 | ED Physician Documentation ---
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 Also has abdominal pain. This is typical for her. No fevers. No diarrhea. States that her urine is dark. Has not taken anything for the nausea and vomiting. No fevers. No changes in her medications. Review of Systems Ten Systems: 10 systems reviewed and negative Constitutional: denies: Fever, Chills Ears: denies: Ear pain Nose: denies: Rhinorrhea / runny nose, Congestion Cardiac: denies: Chest pain / pressure Respiratory: denies: Cough GI: reports: Nausea, Vomiting. denies: Diarrhea : denies: Dysuria Musculoskeletal: denies: Neck pain, Back pain Neurologic: reports: Generalized weakness. 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 ) HEENT: None Psych: None Musculoskeletal: None Derm: Eczema - Past Surgical History Past Surgical History: No Ortho: ACL reconstruction, Arthroscopic surgery HEENT: Myringotomy (tubes), Tonsil/Adenoidectomy - Present Medications Home Medications: Ambulatory Orders Medication Instructions Recorded Confirmed Potassium Chloride [Klor-Con 10] 60 meq PO BIDWM 11/21/17 07/16/18 Cephalexin [Keflex] 500 mg PO Q6H #20 capsule 07/16/18 Magnesium 1 tab PO DAILY 07/16/18 07/16/18 Promethazine [Phenergan] 25 mg PO Q6H PRN #10 tab 07/16/18 - Allergies Allergies/Adverse Reactions: Allergies Allergy/AdvReac Type Severity Reaction Status Date / Time bismuth subsalicylate Allergy Respiratory Verified 07/16/18 17:35 [From Pepto-Bismol] cinnamon Allergy Anaphylaxis Verified 07/16/18 17:35 lorazepam [From Ativan] Allergy Hives Verified 07/16/18 17:35 ondansetron HCl * Allergy Itching Verified 07/16/18 17:35 [From Zofran (as hydrochloride)] - Social History Does the pt smoke?: Yes Smoking Status: Current every day smoker Does the pt drink ETOH?: No Does the pt have substance abuse?: No - Immunizations Immunizations are current?: Yes Immunizations: Other immun not current - POLST Patient has POLST: No POLST Status: Full Code PD ED PE NORMAL - Vitals Vital signs reviewed: Yes - General General: Alert and oriented X 3 - HEENT HEENT: Moist mucous membranes - Neck Neck: Supple, no meningeal sign - Cardiac Cardiac: RRR, Strong equal pulses - Respiratory Respiratory: No respiratory distress, Clear bilaterally - Abdomen Abdomen: Soft, Non tender, Non distended - Back Back: No CVA TTP, No spinal TTP - Derm Derm: Warm and dry - Extremities Extremities: No edema - Neuro Neuro: Alert and oriented X 3 - Psych Psych: Normal mood, Normal affect Results - Vitals Vitals: Vital Signs - 24 hr 07/16/18 07/16/18 17:33 20:39 Temperature 36.2 C L Heart Rate 84 88 Respiratory 20 20 Rate Blood Pressure 116/65 104/52 L O2 Saturation 100 100 Oxygen O2 Source Room air - EKG (time done) 1843 Rate: Rate (enter#) (90) Rhythm: NSR [place]: Normal Intervals: Normal [place], Prolonged QT QRS: Normal Ischemia: Normal ST segments - Labs Labs: Laboratory Tests 07/16/18 07/16/18 07/16/18 12:30 18:58 19:18 WBC 16.8 H RBC 5.04 Hgb 15.6 Hct 45.1 MCV 89.6 MCH 31.0 MCHC 34.6 RDW 13.3 Plt Count 185 MPV 8.1 Neut # (Auto) Not Reportable Lymph # (Auto) Not Reportable [place] # (Auto) Not Reportable Eos # (Auto) Not Reportable Baso # (Auto) Not Reportable Absolute Nucleated RBC Not Reportable Total Counted 100 Band Neuts % (Manual) 1 Reactive Lymphs % (Man) 29 Abnorm Lymph % (Manual) 0 Nucleated RBC % Not Reportable Neutrophils # (Manual) 3.2 Lymphocytes # (Manual) 12.1 H Monocytes # (Manual) 1.5 H Eosinophils # (Manual) 0.0 Basophils # (Manual) 0.0 Differential Comment MANUAL DIFFERENTIAL Platelet Estimate NORMAL (130-450,000) Platelet Morphology NORMAL APPEARANCE RBC Morph Micro Appear NORMAL APPEARANCE Sodium 138 Potassium 2.9 L Chloride 97 L Carbon Dioxide 31 Anion Gap 10.0 BUN 9 Creatinine 0.6 Estimated GFR (MDRD) 126 Glucose 103 H Calcium 8.1 L Phosphorus 2.3 L Magnesium 1.7 Total Bilirubin 3.7 H AST 216 H ALT 320 H Alkaline Phosphatase 250 H Total Protein 7.6 Albumin 3.8 Globulin 3.8 Albumin/Globulin Ratio 1.0 Lipase 38 Urine Color DARK YELLOW Urine Clarity CLEAR Urine pH 8.5 H Ur Specific [place] 1.020 Urine Protein 30 H Urine Glucose (UA) NEGATIVE Urine Ketones NEGATIVE Urine Occult Blood SMALL H Urine Nitrite NEGATIVE Urine Bilirubin MODERATE H Urine Urobilinogen 4 H Ur Leukocyte Esterase NEGATIVE Urine RBC 11-25 H Urine WBC 0-3 Ur Squamous Epith Cells MOD Squamous H Urine Bacteria Rare Urine Mucus Few Strands Ur Microscopic Review INDICATED Urine Culture Comments NOT INDICATED Urine HCG, Qual NEGATIVE - Rads (name of study) Right upper quadrant ultrasound Radiology: Prelim report reviewed, EMP read contemporaneously, See rad report ( No acute abnormality) PD MEDICAL DECISION MAKING - ED course Complexity details: reviewed old records, reviewed results, re-evaluated patient , considered differential, d/w patient ED course: Patient is a 23-year-old female who presents to the emergency department vomiting today. Her potassium is mildly decreased from normal lab values, but is above her normal range. Her normal potassium is only approximately 2.5. Magnesium is also within her normal range. She feels better after IV fluids and Phenergan. Tolerating p.o. without difficulty. She does have bacteriuria and she states this is similar to her prior urinary tract infections, therefore she was given Rocephin and will place on antibiotics for home. We will also prescribe Phenergan for home. She is well-appearing, nontoxic. Patient counseled regarding signs and symptoms for which I believe and urgent re- evaluation would be necessary. Patient with good understanding of and agreement to plan and is comfortable going home at this time This document was made in part using voice recognition software. While efforts are made to proofread this document, sound alike and grammatical errors may occur. - Sepsis Event Vital Signs: Vital Signs - 24 hr 07/16/18 07/16/18 17:33 20:39 Temperature 36.2 C L Heart Rate 84 88 Respiratory 20 20 Rate Blood Pressure 116/65 104/52 L O2 Saturation 100 100 Oxygen O2 Source Room air Departure - Departure Disposition: 01 Home, Self Care Clinical Impression: Dehydration UTI (urinary tract infection) Qualifiers: Urinary tract infection type: acute cystitis Hematuria presence: without hematuria Qualified Code(s): N30.00 - Acute cystitis without hematuria Condition: Good Instructions: ED UTI Cystitis Female Follow-Up: your,doctor in 3 days [Other] Prescriptions: Cephalexin [Keflex] 500 mg PO Q6H #20 capsule Promethazine [Phenergan] 25 mg PO Q6H PRN #10 tab PRN Reason: Nausea / Vomiting Comments: return if you worsen. Drink plenty of fluids. Take all antibiotics until gone. Forms: Activity restrictions Discharge Date/Time: 07/16/18 21:46
[2018-07-16 18:39] LABS: BASOPHILS % (AUTO) 1.3 %; EOSINOPHILS % (AUTO) 0.4 %; HGB - HEMOGLOBIN 15.6 g/dL (12.0-16.0); LYMPHOCYTES % (AUTO) 68.3 %; MEAN CORPUSCULAR HGB CONC 34.6 g/dL (32.0-36.0); MEAN CORPUSCULAR VOLUME 89.6 fL (81.0-99.0); MEAN PLATELET VOLUME 8.1 fL (7.9-10.8); MONOCYTES % (AUTO) 6.1 %; NEUTROPHILS % (AUTO) 23.9 %; PLT - PLATELET COUNT 185 10^3/uL (130-450); RED BLOOD COUNT 5.04 10^6/uL (4.20-5.40); RED CELL DISTRIBUTION WIDTH 13.3 % (12.0-15.0); WHITE BLOOD COUNT 16.8 x10^3/uL (4.8-10.8)
[2018-07-16 19:00] LABS: ABNORMAL LYMPHS % (MANUAL) 0 %
[2018-07-16 19:15] LABS: ALBUMIN 3.8 g/dL (3.2-5.5); BILIRUBIN,TOTAL 3.7 mg/dL (0.2-1.0); CALCIUM 8.1 mg/dL (8.5-10.3); CREATININE 0.6 mg/dL (0.4-1.0); MAGNESIUM 1.7 mg/dL (1.7-2.8); PHOSPHORUS 2.3 mg/dL (2.5-4.6); TOTAL PROTEIN 7.6 g/dL (6.7-8.2)
[2018-07-16 19:21] LABS: GLUCOSE, URINE (UA) NEGATIVE (NEGATIVE); KETONES,URINE (UA) NEGATIVE (NEGATIVE); LEUKOCYTE ESTERASE, URINE NEGATIVE (NEGATIVE); NITRITE,URINE NEGATIVE (NEGATIVE); OCCULT BLOOD,URINE SMALL (NEGATIVE); PH,URINE 8.5 PH (5.0-7.5); PROTEIN,URINE 30 mg/dL (NEGATIVE); UROBILINOGEN,URINE 4 E.U./dL (NORMAL)
[2018-07-16 19:24] LABS: BILIRUBIN,URINE MODERATE (NEGATIVE); CLARITY,URINE CLEAR (CLEAR); HCG UR QUAL NEGATIVE; ICTOTEST,URINE POSITIVE
[2018-07-16 19:30] LABS: SQUAMOUS EPITHELIAL CELL,UR MOD Squamous (<= Few)
[2018-07-16 19:31] LABS: BACTERIA,URINE Rare /HPF (None Seen); MUCUS,URINE Few Strands
[2018-07-16 19:36] LABS: BAND NEUTROPHILS % (MANUAL) 1 %; LYMPHOCYTES # (MANUAL) 12.1 10^3/uL (1.5-3.5); LYMPHOCYTES % (MANUAL) 43 %; MONOCYTES # (MANUAL) 1.5 10^3/uL (0.0-1.0); NEUTROPHILS # (MANUAL) 3.2 10^3/uL (1.5-6.6); NEUTROPHILS % (MANUAL) 18 %; RBC MORPHOLOGY (MULTIPLE) NORMAL APPEARANCE (NORMAL)
[2018-07-16 19:37] LABS: DIFFERENTIAL COMMENT MANUAL DIFFERENTIAL; PLATELET ESTIMATE, MANUAL NORMAL (130-450,000) (NORMAL); PLATELET MORPHOLOGY NORMAL APPEARANCE (NORMAL)
[2018-07-16 20:40] VITALS: BP 104/52
[2018-07-16] MEDS ORDERED: PROMETHAZINE INJ 25 MG in SODIUM CHLORIDE 0.9% 50 ML IV STA (20:45)
--- NOTE | 2018-07-16 20:56 | Ultrasound Report ---
Procedure Date: 07/16/2018 Accession Number: [id number] / [id number] Procedure: US - Abdomen Limited CPT Code: FULL RESULT: EXAM: ABDOMEN ULTRASOUND LIMITED, RUQ EXAM DATE: 07/16/2018 08:16 PM. CLINICAL HISTORY: Right upper quadrant pain, vomiting, elevated LFT. COMPARISON: None. TECHNIQUE: Real-time scanning was performed with static images obtained. FINDINGS: Liver: Normal in size and echotexture. 19.2 cm. Main portal vein flow: Hepatopetal. Gallbladder: Gallbladder is contracted. No focal tenderness. No stones nor sludge. No pericholecystic fluid. Biliary System: CBD measures 3 mm. No intrahepatic or extrahepatic ductal dilatation. Other: Normal right kidney. IMPRESSION: Contracted gallbladder. No cholelithiasis nor cholecystitis. RADIA
[2018-07-16] MEDS ORDERED: cefTRIAXone 1 GM VIAL IM STA (21:17)
[2018-07-16] MEDS ORDERED: LIDOCAINE 1% 2 ML VIAL SUBQ ONE (21:17)
[2018-07-16] MEDS: cefTRIAXone 1 GM VIAL IVP STA ×2 (21:27→21:28)
== END 2018-07-16 21:46 | disposition home or self-care (01) ==
LOC: ED 17:23
DX: E86.0 Dehydration (principal); N30.00 Acute cystitis without hematuria; N25.89 Other disorders resulting from impaired renal tubular function; F17.200 Nicotine dependence, unspecified, uncomplicated
CPT/HCPCS: 36415; 76705; 80053; 81001; 81025; 83690; 83735; 84100; 85025; 93005; 96361; 96365; 96372; 99283; 99284; J7040; 81003; 87086

== ENCOUNTER 2018-08-03 10:59 | Emergency (ER) | payer MEDICAID ==
--- NOTE | 2018-08-03 11:41 | ED Physician Documentation ---
PD HPI CHEST PAIN - Stated complaint Stated Complaint: DIZZY/CHEST PX - Chief complaint Chief Complaint: Cardiac - History obtained from History obtained from: Patient - History of Present Illness Timing - onset: Yesterday Timing - onset during: Rest Timing - duration: Days (2) Timing - details: Gradual onset, Still present Quality: Pressure, Tightness Location: Substernal, Left chest Radiation: Neck Improved by: Rest Worsened by: Inspiration, Movement, Palpation Associated symptoms: Shortness of air Similar symptoms before: Diagnosis (low potassium) Recently seen: Emergency Dept - Additional information Additional information: 23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 She has had some diarrhea with this as well and she states that she has been able to take her potassium and she has not vomited up pills. She feels weak and appears to have spasms of her upper and lower extremities periodically. She states that she feels fatigued and did not get her break sometime yesterday at work. Review of Systems Constitutional: reports: Myalgias, Fatigue, Sweats. denies: Fever, Chills Eyes: denies: Decreased vision Ears: denies: Ear pain Nose: denies: Rhinorrhea / runny nose, Congestion Throat: denies: Dental pain / toothache, Oral lesions / sores Cardiac: reports: Chest pain / pressure. denies: Palpitations, Pedal edema, Calf pain Respiratory: reports: Dyspnea. 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 : Chronic bladder infection, Other HEENT: None Psych: None Musculoskeletal: None Derm: Eczema - Past Surgical History Past Surgical History: No Ortho: ACL reconstruction, Arthroscopic surgery HEENT: Myringotomy (tubes), Tonsil/Adenoidectomy - Present Medications Home Medications: Ambulatory Orders Medication Instructions Recorded Confirmed Potassium Chloride [Klor-Con 10] 60 meq PO BIDWM 11/21/17 07/16/18 Magnesium 1 tab PO DAILY 07/16/18 07/16/18 Promethazine [Phenergan] 25 mg PO Q6H PRN #10 tab 07/16/18 - Allergies Allergies/Adverse Reactions: Allergies Allergy/AdvReac Type Severity Reaction Status Date / Time bismuth subsalicylate Allergy Respiratory Verified 08/03/18 11:13 [From Pepto-Bismol] cinnamon Allergy Anaphylaxis Verified 08/03/18 11:13 lorazepam [From Ativan] Allergy Hives Verified 08/03/18 11:13 ondansetron HCl * Allergy Itching Verified 08/03/18 11:13 [From Zofran (as hydrochloride)] - Social History Does the pt smoke?: Yes Smoking Status: Current every day smoker Does the pt drink ETOH?: No Does the pt have substance abuse?: No - Immunizations Immunizations are current?: Yes Immunizations: Other immun not current - POLST Patient has POLST: No POLST Status: Full Code PD ED PE NORMAL - Vitals Vital signs reviewed: Yes (hypertensive mild diastolic ) - General General: Alert and oriented X 3, No acute distress, Well developed/nourished - HEENT HEENT: Atraumatic, PERRL, EOMI - Neck Neck: Supple, no meningeal sign, No bony TTP - Cardiac Cardiac: RRR, No murmur - Respiratory Respiratory: No respiratory distress, Clear bilaterally - Abdomen Abdomen: Soft, Non tender - Back Back: No CVA TTP, No spinal TTP - Derm Derm: Normal color, Warm and dry, No rash - Extremities Extremities: No deformity, No edema - Neuro Neuro: Alert and oriented X 3, 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, No motor deficit, No sensory deficit, Normal speech Eye Opening: Spontaneous Motor: Obeys Commands Verbal: Oriented GCS Score: 15 - Psych Psych: Normal mood, Other (affect is flat ) Results - Vitals Vitals: Vital Signs - 24 hr 08/03/18 08/03/18 11:08 13:46 Temperature 37.1 C Heart Rate 75 66 Respiratory 18 16 Rate Blood Pressure 119/81 H 103/87 H O2 Saturation 96 98 Oxygen O2 Source Room air - EKG (time done) 1110 Rate: Rate (enter#) (59) Rhythm: NSR Ischemia: Normal ST segments Compare to prior EKG: Changed from prior EKG (SPT 07-16-18 rate has decreased) Computer interpretation: Agree with computer - Labs Labs: Laboratory Tests 08/03/18 08/03/18 08/03/18 12:14 12:14 12:14 WBC 6.3 RBC 4.42 Hgb 13.4 Hct 37.9 MCV 85.7 MCH 30.3 MCHC 35.4 RDW 13.4 Plt Count 414 MPV 6.3 L Neut # (Auto) 2.6 Lymph # (Auto) 2.8 [place] # (Auto) 0.7 Eos # (Auto) 0.1 Baso # (Auto) 0.1 Absolute Nucleated RBC 0.00 Nucleated RBC % 0.0 Sodium 139 Potassium 2.9 L Chloride 103 Carbon Dioxide 27 Anion Gap 9.0 BUN 12 Creatinine 0.6 Estimated GFR (MDRD) 126 Glucose 97 Calcium 8.9 Magnesium 1.1 L Total Bilirubin 0.7 AST 25 ALT 23 Alkaline Phosphatase 54 Troponin I < 0.04 Total Protein 7.3 Albumin 3.8 Globulin 3.5 Albumin/Globulin Ratio 1.1 Lipase 42 Urine Color Urine Clarity Urine pH Ur Specific [place] Urine Protein Urine Glucose (UA) Urine Ketones Urine Occult Blood Urine Nitrite Urine Bilirubin Urine Urobilinogen Ur Leukocyte Esterase Ur Microscopic Review Urine Culture Comments Urine HCG, Qual 08/03/18 08/03/18 12:43 12:57 WBC RBC Hgb Hct MCV MCH MCHC RDW Plt Count MPV Neut # (Auto) Lymph # (Auto) [place] # (Auto) Eos # (Auto) Baso # (Auto) Absolute Nucleated RBC Nucleated RBC % Sodium Potassium Chloride Carbon Dioxide Anion Gap BUN Creatinine Estimated GFR (MDRD) Glucose Calcium Magnesium Total Bilirubin AST ALT Alkaline Phosphatase Troponin I Total Protein Albumin Globulin Albumin/Globulin Ratio Lipase Urine Color YELLOW Urine Clarity CLEAR Urine pH 8.0 H Ur Specific [place] 1.010 1.010 Urine Protein NEGATIVE Urine Glucose (UA) NEGATIVE Urine Ketones NEGATIVE Urine Occult Blood TRACE-INTA Urine Nitrite NEGATIVE Urine Bilirubin NEGATIVE Urine Urobilinogen 0.2 (NORMAL) Ur Leukocyte Esterase NEGATIVE Ur Microscopic Review NOT INDICATED Urine Culture Comments NOT INDICATED Urine HCG, Qual NEGATIVE Procedures - IVC sono (time) 1150 Bedside IVC sono: IVC measures (cm) (1.65), IVC collapsed c insp (cm) (1.28), Euvolemia PD MEDICAL DECISION MAKING - ED course Complexity details: reviewed results, re-evaluated patient, considered differential, d/w patient ED course: 23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 She is administered potassium in the form of [place] with improvement. She refuses intravenous fluids. - Sepsis Event Vital Signs: Vital Signs - 24 hr 08/03/18 08/03/18 11:08 13:46 Temperature 37.1 C Heart Rate 75 66 Respiratory 18 16 Rate Blood Pressure 119/81 H 103/87 H O2 Saturation 96 98 Oxygen O2 Source Room air Departure - Departure Disposition: 01 Home, Self Care Clinical Impression: Hypokalemia Condition: Stable Instructions: ED Potassium Deficiency, ED Diet High Potassium Follow-Up: [facility] [Provider Group] Forms: Activity restrictions Discharge Date/Time: 08/03/18 13:47
[2018-08-03 12:18] LABS: BASOPHILS # (AUTO) 0.1 10^3/uL (0.0-0.1); BASOPHILS % (AUTO) 1.3 %; EOSINOPHILS # (AUTO) 0.1 10^3/uL (0.0-0.7); EOSINOPHILS % (AUTO) 1.5 %; HGB - HEMOGLOBIN 13.4 g/dL (12.0-16.0); LYMPHOCYTES # (AUTO) 2.8 10^3/uL (1.5-3.5); LYMPHOCYTES % (AUTO) 44.9 %; MEAN CORPUSCULAR HEMOGLOBIN 30.3 pg (27.0-31.0); MEAN CORPUSCULAR HGB CONC 35.4 g/dL (32.0-36.0); MEAN CORPUSCULAR VOLUME 85.7 fL (81.0-99.0); MEAN PLATELET VOLUME 6.3 fL (7.9-10.8); MONOCYTES # (AUTO) 0.7 10^3/uL (0.0-1.0); MONOCYTES % (AUTO) 11.2 %; NEUTROPHILS # (AUTO) 2.6 10^3/uL (1.5-6.6); NEUTROPHILS % (AUTO) 41.1 %; PLT - PLATELET COUNT 414 10^3/uL (130-450); RED BLOOD COUNT 4.42 10^6/uL (4.20-5.40); RED CELL DISTRIBUTION WIDTH 13.4 % (12.0-15.0); WHITE BLOOD COUNT 6.3 x10^3/uL (4.8-10.8)
[2018-08-03 12:30] LABS: ALBUMIN 3.8 g/dL (3.2-5.5); ALBUMIN/GLOBULIN RATIO 1.1 (1.0-2.2); BILIRUBIN,TOTAL 0.7 mg/dL (0.2-1.0); CALCIUM 8.9 mg/dL (8.5-10.3); CREATININE 0.6 mg/dL (0.4-1.0); MAGNESIUM 1.1 mg/dL (1.7-2.8); TOTAL PROTEIN 7.3 g/dL (6.7-8.2)
[2018-08-03] MEDS ORDERED: SODIUM CHLORIDE 0.9% 1,000 ML IV ONE (12:36)
[2018-08-03] MEDS ORDERED: POTASSIUM BICARB 25 MEQ TABLET PO STA (12:39)
[2018-08-03] MEDS ORDERED: PROMETHAZINE INJ 25 MG in SODIUM CHLORIDE 0.9% 50 ML IV STA (12:39)
[2018-08-03 12:58] LABS: BILIRUBIN,URINE NEGATIVE (NEGATIVE); GLUCOSE, URINE (UA) NEGATIVE (NEGATIVE); KETONES,URINE (UA) NEGATIVE (NEGATIVE); LEUKOCYTE ESTERASE, URINE NEGATIVE (NEGATIVE); NITRITE,URINE NEGATIVE (NEGATIVE); OCCULT BLOOD,URINE TRACE-INTA (NEGATIVE); PROTEIN,URINE NEGATIVE (NEGATIVE); UROBILINOGEN,URINE 0.2 (NORMAL) E.U./dL (NORMAL)
[2018-08-03 12:59] LABS: CLARITY,URINE CLEAR (CLEAR)
[2018-08-03] MEDS ORDERED: POTASSIUM CHLOR 10 MEQ/100 ML 10 MEQ/100 ML BAG IV SCH (13:00)
[2018-08-03 13:02] LABS: HCG UR QUAL NEGATIVE
[2018-08-03] MEDS ORDERED: POTASSIUM CHLORIDE 20 MEQ TABLET PO STA (13:02)
[2018-08-03 13:47] VITALS: BP 103/87
== END 2018-08-03 13:47 | disposition home or self-care (01) ==
LOC: ED 10:59
DX: E87.6 Hypokalemia (principal); N25.89 Other disorders resulting from impaired renal tubular function; F17.200 Nicotine dependence, unspecified, uncomplicated
CPT/HCPCS: 36415; 80053; 81003; 81025; 83690; 83735; 84484; 85025; 93005; 96365; 99283; A9270; J7040; 81001; 87086

== ENCOUNTER 2018-09-17 13:02 | Emergency (ER) | payer MEDICAID ==
--- NOTE | 2018-09-17 13:31 | ED Physician Documentation ---
PD HPI CHEST PAIN - Stated complaint Stated Complaint: HEART FLUTTERING - Chief complaint Chief Complaint: Cardiac - History obtained from History obtained from: Patient - History of Present Illness Timing - onset: How many days ago (2) Timing - onset during: Light activity Timing - duration: Days (2) Timing - details: Gradual onset, Still present (she is having urinary frequency, left flank pain, nausea, and with weakness and general muscle cramping. Feeling similar to low electrolytes. Also feels she might have UTI. history of stones in the past as well.) Quality: Aching, Pain (in left flank and low abd. Today having fluttering feeling in chest, c/w low potassium.) Location: Substernal Associated symptoms: Nausea, Vomiting, Palpitations. 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 denies: Fever, Chills Nose: denies: Rhinorrhea / runny nose, Congestion Throat: denies: Sore throat Respiratory: denies: Cough GI: reports: Abdominal Pain, Nausea, Vomiting (vomiting some rust blood couple of times, small amount.). denies: Diarrhea, Bloody / black stool : reports: Frequency. denies: Dysuria, Hematuria Skin: denies: Rash, Lesions Neurologic: reports: Generalized weakness. 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[employer]: Ovarian cysts : Chronic bladder infection, Other (Gitelman's/RTA) HEENT: None Psych: None Musculoskeletal: None Derm: None, Eczema - Past Surgical History Past Surgical History: No Ortho: ACL reconstruction, Arthroscopic surgery HEENT: Myringotomy (tubes), Tonsil/Adenoidectomy - Present Medications Home Medications: Ambulatory Orders Medication Instructions Recorded Confirmed Potassium Chloride [Klor-Con 10] 60 meq PO BIDWM 11/21/17 09/17/18 Magnesium 1 tab PO DAILY 07/16/18 09/17/18 Promethazine [Phenergan] 25 mg PO Q6H PRN #10 tab 07/16/18 09/17/18 Famotidine [Pepcid] 20 mg PO ONCE #30 tablet 09/17/18 HYDROcod/ACETAM 5/325 [[place] 5/325] 1 tab PO Q6H PRN #15 tablet 09/17/18 Methocarbamol [Robaxin] 500 mg PO Q6H PRN #20 tablet 09/17/18 Promethazine [Phenergan] 25 mg PO Q6H PRN #30 tab 09/17/18 - Allergies Allergies/Adverse Reactions: Allergies Allergy/AdvReac Type Severity Reaction Status Date / Time bismuth subsalicylate Allergy Respiratory Verified 09/17/18 13:14 [From Pepto-Bismol] cinnamon Allergy Anaphylaxis Verified 09/17/18 13:14 lorazepam [From Ativan] Allergy Hives Verified 09/17/18 13:14 ondansetron HCl * Allergy Itching Verified 09/17/18 13:14 [From Zofran (as hydrochloride)] - Social History Does the pt smoke?: Yes Smoking Status: Current every day smoker Does the pt drink ETOH?: No Does the pt have substance abuse?: No - Immunizations Immunizations are current?: Yes Immunizations: Other immun not current - POLST Patient has POLST: No POLST Status: Full Code PD ED PE NORMAL - Vitals Vital signs reviewed: Yes - General General: Alert and oriented X 3, Well developed/nourished, Other (appears uncomfortable and nauseated) - HEENT HEENT: Pharynx benign - Neck Neck: Supple, no meningeal sign, No adenopathy - Cardiac Cardiac: RRR, No murmur - Respiratory Respiratory: Clear bilaterally - Abdomen Abdomen: Normal bowel sounds, Soft, Non distended, No organomegaly, Other (some tenderness lower abd/left side, with left flank tenderness. ) - Female Female : Deferred - Rectal Rectal: Deferred - Back Back: No spinal TTP - Derm Derm: Normal color, Warm and dry, No rash - Extremities Extremities: No tenderness to palpate, Normal ROM s pain, No edema, No calf tenderness / cord - Neuro Neuro: Alert and oriented X 3, No motor deficit, Normal speech Results - Vitals Vitals: Vital Signs - 24 hr 09/17/18 09/17/18 13:07 14:44 Temperature 37.2 C Heart Rate 70 60 Respiratory 16 15 Rate Blood Pressure 117/64 97/52 L O2 Saturation 98 97 Oxygen O2 Source Room air - Labs Labs: Laboratory Tests 09/17/18 09/17/18 09/17/18 14:20 14:20 14:20 WBC 8.5 RBC 4.41 Hgb 13.6 Hct 38.1 MCV 86.4 MCH 30.8 MCHC 35.7 RDW 13.3 Plt Count 377 MPV 6.8 L Neut # (Auto) 4.5 Lymph # (Auto) 2.7 [place] # (Auto) 0.5 Eos # (Auto) 0.7 Baso # (Auto) 0.1 Absolute Nucleated RBC 0.00 Nucleated RBC % 0.0 Sodium 138 Potassium 2.9 L Chloride 101 Carbon Dioxide 29 Anion Gap 8.0 BUN 7 Creatinine 0.6 Estimated GFR (MDRD) 126 Glucose 94 Calcium 9.4 Phosphorus 4.1 Magnesium 1.2 L Total Bilirubin 0.9 AST 33 ALT 17 Alkaline Phosphatase 37 L Total Protein 6.8 Albumin 3.8 Globulin 3.0 Albumin/Globulin Ratio 1.3 Lipase 36 Urine Color Urine Clarity Urine pH Ur Specific [place] Urine Protein Urine Glucose (UA) Urine Ketones Urine Occult Blood Urine Nitrite Urine Bilirubin Urine Urobilinogen Ur Leukocyte Esterase Ur Microscopic Review Urine Culture Comments Urine HCG, Qual 09/17/18 14:30 WBC RBC Hgb Hct MCV MCH MCHC RDW Plt Count MPV Neut # (Auto) Lymph # (Auto) [place] # (Auto) Eos # (Auto) Baso # (Auto) Absolute Nucleated RBC Nucleated RBC % Sodium Potassium Chloride Carbon Dioxide Anion Gap BUN Creatinine Estimated GFR (MDRD) Glucose Calcium Phosphorus Magnesium Total Bilirubin AST ALT Alkaline Phosphatase Total Protein Albumin Globulin Albumin/Globulin Ratio Lipase Urine Color YELLOW Urine Clarity CLEAR Urine pH 8.0 H Ur Specific [place] 1.015 Urine Protein NEGATIVE Urine Glucose (UA) NEGATIVE Urine Ketones NEGATIVE Urine Occult Blood TRACE-LYSE Urine Nitrite NEGATIVE Urine Bilirubin NEGATIVE Urine Urobilinogen 0.2 (NORMAL) Ur Leukocyte Esterase NEGATIVE Ur Microscopic Review NOT INDICATED Urine Culture Comments NOT INDICATED Urine HCG, Qual NEGATIVE - Rads (name of study) KUB CT Radiology: Prelim report reviewed, EMP read contemporaneously PD MEDICAL DECISION MAKING - ED course Complexity details: reviewed results, re-evaluated patient (improved with fluids, lytes, meds. ), considered differential (presume low electrolytes, so will start replacement. Will check for UTI and if neg, then potential imaging for stone. ), d/w patient Departure - Departure Disposition: 01 Home, Self Care Clinical Impression: Hypokalemia, RTA (renal tubular acidosis), Hypomagnesemia Gastritis Qualifiers: Gastritis type: unspecified gastritis Chronicity: acute Gastritis bleeding: without bleeding Qualified Code(s): K29.00 - Acute gastritis without bleeding Back pain Qualifiers: Back pain location: low back pain Chronicity: unspecified Back pain laterality: left Sciatica presence: without sciatica Qualified Code(s): M54.5 - Low back pain Condition: Stable Record reviewed to determine appropriate education?: Yes Instructions: ED Low Back Pain Injury, ED Gastritis Prescriptions: Famotidine [Pepcid] 20 mg PO ONCE #30 tablet HYDROcod/ACETAM 5/325 [[place] 5/325] 1 tab PO Q6H PRN #15 tablet PRN Reason: Pain Methocarbamol [Robaxin] 500 mg PO Q6H PRN #20 tablet PRN Reason: Spasms Promethazine [Phenergan] 25 mg PO Q6H PRN #30 tab PRN Reason: Nausea / Vomiting Comments: Your electrolytes are not too badly low so continue usual medications for them. Promethazine for nausea. Famotidine for presumed stomach irritation to reduce stomach acids. Your CT scan did not show any signs of kidney swelling or stones. Presume the pain is musculoskeletal and you can use some Tylenol and add methocarbamol muscle relaxant and hydrocodone pain medicine if needed short-term.
[2018-09-17] MEDS ORDERED: SODIUM CHLORIDE 0.9% 1,000 ML IV ONE (13:49)
[2018-09-17] MEDS ORDERED: POTASSIUM PHOSPHATE 15 MMOL in SODIUM CHLORIDE 0.9% 250 ML IV ONE (13:50)
[2018-09-17] MEDS ORDERED: MAGNESIUM SULFATE 2 GRAM 2 GM/50 ML BAG IV ONE (13:50)
[2018-09-17] MEDS ORDERED: FAMOTIDINE 20 MG/2 ML VIAL IVP STA (13:50)
[2018-09-17 14:41] LABS: BASOPHILS # (AUTO) 0.1 10^3/uL (0.0-0.1); EOSINOPHILS # (AUTO) 0.7 10^3/uL (0.0-0.7); EOSINOPHILS % (AUTO) 7.9 %; HGB - HEMOGLOBIN 13.6 g/dL (12.0-16.0); LYMPHOCYTES # (AUTO) 2.7 10^3/uL (1.5-3.5); LYMPHOCYTES % (AUTO) 32.3 %; MEAN CORPUSCULAR HEMOGLOBIN 30.8 pg (27.0-31.0); MEAN CORPUSCULAR HGB CONC 35.7 g/dL (32.0-36.0); MEAN CORPUSCULAR VOLUME 86.4 fL (81.0-99.0); MEAN PLATELET VOLUME 6.8 fL (7.9-10.8); MONOCYTES # (AUTO) 0.5 10^3/uL (0.0-1.0); MONOCYTES % (AUTO) 6.2 %; NEUTROPHILS # (AUTO) 4.5 10^3/uL (1.5-6.6); NEUTROPHILS % (AUTO) 52.6 %; PLT - PLATELET COUNT 377 10^3/uL (130-450); RED BLOOD COUNT 4.41 10^6/uL (4.20-5.40); RED CELL DISTRIBUTION WIDTH 13.3 % (12.0-15.0); WHITE BLOOD COUNT 8.5 x10^3/uL (4.8-10.8)
[2018-09-17 14:56] LABS: ALBUMIN 3.8 g/dL (3.2-5.5); ALBUMIN/GLOBULIN RATIO 1.3 (1.0-2.2); BILIRUBIN,TOTAL 0.9 mg/dL (0.2-1.0); CALCIUM 9.4 mg/dL (8.5-10.3); CREATININE 0.6 mg/dL (0.4-1.0); MAGNESIUM 1.2 mg/dL (1.7-2.8); TOTAL PROTEIN 6.8 g/dL (6.7-8.2)
[2018-09-17 15:10] LABS: BILIRUBIN,URINE NEGATIVE (NEGATIVE); GLUCOSE, URINE (UA) NEGATIVE (NEGATIVE); KETONES,URINE (UA) NEGATIVE (NEGATIVE); LEUKOCYTE ESTERASE, URINE NEGATIVE (NEGATIVE); NITRITE,URINE NEGATIVE (NEGATIVE); OCCULT BLOOD,URINE TRACE-LYSE (NEGATIVE); PROTEIN,URINE NEGATIVE (NEGATIVE); UROBILINOGEN,URINE 0.2 (NORMAL) E.U./dL (NORMAL)
[2018-09-17 15:13] LABS: CLARITY,URINE CLEAR (CLEAR); HCG UR QUAL NEGATIVE
[2018-09-17] MEDS ORDERED: MORPHINE 10 MG/ML VIAL IVP STA (15:27)
--- NOTE | 2018-09-17 16:13 | CT Report ---
Reason: flank pain left, history of stones Procedure Date: 09/17/2018 Accession Number: [id number] / [id number] Procedure: CT - KUB CPT Code: FULL RESULT: EXAM: CT ABDOMEN AND PELVIS EXAM DATE: 09/17/2018 03:44 PM. CLINICAL HISTORY: Nephrolithiasis. Left flank pain. COMPARISONS: Abdomen/pelvis without contrast 10/07/2015 7:47 PM. TECHNIQUE: Routine helical CT imaging was performed through the abdomen and pelvis. IV contrast: None. Enteric contrast: No. Reconstructions: Coronal and sagittal. In accordance with CT protocol optimization, one or more of the following dose reduction techniques were utilized for this exam: automated exposure control, adjustment of mA and/or KV based on patient size, or use of iterative reconstructive technique. FINDINGS: Lung Bases: Unremarkable. Liver: Normal. No masses. Gallbladder/Bile Ducts: Unremarkable. Spleen: Normal. Pancreas: Normal. Adrenal Glands: Normal. Kidneys: Normal. No stones, masses or hydronephrosis. Normal ureters bilaterally. Peritoneal Cavity/Bowel: Normal. No free fluid, free air or adenopathy. No masses or acute inflammatory process. The appendix is well visualized and normal. Pelvic Organs: Normal. The bladder and visualized pelvic organs are within normal limits. Vasculature: No aneurysms or other significant abnormality. Bones: No significant abnormality. Other: None. IMPRESSION: Normal abdomen and pelvis CT. RADIA
[2018-09-17 16:32] VITALS: BP 124/68
== END 2018-09-17 17:21 | disposition home or self-care (01) ==
LOC: ED 13:02
DX: E87.6 Hypokalemia (principal); E83.42 Hypomagnesemia; N25.89 Other disorders resulting from impaired renal tubular function; K29.00 Acute gastritis without bleeding; M54.5 Low back pain; F17.200 Nicotine dependence, unspecified, uncomplicated
CPT/HCPCS: 36415; 74176; 80053; 81001; 81003; 81025; 83690; 83735; 84100; 85025; 87086; 93005; 96365; 96375; 99284

== ENCOUNTER 2018-11-17 15:28 | Observation (INO) | payer MEDICAID ==
[2018-11-17] MEDS ORDERED: SODIUM CHLORIDE 0.9% 1,000 ML IV ONE (15:55)
[2018-11-17] MEDS ORDERED: POTASSIUM CHLOR 10 MEQ/100 ML 10 MEQ/100 ML BAG IV ONE (15:55)
--- NOTE | 2018-11-17 15:58 | ED Physician Documentation ---
PD HPI CHEST PAIN - Stated complaint Stated Complaint: CHEST TIGHTNESS - Chief complaint Chief Complaint: Cardiac - History obtained from History obtained from: Patient - History of Present Illness Timing - onset: How many days ago (4) Timing - onset during: Rest Timing - duration: Days (4) Timing - details: Gradual onset, Still present Quality: Pressure, Tightness, Sharp Location: Substernal Radiation: Neck Improved by: Rest Worsened by: Exertion, Movement, Palpation Similar symptoms before: Diagnosis (low K+) Recently seen: Not recently seen - Additional information Additional information: Impression: 23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 She has had this happen to her previously she usually gets anterior chest pain and pain in her upper shoulder and back as well as some abdominal pain. She feels weak as well. Review of Systems Constitutional: denies: Fever Eyes: denies: Decreased vision Ears: denies: Ear pain Nose: denies: Rhinorrhea / runny nose, Congestion Throat: denies: Sore throat Cardiac: reports: Chest pain / pressure, Palpitations. denies: Pedal edema, Calf pain Respiratory: denies: Dyspnea, Cough, Wheezing GI: reports: Abdominal Pain, Nausea, Vomiting : reports: Other (vaginal itching). denies: Dysuria, Frequency Skin: denies: Rash Musculoskeletal: reports: Neck pain. denies: Back pain, Extremity pain Neurologic: denies: Generalized weakness, Focal weakness, Numbness PD PAST MEDICAL HISTORY - Past Medical History Cardiovascular: None Respiratory: Pneumonia Endocrine/Autoimmune: None GI: None PIECER UP: Ovarian cysts : Chronic bladder infection, Other HEENT: None Psych: None Musculoskeletal: None Derm: None, Eczema - Past Surgical History Past Surgical History: No Ortho: ACL reconstruction, Arthroscopic surgery HEENT: Myringotomy (tubes), Tonsil/Adenoidectomy - Present Medications Home Medications: Ambulatory Orders Medication Instructions Recorded Confirmed RX: Potassium Chloride [Klor-Con 60 meq PO BIDWM 11/21/17 09/17/18 10] Promethazine [Phenergan] 25 mg PO Q6H PRN #10 tab 07/16/18 09/17/18 RX: Magnesium 1 tab PO DAILY 07/16/18 09/17/18 HYDROcod/ACETAM 5/325 [[place] 5/325] 1 tab PO Q6H PRN #15 tablet 09/17/18 Methocarbamol [Robaxin] 500 mg PO Q6H PRN #20 tablet 09/17/18 Promethazine [Phenergan] 25 mg PO Q6H PRN #30 tab 09/17/18 RX: Albuterol Sulf [Ventolin Hfa 1 - 2 puffs INH Q4HR PRN #1 inhaler 09/17/18 Inhaler] RX: Famotidine [Pepcid] 20 mg PO ONCE #30 tablet 09/17/18 - Allergies Allergies/Adverse Reactions: Allergies Allergy/AdvReac Type Severity Reaction Status Date / Time bismuth subsalicylate Allergy Respiratory Verified 11/17/18 15:38 [From Pepto-Bismol] cinnamon Allergy Anaphylaxis Verified 11/17/18 15:38 lorazepam [From Ativan] Allergy Hives Verified 11/17/18 15:38 ondansetron HCl * Allergy Itching Verified 11/17/18 15:38 [From Zofran (as hydrochloride)] - Social History Does the pt smoke?: Yes Smoking Status: Current every day smoker Does the pt drink ETOH?: No Does the pt have substance abuse?: No - Immunizations Immunizations are current?: Yes Immunizations: Other immun not current - POLST Patient has POLST: No POLST Status: Full Code PD ED PE NORMAL - Vitals Vital signs reviewed: Yes (hypotensive ) - General General: Alert and oriented X 3, No acute distress, Well developed/nourished - HEENT HEENT: Atraumatic, PERRL, EOMI - Neck Neck: Supple, no meningeal sign, No bony TTP - Cardiac Cardiac: RRR, No murmur - Respiratory Respiratory: No respiratory distress, Clear bilaterally - Abdomen Abdomen: Soft, Non tender - Back Back: No CVA TTP, No spinal TTP - Derm Derm: Normal color, Warm and dry, No rash - Extremities Extremities: No deformity, No edema - Neuro Neuro: Alert and oriented X 3, court recorder 2-12 intact, No motor deficit, No sensory deficit, Normal speech Eye Opening: Spontaneous Motor: Obeys Commands Verbal: Oriented GCS Score: 15 - Psych Psych: Normal mood, Normal affect Results - Vitals Vitals: Vital Signs - 24 hr 11/17/18 11/17/18 15:36 16:33 Temperature 36.2 C L Heart Rate 65 80 Respiratory 20 24 Rate Blood Pressure 98/50 L 103/60 O2 Saturation 99 98 Oxygen O2 Source Room air - EKG (time done) 1536 Rate: Rate (enter#) (61) Rhythm: NSR Ischemia: Normal ST segments, Other (flat T waves throughout) Compare to prior EKG: Changed from prior EKG (SPT 09-17-18 the T waves are flat today) Computer interpretation: Agree with computer - Labs Labs: Laboratory Tests 11/17/18 11/17/18 11/17/18 16:05 16:10 16:10 WBC 10.0 RBC 4.44 Hgb 13.5 Hct 38.2 MCV 86.1 MCH 30.5 MCHC 35.4 RDW 13.2 Plt Count 373 MPV 6.5 L Neut # (Auto) 5.6 Lymph # (Auto) 3.2 [place] # (Auto) 0.7 Eos # (Auto) 0.5 Baso # (Auto) 0.1 Absolute Nucleated RBC 0.00 Nucleated RBC % 0.0 Sodium 138 Potassium 2.3 L* Chloride 99 L Carbon Dioxide 26 Anion Gap 13.0 BUN 8 Creatinine 0.8 Estimated GFR (MDRD) 91 Glucose 96 Calcium 8.7 Magnesium 1.0 L* Total Bilirubin 0.7 AST 31 ALT 25 Alkaline Phosphatase 36 L Total Creatine Kinase 122 CK-MB (CK-2) Troponin I Total Protein 7.5 Albumin 4.4 Globulin 3.1 Albumin/Globulin Ratio 1.4 Lipase 32 Urine Color YELLOW Urine Clarity CLEAR Urine pH 7.0 Ur Specific [place] 1.010 Urine Protein NEGATIVE Urine Glucose (UA) NEGATIVE Urine Ketones NEGATIVE Urine Occult Blood MODERATE H Urine Nitrite NEGATIVE Urine Bilirubin NEGATIVE Urine Urobilinogen 0.2 (NORMAL) Ur Leukocyte Esterase NEGATIVE Urine RBC 6-10 H Urine WBC 0-3 Ur Squamous Epith Cells RARE Squamous Urine Bacteria Rare Ur Microscopic Review INDICATED Urine Culture Comments NOT INDICATED Urine HCG, Qual NEGATIVE 11/17/18 16:10 WBC RBC Hgb Hct MCV MCH MCHC RDW Plt Count MPV Neut # (Auto) Lymph # (Auto) [place] # (Auto) Eos # (Auto) Baso # (Auto) Absolute Nucleated RBC Nucleated RBC % Sodium Potassium Chloride Carbon Dioxide Anion Gap BUN Creatinine Estimated GFR (MDRD) Glucose Calcium Magnesium Total Bilirubin AST ALT Alkaline Phosphatase Total Creatine Kinase CK-MB (CK-2) 2.3 Troponin I < 0.04 Total Protein Albumin Globulin Albumin/Globulin Ratio Lipase Urine Color Urine Clarity Urine pH Ur Specific [place] Urine Protein Urine Glucose (UA) Urine Ketones Urine Occult Blood Urine Nitrite Urine Bilirubin Urine Urobilinogen Ur Leukocyte Esterase Urine RBC Urine WBC Ur Squamous Epith Cells Urine Bacteria Ur Microscopic Review Urine Culture Comments Urine HCG, Qual PD MEDICAL DECISION MAKING - ED course Complexity details: reviewed old records, reviewed results, re-evaluated chelle caceres, considered differential, d/w patient ED course: 23-year-old female with Geittleman's syndrome has developed nausea and vomiting she has not been able to hold down her potassium. She is now hypokalemic has intense muscle spasm associated with hypokalemia and she is found to be hypo- magnesium as well. She has had this previously and at these levels she will require admission to the hospital for replacement. She is administered diflucan for vaginal itching. Departure - Departure Disposition: [facility] DC/Xfer Clinical Impression: Hypokalemia, Hypomagnesemia
[2018-11-17 16:18] LABS: BASOPHILS # (AUTO) 0.1 10^3/uL (0.0-0.1); BASOPHILS % (AUTO) 0.7 %; EOSINOPHILS # (AUTO) 0.5 10^3/uL (0.0-0.7); EOSINOPHILS % (AUTO) 4.6 %; HGB - HEMOGLOBIN 13.5 g/dL (12.0-16.0); LYMPHOCYTES # (AUTO) 3.2 10^3/uL (1.5-3.5); MEAN CORPUSCULAR HEMOGLOBIN 30.5 pg (27.0-31.0); MEAN CORPUSCULAR HGB CONC 35.4 g/dL (32.0-36.0); MEAN CORPUSCULAR VOLUME 86.1 fL (81.0-99.0); MEAN PLATELET VOLUME 6.5 fL (7.9-10.8); MONOCYTES # (AUTO) 0.7 10^3/uL (0.0-1.0); MONOCYTES % (AUTO) 6.6 %; NEUTROPHILS # (AUTO) 5.6 10^3/uL (1.5-6.6); NEUTROPHILS % (AUTO) 56.1 %; PLT - PLATELET COUNT 373 10^3/uL (130-450); RED BLOOD COUNT 4.44 10^6/uL (4.20-5.40); RED CELL DISTRIBUTION WIDTH 13.2 % (12.0-15.0)
[2018-11-17 16:22] LABS: BILIRUBIN,URINE NEGATIVE (NEGATIVE); GLUCOSE, URINE (UA) NEGATIVE (NEGATIVE); KETONES,URINE (UA) NEGATIVE (NEGATIVE); LEUKOCYTE ESTERASE, URINE NEGATIVE (NEGATIVE); NITRITE,URINE NEGATIVE (NEGATIVE); OCCULT BLOOD,URINE MODERATE (NEGATIVE); PROTEIN,URINE NEGATIVE (NEGATIVE); UROBILINOGEN,URINE 0.2 (NORMAL) E.U./dL (NORMAL)
[2018-11-17 16:26] LABS: CLARITY,URINE CLEAR (CLEAR); HCG UR QUAL NEGATIVE
[2018-11-17 16:32] LABS: ALBUMIN 4.4 g/dL (3.2-5.5); ALBUMIN/GLOBULIN RATIO 1.4 (1.0-2.2); BILIRUBIN,TOTAL 0.7 mg/dL (0.2-1.0); CALCIUM 8.7 mg/dL (8.5-10.3); CREATININE 0.8 mg/dL (0.4-1.0); TOTAL PROTEIN 7.5 g/dL (6.7-8.2)
[2018-11-17] MEDS ORDERED: MAGNESIUM SULFATE 2 GRAM 2 GM/50 ML BAG IV ONE (16:32)
[2018-11-17 16:34] LABS: TROPONIN I < 0.04 ng/mL (<0.49)
[2018-11-17 16:36] LABS: BACTERIA,URINE Rare /HPF (None Seen); SQUAMOUS EPITHELIAL CELL,UR RARE Squamous (<= Few)
[2018-11-17 16:36] LABS: CREATINE KINASE MB 2.3 ng/mL (0.6-6.3)
[2018-11-17] MEDS ORDERED: PROMETHAZINE INJ 25 MG in SODIUM CHLORIDE 0.9% 50 ML IV STA (16:36)
[2018-11-17] MEDS ORDERED: HYDROmorphone 1 MG/ML CARPUJECT IVP STA (16:36)
[2018-11-17] MEDS ORDERED: SODIUM CHLORIDE FLUSH 0.9% 10 ML SYRINGE IVP PRN (17:10)
[2018-11-17] MEDS ORDERED: PROMETHAZINE INJ 25 MG in SODIUM CHLORIDE 0.9% 50 ML IV PRN (17:13)
--- NOTE | 2018-11-17 17:15 | HISTORY & PHYSICAL EXAMINATION ---
Chief Complaint - Chief Complaint Chief Complaint: nausea History of Present Illness - Admitted From Admitted From:: ED - History Obtained From Records Reviewed: yes History obtained from: chart review, patient Exam Limitations: none - History of Present Illness HPI Comment/Other: Elayne Roman is a 23-year old female with a past medical history of chronic pain, depression, substance abuse, tobacco dependence, medical non-compliance, obesity and Gitelman syndrome. She states that she has been getting frequent kidney infections and admits to being sexually active but would rather not tell me her boyfriends name. She believes that her nausea with loss of appetite began about 5 days ago accompanied by urinary frequency, urgency and burning. Today she has had uncontrolled nausea with vomiting and at one point states that she threw up a streaked blood vomit. She also complains of fevers, chills, rigors, insomnia and lethargy. Labs show a low K of 2.3, mag of 1.0, a normal WBC, and negative troponin, with no other lab abnormalities. She will be kept overnight for further symptom control and electrolyte replacement. History - Past Medical History Cardiovascular: reports: Murmur Respiratory: reports: Asthma, Pneumonia Neuro: reports: Headaches Endocrine/Autoimmune: reports: None GI: reports: GERD WIRE BRUSHER: reports: Ovarian cysts : reports: Chronic bladder infection, Frequency, Other (Gitelman syndrome) HEENT: reports: None Psych: reports: Depression, Anxiety, Bipolar disorder, Post traumatic stress disorder Musculoskeletal: reports: Fatigue, Chronic back pain Derm: reports: None, Eczema MRSA Hx?: No - Past Surgical History Ortho: reports: ACL reconstruction, Arthroscopic surgery HEENT: reports: Myringotomy (tubes), Tonsil/Adenoidectomy - Family & Social History Family History: Mother: Alive and Well, Father: Alive and Well Family History Comment/Other: The patient will not answer any details about her parents and does not think they have any chronic illnesses. Living arrangement: At home Living Situation: With spouse/s.o. (lives with her boyfriend, of which states "I cannot tell you his name".) Social History Notes: The patient lived in [place], [place] both in 2011 and in 2014. She was living with her dad since 2014, but now lives with her boyfriend and his family. 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 She admits to previous tobacco dependence, but has recently switched to marijuana given her daily chronic pain in her spine. She denies other illicit drug or alcohol use. She wishes to be a FULL code. - Substance History Use: Uses substance without health or social issues: Tobacco, Cannabis Use Issues: Anxiety Disorder Abuse: Recurrent use of substance despite neg consequences: Cannabis Abuse Issues: Anxiety Disorder Dependence: Experiences withdrawal or developed tolerances: Tobacco, Cannabis Dependence Issues: Anxiety Disorder Tobacco Details: Cigarettes - POLST Patient has POLST: No POLST Status: Full Code Meds/Allgy - Home Medications Home Medications: Ambulatory Orders Medication Instructions Recorded Confirmed Potassium Chloride [Klor-Con 10] 60 meq PO BIDWM 11/21/17 09/17/18 Magnesium 1 tab PO DAILY 07/16/18 09/17/18 Promethazine [Phenergan] 25 mg PO Q6H PRN #10 tab 07/16/18 09/17/18 Albuterol Sulf [Ventolin Hfa 1 - 2 puffs INH Q4HR PRN #1 inhaler 09/17/18 Inhaler] Famotidine [Pepcid] 20 mg PO ONCE #30 tablet 09/17/18 HYDROcod/ACETAM 5/325 [[place] 5/325] 1 tab PO Q6H PRN #15 tablet 09/17/18 Methocarbamol [Robaxin] 500 mg PO Q6H PRN #20 tablet 09/17/18 Promethazine [Phenergan] 25 mg PO Q6H PRN #30 tab 09/17/18 - Allergies Allergies/Adverse Reactions: Allergies Allergy/AdvReac Type Severity Reaction Status Date / Time bismuth subsalicylate Allergy Respiratory Verified 11/17/18 15:38 [From Pepto-Bismol] cinnamon Allergy Anaphylaxis Verified 11/17/18 15:38 lorazepam [From Ativan] Allergy Hives Verified 11/17/18 15:38 ondansetron HCl * Allergy Itching Verified 11/17/18 15:38 [From Zofran (as hydrochloride)] Review of Systems - Constitutional Constitutional: reports: Fatigue, Fever, Chills, Weakness, Poor appetite, Night sweats - Eyes Eyes: reports: Vision loss - Ears, Nose & Throat Ears, Nose & Throat: reports: Postnasal drainage - Cardiovascular Cariovascular: reports: Irregular heart rate, Palpitations, Chest pain - Gastrointestinal Gastrointestinal: reports: Nausea, Vomiting, Bile emesis, Reflux/heartburn, Poor appetite - Genitourinary Genitourinary: reports: Dysuria, Frequency, Urgency - Musculoskeletal Musculoskeletal: reports: Back pain, Muscle aches - Integumentary Integumentary: reports: Dryness - Neurological Neurological: reports: Headache, Pre-existing deficit - Psychiatric Psychiatric: reports: Depression, Anxiety - Hematologic/Lymphatic Hematologic/Lymphatic: reports: Recurrent infections - All Other Systems All Other Systems: reports: Reviewed and negative Prior Level of Functionality: independent, no recent falls or syncope. Exam - Vital Signs Reviewed Vital Signs: Yes Vital Signs: Vital Signs x48h Temp Pulse Resp BP Pulse Ox 11/17/18 16:33 80 24 103/60 98 11/17/18 15:36 36.2 C L 65 20 98/50 L 99 - Physical Exam General Appearance: positive: Alert, Moderate distress, Anxious Eyes Bilateral: positive: PERRL ENT: positive: Pharynx nml, Dry mucous membranes Neck: positive: No JVD, Trachea midline Respiratory: positive: Chest non-tender, No respiratory distress, Breath sounds nml Cardiovascular: positive: Regular rate & rhythm, Systolic murmur Peripheral Pulses: positive: 2+ Abdomen: positive: Nml bowel sounds, Other (obese, soft) Back: positive: Nml inspection Skin: positive: Color nml, No rash, Warm, Dry Extremities: positive: Non-tender, Full ROM, Nml appearance, No pedal edema Neurologic/Psychiatric: positive: Oriented x3, CN's nml (2-12), Motor nml, Sensation nml, Depressed mood/affect, Other (resistant to eye contact, covers her head with blankets, several complaints.) Reflexes: Bicep (R): 3+, Bicep (L): 3+ Sepsis Event Note (H) - Evaluation Current Stage of Sepsis: Ruled out Conclusion/Plan - Problem List (1) Chest pain Conclusion/Plan: The patient states that she has chest pain every day, but when her electrolytes become abnormal, this symptom becomes worse. A troponin was done in the ED, which was normal. Her EKG shows no ST elevation and is similar to other EKGs. Plan: Continue serial troponins, consider an echocardiogram if her symptom does not resolve. (2) Intractable nausea and vomiting Conclusion/Plan: The patient believes that her nausea with loss of appetite began about 5 days ago accompanied by urinary frequency, urgency and burning. Today she has had uncontrolled nausea with vomiting and at one point states that she threw up a streaked blood vomit. She also complains of fevers, chills, rigors, insomnia and lethargy. Plan: Continue to control symptoms. Qualifiers: Vomiting type: cyclical vomiting Qualified Code(s): G43.A1 - Cyclical vomiting, intractable (3) Hypokalemia Conclusion/Plan: The patient has a very low K of 2.3 today. Since she cannot keep anything in orally, she will be kept overnight in the hospital for further symptom management. Plan: Daily labs, ensure patient is tolerating a diet prior to discharge. (4) Hypomagnesemia Conclusion/Plan: The patient is found to have a very low mag of 1.0, likely a consequence of her not being able to tolerate oral intake. Plan: Continue to supplement IV, encourage oral intake. (5) Dysuria Conclusion/Plan: The patient states that this has been a chronic problem for her and last month had a "kidney infection". On exam she has tenderness any where on her body, so I cannot say she has separate new flank pain. Her UA does not show evidence of acute infection. She does admit to being sexually active with a certain "un- named male" of which she calls her boyfriend. She denies blood in her urine but has frequency and urgency, although this could be chronic with her Gitelman syndrome. Plan: Pyridium as needed for continued dysuria. (6) Gitelman syndrome Conclusion/Plan: The patient has had this disease since and consequently has chronic hypokalemia, hypomagnesemia, possible features of mental retardation such as impaired intellectual functioning, immature behaviors, sleeping disorder, obesity, depression, anxiety, PTSD, substance abuse, aggressive behaviors, and polyuria on exam. Plan: Symptom management, replace electrolytes. (7) Marijuana dependence Conclusion/Plan: The patient admits to this as the pills she takes to treat her chronic pain are no longer working. Plan: Await [facility] drug screen, encourage cessation. (8) Depression with anxiety Conclusion/Plan: The patient has a long history of this, although admits to self medication of marijuana daily. She denies seeing a therapist or taking any antidepressants. Plan: Monitor mental status, suggest an outpatient Psychologist. - Lab Results Lab results reviewed: Yes [place] Bones: 11/17/18 16:10 11/17/18 16:10 Core Measures - Anticipated LOS I expect patient to be DC'd or transferred within 96 hours.: Yes - DVT/VTE - Prophylaxis VTE/DVT Device ordered at admit?: Yes VTE/DVT Prophylaxis med ordered at admit?: Yes - Stroke - Rehab Assessment Rehab services assessment to be ordered?: No Not Ordered - Medical Reason: Contraindicated - AMI - Statin at Admit Aspirin Prescribed on Admit: Yes
[2018-11-17] MEDS ORDERED: POTASSIUM CHLORIDE INJ 40 MEQ in SODIUM CHLORIDE 0.9% 480 ML IV ONE (17:17)
[2018-11-17] MEDS ORDERED: MAGNESIUM SULFATE 2 GRAM 2 GM/50 ML BAG IV SCH (17:17)
[2018-11-17] MEDS ORDERED: FLUCONAZOLE 100 MG TABLET PO STA (17:20)
[2018-11-17] MEDS ORDERED: POTASSIUM CHLOR 10 MEQ/100 ML 10 MEQ/100 ML BAG IV SCH ×2 (17:52→22:00)
[2018-11-17] MEDS ORDERED: KETOROLAC 30 MG/ML VIAL IVP PRN (18:27)
[2018-11-17] MEDS: D5.45NS W/20 MEQ KCL 1,000 ML IV SCH (18:28)
[2018-11-17] MEDS ORDERED: PHENAZOPYRIDINE 100 MG TABLET PO PRN (18:30)
[2018-11-17 18:36] LABS: MUDS CUTOFF CONCENTRATIONS CUTOFF CONC BELOW:
[2018-11-17 18:57] LABS: AMPHETAMINE SCREEN,URINE NEGATIVE (NEGATIVE); BENZODIAZEPINES SCREEN, URINE NEGATIVE (NEGATIVE); COCAINE SCREEN URINE NEGATIVE (NEGATIVE); METHADONE SCREEN, URINE NEGATIVE (NEGATIVE); METHAMPHETAMINES SCREEN, URINE NEGATIVE (NEGATIVE); OPIATE SCREEN, URINE NEGATIVE (NEGATIVE); OXYCODONE SCREEN, URINE NEGATIVE (NEGATIVE); PROPOXYPHENE SCREEN, URINE NEGATIVE (NEGATIVE); TRICYCLIC ANTIDEPRESSANT,URINE NEGATIVE (NEGATIVE)
[2018-11-17] MEDS: KETOROLAC 30 MG/ML VIAL IVP PRN (19:31)
[2018-11-17] MEDS: PHENAZOPYRIDINE 100 MG TABLET PO PRN (19:31)
[2018-11-17] MEDS: ACETAMINOPHEN 1,000 MG/100 ML 100 ML IV SCH (19:32)
[2018-11-18] MEDS ORDERED: POTASSIUM CHLORIDE 20 MEQ TABLET PO ONE (00:28)
[2018-11-18] MEDS ORDERED: MAGNESIUM OXIDE 400 MG TABLET PO ONE (00:29)
[2018-11-18] MEDS: CALCIUM CARBONATE CHEW 500 MG TABLET PO SCH ×2 (01:50→08:35)
[2018-11-18] MEDS: HYDROcod/ACETAM 5/325 MG TABLET PO PRN ×2 (01:50→07:38)
[2018-11-18] MEDS: SODIUM CHLORIDE FLUSH 0.9% 10 ML SYRINGE IVP SCH ×2 (01:53→08:15)
[2018-11-18] MEDS: ACETAMINOPHEN 1,000 MG/100 ML 100 ML IV SCH ×2 (01:53→06:38)
[2018-11-18] MEDS: D5.45NS W/20 MEQ KCL 1,000 ML IV SCH ×2 (05:09→10:42)
[2018-11-18 05:15] LABS: BASOPHILS # (AUTO) 0.1 10^3/uL (0.0-0.1); BASOPHILS % (AUTO) 0.6 %; EOSINOPHILS # (AUTO) 0.4 10^3/uL (0.0-0.7); EOSINOPHILS % (AUTO) 2.9 %; HGB - HEMOGLOBIN 12.1 g/dL (12.0-16.0); LYMPHOCYTES # (AUTO) 2.4 10^3/uL (1.5-3.5); LYMPHOCYTES % (AUTO) 17.1 %; MEAN CORPUSCULAR HGB CONC 35.3 g/dL (32.0-36.0); MEAN CORPUSCULAR VOLUME 87.9 fL (81.0-99.0); MEAN PLATELET VOLUME 6.7 fL (7.9-10.8); MONOCYTES # (AUTO) 0.6 10^3/uL (0.0-1.0); MONOCYTES % (AUTO) 3.9 %; NEUTROPHILS # (AUTO) 10.8 10^3/uL (1.5-6.6); NEUTROPHILS % (AUTO) 75.5 %; PLT - PLATELET COUNT 304 10^3/uL (130-450); RED CELL DISTRIBUTION WIDTH 13.5 % (12.0-15.0); WHITE BLOOD COUNT 14.3 x10^3/uL (4.8-10.8)
[2018-11-18 05:33] LABS: ALBUMIN 3.4 g/dL (3.2-5.5); ALBUMIN/GLOBULIN RATIO 1.4 (1.0-2.2); BILIRUBIN,TOTAL 0.7 mg/dL (0.2-1.0); CALCIUM 7.8 mg/dL (8.5-10.3); CREATININE 0.6 mg/dL (0.4-1.0); MAGNESIUM 1.8 mg/dL (1.7-2.8); PHOSPHORUS 3.4 mg/dL (2.5-4.6); TOTAL PROTEIN 5.9 g/dL (6.7-8.2)
[2018-11-18 05:35] LABS: HB2 TOTAL 12.9 g/dL; HEMOGLOBIN A1C 0.43 g/dL; HEMOGLOBIN A1C % 5.2 % (4.6-6.2)
[2018-11-18] MEDS: PHENAZOPYRIDINE 100 MG TABLET PO PRN (07:44)
[2018-11-18] MEDS: KETOROLAC 30 MG/ML VIAL IVP PRN (07:45)
[2018-11-18] MEDS ORDERED: MAGNESIUM OXIDE 400 MG TABLET PO SCH (08:00)
[2018-11-18] MEDS ORDERED: POTASSIUM CHLORIDE 20 MEQ TABLET PO SCH (08:00)
[2018-11-18] MEDS ORDERED: POTASSIUM CHLORIDE 60 MEQ PO SCH (08:00)
[2018-11-18 08:14] VITALS: BP 102/58
[2018-11-18] MEDS ORDERED: NICOTINE 7 MG PATCH TOP SCH (09:00)
[2018-11-18] MEDS ORDERED: MAGNESIUM PO SCH (09:00)
[2018-11-18] MEDS ORDERED: POLYETHYLENE GLYCOL 3350 17 GM PACKET PO SCH (09:00)
--- NOTE | 2018-11-18 10:19 | Discharge Plan ---
Discharge Plan Disposition: 01 Home, Self Care Condition: Good Diet: Regular Activity Restrictions: Activity as Tolerated Shower Restrictions: No Additional Instructions or Follow Up instructions: You were admitted for electrolyte imbalance which is now resolved. Please see your PCP within one week, and other specialists as usual. No Smoking: If you smoke, Please STOP! Call for help.
--- NOTE | 2018-11-18 10:19 | DISCHARGE SUMMARY ---
Discharge Summary Admit Date: 11/17/18 Discharge Date: 11/18/18 Discharging Provider: ARYA Vasquez Primary Care Provider: none Code Status: Attempt Resuscitation Condition at Discharge: Good Discharge Disposition: 01 Home, Self Care - DIAGNOSES Admission Diagnoses: Chest pain, unspecified (R07.9) Nausea with vomiting, unspecified (R11.2) Hypokalemia (E87.6) Dysuria (R30.0) Hypomagnesemia (E83.42) Cannabis dependence, uncomplicated (F12.20) Anxiety disorder, unspecified (F41.9) Discharge Diagnoses with Status of Each Condition: Intractable nausea and vomiting (R11.2) resolved. Chest pain (R07.9) resolved. Hypokalemia (E87.6) resolved. Dysuria (R30.0) resolved. Gitelman syndrome (E83.42) chronic, stable. Marijuana dependence (F12.20) chronic, stable. Anxiety and depression (F41.9)chronic, stable. - HPI History of Present Illness: Elayne Roman is a 23-year old female with a past medical history of chronic pain, depression, substance abuse, tobacco dependence, medical non-compliance, obesity and Gitelman syndrome. She states that she has been getting frequent kidney infections and admits to being sexually active but would rather not tell me her boyfriends name. She believes that her nausea with loss of appetite began about 5 days ago accompanied by urinary frequency, urgency and burning. Today she has had uncontrolled nausea with vomiting and at one point states that she threw up a streaked blood vomit. She also complains of fevers, chills, rigors, insomnia and lethargy. Labs show a low K of 2.3, mag of 1.0, a normal WBC, and negative troponin, with no other lab abnormalities. She will be kept overnight for further symptom control and electrolyte replacement. - HOSPITAL COURSE Hospital Course: The patient had a resolution of her nausea with vomiting and her IV replacements replenished her enough to be sent home the next morning. She was physically threatening to staff and was throwing things during her first night of stay. She was medically stable and was sent home via private car. - ALLERGIES Allergies/Adverse Reactions: Allergies Allergy/AdvReac Type Severity Reaction Status Date / Time bismuth subsalicylate Allergy Respiratory Verified 11/17/18 15:38 [From Pepto-Bismol] cinnamon Allergy Anaphylaxis Verified 11/17/18 15:38 lorazepam [From Ativan] Allergy Hives Verified 11/17/18 15:38 ondansetron HCl * Allergy Itching Verified 11/17/18 15:38 [From Zofran (as hydrochloride)] - MEDICATIONS Home Medications: Ambulatory Orders Medication Instructions Recorded Confirmed Potassium Chloride [Klor-Con 10] 60 meq PO BIDWM 11/21/17 11/18/18 Magnesium 250 mg PO DAILY 07/16/18 11/18/18 - PHYSICAL EXAM AT DISCHARGE General Appearance: positive: No acute distress, Alert, Anxious Eyes Bilateral: positive: PERRL ENT: positive: Pharynx nml, No signs of dehydration Neck: positive: Thyroid nml, No JVD, Trachea midline Respiratory: positive: Chest non-tender, No respiratory distress, Breath sounds nml Cardiovascular: positive: Regular rate & rhythm, No gallop, Systolic murmur Peripheral Pulses: positive: 2+ Abdomen: positive: Non-tender, Nml bowel sounds Back: positive: Nml inspection Skin: positive: Color nml, No rash, Warm, Dry Extremities: positive: Non-tender, Full ROM, Nml appearance Neurologic/Psychiatric: positive: Oriented x3, CN's nml (2-12), Motor nml, Sensation nml, Depressed mood/affect Reflexes: Bicep (R): 3+, Bicep (L): 3+ - LABS Result Diagrams: 11/18/18 05:08 11/18/18 05:08 - FOLLOW UP Follow Up: See PCP within one week. - TIME SPENT Time Spent in Discharge (Minutes): 40
== END 2018-11-18 11:00 | disposition home or self-care (01) ==
LOC: ED 15:28 → MS3 17:10 → OBS 17:47
PROVIDERS: ADMIT Nurse Practitioner; ATTEND Nurse Practitioner
DX: R11.2 Nausea with vomiting, unspecified (principal); R07.9 Chest pain, unspecified; R30.0 Dysuria; N25.89 Other disorders resulting from impaired renal tubular function; F12.20 Cannabis dependence, uncomplicated; E87.6 Hypokalemia; E83.42 Hypomagnesemia; F41.8 Other specified anxiety disorders; E66.9 Obesity, unspecified; Z68.33 Body mass index [BMI] 33.0-33.9, adult; F17.210 Nicotine dependence, cigarettes, uncomplicated
CPT/HCPCS: 36415; 80053; 80306; 81001; 81025; 82550; 82553; 83036; 83605; 83690; 83735; 84100; 84443; 84484; 85025; 93005; 96365; 96366; 96367; 96368; 96375; 96376; 99284; 99285; A9270; G0378; J1170; J7040; 81003; 87086

== ENCOUNTER 2019-01-10 15:24 | Emergency (ER) | payer MEDICAID ==
[2019-01-10] MEDS ORDERED: IPRATROPIUM/ALBUTEROL 3 ML NEB INH STA (15:44)
[2019-01-10] MEDS ORDERED: DEXAMETHASONE 10 MG/ML VIAL PO STA (15:44)
[2019-01-10 16:21] LABS: CREATININE 0.7 mg/dL (0.4-1.0)
[2019-01-10] MEDS ORDERED: ALBUTEROL NEB 2.5 MG/3 ML INH STA (16:21)
[2019-01-10] MEDS ORDERED: POTASSIUM CHLORIDE 20 MEQ TABLET PO STA (16:22)
[2019-01-10] MEDS ORDERED: LEVALBUTEROL 1.25 MG/3 ML NEB INH STA (17:17)
--- NOTE | 2019-01-10 18:39 | XRAY Report ---
Reason: cough and dyspnea Procedure Date: 01/10/2019 Accession Number: [id number] / [id number] Procedure: XR - Chest 2 View X-Ray CPT Code: 08629 FULL RESULT: EXAM: CHEST RADIOGRAPHY EXAM DATE: 01/10/2019 05:57 PM. CLINICAL HISTORY: Cough and dyspnea. Productive cough for 4 days. COMPARISON: CHEST 1 VIEW 05/09/2018 5:34 AM. TECHNIQUE: 2 views. FINDINGS: Lungs/Pleura: No focal opacities evident. No pleural effusion. No pneumothorax. Normal volumes. Mediastinum: Heart and mediastinal contours are unremarkable. Other: Straightening of the thoracic spine. IMPRESSION: Unremarkable 2 views of the chest. RADIA
--- NOTE | 2019-01-10 18:49 | ED Physician Documentation ---
PD HPI DYSPNEA - Stated complaint Stated Complaint: WHEEZING - Chief complaint Chief Complaint: Cardiac - History obtained from History obtained from: Patient - History of Present Illness Timing - onset: How many days ago (10) Timing - duration: Days (10) Timing - details: Still present Associated symptoms: Cough, Wheezing Similar symptoms before: Diagnosis (History of asthma.), Treatment (Albuterol inhaler, without relief.) - Additional information Additional information: The patient is a 23-year-old female with a history of [place]'s syndrome, who presents with productive cough of about 10 days' duration, with associated wheezing and dyspnea. She denies fever or chest pain. 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 She reports a history of similar respiratory symptoms years ago. She has been using albuterol inhaler which had been previously prescribed, but has had no relief. She denies cigarette smoking, but her clothes reek of cigarette smoke. Review of Systems Constitutional: reports: Myalgias. denies: Fever Nose: reports: Congestion Throat: denies: Sore throat Cardiac: denies: Chest pain / pressure Respiratory: reports: Dyspnea, Cough GI: denies: Abdominal Pain, Nausea, Vomiting : denies: Dysuria Skin: denies: Rash Musculoskeletal: reports: Back pain (Chronically.) Neurologic: denies: Focal weakness, Numbness, Headache PD PAST MEDICAL HISTORY - Past Medical History Cardiovascular: Murmur Respiratory: Asthma, Pneumonia Neuro: Headaches Endocrine/Autoimmune: None GI: GERD EXTRUDER: Ovarian cysts : Chronic bladder infection, Frequency, Other HEENT: None Psych: Depression, Anxiety, Bipolar disorder, Post traumatic stress disorder Musculoskeletal: Fatigue, Chronic back pain Derm: None, Eczema Other Past Medical History: Fermin's syndrome - Past Surgical History Past Surgical History: No Ortho: ACL reconstruction, Arthroscopic surgery HEENT: Myringotomy (tubes), Tonsil/Adenoidectomy - Present Medications Home Medications: Ambulatory Orders Medication Instructions Recorded Confirmed Potassium Chloride [Klor-Con 10] 60 meq PO BIDWM 11/21/17 01/10/19 Magnesium 250 mg PO DAILY 07/16/18 01/10/19 Benzonatate [Tessalon Perle] 100 - 200 mg PO TID PRN #30 capsule 01/10/19 predniSONE [Prednisone] 40 mg PO DAILY #10 tablet 01/10/19 - Allergies Allergies/Adverse Reactions: Allergies Allergy/AdvReac Type Severity Reaction Status Date / Time bismuth subsalicylate Allergy Respiratory Verified 11/17/18 15:38 [From Pepto-Bismol] cinnamon Allergy Anaphylaxis Verified 11/17/18 15:38 lorazepam [From Ativan] Allergy Hives Verified 11/17/18 15:38 ondansetron HCl * Allergy Itching Verified 01/10/19 15:31 [From Zofran (as hydrochloride)] - Social History Does the pt smoke?: Yes Smoking Status: Current every day smoker Does the pt drink ETOH?: No Does the pt have substance abuse?: No - Immunizations Immunizations are current?: Yes Immunizations: Other immun not current - POLST Patient has POLST: No POLST Status: Full Code PD ED PE NORMAL - Vitals Vital signs reviewed: Yes (normal) - General General: Alert and oriented X 3, Well developed/nourished - HEENT HEENT: Atraumatic, Ears normal, Pharynx benign - Neck Neck: Supple, no meningeal sign, No adenopathy - Cardiac Cardiac: RRR, No murmur - Respiratory Respiratory: Other (Expiratory wheezing bilaterally.) - Abdomen Abdomen: Soft, Non tender - Back Back: No CVA TTP - Derm Derm: No rash - Extremities Extremities: No edema, No calf tenderness / cord - Neuro Neuro: Alert and oriented X 3, No motor deficit, Normal speech Results - Vitals Vitals: Oxygen O2 Source Room air - Labs Labs: Laboratory Tests 01/10/19 15:57 Sodium 137 Potassium 2.5 L* Chloride 99 L Carbon Dioxide 28 Anion Gap 10.0 BUN 8 Creatinine 0.7 Estimated GFR (MDRD) 106 Glucose 97 Calcium 9.0 - Rads (name of study) CXR Radiology: Prelim report reviewed, EMP read contemporaneously, See rad report (Unremarkable 2 view chest radiography.) PD MEDICAL DECISION MAKING - ED course Complexity details: reviewed results, re-evaluated patient, considered differential, d/w patient ED course: The patient's presentation is most consistent with acute asthmatic bronchitis. Chest x-ray reveals no evidence of pneumonia. Her BMP is significant for hypokalemia, with a potassium of 2.5. Treatment in the emergency department included administration of DuoNeb nebulizer, dexamethasone 10 mg orally, potassium 40 mEq orally, and Xopenex nebulizer. On reexamination, auscultation of her lungs reveals much improved air movement, although there continues to be and expiratory wheezing. She is being discharged with prescriptions for prednisone and for Tessalon. She will increase her normal potassium supplementation. I discussed with her the results of her workup, outpatient treatment and follow-up, as well as potentially worrisome signs or symptoms that should prompt reevaluation in the emergency department. Departure - Departure Disposition: 01 Home, Self Care Clinical Impression: Acute asthmatic bronchitis, Hypokalemia Condition: Stable Instructions: ED Bronchitis Asthmatic, ED Potassium Deficiency Follow-Up: [facility] [Provider Group] Prescriptions: Benzonatate [Tessalon Perle] 100 - 200 mg PO TID PRN #30 capsule PRN Reason: Cough predniSONE [Prednisone] 40 mg PO DAILY #10 tablet Comments: Use your albuterol inhaler as needed for shortness of breath. Take prednisone daily for 5 days as prescribed. You can use Tessalon as prescribed if needed for cough. Follow-up with primary physician within 1-2 weeks. Call to schedule an appointment. Return to the emergency department if you develop increasing difficulty breathing, or otherwise worsening symptoms Forms: Activity restrictions Discharge Date/Time: 01/10/19 19:01
[2019-01-10 19:01] VITALS: BP 109/50
== END 2019-01-10 19:01 | disposition home or self-care (01) ==
LOC: ED 15:24
DX: J45.901 Unspecified asthma with (acute) exacerbation (principal); E87.6 Hypokalemia; F17.200 Nicotine dependence, unspecified, uncomplicated
CPT/HCPCS: 36415; 71046; 80048; 94640; 94664; 99283; A9270

== ENCOUNTER 2019-02-21 15:29 | Emergency (ER) | payer MEDICAID ==
[2019-02-21 15:33] VITALS: BP 142/74
== END 2019-02-21 16:05 | disposition left against medical advice (07) ==
LOC: ED 15:29
DX: Z53.21 Procedure and treatment not carried out due to patient leaving prior to being seen by health care provider (principal)
CPT/HCPCS: 80053; 83690; 83735; 84100; 84484; 85025; 93005

== ENCOUNTER 2019-02-25 10:32 | Emergency (ER) | payer MEDICAID ==
[2019-02-25] MEDS ORDERED: KETOROLAC 30 MG/ML VIAL IVP STA (10:50)
--- NOTE | 2019-02-25 10:54 | ED Physician Documentation ---
PD HPI LOWER EXT INJURY - Stated complaint Stated Complaint: KNEE PX - Chief complaint Chief Complaint: Trauma Ext - History obtained from History obtained from: Patient - History of Present Illness PD HPI LOW EXT INJURY LOCATION: Left, Knee Type of injury: Fall, Twist Where injury occurred: Home Timing - onset: Today Timing - duration: Minutes Timing - details: Abrupt onset, Still present Improved by: Rest, Immobilization Worsened by: Moving, Palpating Associated symptoms: No: Weakness, Numbness, Tingling Contributing factors: No: Anticoagulated Similar symptoms before: Diagnosis (patellar dislocation) Recently seen: Not recently seen - Additional information Additional information: 23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 She has had this happen to her a number of times previously she is come into the emergency department with her knee in the bent position and the patella laterally subluxed. She states that she has been having some symptoms of low potassium recently and she has not been in to see the doctor. Review of Systems Constitutional: denies: Fever Eyes: denies: Decreased vision Ears: denies: Ear pain Nose: denies: Congestion Throat: denies: Sore throat Cardiac: denies: Chest pain / pressure, Palpitations Respiratory: denies: Dyspnea, Cough GI: denies: Abdominal Pain, Nausea, Vomiting : denies: Dysuria, Frequency Skin: denies: Rash Musculoskeletal: reports: Extremity pain, Joint pain, Joint swelling. denies: Neck pain, Back pain Neurologic: reports: Generalized weakness. 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: Ovarian cysts : Chronic bladder infection, Frequency, Other HEENT: None Psych: Depression, Anxiety, Bipolar disorder, Post traumatic stress disorder Musculoskeletal: Fatigue, Chronic back pain Derm: None, Eczema - Past Surgical History Past Surgical History: No Ortho: ACL reconstruction, Arthroscopic surgery HEENT: Myringotomy (tubes), Tonsil/Adenoidectomy - Present Medications Home Medications: Ambulatory Orders Medication Instructions Recorded Confirmed Potassium Chloride [Klor-Con 10] 60 meq PO BIDWM 11/21/17 01/10/19 Magnesium 250 mg PO DAILY 07/16/18 01/10/19 Benzonatate [Tessalon Perle] 100 - 200 mg PO TID PRN #30 capsule 01/10/19 predniSONE [Prednisone] 40 mg PO DAILY #10 tablet 01/10/19 Hydrocodone/Acetaminophen 1 - 2 each PO Q6H PRN #14 tablet 02/25/19 [Hydrocodon-Acetaminophen 5-325] - Allergies Allergies/Adverse Reactions: Allergies Allergy/AdvReac Type Severity Reaction Status Date / Time bismuth subsalicylate Allergy Respiratory Verified 02/25/19 10:41 [From Pepto-Bismol] cinnamon Allergy Anaphylaxis Verified 02/25/19 10:41 lorazepam [From Ativan] Allergy Hives Verified 02/25/19 10:41 ondansetron HCl * Allergy Itching Verified 02/25/19 10:41 [From Zofran (as hydrochloride)] - Social History Does the pt smoke?: Yes Smoking Status: Current every day smoker Does the pt drink ETOH?: No Does the pt have substance abuse?: No - Immunizations Immunizations are current?: Yes Immunizations: Other immun not current - POLST Patient has POLST: No POLST Status: Full Code PD ED PE NORMAL - Vitals Vital signs reviewed: Yes (hypertensive ) - General General: Alert and oriented X 3, Well developed/nourished, Other (23 y/o female crying in pain with the left knee in flexion and obvious lateral subluxation of the patella. This is reduced on exam. ) - HEENT HEENT: Atraumatic, PERRL, EOMI - Neck Neck: Supple, no meningeal sign, No bony TTP - Cardiac Cardiac: RRR, No murmur - Respiratory Respiratory: No respiratory distress, Clear bilaterally - Abdomen Abdomen: Soft, Non tender - Back Back: No CVA TTP, No spinal TTP - Derm Derm: Normal color, Warm and dry, No rash - Extremities Extremities: No deformity, No edema, Other (as above the knee is flexed with lateral displacement of the patella and this is reduced. 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 rider 2-12 intact, No motor deficit, No sensory deficit, Normal speech Eye Opening: Spontaneous Motor: Obeys Commands Verbal: Oriented GCS Score: 15 - Psych Psych: Normal mood, Normal affect Results - Vitals Vitals: Vital Signs - 24 hr 02/25/19 02/25/19 10:39 12:58 Temperature 35.9 C L Heart Rate 70 76 Respiratory 14 20 Rate Blood Pressure 136/73 H 121/79 O2 Saturation 97 98 Oxygen O2 Source Room air - Labs Labs: Laboratory Tests 02/25/19 02/25/19 02/25/19 11:04 11:04 11:04 WBC 11.0 H RBC 4.51 Hgb 13.9 Hct 39.2 MCV 86.9 MCH 30.8 MCHC 35.4 RDW 13.4 Plt Count 411 MPV 6.6 L Neut # (Auto) 7.0 H Lymph # (Auto) 2.8 Frontier # (Auto) 0.7 Eos # (Auto) 0.3 Baso # (Auto) 0.1 Absolute Nucleated RBC 0.00 Nucleated RBC % 0.0 Sodium 138 Potassium 2.9 L Chloride 101 Carbon Dioxide 27 Anion Gap 10.0 BUN 12 Creatinine 0.6 Estimated GFR (MDRD) 126 Glucose 89 Calcium 9.3 Total Bilirubin 0.6 AST 29 ALT 35 Alkaline Phosphatase 43 Troponin I < 0.04 Total Protein 7.6 Albumin 4.3 Globulin 3.3 Albumin/Globulin Ratio 1.3 Lipase 58 H PD MEDICAL DECISION MAKING - ED course Complexity details: reviewed old records, reviewed results, re-evaluated patient, considered differential, d/w patient, d/w family ED course: 23-year-old female with Geittelman's syndrome has developed a left patellar dislocation laterally and this is reduced upon arrival to the emergency department. The patient is administered some medication for pain and IV is begun and she is given intravenous potassium as well as oral potassium. Her potassium is 2.9 today and we will discharge her to home. She is placed into a knee immobilizer and we will give her 3 days off work. Departure - Departure Disposition: Home, Self Care Clinical Impression: Hypokalemia Closed patellar dislocation Qualifiers: Encounter type: initial encounter Laterality: left Qualified Code(s): S83.005A - Unspecified dislocation of left patella, initial encounter Condition: Stable Instructions: ED Dislocation Patella, ED Diet High Potassium Follow-Up: [facility] [Provider Group] Prescriptions: Hydrocodone/Acetaminophen [Hydrocodon-Acetaminophen 5-325] 1 - 2 each PO Q6H PRN #14 tablet PRN Reason: pain Forms: Activity restrictions
[2019-02-25 11:20] LABS: BASOPHILS # (AUTO) 0.1 10^3/uL (0.0-0.1); BASOPHILS % (AUTO) 1.3 %; EOSINOPHILS # (AUTO) 0.3 10^3/uL (0.0-0.7); EOSINOPHILS % (AUTO) 2.9 %; HGB - HEMOGLOBIN 13.9 g/dL (12.0-16.0); LYMPHOCYTES # (AUTO) 2.8 10^3/uL (1.5-3.5); LYMPHOCYTES % (AUTO) 25.6 %; MEAN CORPUSCULAR HEMOGLOBIN 30.8 pg (27.0-31.0); MEAN CORPUSCULAR HGB CONC 35.4 g/dL (32.0-36.0); MEAN CORPUSCULAR VOLUME 86.9 fL (81.0-99.0); MEAN PLATELET VOLUME 6.6 fL (7.9-10.8); MONOCYTES # (AUTO) 0.7 10^3/uL (0.0-1.0); MONOCYTES % (AUTO) 6.3 %; NEUTROPHILS % (AUTO) 63.9 %; PLT - PLATELET COUNT 411 10^3/uL (130-450); RED BLOOD COUNT 4.51 10^6/uL (4.20-5.40); RED CELL DISTRIBUTION WIDTH 13.4 % (12.0-15.0)
[2019-02-25 11:28] LABS: ALBUMIN 4.3 g/dL (3.2-5.5); ALBUMIN/GLOBULIN RATIO 1.3 (1.0-2.2); BILIRUBIN,TOTAL 0.6 mg/dL (0.2-1.0); CALCIUM 9.3 mg/dL (8.5-10.3); CREATININE 0.6 mg/dL (0.4-1.0); TOTAL PROTEIN 7.6 g/dL (6.7-8.2)
[2019-02-25] MEDS ORDERED: POTASSIUM CHLORIDE 20 MEQ TABLET PO STA (11:34)
[2019-02-25] MEDS ORDERED: POTASSIUM CHLOR 10 MEQ/100 ML 10 MEQ/100 ML BAG IV ONE (11:35)
[2019-02-25] MEDS ORDERED: HYDROmorphone 1 MG/ML CARPUJECT IVP STA (12:43)
[2019-02-25] MEDS ORDERED: PROMETHAZINE INJ 25 MG in SODIUM CHLORIDE 0.9% 50 ML IV STA (12:43)
[2019-02-25 13:51] VITALS: BP 120/80
== END 2019-02-25 13:50 | disposition home or self-care (01) ==
LOC: ED 10:32
DX: S83.015A Lateral dislocation of left patella, initial encounter (principal); E87.6 Hypokalemia; N25.89 Other disorders resulting from impaired renal tubular function; F17.200 Nicotine dependence, unspecified, uncomplicated; W10.8XXA Fall (on) (from) other stairs and steps, initial encounter; Y92.009 Unspecified place in unspecified non-institutional (private) residence as the place of occurrence of the external cause
CPT/HCPCS: 27562; 36415; 80053; 83690; 84484; 85025; 96365; 96367; 96375; 99283; 99284; A9270; J1170; J7040

== ENCOUNTER 2019-03-13 20:30 | Emergency (ER) | payer MEDICAID ==
--- NOTE | 2019-03-13 21:25 | ED Physician Documentation ---
PD HPI LOWER EXT INJURY - Stated complaint Stated Complaint: LT KNEE INJURY - Chief complaint Chief Complaint: Ext Problem - History obtained from History obtained from: Patient - History of Present Illness Type of injury: Twist, Blunt / blow (she got leg caught against furniture and some pressure to knee and felt kneecap pop laterally. Hurting a lot, and hurts to try to straighten the knee.) Where injury occurred: Home Timing - onset: How many hours ago (1), Today Timing - details: Abrupt onset, Still present (friend drove her her to the ER. Wheelchair from car.) Improved by: No: Rest Worsened by: Moving, Palpating Associated symptoms: No: Weakness, Numbness Similar symptoms before: Diagnosis (patellar dislocation in the past, with an episode just in the past 2 weeks.) Review of Systems Skin: denies: Abrasion (s), Laceration (s) Musculoskeletal: reports: Joint pain (left kneecap). 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 : Chronic bladder infection, Frequency, Other HEENT: None Psych: Depression, Anxiety, Bipolar disorder, Post traumatic stress disorder Musculoskeletal: Fatigue, Chronic back pain Derm: None, Eczema - Past Surgical History Past Surgical History: No Ortho: ACL reconstruction, Arthroscopic surgery HEENT: Myringotomy (tubes), Tonsil/Adenoidectomy - Present Medications Home Medications: Ambulatory Orders Medication Instructions Recorded Confirmed Potassium Chloride [Klor-Con 10] 60 meq PO BIDWM 11/21/17 01/10/19 Magnesium 250 mg PO DAILY 07/16/18 01/10/19 Hydrocodone/Acetaminophen [Angora 1 each PO Q6H PRN #15 tablet 03/13/19 5-325 Tablet] Promethazine [Phenergan] 25 mg PO Q6H PRN #10 tab 03/13/19 - Allergies Allergies/Adverse Reactions: Allergies Allergy/AdvReac Type Severity Reaction Status Date / Time bismuth subsalicylate Allergy Respiratory Verified 02/25/19 10:41 [From Pepto-Bismol] cinnamon Allergy Anaphylaxis Verified 02/25/19 10:41 lavender (Lavandula Allergy Hives Verified 03/13/19 20:44 angustifolia) lorazepam [From Ativan] Allergy Hives Verified 02/25/19 10:41 ondansetron HCl * Allergy Itching Verified 02/25/19 10:41 [From Zofran (as hydrochloride)] - Social History Does the pt smoke?: Yes Smoking Status: Current every day smoker Does the pt drink ETOH?: No Does the pt have substance abuse?: No - Immunizations Immunizations are current?: Yes Immunizations: Other immun not current - POLST Patient has POLST: No POLST Status: Full Code PD ED PE NORMAL - Vitals Vital signs reviewed: Yes - General General: Alert and oriented X 3, Well developed/nourished, Other (appears in pain with any attempt straightening of the knee. ) - Derm Derm: Normal color, Warm and dry - Extremities Extremities: Other (obvious clinical dislocation of the kneecap laterally. Knee flexed to about 45 degrees. ) - Neuro Neuro: No motor deficit, No sensory deficit Results - Vitals Vitals: Vital Signs - 24 hr 03/13/19 03/13/19 20:39 21:53 Temperature 37.6 C H Heart Rate 79 81 Respiratory 18 17 Rate Blood Pressure 128/55 L 131/95 H O2 Saturation 100 98 Oxygen O2 Source Room air - Rads (name of study) left knee Radiology: Prelim report reviewed (likely lateral patellar dislocation), See rad report Procedures - Reduction Body part reduced: Left, Patella Fracture or dislocation: Dislocation (laterally) Reduction aftercare: NV intact, Splint applied (knee brace) PD MEDICAL DECISION MAKING - ED course Complexity details: re-evaluated patient (offered pain meds ahead, but patient said she would prefer to just have it reduced as will feel better quickest. ), considered differential (the patella was dislocated laterally and reduced without problem. Reasonable that it would be hurting. Post reduction, she says she is having pain and did for 2-3 days after last episode. ), d/w patient Departure - Departure Disposition: 01 Home, Self Care Clinical Impression: Closed patellar dislocation Qualifiers: Encounter type: initial encounter Laterality: left Qualified Code(s): S83.005A - Unspecified dislocation of left patella, initial encounter Condition: Stable Record reviewed to determine appropriate education?: Yes Instructions: ED Dislocation Patella Prescriptions: Hydrocodone/Acetaminophen [Angora 5-325 Tablet] 1 each PO Q6H PRN #15 tablet PRN Reason: Pain Promethazine [Phenergan] 25 mg PO Q6H PRN #10 tab PRN Reason: Nausea / Vomiting Comments: Use the hinged knee brace for now for the next several days to week to support the knee. 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 This will help keep it the kneecap from going laterally and out of place during activities. Wear that for the longer term (month or more) when up and around and during the day. Discharge Date/Time: 03/13/19 21:54
--- NOTE | 2019-03-13 21:36 | XRAY Report ---
Reason: hx of dislocation, twisting injury Procedure Date: 03/13/2019 Accession Number: [id number] / [id number] Procedure: XR - Knee 4 View LT CPT Code: FULL RESULT: EXAM: LEFT KNEE RADIOGRAPHY EXAM DATE: 03/13/2019 09:04 PM. CLINICAL HISTORY: Hx of dislocation, twisting injury. COMPARISON: KNEE 3 VIEW LT 08/14/2017 4:04 PM. TECHNIQUE: 3 views. FINDINGS: Bones: No fracture or focal bony lesion. There are cortical screws through the proximal tibia. Joints: Possible lateral patellar dislocation. Soft Tissues: No unexpected soft tissue findings. IMPRESSION: 1. Likely lateral patellar dislocation. 2. No evidence of acute fracture. RADIA
[2019-03-13] MEDS ORDERED: HYDROcod/ACET 5/325 Prepack 4 PO STA (21:38)
[2019-03-13] MEDS ORDERED: HYDROcod/ACETAM 5/325 MG TABLET PO STA (21:38)
[2019-03-13] MEDS ORDERED: PROMETHAZINE 25 MG TABLET PO STA (21:38)
[2019-03-13 21:54] VITALS: BP 131/95
== END 2019-03-13 21:54 | disposition home or self-care (01) ==
LOC: ED 20:30
DX: S83.005A Unspecified dislocation of left patella, initial encounter (principal); W23.0XXA Caught, crushed, jammed, or pinched between moving objects, initial encounter; Y92.009 Unspecified place in unspecified non-institutional (private) residence as the place of occurrence of the external cause; F17.200 Nicotine dependence, unspecified, uncomplicated
CPT/HCPCS: 27560; 73564; 99283; A9270; Q0169

== ENCOUNTER 2019-03-17 16:13 | Emergency (ER) | payer MEDICAID ==
[2019-03-17 16:22] VITALS: BP 137/85
--- NOTE | 2019-03-17 16:56 | ED Physician Documentation ---
History of Present Illness - Stated complaint Stated Complaint: LT KNEE CHECK UP - Chief complaint Chief Complaint: General - History obtained from History obtained from: Patient - History of Present Illness Timing: Today Pain level max: 0 Pain level now: 0 - Additonal information Additional information: 23-year-old female status post a patellar dislocation a few days ago. Is asymptomatic now and is required to have a work note to return to work. 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 : Chronic bladder infection, Frequency, Other HEENT: None Psych: Depression, Anxiety, Bipolar disorder, Post traumatic stress disorder Musculoskeletal: Fatigue, Chronic back pain Derm: None, Eczema - Past Surgical History Past Surgical History: No Ortho: ACL reconstruction, Arthroscopic surgery HEENT: Myringotomy (tubes), Tonsil/Adenoidectomy - Present Medications Home Medications: Ambulatory Orders Medication Instructions Recorded Confirmed Potassium Chloride [Klor-Con 10] 60 meq PO BIDWM 11/21/17 01/10/19 Magnesium 250 mg PO DAILY 07/16/18 01/10/19 Hydrocodone/Acetaminophen [[place] 1 each PO Q6H PRN #15 tablet 03/13/19 5-325 Tablet] Promethazine [Phenergan] 25 mg PO Q6H PRN #10 tab 03/13/19 - Allergies Allergies/Adverse Reactions: Allergies Allergy/AdvReac Type Severity Reaction Status Date / Time bismuth subsalicylate Allergy Respiratory Verified 03/17/19 16:21 [From Pepto-Bismol] cinnamon Allergy Anaphylaxis Verified 03/17/19 16:21 lavender (Lavandula Allergy Hives Verified 03/17/19 16:21 angustifolia) lorazepam [From Ativan] Allergy Hives Verified 03/17/19 16:21 ondansetron HCl * Allergy Itching Verified 03/17/19 16:21 [From Zofran (as hydrochloride)] - Social History Does the pt smoke?: Yes Smoking Status: Current every day smoker Does the pt drink ETOH?: No Does the pt have substance abuse?: No - Immunizations Immunizations are current?: Yes Immunizations: Other immun not current - POLST Patient has POLST: No POLST Status: Full Code PD ED PE NORMAL - Vitals Vital signs reviewed: Yes - General General: Alert and oriented X 3 - Derm Derm: Warm and dry - Extremities Extremities: Other (Left knee - ACL, MCL, PCL, LCL are intact. Normal examination of the knee. Normal gait. Neurovascular intact) - Neuro Neuro: Alert and oriented X 3 Results - Vitals Vitals: Vital Signs - 24 hr 03/17/19 16:20 Temperature 37.5 C Heart Rate 102 H Respiratory 20 Rate Blood Pressure 137/85 H O2 Saturation 98 Oxygen O2 Source Room air PD MEDICAL DECISION MAKING - ED course Complexity details: considered differential, d/w patient ED course: Normal examination of the left knee after patellar dislocation. Ambulating normally. Patient counseled regarding signs and symptoms for which I believe and urgent re-evaluation would be necessary. Patient with good understanding of and agreement to plan and is comfortable going home at this time This document was made in part using voice recognition software. While efforts are made to proofread this document, sound alike and grammatical errors may occur. Departure - Departure Disposition: 01 Home, Self Care Clinical Impression: Encounter for medical screening examination Condition: Good Follow-Up: your,doctor as needed [Other] Comments: Return if you worsen. Forms: Activity restrictions Discharge Date/Time: 03/17/19 17:01
== END 2019-03-17 17:01 | disposition home or self-care (01) ==
LOC: ED 16:13
DX: S83.005D Unspecified dislocation of left patella, subsequent encounter (principal); X58.XXXD Exposure to other specified factors, subsequent encounter; F17.200 Nicotine dependence, unspecified, uncomplicated
CPT/HCPCS: 99281; 99282

== ENCOUNTER 2019-04-11 15:28 | Emergency (ER) | payer MEDICAID ==
[2019-04-11] MEDS ORDERED: oxyCODONE 5 MG TABLET PO STA (15:55)
--- NOTE | 2019-04-11 15:57 | ED Physician Documentation ---
PD HPI LOWER EXT INJURY - Stated complaint Stated Complaint: L KNEE PX - Chief complaint Chief Complaint: Ext Problem - History obtained from History obtained from: Patient - History of Present Illness PD HPI LOW EXT INJURY LOCATION: Left (She has a history of recurrent left patellar dislocations and twisted her knee and it dislocated just prior to arrival.) Review of Systems Constitutional: reports: Reviewed and negative Nose: reports: Reviewed and negative Cardiac: reports: Reviewed and negative PD PAST MEDICAL HISTORY - Past Medical History Cardiovascular: Murmur Respiratory: Asthma, Pneumonia Neuro: Headaches Endocrine/Autoimmune: None GI: 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 : Chronic bladder infection, Frequency, Other HEENT: None Psych: Depression, Anxiety, Bipolar disorder, Post traumatic stress disorder Musculoskeletal: Fatigue, Chronic back pain Derm: None, Eczema - Past Surgical History Past Surgical History: No Ortho: ACL reconstruction, Arthroscopic surgery HEENT: Myringotomy (tubes), Tonsil/Adenoidectomy - Present Medications Home Medications: Ambulatory Orders Medication Instructions Recorded Confirmed Potassium Chloride [Klor-Con 10] 60 meq PO BIDWM 11/21/17 01/10/19 Magnesium 250 mg PO DAILY 07/16/18 01/10/19 Hydrocodone/Acetaminophen [[place] 1 each PO Q6H PRN #15 tablet 03/13/19 5-325 Tablet] Promethazine [Phenergan] 25 mg PO Q6H PRN #10 tab 03/13/19 Oxycodone HCl/Acetaminophen 1 - 2 each PO Q6H PRN #10 tablet 04/11/19 [Percocet 5-325 mg Tablet] - Allergies Allergies/Adverse Reactions: Allergies Allergy/AdvReac Type Severity Reaction Status Date / Time bismuth subsalicylate Allergy Respiratory Verified 03/17/19 16:21 [From Pepto-Bismol] cinnamon Allergy Anaphylaxis Verified 03/17/19 16:21 lavender (Lavandula Allergy Hives Verified 03/17/19 16:21 angustifolia) lorazepam [From Ativan] Allergy Hives Verified 03/17/19 16:21 ondansetron HCl * Allergy Itching Verified 03/17/19 16:21 [From Zofran (as hydrochloride)] - Social History Does the pt smoke?: Yes Smoking Status: Current every day smoker Does the pt drink ETOH?: No Does the pt have substance abuse?: No - Immunizations Immunizations are current?: Yes Immunizations: Other immun not current - POLST Patient has POLST: No POLST Status: Full Code PD ED PE NORMAL - Vitals Vital signs reviewed: Yes - General General: Alert and oriented X 3, No acute distress - Extremities Extremities: Other (There is a lateral left patellar dislocation clearly seen on exam.) - Neuro Neuro: Alert and oriented X 3, Normal speech Results - Vitals Vitals: Vital Signs - 24 hr 04/11/19 15:43 Temperature 37.1 C Heart Rate 86 Respiratory 22 Rate Blood Pressure 124/86 H O2 Saturation 98 Oxygen O2 Source Room air Procedures - Reduction Body part reduced: Left, Patella Fracture or dislocation: Dislocation Reduction aftercare: Other (She was flexed at the hip and it spontaneously relocated. Attack will put on a knee immobilizer.) PD MEDICAL DECISION MAKING - ED course ED course: 23-year-old woman presents with recurrent left patellar dislocation. She did not want sedation nor did she wants a postprocedural x-ray. Given the recurrent nature of this this is not unreasonable. Departure - Departure Disposition: 01 Home, Self Care Clinical Impression: Dislocation of left patella Qualifiers: Encounter type: initial encounter Qualified Code(s): S83.005A - Unspecified dislocation of left patella, initial encounter Condition: Good Record reviewed to determine appropriate education?: Yes Instructions: ED Dislocation Patella Follow-Up: [facility] [Provider Group] - Within 1 week Prescriptions: Oxycodone HCl/Acetaminophen [Percocet 5-325 mg Tablet] 1 - 2 each PO Q6H PRN #10 tablet PRN Reason: pain Comments: Keep the splint on until you follow-up with your orthopedic surgeon. Call their office on Sunday for an appointment next week. Return for new or worsening symptoms. Do not drink or drive while taking narcotic pain medication. Note that many narcotic pain relievers also contain Tylenol/acetaminophen. Please ensure that your total dose of acetaminophen from all sources does not exceed 3 g (3000 mg) per day. You may get constipated while on this medication. Take a stool softener such as Colace twice a day while you are on it. Also add an [id number] laxative such as senna or MiraLAX on any day that you do not have a bowel movement. If you received a narcotic pain medication or sedative while in the emergency department, do not drive for the next 24 hours.
[2019-04-11 16:29] VITALS: BP 133/86
== END 2019-04-11 16:33 | disposition home or self-care (01) ==
LOC: ED 15:28
DX: M22.02 Recurrent dislocation of patella, left knee (principal); X50.1XXA Overexertion from prolonged static or awkward postures, initial encounter; F17.200 Nicotine dependence, unspecified, uncomplicated
CPT/HCPCS: 27560; 99283; A9270

== ENCOUNTER 2019-05-02 12:41 | Emergency (ER) | payer MEDICAID ==
[2019-05-02 13:13] VITALS: BP 118/69
[2019-05-02] MEDS ORDERED: oxyCODONE 5 MG TABLET PO STA (13:23)
--- NOTE | 2019-05-02 13:25 | ED Physician Documentation ---
PD HPI LOWER EXT INJURY - Stated complaint Stated Complaint: L KNEE INJ - Chief complaint Chief Complaint: Ext Problem - History obtained from History obtained from: Patient - History of Present Illness PD HPI LOW EXT INJURY LOCATION: Left (23-year-old woman with history of recurrent left patellar dislocations presents with same after getting off the couch today. Pain is severe and she is unable to walk. I saw her recently for similar. 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: Ovarian cysts : Chronic bladder infection, Frequency, Other HEENT: None Psych: Depression, Anxiety, Bipolar disorder, Post traumatic stress disorder Musculoskeletal: Fatigue, Chronic back pain Derm: None, Eczema - Past Surgical History Past Surgical History: No Ortho: ACL reconstruction, Arthroscopic surgery HEENT: Myringotomy (tubes), Tonsil/Adenoidectomy - Present Medications Home Medications: Ambulatory Orders Medication Instructions Recorded Confirmed Potassium Chloride [Klor-Con 10] 60 meq PO BIDWM 11/21/17 01/10/19 Magnesium 250 mg PO DAILY 07/16/18 01/10/19 Hydrocodone/Acetaminophen [[place] 1 each PO Q6H PRN #15 tablet 03/13/19 5-325 Tablet] Promethazine [Phenergan] 25 mg PO Q6H PRN #10 tab 03/13/19 Oxycodone HCl/Acetaminophen 1 - 2 each PO Q6H PRN #10 tablet 04/11/19 [Percocet 5-325 mg Tablet] Oxycodone HCl/Acetaminophen 1 - 2 each PO Q6H PRN #14 tablet 05/02/19 [Percocet 5-325 mg Tablet] - Allergies Allergies/Adverse Reactions: Allergies Allergy/AdvReac Type Severity Reaction Status Date / Time bismuth subsalicylate Allergy Respiratory Verified 05/02/19 13:13 [From Pepto-Bismol] cinnamon Allergy Anaphylaxis Verified 05/02/19 13:13 lavender (Lavandula Allergy Hives Verified 05/02/19 13:13 angustifolia) lorazepam [From Ativan] Allergy Hives Verified 05/02/19 13:13 ondansetron HCl * Allergy Itching Verified 05/02/19 13:13 [From Zofran (as hydrochloride)] - Social History Does the pt smoke?: Yes Smoking Status: Current every day smoker Does the pt drink ETOH?: No Does the pt have substance abuse?: No - Immunizations Immunizations are current?: Yes Immunizations: Other immun not current - POLST Patient has POLST: No POLST Status: Full Code PD ED PE NORMAL - Vitals Vital signs reviewed: Yes - General General: Alert and oriented X 3, No acute distress - Extremities Extremities: Other (Left knee has a lateral patellar dislocation with effusion) - Neuro Neuro: Alert and oriented X 3, Normal speech Results - Vitals Vitals: Vital Signs - 24 hr 05/02/19 13:11 Temperature 36.8 C Heart Rate 65 Respiratory 18 Rate Blood Pressure 118/69 O2 Saturation 94 Oxygen O2 Source Room air Procedures - Reduction Body part reduced: Left, Knee, Patella (She was flexed at the hip and extended at the knee and it spontaneously relocated) Reduction aftercare: Alignment improved. No: Splint applied (She did not want a knee immobilizer as she has one) Departure - Departure Disposition: 01 Home, Self Care Clinical Impression: Dislocation of left patella Qualifiers: Encounter type: initial encounter Qualified Code(s): S83.005A - Unspecified dislocation of left patella, initial encounter Condition: Stable Record reviewed to determine appropriate education?: Yes Instructions: ED Dislocation Patella Follow-Up: [facility] [Provider Group] - Within 1 week Prescriptions: Oxycodone HCl/Acetaminophen [Percocet 5-325 mg Tablet] 1 - 2 each PO Q6H PRN #14 tablet PRN Reason: pain
== END 2019-05-02 15:20 | disposition home or self-care (01) ==
LOC: ED 12:41
DX: M22.02 Recurrent dislocation of patella, left knee (principal); F17.200 Nicotine dependence, unspecified, uncomplicated
CPT/HCPCS: 27560; 99283; A9270

== ENCOUNTER 2019-05-09 10:15 | Emergency (ER) | payer MEDICAID ==
[2019-05-09 10:33] VITALS: BP 103/74
--- NOTE | 2019-05-09 11:10 | ED Physician Documentation ---
PD HPI LOWER EXT INJURY - Stated complaint Stated Complaint: LFT KNEE INJ - Chief complaint Chief Complaint: Ext Problem - History obtained from History obtained from: Patient - History of Present Illness PD HPI LOW EXT INJURY LOCATION: Left, Knee Where injury occurred: Home Timing - onset: How many hours ago (2) Timing - details: Still present Similar symptoms before: Diagnosis (knee "pops out.") - Additional information Additional information: The patient is a 24-year-old female who presents with left knee pain that started 2 hours prior to arrival when she felt her knee "pop out." She was getting into the shower when the incident occurred. There was no specific injury. She has a history of left ACL repair about 7 years ago. Since that time she has had similar episodes of her knee "popping out." Sometimes she is able to pop it back in on her own, but was unable to today. 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 : Chronic bladder infection, Frequency, Other HEENT: None Psych: Depression, Anxiety, Bipolar disorder, Post traumatic stress disorder Musculoskeletal: Fatigue, Chronic back pain Derm: None, Eczema - Past Surgical History Past Surgical History: No Ortho: ACL reconstruction, Arthroscopic surgery HEENT: Myringotomy (tubes), Tonsil/Adenoidectomy - Present Medications Home Medications: Ambulatory Orders Medication Instructions Recorded Confirmed Potassium Chloride [Klor-Con 10] 60 meq PO BIDWM 11/21/17 01/10/19 Magnesium 250 mg PO DAILY 07/16/18 01/10/19 Hydrocodone/Acetaminophen [[place] 1 each PO Q6H PRN #15 tablet 03/13/19 5-325 Tablet] Promethazine [Phenergan] 25 mg PO Q6H PRN #10 tab 03/13/19 Oxycodone HCl/Acetaminophen 1 - 2 each PO Q6H PRN #10 tablet 04/11/19 [Percocet 5-325 mg Tablet] Oxycodone HCl/Acetaminophen 1 - 2 each PO Q6H PRN #14 tablet 05/02/19 [Percocet 5-325 mg Tablet] Hydrocodone/Acetaminophen 1 - 2 each PO Q6H PRN #14 tablet 05/09/19 [Hydrocodon-Acetaminophen 5-325] - Allergies Allergies/Adverse Reactions: Allergies Allergy/AdvReac Type Severity Reaction Status Date / Time bismuth subsalicylate Allergy Respiratory Verified 05/02/19 13:13 [From Pepto-Bismol] cinnamon Allergy Anaphylaxis Verified 05/02/19 13:13 lavender (Lavandula Allergy Hives Verified 05/02/19 13:13 angustifolia) lorazepam [From Ativan] Allergy Hives Verified 05/02/19 13:13 ondansetron HCl * Allergy Itching Verified 05/02/19 13:13 [From Zofran (as hydrochloride)] - Social History Does the pt smoke?: Yes Smoking Status: Current every day smoker Does the pt drink ETOH?: No Does the pt have substance abuse?: No - Immunizations Immunizations are current?: Yes Immunizations: Other immun not current - POLST Patient has POLST: No POLST Status: Full Code PD ED PE NORMAL - Vitals Vital signs reviewed: Yes (normal) - General General: Alert and oriented X 3, Well developed/nourished - HEENT HEENT: Atraumatic - Respiratory Respiratory: No respiratory distress - Derm Derm: No rash - Extremities Extremities: No edema, No calf tenderness / cord, Other (The left patella is subluxed laterally. With minimal manipulation during the physical examination the patellar subluxation was easily reduced. There are well-healed surgical scars at the left knee consistent with ACL repair. Distal neurovascular is intact.) - Neuro Neuro: Alert and oriented X 3, No motor deficit, No sensory deficit Results - Vitals Vitals: Oxygen O2 Source Room air PD MEDICAL DECISION MAKING - ED course Complexity details: re-evaluated patient, considered differential, d/w patient ED course: The patient's presentation is consistent with left patellar dislocation/subluxation. The subluxation/dislocation was easily reduced. I discussed radiographic imaging with the patient, but she declined stating she is confident it would not be of clinical benefit. I expressed agreement. Treatment in the emergency department included application of a knee immobilizer. She demonstrated ability to bear weight and ambulate. I discussed with her the importance of orthopedic follow-up, as well as potentially worrisome signs or symptoms that should prompt reevaluation in the emergency department. Departure - Departure Disposition: 01 Home, Self Care Clinical Impression: Closed dislocation of left patella Qualifiers: Encounter type: initial encounter Qualified Code(s): S83.005A - Unspecified dislocation of left patella, initial encounter Condition: Stable Instructions: ED Dislocation Patella Follow-Up: [facility] [Provider Group] Prescriptions: Hydrocodone/Acetaminophen [Hydrocodon-Acetaminophen 5-325] 1 - 2 each PO Q6H PRN #14 tablet PRN Reason: pain Comments: Keep your left leg elevated as much the time as possible. You can apply ice pack to your left knee intermittently for the next 3 days. You can use ibuprofen, up to 800 mg 3 times daily if needed for pain. Follow-up with orthopedics within 1 to 2 weeks. Call to schedule an appointment. Return to the emergency department if you develop increasing pain, recurrent patellar dislocation, or otherwise worsening symptoms. Discharge Date/Time: 05/09/19 11:26
== END 2019-05-09 11:26 | disposition home or self-care (01) ==
LOC: ED 10:15
DX: S83.005A Unspecified dislocation of left patella, initial encounter (principal); X58.XXXA Exposure to other specified factors, initial encounter; Y93.89 Activity, other specified; Y92.002 Bathroom of unspecified non-institutional (private) residence as the place of occurrence of the external cause; F17.200 Nicotine dependence, unspecified, uncomplicated
CPT/HCPCS: 27560; 99283

== ENCOUNTER 2019-05-25 13:04 | Emergency (ER) | payer MEDICAID ==
--- NOTE | 2019-05-25 13:29 | ED Physician Documentation ---
History of Present Illness - Stated complaint Stated Complaint: WEAKNESS/DIZZY - Chief complaint Chief Complaint: General - History obtained from History obtained from: Patient - History of Present Illness Timing: Today (Has H/O Gittelman's dz and recurrent hypokalemia/hypomagnesemia. Ran out of meds about 1 week ago and thusly not taking supplementation. Weak today with 1 episode of vomiting.) Review of Systems Ten Systems: 10 systems reviewed and negative Constitutional: reports: Myalgias, Fatigue. denies: Fever, Chills Cardiac: denies: Chest pain / pressure, Palpitations Respiratory: denies: Dyspnea, Cough GI: reports: Nausea. 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 - Past Surgical History Past Surgical History: No Ortho: ACL reconstruction, Arthroscopic surgery HEENT: Myringotomy (tubes), Tonsil/Adenoidectomy - Present Medications Home Medications: Ambulatory Orders Medication Instructions Recorded Confirmed Potassium Chloride [Klor-Con 10] 60 meq PO BIDWM 11/21/17 01/10/19 Magnesium 250 mg PO DAILY 07/16/18 01/10/19 Hydrocodone/Acetaminophen [[place] 1 each PO Q6H PRN #15 tablet 03/13/19 5-325 Tablet] Promethazine [Phenergan] 25 mg PO Q6H PRN #10 tab 03/13/19 Oxycodone HCl/Acetaminophen 1 - 2 each PO Q6H PRN #10 tablet 04/11/19 [Percocet 5-325 mg Tablet] Oxycodone HCl/Acetaminophen 1 - 2 each PO Q6H PRN #14 tablet 05/02/19 [Percocet 5-325 mg Tablet] Hydrocodone/Acetaminophen 1 - 2 each PO Q6H PRN #14 tablet 05/09/19 [Hydrocodon-Acetaminophen 5-325] Magnesium Oxide [Magnesium] 250 mg PO DAILY #60 tablet 05/25/19 Potassium Chloride [K-Dur] 3 tab PO BIDWM #360 tablet 05/25/19 - Allergies Allergies/Adverse Reactions: Allergies Allergy/AdvReac Type Severity Reaction Status Date / Time bismuth subsalicylate Allergy Respiratory Verified 05/25/19 13:10 [From Pepto-Bismol] cinnamon Allergy Anaphylaxis Verified 05/25/19 13:10 lavender (Lavandula Allergy Hives Verified 05/25/19 13:10 angustifolia) lorazepam [From Ativan] Allergy Hives Verified 05/25/19 13:10 ondansetron HCl * Allergy Itching Verified 05/25/19 13:10 [From Zofran (as hydrochloride)] - Social History Does the pt smoke?: Yes Smoking Status: Current every day smoker Does the pt drink ETOH?: No Does the pt have substance abuse?: No - Family History Family history: reports: Non contributory - Immunizations Immunizations are current?: Yes Immunizations: Other immun not current - POLST Patient has POLST: No POLST Status: Full Code PD ED PE NORMAL - Vitals Vital signs reviewed: Yes - General General: Alert and oriented X 3, No acute distress - HEENT HEENT: PERRL, EOMI - Neck Neck: Supple, no meningeal sign, No bony TTP - Cardiac Cardiac: RRR, No murmur - Respiratory Respiratory: No respiratory distress, Clear bilaterally - Abdomen Abdomen: Soft, Non tender - Back Back: No CVA TTP, No spinal TTP - Derm Derm: Normal color, Warm and dry - Neuro Neuro: Alert and oriented X 3, No motor deficit, No sensory deficit, Normal speech - Psych Psych: Normal mood, Normal affect Results - Vitals Vitals: Vital Signs - 24 hr 05/25/19 05/25/19 05/25/19 13:07 13:37 14:33 Temperature 36 C L Heart Rate 79 79 56 L Respiratory 18 17 16 Rate Blood Pressure 126/72 104/60 110/59 L O2 Saturation 98 99 98 Oxygen O2 Source Room air - EKG (time done) 1315 Rate: Rate (enter#) (66) Rhythm: NSR [place]: Normal Intervals: Normal SC QRS: Normal Ischemia: Non specific changes (flattish twaves c/w hypoK) Computer interpretation: Agree with computer - Labs Labs: Laboratory Tests 05/25/19 05/25/19 13:55 13:55 WBC 7.8 RBC 4.25 Hgb 13.5 Hct 38.1 MCV 89.6 MCH 31.8 H MCHC 35.4 RDW 12.1 Plt Count 355 MPV 8.7 Neut # (Auto) 4.8 Lymph # (Auto) 2.2 [place] # (Auto) 0.5 Eos # (Auto) 0.2 Baso # (Auto) 0.0 Absolute Nucleated RBC 0.00 Nucleated RBC % 0.0 Sodium 142 Potassium 2.9 L Chloride 103 Carbon Dioxide 27 Anion Gap 12.0 BUN 10 Creatinine 0.6 Estimated GFR (MDRD) 125 Glucose 100 Calcium 9.4 Magnesium 1.4 L Total Bilirubin 0.7 AST 25 ALT 25 Alkaline Phosphatase 40 L Total Protein 7.3 Albumin 4.3 Globulin 3.0 Albumin/Globulin Ratio 1.4 Lipase 48 PD MEDICAL DECISION MAKING - ED course ED course: 24-year-old woman presents with recurrent hypokalemia due to medical noncompliance. Her potassium level actually is not that low here at 2.9 and she was given both IV potassium and IV mag magnesium for magnesium of 1.4. She refused a second IV infusion of magnesium and note made that when the nurse notified the patient that she needed a urine sample, the patient's response to the nurse was "you can suck my ass." Departure - Departure Disposition: 01 Home, Self Care Clinical Impression: Hypokalemia, Potassium wasting nephropathy, Hypomagnesemia Condition: Stable Record reviewed to determine appropriate education?: Yes Health Concerns: Low potassium and magnesium, recurrent tissue Plan of Treatment: Given IV potassium and magnesium here as well as prescriptions Instructions: Hypokalemia Dc Follow-Up: [facility] [Provider Group] Prescriptions: Magnesium Oxide [Magnesium] 250 mg PO DAILY #60 tablet Potassium Chloride [K-Dur] 3 tab PO BIDWM #360 tablet Forms: Activity restrictions
[2019-05-25] MEDS ORDERED: POTASSIUM CHLOR 10 MEQ/100 ML 10 MEQ/100 ML BAG IV ONE ×2 (13:30)
[2019-05-25] MEDS ORDERED: SODIUM CHLORIDE 0.9% 1,000 ML IV ONE (13:35)
[2019-05-25 13:58] LABS: BASOPHILS % (AUTO) 0.5 %; EOSINOPHILS # (AUTO) 0.2 10^3/uL (0.0-0.7); EOSINOPHILS % (AUTO) 2.8 %; HGB - HEMOGLOBIN 13.5 g/dL (12.0-16.0); LYMPHOCYTES # (AUTO) 2.2 10^3/uL (1.5-3.5); LYMPHOCYTES % (AUTO) 27.8 %; MEAN CORPUSCULAR HEMOGLOBIN 31.8 pg (27.0-31.0); MEAN CORPUSCULAR HGB CONC 35.4 g/dL (32.0-36.0); MEAN CORPUSCULAR VOLUME 89.6 fL (81.0-99.0); MEAN PLATELET VOLUME 8.7 fL (7.9-10.8); MONOCYTES # (AUTO) 0.5 10^3/uL (0.0-1.0); MONOCYTES % (AUTO) 6.5 %; NEUTROPHILS # (AUTO) 4.8 10^3/uL (1.5-6.6); NEUTROPHILS % (AUTO) 61.9 %; PLT - PLATELET COUNT 355 10^3/uL (130-450); RED BLOOD COUNT 4.25 10^6/uL (4.20-5.40); RED CELL DISTRIBUTION WIDTH 12.1 % (12.0-15.0); WHITE BLOOD COUNT 7.8 x10^3/uL (4.8-10.8)
[2019-05-25 14:10] LABS: ALBUMIN 4.3 g/dL (3.2-5.5); ALBUMIN/GLOBULIN RATIO 1.4 (1.0-2.2); BILIRUBIN,TOTAL 0.7 mg/dL (0.2-1.0); CALCIUM 9.4 mg/dL (8.5-10.3); CREATININE 0.6 mg/dL (0.4-1.0); MAGNESIUM 1.4 mg/dL (1.7-2.8); TOTAL PROTEIN 7.3 g/dL (6.7-8.2)
[2019-05-25] MEDS ORDERED: MAGNESIUM SULFATE 2 GRAM 2 GM/50 ML BAG IV ONE (14:21)
[2019-05-25 15:52] VITALS: BP 122/64
== END 2019-05-25 15:59 | disposition home or self-care (01) ==
LOC: ED 13:04
DX: E87.6 Hypokalemia (principal); E83.42 Hypomagnesemia; N25.89 Other disorders resulting from impaired renal tubular function; T50.3X6A Underdosing of electrolytic, caloric and water-balance agents, initial encounter; Z91.128 Patient's intentional underdosing of medication regimen for other reason; F17.200 Nicotine dependence, unspecified, uncomplicated
CPT/HCPCS: 36415; 80053; 83690; 83735; 85025; 93005; 96365; 99283; 99284

== ENCOUNTER 2019-06-20 18:49 | Emergency (ER) | payer MEDICAID ==
[2019-06-20 19:01] VITALS: BP 116/83
--- NOTE | 2019-06-20 19:26 | ED Physician Documentation ---
History of Present Illness - Stated complaint Stated Complaint: LFT KNEE INJ - Chief complaint Chief Complaint: Ext Problem - History obtained from History obtained from: Patient - History of Present Illness Timing: Prior to arrival - Additonal information Additional information: Patient is a 24-year-old female presenting with left patellar knee pain and likely dislocation that occurred about 2 hours prior to arrival when she was getting out of her car. Patient reports that she remained near her car for 2 hours as she was hoping for help, although she had herself on present. Patient denies any friends or family in the area to help her. Patient reports exquisite pain and is mostly yelling and swearing. Patient refuses further interview.Patient refuses to undress. 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 : Chronic bladder infection, Frequency, Other HEENT: None Psych: Depression, Anxiety, Bipolar disorder, Post traumatic stress disorder Musculoskeletal: Fatigue, Chronic back pain Derm: None, Eczema - Past Surgical History Past Surgical History: No Ortho: ACL reconstruction, Arthroscopic surgery HEENT: Myringotomy (tubes), Tonsil/Adenoidectomy - Present Medications Home Medications: Ambulatory Orders Medication Instructions Recorded Confirmed RX: Potassium Chloride [Klor-Con 60 meq PO BIDWM 11/21/17 01/10/19 10] RX: Magnesium 250 mg PO DAILY 07/16/18 01/10/19 Hydrocodone/Acetaminophen [[place] 1 each PO Q6H PRN #15 tablet 03/13/19 5-325 Tablet] Promethazine [Phenergan] 25 mg PO Q6H PRN #10 tab 03/13/19 Oxycodone HCl/Acetaminophen 1 - 2 each PO Q6H PRN #10 tablet 04/11/19 [Percocet 5-325 mg Tablet] Oxycodone HCl/Acetaminophen 1 - 2 each PO Q6H PRN #14 tablet 05/02/19 [Percocet 5-325 mg Tablet] Hydrocodone/Acetaminophen 1 - 2 each PO Q6H PRN #14 tablet 05/09/19 [Hydrocodon-Acetaminophen 5-325] Magnesium Oxide [Magnesium] 250 mg PO DAILY #60 tablet 05/25/19 RX: Potassium Chloride [K-Dur] 3 tab PO BIDWM #360 tablet 05/25/19 - Allergies Allergies/Adverse Reactions: Allergies Allergy/AdvReac Type Severity Reaction Status Date / Time bismuth subsalicylate Allergy Respiratory Verified 05/25/19 13:10 [From Pepto-Bismol] cinnamon Allergy Anaphylaxis Verified 05/25/19 13:10 lavender (Lavandula Allergy Hives Verified 05/25/19 13:10 angustifolia) lorazepam [From Ativan] Allergy Hives Verified 05/25/19 13:10 ondansetron HCl * Allergy Itching Verified 05/25/19 13:10 [From Zofran (as hydrochloride)] - Social History Does the pt smoke?: Yes Smoking Status: Current every day smoker Does the pt drink ETOH?: No Does the pt have substance abuse?: No - Immunizations Immunizations are current?: Yes Immunizations: Other immun not current - POLST Patient has POLST: No POLST Status: Full Code PD ED PE NORMAL - General General: Alert and oriented X 3, Well developed/nourished. No: No acute distress (Yelling, swearing, crying) - HEENT HEENT: Atraumatic, Moist mucous membranes - Cardiac Cardiac: Strong equal pulses - Respiratory Respiratory: No respiratory distress - Derm Derm: Normal color, Warm and dry, No rash - Extremities Extremities: No: No deformity (Obvious signs of lateral left patellar dislocation that is tender to the touch, but given patient's demeanor limited exam, further evaluation difficult to obtain.), No tenderness to palpate - Neuro Neuro: Alert and oriented X 3, No motor deficit, No sensory deficit - Psych Psych: Other (Yelling, swearing, tearful, histrionic, hostile) Results - Vitals Vitals: Vital Signs - 24 hr 06/20/19 18:57 Temperature 36.4 C L Heart Rate 69 Respiratory 18 Rate Blood Pressure 116/83 H O2 Saturation 98 Oxygen O2 Source Room air PD MEDICAL DECISION MAKING - ED course Complexity details: re-evaluated patient, considered differential, d/w patient ED course: Physician awaiting upon patient arrival into the room and offered assistance to patient as did tech and nurse. Patient extremely hostile, yelling, swearing and stating that physician did not know her type of injury and demanding a new physician. Unfortunately, no other physicians available. Patient eventually able to be moved to cot and stepped out of room for patient to be settled in. Ordered Dilaudid IM, which patient refused. Upon reevaluation, patient again refused further interview or physical exam. She again refused all offered medications to her and is agreeable for reduction without medications at this time. Patient again refuses to undress. Left patella is easily reduced and patient immediately grabs physician's hands, as well as knee and attempts to push it back laterally and asked her not to do this given the risk of redislocation. Patient has bracing/immobilizer in room which she wanted to use and declined further offer of immobilizer, crutches, and other supportive cares in the ED. Patient also refusing postreduction x-ray at this time. Patient now states that she wants a wheelchair to the waiting room and has people who can help her at home. Patient left the emergency room without receiving discharge paperwork. Departure - Departure Disposition: 01 Home, Self Care Clinical Impression: Patellar dislocation Qualifiers: Encounter type: initial encounter Laterality: left Qualified Code(s): S83.005A - Unspecified dislocation of left patella, initial encounter Condition: Good Discharge Date/Time: 06/20/19 20:10
[2019-06-20] MEDS ORDERED: HYDROmorphone 1 MG/ML CARPUJECT IM STA (19:53)
== END 2019-06-20 20:10 | disposition home or self-care (01) ==
LOC: ED 18:49
DX: S83.005A Unspecified dislocation of left patella, initial encounter (principal); V48.4XXA Person boarding or alighting a car injured in noncollision transport accident, initial encounter; Y93.89 Activity, other specified; Z53.20 Procedure and treatment not carried out because of patient's decision for unspecified reasons; F17.200 Nicotine dependence, unspecified, uncomplicated
CPT/HCPCS: 27560; 99281

== ENCOUNTER 2019-08-08 14:20 | Emergency (ER) | payer MEDICAID ==
[2019-08-08] MEDS ORDERED: oxyCODONE 5 MG TABLET PO STA (14:38)
--- NOTE | 2019-08-08 14:40 | ED Physician Documentation ---
PD HPI NVD - Stated complaint Stated Complaint: FEM /SIDE PX - Chief complaint Chief Complaint: Abd Pain - History obtained from History obtained from: Patient - History of Present Illness Timing - onset: Other (For the last 3 days she has had left kidney pain, vaginal discharge, urinary burning. There is some blood in the urine. She is sexually active with a single partner. Menses should be coming up but she is not late. 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: Ovarian cysts : Chronic bladder infection, Frequency, Other HEENT: None Psych: Depression, Anxiety, Bipolar disorder, Post traumatic stress disorder Musculoskeletal: Fatigue, Chronic back pain Derm: None, Eczema - Past Surgical History Past Surgical History: No Ortho: ACL reconstruction, Arthroscopic surgery HEENT: Myringotomy (tubes), Tonsil/Adenoidectomy - Present Medications Home Medications: Ambulatory Orders Medication Instructions Recorded Confirmed Potassium Chloride [Klor-Con 10] 60 meq PO BIDWM 11/21/17 01/10/19 Magnesium 250 mg PO DAILY 07/16/18 01/10/19 Hydrocodone/Acetaminophen [[place] 1 each PO Q6H PRN #15 tablet 03/13/19 5-325 Tablet] Promethazine [Phenergan] 25 mg PO Q6H PRN #10 tab 03/13/19 Oxycodone HCl/Acetaminophen 1 - 2 each PO Q6H PRN #10 tablet 04/11/19 [Percocet 5-325 mg Tablet] Oxycodone HCl/Acetaminophen 1 - 2 each PO Q6H PRN #14 tablet 05/02/19 [Percocet 5-325 mg Tablet] Hydrocodone/Acetaminophen 1 - 2 each PO Q6H PRN #14 tablet 05/09/19 [Hydrocodon-Acetaminophen 5-325] Magnesium Oxide [Magnesium] 250 mg PO DAILY #60 tablet 05/25/19 Potassium Chloride [K-Dur] 3 tab PO BIDWM #360 tablet 05/25/19 Ibuprofen [Motrin] 800 mg PO Q8H PRN #30 tablet 08/08/19 Oxycodone HCl/Acetaminophen 1 - 2 each PO Q6H PRN #14 tablet 08/08/19 [Percocet 5-325 mg Tablet] Promethazine [Phenergan] 25 mg PO Q6H PRN #10 tab 08/08/19 - Allergies Allergies/Adverse Reactions: Allergies Allergy/AdvReac Type Severity Reaction Status Date / Time bismuth subsalicylate Allergy Respiratory Verified 08/08/19 14:28 [From Pepto-Bismol] cinnamon Allergy Anaphylaxis Verified 08/08/19 14:28 lavender (Lavandula Allergy Hives Verified 08/08/19 14:28 angustifolia) lorazepam [From Ativan] Allergy Hives Verified 08/08/19 14:28 ondansetron HCl * Allergy Itching Verified 08/08/19 14:28 [From Zofran (as hydrochloride)] - Social History Does the pt smoke?: Yes Smoking Status: Current every day smoker Does the pt drink ETOH?: No Does the pt have substance abuse?: No - Immunizations Immunizations are current?: Yes Immunizations: Other immun not current - POLST Patient has POLST: No POLST Status: Full Code PD ED PE NORMAL - Vitals Vital signs reviewed: Yes - General General: Alert and oriented X 3, No acute distress - Abdomen Abdomen: Normal bowel sounds, Soft, Non tender - Back Back: Other (Left CVA tenderness) - Neuro Neuro: Alert and oriented X 3, Normal speech Results - Vitals Vitals: Vital Signs - 24 hr 08/08/19 14:23 Temperature 37.0 C Heart Rate 69 Respiratory 18 Rate Blood Pressure 128/67 O2 Saturation 99 Oxygen O2 Source Room air - Labs Labs: Microbiology 08/08/19 14:41 Wet Prep - Final Vaginal Laboratory Tests 08/08/19 08/08/19 14:37 15:03 Sodium 140 Potassium 2.9 L Chloride 101 Carbon Dioxide 31 Anion Gap 8.0 BUN 12 Creatinine 0.6 Estimated GFR (MDRD) 125 Glucose 82 Calcium 9.2 Phosphorus 2.9 Magnesium 1.5 L Urine Color YELLOW Urine Clarity CLEAR Urine pH 8.5 H Ur Specific [place] 1.015 Urine Protein NEGATIVE Urine Glucose (UA) NEGATIVE Urine Ketones NEGATIVE Urine Occult Blood SMALL H Urine Nitrite NEGATIVE Urine Bilirubin NEGATIVE Urine Urobilinogen 0.2 (NORMAL) Ur Leukocyte Esterase NEGATIVE Urine RBC 6-10 H Urine WBC 0-3 Ur Squamous Epith Cells RARE Squamous Urine Bacteria None Seen Ur Microscopic Review INDICATED Urine Culture Comments NOT INDICATED Urine HCG, Qual NEGATIVE PD MEDICAL DECISION MAKING - ED course ED course: 24-year-old woman presents with multiple complaints, concern for STDs, vaginal discharge, flank pain. Concern for UTI. Her urine has some blood in it but is otherwise negative. Wet prep was negative. Her potassium was low but not alarming. This was repleted orally. She is given Rocephin and Zithromax for presumed STD exposure. She may have renal colic based on the urinalysis and she is treated with pain medication. Would withhold Flomax given sexual activity in childbearing age. Departure - Departure Disposition: 01 Home, Self Care Clinical Impression: Potassium wasting nephropathy, Flank pain, Vaginal discharge Condition: Good Record reviewed to determine appropriate education?: Yes Instructions: ED Abdominal Pain Unkn Cause Prescriptions: Ibuprofen [Motrin] 800 mg PO Q8H PRN #30 tablet PRN Reason: PAIN &/OR FEVER Oxycodone HCl/Acetaminophen [Percocet 5-325 mg Tablet] 1 - 2 each PO Q6H PRN #14 tablet PRN Reason: pain Promethazine [Phenergan] 25 mg PO Q6H PRN #10 tab PRN Reason: Nausea / Vomiting Comments: The only positive finding today was low potassium at 2.9 and blood in your urine which may be consistent with a kidney stone. Follow-up with your doctor for next available appointment for further evaluation and treatment. Return for new worsening symptoms.
[2019-08-08 14:53] LABS: BILIRUBIN,URINE NEGATIVE (NEGATIVE); GLUCOSE, URINE (UA) NEGATIVE (NEGATIVE); KETONES,URINE (UA) NEGATIVE (NEGATIVE); LEUKOCYTE ESTERASE, URINE NEGATIVE (NEGATIVE); NITRITE,URINE NEGATIVE (NEGATIVE); OCCULT BLOOD,URINE SMALL (NEGATIVE); PH,URINE 8.5 PH (5.0-7.5); PROTEIN,URINE NEGATIVE (NEGATIVE); UROBILINOGEN,URINE 0.2 (NORMAL) E.U./dL (NORMAL)
[2019-08-08 14:59] LABS: CLARITY,URINE CLEAR (CLEAR); HCG UR QUAL NEGATIVE
[2019-08-08 15:13] LABS: BACTERIA,URINE None Seen /HPF (None Seen); SQUAMOUS EPITHELIAL CELL,UR RARE Squamous (<= Few)
[2019-08-08 15:21] LABS: CALCIUM 9.2 mg/dL (8.5-10.3); CREATININE 0.6 mg/dL (0.4-1.0); MAGNESIUM 1.5 mg/dL (1.7-2.8); PHOSPHORUS 2.9 mg/dL (2.5-4.6)
[2019-08-08] MEDS ORDERED: POTASSIUM CHLORIDE 20 MEQ TABLET PO STA (15:27)
[2019-08-08] MEDS ORDERED: cefTRIAXone 250 MG VIAL IM STA (16:02)
[2019-08-08] MEDS ORDERED: AZITHROMYCIN 250 MG TABLET PO STA ×2 (16:02→16:16)
[2019-08-08] MEDS ORDERED: MORPHINE 2 MG/ML CARPUJECT IM STA (16:02)
[2019-08-08] MEDS ORDERED: LIDOCAINE 1% 2 ML VIAL MC ONE (16:02)
[2019-08-08] MEDS ORDERED: PROMETHAZINE 25 MG TABLET PO STA (16:05)
[2019-08-08 16:38] VITALS: BP 132/87
[2019-08-08 21:52] LABS: TRICHOMONAS VAGINALIS DNA NEGATIVE (NEGATIVE)
== END 2019-08-08 16:39 | disposition home or self-care (01) ==
LOC: ED 14:20
DX: N25.89 Other disorders resulting from impaired renal tubular function (principal); E87.6 Hypokalemia; R10.9 Unspecified abdominal pain; N89.8 Other specified noninflammatory disorders of vagina; Z20.2 Contact with and (suspected) exposure to infections with a predominantly sexual mode of transmission; F17.200 Nicotine dependence, unspecified, uncomplicated
CPT/HCPCS: 36415; 80048; 81001; 81025; 83735; 84100; 87210; 87491; 87591; 87661; 96372; 99283; A9270; Q0169; 81003; 87086

== ENCOUNTER 2019-08-10 13:47 | Emergency (ER) | payer MEDICAID ==
[2019-08-10] MEDS ORDERED: HYDROmorphone 1 MG/ML CARPUJECT IM STA (14:50)
--- NOTE | 2019-08-10 14:54 | ED Physician Documentation ---
History of Present Illness - Stated complaint Stated Complaint: LOWER BACK PX/CHEST PX - Chief complaint Chief Complaint: Back Pain - History obtained from History obtained from: Patient - History of Present Illness Timing: How many days ago (several) Pain level max: 10 Pain level now: 10 - Additonal information Additional information: 24-year-old female presents the emergency department bilateral flank pain for the past few days. She states that it is worse with movement, better with rest. She states that the Percocet she received from Dr. Carmona 2 days ago is not helping. Nausea but no vomiting. No diarrhea or constipation. 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 : Chronic bladder infection, Frequency, Other HEENT: None Psych: Depression, Anxiety, Bipolar disorder, Post traumatic stress disorder Musculoskeletal: Fatigue, Chronic back pain Derm: None, Eczema - Past Surgical History Past Surgical History: No Ortho: ACL reconstruction, Arthroscopic surgery HEENT: Myringotomy (tubes), Tonsil/Adenoidectomy - Present Medications Home Medications: Ambulatory Orders Medication Instructions Recorded Confirmed Potassium Chloride [Klor-Con 10] 60 meq PO BIDWM 11/21/17 01/10/19 Magnesium 250 mg PO DAILY 07/16/18 01/10/19 Hydrocodone/Acetaminophen [[place] 1 each PO Q6H PRN #15 tablet 03/13/19 5-325 Tablet] Promethazine [Phenergan] 25 mg PO Q6H PRN #10 tab 03/13/19 Oxycodone HCl/Acetaminophen 1 - 2 each PO Q6H PRN #10 tablet 04/11/19 [Percocet 5-325 mg Tablet] Oxycodone HCl/Acetaminophen 1 - 2 each PO Q6H PRN #14 tablet 05/02/19 [Percocet 5-325 mg Tablet] Hydrocodone/Acetaminophen 1 - 2 each PO Q6H PRN #14 tablet 05/09/19 [Hydrocodon-Acetaminophen 5-325] Magnesium Oxide [Magnesium] 250 mg PO DAILY #60 tablet 05/25/19 Potassium Chloride [K-Dur] 3 tab PO BIDWM #360 tablet 05/25/19 Ibuprofen [Motrin] 800 mg PO Q8H PRN #30 tablet 08/08/19 Oxycodone HCl/Acetaminophen 1 - 2 each PO Q6H PRN #14 tablet 08/08/19 [Percocet 5-325 mg Tablet] Phenazopyridine HCl [Pyridium] 200 mg PO TID PRN #6 tablet 08/08/19 Promethazine [Phenergan] 25 mg PO Q6H PRN #10 tab 08/08/19 Cyclobenzaprine [Flexeril] 10 mg PO TID PRN #20 tablet 08/10/19 Oxycodone HCl/Acetaminophen 1 - 2 each PO Q6H PRN #14 tablet 08/10/19 [Percocet 5-325 mg Tablet] - Allergies Allergies/Adverse Reactions: Allergies Allergy/AdvReac Type Severity Reaction Status Date / Time bismuth subsalicylate Allergy Respiratory Verified 08/08/19 14:28 [From Pepto-Bismol] cinnamon Allergy Anaphylaxis Verified 08/08/19 14:28 lavender (Lavandula Allergy Hives Verified 08/08/19 14:28 angustifolia) lorazepam [From Ativan] Allergy Hives Verified 08/08/19 14:28 ondansetron HCl * Allergy Itching Verified 08/08/19 14:28 [From Zofran (as hydrochloride)] hydromorphone AdvReac Hallucinati Verified 08/10/19 15:54 ons - Social History Does the pt smoke?: Yes Smoking Status: Current every day smoker Does the pt drink ETOH?: No Does the pt have substance abuse?: No - Immunizations Immunizations are current?: Yes Immunizations: Other immun not current - POLST Patient has POLST: No POLST Status: Full Code PD ED PE NORMAL - Vitals Vital signs reviewed: Yes - General General: Alert and oriented X 3, No acute distress, Well developed/nourished - HEENT HEENT: PERRL, Moist mucous membranes - Neck Neck: Supple, no meningeal sign - Cardiac Cardiac: RRR, Strong equal pulses - Respiratory Respiratory: No respiratory distress, Clear bilaterally - Abdomen Abdomen: Soft, Non tender, Non distended - Back Back: No CVA TTP, No spinal TTP - Derm Derm: Warm and dry - Neuro Neuro: Alert and oriented X 3 - Psych Psych: Normal mood, Normal affect Results - Vitals Vitals: Vital Signs - 24 hr 08/10/19 08/10/19 13:50 16:14 Temperature 36.4 C L Heart Rate 74 60 Respiratory 18 16 Rate Blood Pressure 149/67 H 114/66 O2 Saturation 97 98 Oxygen O2 Source Room air - Rads (name of study) CT abd/pelvis Radiology: Prelim report reviewed, EMP read contemporaneously, See rad report (No acute Abnormalities) PD MEDICAL DECISION MAKING - ED course Complexity details: reviewed results, re-evaluated patient, considered differential, d/w patient ED course: 24-year-old female with what appears to be back spasms. Feels better after Flexeril and pain medications. She also complains of vaginal itching. External exam performed with Giselle BARCENAS as compounder sterile products. There does appear to be a yeast infection. Given Diflucan here. We will follow-up with her doctor for further care. Patient counseled regarding signs and symptoms for which I believe and urgent re-evaluation would be necessary. Patient with good understanding of and agreement to plan and is comfortable going home at this time This document was made in part using voice recognition software. While efforts are made to proofread this document, sound alike and grammatical errors may occur. Departure - Departure Disposition: 01 Home, Self Care Clinical Impression: Back muscle spasm, Vaginal yeast infection Condition: Good Instructions: ED Spasm Back No Trauma, ED Vaginal Infec Fungal Lesa Follow-Up: your,doctor in 3 days [Other] Prescriptions: Cyclobenzaprine [Flexeril] 10 mg PO TID PRN #20 tablet PRN Reason: Spasms Oxycodone HCl/Acetaminophen [Percocet 5-325 mg Tablet] 1 - 2 each PO Q6H PRN #14 tablet PRN Reason: pain Comments: Your tests are normal today. Return if you worsen. Follow-up with your doctor for further care. Do not drink alcohol or drive while on narcotic pain medicine. Note that many narcotic pain relievers also contain tylenol/acetaminophen. Please ensure that your total dose of acetaminophen from all sources does not exceed 3 grams (3000mg) per day. You may constipated on this medication, take a stool softener such as "Colace" twice a day while you are on it. Also recommend a [id number] laxative such as senna or MiraLAX any day that you do not have a bowel movement. If you received narcotic pain medication in the emergency department, do not drive or operate machinery for the next 24 hours. Forms: Activity restrictions Discharge Date/Time: 08/10/19 16:40
[2019-08-10] MEDS ORDERED: MORPHINE 10 MG/ML VIAL IM STA (15:59)
[2019-08-10] MEDS ORDERED: CYCLOBENZAPRINE 10 MG TABLET PO STA (16:01)
--- NOTE | 2019-08-10 16:08 | CT Report ---
Reason: B flank pain, h/o renal stones Procedure Date: 08/10/2019 Accession Number: [id number] / [id number] Procedure: CT - Abdomen/Pelvis WO CPT Code: FULL RESULT: EXAM: CT ABDOMEN AND PELVIS (CT KUB) EXAM DATE: 08/10/2019 03:20 PM. CLINICAL HISTORY: Bilateral flank pain. History of renal stones. COMPARISONS: CT of the abdomen and pelvis from 09/17/2018. TECHNIQUE: Routine axial helical CT imaging was performed through the abdomen and pelvis without IV contrast. Reconstructions: Coronal and sagittal. In accordance with CT protocol optimization, one or more of the following dose reduction techniques were utilized for this exam: automated exposure control, adjustment of mA and/or KV based on patient size, or use of iterative reconstructive technique. FINDINGS: Lung Bases: There are 4 mm nodules in the lateral basilar segment of the left lower lobe (series 3, images 7 and 11) which have not significantly changed. A 5 mm nodule in the posterior basilar segment of the left lower lobe (series 3, image 27) is also not significantly changed. Right Kidney/Ureter: No urolithiasis, hydronephrosis, or contour deforming lesion. Left Kidney/Ureter: No urolithiasis, hydronephrosis, or contour deforming lesion. Other Solid Organs: Liver, spleen, pancreas, and bilateral adrenal glands are unremarkable. Gallbladder/Bile Ducts: Unremarkable. Peritoneal Cavity: No evidence of bowel obstruction or inflammation. A normal appendix is present. Pelvic Organs: Urinary bladder is unremarkable. Uterus and adnexal structures are unremarkable by noncontrast CT. There is trace pelvic free fluid, which is likely physiologic. No pelvic adenopathy. Vasculature: No abdominal aortic aneurysm. Other: No suspicious osseous lesion. No significant degenerative disk disease or facet degeneration in the lumbar spine. No retroperitoneal adenopathy. IMPRESSION: 1. No urolithiasis or evidence for obstructive uropathy. 2. No evidence of acute infectious or inflammatory process in the abdomen or pelvis. RADIA
[2019-08-10 16:15] VITALS: BP 114/66
[2019-08-10] MEDS ORDERED: FLUCONAZOLE 100 MG TABLET PO STA (16:28)
== END 2019-08-10 16:40 | disposition home or self-care (01) ==
LOC: ED 13:47
DX: M62.830 Muscle spasm of back (principal); M54.5 Low back pain; B37.3 Candidiasis of vulva and vagina; F17.200 Nicotine dependence, unspecified, uncomplicated
CPT/HCPCS: 74176; 96372; 99284; A9270; 80053; 81001; 81003; 83690; 85025; 87086

== ENCOUNTER 2019-09-15 19:10 | Emergency (ER) | payer MEDICAID ==
[2019-09-15] MEDS ORDERED: POTASSIUM CHLORIDE 20 MEQ TABLET PO STA (20:14)
[2019-09-15] MEDS ORDERED: MAGNESIUM OXIDE 400 MG TABLET PO STA (20:14)
[2019-09-15] MEDS ORDERED: LOPERAMIDE 2 MG CAPSULE PO STA (20:15)
--- NOTE | 2019-09-15 20:17 | ED Physician Documentation ---
History of Present Illness - Stated complaint Stated Complaint: SHAKY - Chief complaint Chief Complaint: General - History obtained from History obtained from: Patient - History of Present Illness Timing: Other (She has a h/o RTA and low K and Mag. 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 : Chronic bladder infection, Frequency, Other HEENT: None Psych: Depression, Anxiety, Bipolar disorder, Post traumatic stress disorder Musculoskeletal: Fatigue, Chronic back pain Derm: None, Eczema Other Past Medical History: Gitelman syndrome - Past Surgical History Past Surgical History: No Ortho: ACL reconstruction, Arthroscopic surgery HEENT: Myringotomy (tubes), Tonsil/Adenoidectomy - Present Medications Home Medications: Ambulatory Orders Medication Instructions Recorded Confirmed Potassium Chloride [Klor-Con 10] 60 meq PO BIDWM 11/21/17 01/10/19 Magnesium 250 mg PO DAILY 07/16/18 01/10/19 Hydrocodone/Acetaminophen [[place] 1 each PO Q6H PRN #15 tablet 03/13/19 5-325 Tablet] Promethazine [Phenergan] 25 mg PO Q6H PRN #10 tab 03/13/19 Oxycodone HCl/Acetaminophen 1 - 2 each PO Q6H PRN #10 tablet 04/11/19 [Percocet 5-325 mg Tablet] Oxycodone HCl/Acetaminophen 1 - 2 each PO Q6H PRN #14 tablet 05/02/19 [Percocet 5-325 mg Tablet] Hydrocodone/Acetaminophen 1 - 2 each PO Q6H PRN #14 tablet 05/09/19 [Hydrocodon-Acetaminophen 5-325] Magnesium Oxide [Magnesium] 250 mg PO DAILY #60 tablet 05/25/19 Potassium Chloride [K-Dur] 3 tab PO BIDWM #360 tablet 05/25/19 Ibuprofen [Motrin] 800 mg PO Q8H PRN #30 tablet 08/08/19 Oxycodone HCl/Acetaminophen 1 - 2 each PO Q6H PRN #14 tablet 08/08/19 [Percocet 5-325 mg Tablet] Phenazopyridine HCl [Pyridium] 200 mg PO TID PRN #6 tablet 08/08/19 Promethazine [Phenergan] 25 mg PO Q6H PRN #10 tab 08/08/19 Cyclobenzaprine [Flexeril] 10 mg PO TID PRN #20 tablet 08/10/19 Oxycodone HCl/Acetaminophen 1 - 2 each PO Q6H PRN #14 tablet 08/10/19 [Percocet 5-325 mg Tablet] Loperamide [Imodium] 2 mg PO BID #60 capsule 09/15/19 Magnesium Oxide 3 tab PO BID #120 tablet 09/15/19 Potassium Chloride 10 meq PO BID #60 tablet.er 09/15/19 - Allergies Allergies/Adverse Reactions: Allergies Allergy/AdvReac Type Severity Reaction Status Date / Time bismuth subsalicylate Allergy Respiratory Verified 08/08/19 14:28 [From Pepto-Bismol] cinnamon Allergy Anaphylaxis Verified 08/08/19 14:28 lavender (Lavandula Allergy Hives Verified 08/08/19 14:28 angustifolia) lorazepam [From Ativan] Allergy Hives Verified 08/08/19 14:28 ondansetron HCl * Allergy Itching Verified 08/08/19 14:28 [From Zofran (as hydrochloride)] hydromorphone AdvReac Hallucinati Verified 08/10/19 15:54 ons - Social History Does the pt smoke?: Yes Smoking Status: Current some day smoker Does the pt drink ETOH?: No Does the pt have substance abuse?: No Substance Use and Type: Marijuana - Immunizations Immunizations are current?: Yes Immunizations: Other immun not current - POLST Patient has POLST: No POLST Status: Full Code PD ED PE NORMAL - Vitals Vital signs reviewed: Yes - General General: Alert and oriented X 3, No acute distress - Derm Derm: Normal color, Warm and dry - Extremities Extremities: No edema, No calf tenderness / cord - Neuro Neuro: Alert and oriented X 3, Normal speech - Psych Psych: Normal mood, Normal affect Results - Vitals Vitals: Vital Signs - 24 hr 09/15/19 19:12 Temperature 36.7 C Heart Rate 84 Respiratory 18 Rate Blood Pressure 121/69 O2 Saturation 99 Oxygen O2 Source Room air - Labs Labs: Laboratory Tests 09/15/19 09/15/19 09/15/19 20:00 20:00 20:00 Sodium 139 Potassium 2.6 L Chloride 95 L Carbon Dioxide 30 Anion Gap 14.0 H BUN 11 Creatinine 0.6 Estimated GFR (MDRD) 125 Glucose 81 Calcium 9.2 Phosphorus 3.8 Magnesium 1.4 L Serum HCG, Qual NEGATIVE Urine Color YELLOW Urine Clarity HAZY Urine pH 8.0 H Ur Specific [place] 1.010 Urine Protein NEGATIVE Urine Glucose (UA) NEGATIVE Urine Ketones NEGATIVE Urine Occult Blood MODERATE H Urine Nitrite NEGATIVE Urine Bilirubin NEGATIVE Urine Urobilinogen 0.2 (NORMAL) Ur Leukocyte Esterase NEGATIVE Urine RBC 6-10 H Urine WBC 0-3 Ur Squamous Epith Cells NONE SEEN Urine Bacteria None Seen Ur Microscopic Review INDICATED Urine Culture Comments NOT INDICATED Departure - Departure Disposition: 01 Home, Self Care Clinical Impression: Hypokalemia, Hypomagnesemia Condition: Good Record reviewed to determine appropriate education?: Yes Follow-Up: [facility] [Provider Group] - Within 1 week Prescriptions: Loperamide [Imodium] 2 mg PO BID #60 capsule Magnesium Oxide 3 tab PO BID #120 tablet Potassium Chloride 10 meq PO BID #60 tablet.er Forms: Activity restrictions
[2019-09-15 20:19] LABS: BILIRUBIN,URINE NEGATIVE (NEGATIVE); GLUCOSE, URINE (UA) NEGATIVE (NEGATIVE); KETONES,URINE (UA) NEGATIVE (NEGATIVE); LEUKOCYTE ESTERASE, URINE NEGATIVE (NEGATIVE); NITRITE,URINE NEGATIVE (NEGATIVE); OCCULT BLOOD,URINE MODERATE (NEGATIVE); PROTEIN,URINE NEGATIVE (NEGATIVE); UROBILINOGEN,URINE 0.2 (NORMAL) E.U./dL (NORMAL)
[2019-09-15 20:28] LABS: BACTERIA,URINE None Seen /HPF (None Seen); CLARITY,URINE HAZY (CLEAR); SQUAMOUS EPITHELIAL CELL,UR NONE SEEN (<= Few)
[2019-09-15 20:29] LABS: CALCIUM 9.2 mg/dL (8.5-10.3); CREATININE 0.6 mg/dL (0.4-1.0); MAGNESIUM 1.4 mg/dL (1.7-2.8); PHOSPHORUS 3.8 mg/dL (2.5-4.6)
[2019-09-15 20:39] LABS: HCG,QUALITATIVE BLOOD NEGATIVE
[2019-09-15 21:05] VITALS: BP 119/65
== END 2019-09-15 21:04 | disposition home or self-care (01) ==
LOC: ED 19:10
DX: E87.6 Hypokalemia (principal); E83.42 Hypomagnesemia; R25.2 Cramp and spasm; Z76.0 Encounter for issue of repeat prescription; F17.200 Nicotine dependence, unspecified, uncomplicated
CPT/HCPCS: 36415; 80048; 81001; 83735; 84100; 84703; 99283; A9270; 81003; 87086

== ENCOUNTER 2019-11-10 12:34 | Emergency (ER) | payer MEDICAID ==
--- NOTE | 2019-11-10 14:00 | ED Physician Documentation ---
PD HPI URI - Stated complaint Stated Complaint: VOMITTING, COUGH - Chief complaint Chief Complaint: General - History obtained from History obtained from: Patient - History of Present Illness Timing - onset: How many days ago (3) Timing duration: Days (3) Timing details: Abrupt onset, Still present Associated symptoms: Fever, Chills, Nasal congestion, Dry cough, NVD (having some vomiting with coughing hard. Has had some diarrhea as well, some of which is baseline for her and uses Imodium. Has been using her ALbuterol MDI at home for the cough. Feeling general aches and having some anterior chest pains with coughing. She is not feeling the weakness she gets when Potassium is low.) Contributing factors: COPD / asthma. No: Sick contact, Immunocompromised Worsened by: Activity (feeling more wheezing with activity.), Breathing Similar symptoms before: Has not had sx before Recently seen: Emergency Dept (seen a week ago for injury to left periorbital area and has had continued pain in that area, without general headach e/confusion/ trouble speaking. No visual deficit the past week.) Review of Systems Constitutional: reports: Fever (for 3 days), Chills, Myalgias Ears: denies: Ear pain Nose: reports: Congestion. denies: Rhinorrhea / runny nose Throat: reports: Sore throat Cardiac: reports: Chest pain / pressure. denies: Palpitations, Pedal edema, Calf pain Respiratory: reports: Dyspnea, Cough, Wheezing GI: reports: Diarrhea. denies: Abdominal Pain, Nausea, Vomiting : denies: Dysuria, Frequency Neurologic: reports: Headache. 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: Ovarian cysts : Chronic bladder infection, Frequency, Other HEENT: None Psych: Depression, Anxiety, Bipolar disorder, Post traumatic stress disorder Musculoskeletal: Fatigue, Chronic back pain Derm: None, Eczema - Past Surgical History Past Surgical History: No Ortho: ACL reconstruction, Arthroscopic surgery HEENT: Myringotomy (tubes), Tonsil/Adenoidectomy - Present Medications Home Medications: Ambulatory Orders Medication Instructions Recorded Confirmed Potassium Chloride [Klor-Con 10] 60 meq PO BIDWM 11/21/17 01/10/19 Magnesium 250 mg PO DAILY 07/16/18 01/10/19 Hydrocodone/Acetaminophen [[place] 1 each PO Q6H PRN #15 tablet 03/13/19 5-325 Tablet] Promethazine [Phenergan] 25 mg PO Q6H PRN #10 tab 03/13/19 Oxycodone HCl/Acetaminophen 1 - 2 each PO Q6H PRN #10 tablet 04/11/19 [Percocet 5-325 mg Tablet] Oxycodone HCl/Acetaminophen 1 - 2 each PO Q6H PRN #14 tablet 05/02/19 [Percocet 5-325 mg Tablet] Hydrocodone/Acetaminophen 1 - 2 each PO Q6H PRN #14 tablet 05/09/19 [Hydrocodon-Acetaminophen 5-325] Magnesium Oxide [Magnesium] 250 mg PO DAILY #60 tablet 05/25/19 Potassium Chloride [K-Dur] 3 tab PO BIDWM #360 tablet 05/25/19 Ibuprofen [Motrin] 800 mg PO Q8H PRN #30 tablet 08/08/19 Oxycodone HCl/Acetaminophen 1 - 2 each PO Q6H PRN #14 tablet 08/08/19 [Percocet 5-325 mg Tablet] Phenazopyridine HCl [Pyridium] 200 mg PO TID PRN #6 tablet 08/08/19 Promethazine [Phenergan] 25 mg PO Q6H PRN #10 tab 08/08/19 Cyclobenzaprine [Flexeril] 10 mg PO TID PRN #20 tablet 08/10/19 Oxycodone HCl/Acetaminophen 1 - 2 each PO Q6H PRN #14 tablet 08/10/19 [Percocet 5-325 mg Tablet] Loperamide [Imodium] 2 mg PO BID #60 capsule 09/15/19 Magnesium Oxide 3 tab PO BID #120 tablet 09/15/19 Potassium Chloride 10 meq PO BID #60 tablet.er 09/15/19 Albuterol Sulf [Ventolin Hfa 1 - 2 puffs INH Q4HR PRN #1 inhaler 11/10/19 Inhaler] Azithromycin [Zithromax] 0 mg PO DAILY #6 tablet 11/10/19 Benzonatate [Tessalon Perle] 100 - 200 mg PO TID PRN #30 capsule 11/10/19 Loperamide [Imodium] 2 mg PO QID PRN #30 capsule 11/10/19 Promethazine Supp [Phenergan Supp] 25 mg VA Q6H PRN #20 supp 11/10/19 dexAMETHasone [Decadron] 4 mg PO DAILY #5 tablet 11/10/19 guaiFENesin/CODEINE [Robitussin AC] 10 ml PO Q6H PRN #240 ml 11/10/19 - Allergies Allergies/Adverse Reactions: Allergies Allergy/AdvReac Type Severity Reaction Status Date / Time bismuth subsalicylate Allergy Respiratory Verified 11/10/19 12:47 [From Pepto-Bismol] cinnamon Allergy Anaphylaxis Verified 11/10/19 12:47 lavender (Lavandula Allergy Hives Verified 11/10/19 12:47 angustifolia) lorazepam [From Ativan] Allergy Hives Verified 11/10/19 12:47 ondansetron HCl * Allergy Itching Verified 11/10/19 12:47 [From Zofran (as hydrochloride)] hydromorphone AdvReac Hallucinati Verified 11/10/19 12:47 ons - Social History Does the pt smoke?: Yes Smoking Status: Current some day smoker Does the pt drink ETOH?: No Does the pt have substance abuse?: No - Immunizations Immunizations are current?: Yes Immunizations: Other immun not current - POLST Patient has POLST: No POLST Status: Full Code PD ED PE NORMAL - Vitals Vital signs reviewed: Yes - General General: Alert and oriented X 3, Well developed/nourished - HEENT HEENT: Moist mucous membranes, Pharynx benign - Neck Neck: Supple, no meningeal sign, No adenopathy - Cardiac Cardiac: RRR, No murmur - Respiratory Respiratory: No: Clear bilaterally (dissufe exp wheezes, but more perihilar. ) - Abdomen Abdomen: Soft, Non tender - Back Back: No CVA TTP - Derm Derm: Normal color, Warm and dry - Extremities Extremities: No edema, No calf tenderness / cord - Neuro Neuro: Alert and oriented X 3, No motor deficit, No sensory deficit, Normal speech Results - Vitals Vitals: Vital Signs - 24 hr 11/10/19 11/10/19 11/10/19 12:42 14:30 14:43 Temperature 37.0 C Heart Rate 62 65 60 Respiratory 18 20 22 Rate Blood Pressure 111/87 H 119/73 O2 Saturation 100 98 11/10/19 11/10/19 16:01 16:42 Temperature Heart Rate 85 87 Respiratory 18 16 Rate Blood Pressure 117/63 O2 Saturation 97 Oxygen O2 Source Room air - Labs Labs: Laboratory Tests 11/10/19 14:50 Influenza A (Rapid) Negative Influenza B (Rapid) Negative PD MEDICAL DECISION MAKING - ED course Complexity details: reviewed results, re-evaluated patient, considered differential (seems flu-like. Had facial contusion last week and some headache left frontal area, but does not seem concussive most of her symptoms. ), d/w patient Departure - Departure Disposition: Home, Self Care Clinical Impression: Upper respiratory infection Qualifiers: URI type: unspecified URI Qualified Code(s): J06.9 - Acute upper respiratory infection, unspecified Condition: Stable Record reviewed to determine appropriate education?: Yes Instructions: ED Upper Resp Infec Abx Tx Prescriptions: Albuterol Sulf [Ventolin Hfa Inhaler] 1 - 2 puffs INH Q4HR PRN #1 inhaler PRN Reason: Shortness Of Air/Wheezing Azithromycin [Zithromax] 0 mg PO DAILY #6 tablet Benzonatate [Tessalon Perle] 100 - 200 mg PO TID PRN #30 capsule PRN Reason: Cough dexAMETHasone [Decadron] 4 mg PO DAILY #5 tablet guaiFENesin/CODEINE [Robitussin AC] 10 ml PO Q6H PRN #240 ml PRN Reason: Cough Loperamide [Imodium] 2 mg PO QID PRN #30 capsule PRN Reason: Diarrhea Promethazine Supp [Phenergan Supp] 25 mg VA Q6H PRN #20 supp PRN Reason: Nausea / Vomiting Comments: Stay well-hydrated and usual medications at home. Use your albuterol inhaler 2 puffs 4 times a day and extra times as needed for wheezing. Tessalon as needed for cough. Decadron steroid for inflammation of the airways to reduce coughing and improve breathing. These are most likely a viral illness but with your symptoms there may be some potential bacterial so Zithromax as prescribed. Imodium if needed for diarrhea. Phenergan if needed for nausea. Cough medicine as needed for cough. Recheck if not improving well over the next few days. Off work for couple of days if needed. I transmitted the prescriptions that would go through to [facility]. The cough medicine will need to be brought by printed prescription Forms: Activity restrictions Discharge Date/Time: 11/10/19 16:47
[2019-11-10] MEDS ORDERED: PROMETHAZINE 25 MG TABLET PO STA (14:27)
[2019-11-10] MEDS ORDERED: CHERRY SYRUP 10 ML UDC PO ONE (14:27)
[2019-11-10] MEDS ORDERED: LOPERAMIDE 2 MG CAPSULE PO STA (14:27)
[2019-11-10] MEDS ORDERED: BENZONATATE 100 MG CAPSULE PO STA (14:27)
[2019-11-10] MEDS ORDERED: ALBUTEROL NEB 2.5 MG/3 ML INH STA ×2 (14:27→15:52)
[2019-11-10] MEDS ORDERED: DEXAMETHASONE 10 MG/ML VIAL PO STA (14:27)
[2019-11-10] MEDS ORDERED: HYDROcod/ACETAM 5/325 MG TABLET PO STA (14:27)
[2019-11-10 16:43] VITALS: BP 117/63
== END 2019-11-10 16:47 | disposition home or self-care (01) ==
LOC: ED 12:34
DX: J06.9 Acute upper respiratory infection, unspecified (principal); R51 Headache; F17.200 Nicotine dependence, unspecified, uncomplicated
CPT/HCPCS: 87275; 87276; 94640; 94664; 99284; 99285; A9270; Q0169

== ENCOUNTER 2019-12-11 13:59 | Emergency (ER) | payer MEDICAID ==
--- NOTE | 2019-12-11 14:50 | ED Physician Documentation ---
PD HPI BACK INJURY - Stated complaint Stated Complaint: BACK PX - History obtained from History obtained from: Patient - History of Present Illness Location: Upper Type of injury: Fall (she says she slipped and fell backward, with injury to mid thoracic and lower cervical spine areas. Has had some headache from head injury couple weeks ago that has not gone away. Denies further headache/injury today. No focal neuro symptoms in arms/legs.) Timing - onset: How many hours ago (2), Today Timing - details: Abrupt onset, Still present Quality: Pain, Spasm (upper back) Worsened by: Moving. No: Palpating Associated symptoms: No: Fever, Weakness, Numbness Similar symptoms before: Has not had sx before Review of Systems Constitutional: denies: Fever, Chills Nose: denies: Rhinorrhea / runny nose, Congestion Throat: denies: Sore throat Respiratory: denies: Cough Skin: denies: Abrasion (s), Laceration (s) Musculoskeletal: reports: Neck pain, Back pain Neurologic: reports: Headache (for couple weeks). 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 : Chronic bladder infection, Frequency, Other HEENT: None Psych: Depression, Anxiety, Bipolar disorder, Post traumatic stress disorder Musculoskeletal: Fatigue, Chronic back pain Derm: None, Eczema - Past Surgical History Past Surgical History: Yes Ortho: ACL reconstruction, Arthroscopic surgery HEENT: Myringotomy (tubes), Tonsil/Adenoidectomy - Present Medications Home Medications: Ambulatory Orders Medication Instructions Recorded Confirmed Potassium Chloride [Klor-Con 10] 60 meq PO BIDWM 11/21/17 01/10/19 Magnesium 250 mg PO DAILY 07/16/18 01/10/19 Hydrocodone/Acetaminophen [[place] 1 each PO Q6H PRN #15 tablet 03/13/19 5-325 Tablet] Promethazine [Phenergan] 25 mg PO Q6H PRN #10 tab 03/13/19 Oxycodone HCl/Acetaminophen 1 - 2 each PO Q6H PRN #10 tablet 04/11/19 [Percocet 5-325 mg Tablet] Oxycodone HCl/Acetaminophen 1 - 2 each PO Q6H PRN #14 tablet 05/02/19 [Percocet 5-325 mg Tablet] Hydrocodone/Acetaminophen 1 - 2 each PO Q6H PRN #14 tablet 05/09/19 [Hydrocodon-Acetaminophen 5-325] Magnesium Oxide [Magnesium] 250 mg PO DAILY #60 tablet 05/25/19 Potassium Chloride [K-Dur] 3 tab PO BIDWM #360 tablet 05/25/19 Ibuprofen [Motrin] 800 mg PO Q8H PRN #30 tablet 08/08/19 Oxycodone HCl/Acetaminophen 1 - 2 each PO Q6H PRN #14 tablet 08/08/19 [Percocet 5-325 mg Tablet] Phenazopyridine HCl [Pyridium] 200 mg PO TID PRN #6 tablet 08/08/19 Promethazine [Phenergan] 25 mg PO Q6H PRN #10 tab 08/08/19 Cyclobenzaprine [Flexeril] 10 mg PO TID PRN #20 tablet 08/10/19 Oxycodone HCl/Acetaminophen 1 - 2 each PO Q6H PRN #14 tablet 08/10/19 [Percocet 5-325 mg Tablet] Loperamide [Imodium] 2 mg PO BID #60 capsule 09/15/19 Magnesium Oxide 3 tab PO BID #120 tablet 09/15/19 Potassium Chloride 10 meq PO BID #60 tablet.er 09/15/19 Albuterol Sulf [Ventolin Hfa 1 - 2 puffs INH Q4HR PRN #1 inhaler 11/10/19 Inhaler] Azithromycin [Zithromax] 0 mg PO DAILY #6 tablet 11/10/19 Benzonatate [Tessalon Perle] 100 - 200 mg PO TID PRN #30 capsule 11/10/19 Loperamide [Imodium] 2 mg PO QID PRN #30 capsule 11/10/19 Promethazine Supp [Phenergan Supp] 25 mg ND Q6H PRN #20 supp 11/10/19 dexAMETHasone [Decadron] 4 mg PO DAILY #5 tablet 11/10/19 guaiFENesin/CODEINE [Robitussin AC] 10 ml PO Q6H PRN #240 ml 11/10/19 Baclofen 10 mg PO TID PRN #15 tablet 12/11/19 Hydrocodone/Acetaminophen [[place] 1 each PO Q6H PRN #15 tablet 12/11/19 5-325 Tablet] Ibuprofen [Motrin] 600 mg PO TID PRN #25 tab 12/11/19 Neomycin/Polymyx/Hc Otic Drops 4 drops EACHEAR TID #1 bottle 12/11/19 [Cortisporin Ear Susp] - Allergies Allergies/Adverse Reactions: Allergies Allergy/AdvReac Type Severity Reaction Status Date / Time bismuth subsalicylate Allergy Respiratory Verified 12/11/19 14:03 [From Pepto-Bismol] cinnamon Allergy Anaphylaxis Verified 12/11/19 14:03 lavender (Lavandula Allergy Hives Verified 12/11/19 14:03 angustifolia) lorazepam [From Ativan] Allergy Hives Verified 12/11/19 14:03 ondansetron HCl * Allergy Itching Verified 11/10/19 12:47 [From Zofran (as hydrochloride)] hydromorphone AdvReac Hallucinati Verified 11/10/19 12:47 ons - Social History Does the pt smoke?: Yes Smoking Status: Current every day smoker Does the pt drink ETOH?: No Does the pt have substance abuse?: No - Immunizations Immunizations are current?: Yes Immunizations: Other immun not current - POLST Patient has POLST: No POLST Status: Full Code PD ED PE NORMAL - Vitals Vital signs reviewed: Yes - General General: Alert and oriented X 3, No acute distress, Well developed/nourished - HEENT HEENT: Atraumatic - Neck Neck: Supple, no meningeal sign, No adenopathy, Other (some tenderness lower cervical area and mid thoracic area. No noted swelling nor bruising. ) - Cardiac Cardiac: RRR, No murmur - Respiratory Respiratory: Clear bilaterally - Abdomen Abdomen: Soft, Non tender - Back Back: No CVA TTP - Derm Derm: Normal color, Warm and dry - Neuro Neuro: Alert and oriented X 3, No motor deficit, No sensory deficit, Normal speech Results - Vitals Vitals: Vital Signs - 24 hr 12/11/19 12/11/19 14:03 16:45 Temperature 36.5 C Heart Rate 70 70 Respiratory 16 16 Rate Blood Pressure 127/78 124/74 O2 Saturation 99 Oxygen O2 Source Room air - Rads (name of study) cervical and thoracic CT Radiology: Prelim report reviewed (no fractures), See rad report PD MEDICAL DECISION MAKING - ED course Complexity details: reviewed results, considered differential, d/w patient Departure - Departure Disposition: 01 Home, Self Care Clinical Impression: Fall from slip, trip, or stumble Qualifiers: Encounter type: initial encounter Qualified Code(s): W01.0XXA - Fall on same level from slipping, tripping and stumbling without subsequent striking against object, initial encounter Back contusion Qualifiers: Encounter type: initial encounter Laterality: unspecified laterality Qualified Code(s): S20.229A - Contusion of unspecified back wall of thorax, initial encounter Otitis externa Qualifiers: Otitis externa type: unspecified type Chronicity: acute Laterality: right Qualified Code(s): H60.501 - Unspecified acute noninfective otitis externa, right ear Condition: Stable Record reviewed to determine appropriate education?: Yes Prescriptions: Baclofen 10 mg PO TID PRN #15 tablet PRN Reason: Spasms Hydrocodone/Acetaminophen [[place] 5-325 Tablet] 1 each PO Q6H PRN #15 tablet PRN Reason: Pain Ibuprofen [Motrin] 600 mg PO TID PRN #25 tab PRN Reason: Pain Neomycin/Polymyx/Hc Otic Drops [Cortisporin Ear Susp] 4 drops EACHEAR TID #1 bottle Comments: No fractures seen on your scans. Use some ibuprofen 3 times a day with food. Add baclofen if needed for spasms and headache. To that add Tylenol or hydroc odone if needed for pains. Stay well-hydrated. Continue your other usual medicines. Use the antibiotic/anti-inflammatory eardrops 3 times a day for the next 4 to 5 days to help with the ear canal inflammation. Forms: Activity restrictions Discharge Date/Time: 12/11/19 17:16
[2019-12-11] MEDS ORDERED: methocarbamoL 500 MG TABLET PO STA (15:07)
[2019-12-11] MEDS ORDERED: oxyCODONE 5 MG TABLET PO STA (15:07)
--- NOTE | 2019-12-11 15:43 | CT Report ---
Reason: fall with neck/midthoracic pain Procedure Date: 12/11/2019 Accession Number: [id number] / [id number] Procedure: CT - THORACIC SPINE WO CPT Code: Final Report FULL RESULT: EXAM: CT THORACIC SPINE WITHOUT CONTRAST EXAM DATE: 12/11/2019 03:23 PM. CLINICAL HISTORY: Fall with neck/midthoracic pain. COMPARISONS: None. TECHNIQUE: Thin-section axial images were acquired of the thoracic spine from C7 to L1 without contrast. Post-processing: Coronal and sagittal reformats. Other: None. In accordance with CT protocol optimization, one or more of the following dose reduction techniques were utilized for this exam: automated exposure control, adjustment of mA and/or KV based on patient size, or use of iterative reconstructive technique. FINDINGS: Alignment: No scoliosis or spondylolisthesis. Bones: No acute fracture or suspicious osseous lesion. Disk Levels/Facets: C7-T1: Unremarkable. T1-T2: Unremarkable. T2-T3: Unremarkable. T3-T4: Unremarkable. T4-T5: Unremarkable. T5-T6: Unremarkable. T6-T7: Unremarkable. T7-T8: Unremarkable. T8-T9: Unremarkable. T9-T10: Unremarkable. T10-T11: Unremarkable. T11-T12: Unremarkable. T12-L1: Unremarkable. Musculature: Unremarkable. Other: The visualized lungs, mediastinum, and abdominal cavity are unremarkable. IMPRESSION: 1. No acute fracture or traumatic malalignment. RADIA
--- NOTE | 2019-12-11 15:46 | CT Report ---
Reason: fall with neck/midthoracic pain Procedure Date: 12/11/2019 Accession Number: [id number] / [id number] Procedure: CT - CERVICAL SPINE WO CPT Code: Final Report FULL RESULT: EXAM: CT CERVICAL SPINE WITHOUT CONTRAST DATE: 12/11/2019 03:23 PM. HISTORY: Fall with neck/midthoracic pain. COMPARISONS: None. TECHNIQUE: Thin-section axial images were acquired of the cervical spine without contrast. Post-processing: Coronal and sagittal reformats. Other: None. In accordance with CT protocol optimization, one or more of the following dose reduction techniques were utilized for this exam: automated exposure control, adjustment of mA and/or KV based on patient size, or use of iterative reconstructive technique. FINDINGS: Alignment: No scoliosis or spondylolisthesis. Bones: No fracture or bone lesion. Interspace Levels/Facets: Disk spaces preserved. No degenerative changes. Musculature: Unremarkable. Other: The paravertebral and prevertebral soft tissues are unremarkable. The lung apices are clear. IMPRESSION: Normal cervical spine CT. RADIA
[2019-12-11 17:23] VITALS: BP 124/74
== END 2019-12-11 17:16 | disposition home or self-care (01) ==
LOC: ED 13:59
DX: S20.229A Contusion of unspecified back wall of thorax, initial encounter (principal); M54.2 Cervicalgia; W01.0XXA Fall on same level from slipping, tripping and stumbling without subsequent striking against object, initial encounter; H60.501 Unspecified acute noninfective otitis externa, right ear; R51 Headache; F17.200 Nicotine dependence, unspecified, uncomplicated
CPT/HCPCS: 72125; 72128; 99284; A9270

== ENCOUNTER 2019-12-18 15:05 | Emergency (ER) | payer MEDICAID ==
[2019-12-18 15:18] VITALS: BP 145/66
[2019-12-18 15:35] LABS: BILIRUBIN,URINE NEGATIVE (NEGATIVE); GLUCOSE, URINE (UA) NEGATIVE (NEGATIVE); KETONES,URINE (UA) NEGATIVE (NEGATIVE); LEUKOCYTE ESTERASE, URINE NEGATIVE (NEGATIVE); NITRITE,URINE NEGATIVE (NEGATIVE); OCCULT BLOOD,URINE TRACE-INTA (NEGATIVE); PH,URINE 7.5 PH (5.0-7.5); PROTEIN,URINE NEGATIVE (NEGATIVE); UROBILINOGEN,URINE 0.2 (NORMAL) E.U./dL (NORMAL)
[2019-12-18 15:38] LABS: CLARITY,URINE CLEAR (CLEAR); HCG UR QUAL NEGATIVE
[2019-12-18] MEDS ORDERED: KETOROLAC 60 MG/2 ML VIAL IM STA (15:49)
--- NOTE | 2019-12-18 15:52 | ED Physician Documentation ---
History of Present Illness - Stated complaint Stated Complaint: ABD PX, F - Chief complaint Chief Complaint: General - History obtained from History obtained from: Patient - History of Present Illness Timing: How many days ago (2-3) Pain level max: 6 Pain level now: 4 - Additonal information Additional information: 24-year-old female complains of vaginal discharge, white in color. States that it is painful. States she has dysuria as well. Feels similar to when she had chlamydia in the past. She states that her significant other was cheating on her, they did have sexual intercourse and the condom broke. She is concerned about a possible STD. Worse with movement or palpation. Nothing makes it bet ter. No vomiting. No fevers. No other abdominal pain. Review of Systems Ten Systems: 10 systems reviewed and negative Constitutional: denies: Fever, Chills Cardiac: denies: Chest pain / pressure Respiratory: denies: Cough GI: denies: Abdominal Pain, Nausea, Vomiting, Diarrhea Skin: denies: Rash Musculoskeletal: denies: Neck pain, Back pain Neurologic: denies: Headache PD PAST MEDICAL HISTORY - Past Medical History Past Medical History: Yes Cardiovascular: Murmur Respiratory: Asthma Neuro: Headaches Endocrine/Autoimmune: None GI: GERD [employer]: Ovarian cysts : Chronic bladder infection, Frequency, Other HEENT: None Psych: Depression, Anxiety, Bipolar disorder, Post traumatic stress disorder Musculoskeletal: Fatigue, Chronic back pain Derm: None, Eczema - Past Surgical History Past Surgical History: Yes Ortho: ACL reconstruction, Arthroscopic surgery HEENT: Myringotomy (tubes), Tonsil/Adenoidectomy - Present Medications Home Medications: Ambulatory Orders Medication Instructions Recorded Confirmed Potassium Chloride [Klor-Con 10] 60 meq PO BIDWM 11/21/17 01/10/19 Promethazine [Phenergan] 25 mg PO Q6H PRN #10 tab 08/08/19 Cyclobenzaprine [Flexeril] 10 mg PO TID PRN #20 tablet 08/10/19 Magnesium Oxide 3 tab PO BID #120 tablet 09/15/19 Albuterol Sulf [Ventolin Hfa 1 - 2 puffs INH Q4HR PRN #1 inhaler 11/10/19 Inhaler] Loperamide [Imodium] 2 mg PO QID PRN #30 capsule 11/10/19 dexAMETHasone [Decadron] 4 mg PO DAILY #5 tablet 11/10/19 guaiFENesin/CODEINE [Robitussin AC] 10 ml PO Q6H PRN #240 ml 11/10/19 Baclofen 10 mg PO TID PRN #15 tablet 12/11/19 Ibuprofen [Motrin] 600 mg PO TID PRN #25 tab 12/11/19 Neomycin/Polymyx/Hc Otic Drops 4 drops EACHEAR TID #1 bottle 12/11/19 [Cortisporin Ear Susp] Metronidazole [Flagyl] 500 mg PO BID #14 tablet 12/18/19 - Allergies Allergies/Adverse Reactions: Allergies Allergy/AdvReac Type Severity Reaction Status Date / Time bismuth subsalicylate Allergy Respiratory Verified 12/18/19 15:18 [From Pepto-Bismol] cinnamon Allergy Anaphylaxis Verified 12/18/19 15:18 lavender (Lavandula Allergy Hives Verified 12/18/19 15:18 angustifolia) lorazepam [From Ativan] Allergy Hives Verified 12/18/19 15:18 ondansetron HCl * Allergy Itching Verified 12/18/19 15:18 [From Zofran (as hydrochloride)] hydromorphone AdvReac Hallucinati Verified 12/18/19 15:18 ons - Social History Does the pt smoke?: No Smoking Status: Former smoker Does the pt drink ETOH?: No Does the pt have substance abuse?: No - Immunizations Immunizations are current?: Yes Immunizations: Other immun not current - POLST Patient has POLST: No POLST Status: Full Code PD ED PE NORMAL - Vitals Vital signs reviewed: Yes - General General: Alert and oriented X 3, No acute distress, Well developed/nourished - HEENT HEENT: Moist mucous membranes - Neck Neck: Supple, no meningeal sign - Cardiac Cardiac: RRR, Strong equal pulses - Respiratory Respiratory: No respiratory distress, Clear bilaterally - Abdomen Abdomen: Soft, Non tender, Non distended - Female 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 There is white vaginal discharge that sticks to the vaginal worley. No discharge from the cervix. No cervical motion tenderness. No adnexal masses.) - Back Back: No CVA TTP, No spinal TTP - Derm Derm: Warm and dry, No rash - Neuro Neuro: Alert and oriented X 3 - Psych Psych: Normal mood, Normal affect Results - Vitals Vitals: Vital Signs - 24 hr 12/18/19 15:15 Temperature 36.6 C Heart Rate 89 Respiratory 15 Rate Blood Pressure 145/66 H O2 Saturation 97 Oxygen O2 Source Room air - Labs Labs: Microbiology 12/18/19 16:03 Wet Prep - Final Vaginal Laboratory Tests 12/18/19 15:30 Urine Color YELLOW Urine Clarity CLEAR Urine pH 7.5 Ur Specific Leon 1.010 Urine Protein NEGATIVE Urine Glucose (UA) NEGATIVE Urine Ketones NEGATIVE Urine Occult Blood TRACE-INTA Urine Nitrite NEGATIVE Urine Bilirubin NEGATIVE Urine Urobilinogen 0.2 (NORMAL) Ur Leukocyte Esterase NEGATIVE Ur Microscopic Review NOT INDICATED Urine Culture Comments NOT INDICATED Urine HCG, Qual NEGATIVE PD MEDICAL DECISION MAKING - ED course Complexity details: reviewed old records, reviewed results, re-evaluated patient, considered differential, d/w patient ED course: Patient is concerned about potential STD exposure. Will treat her for gonorrhea and chlamydia based upon her exposure history. Patient tested positive for bacterial vaginitis and this is consistent with PID. No evidence of ovarian torsion or abscess. Patient counseled regarding signs and symptoms for which I believe and urgent re-evaluation would be necessary. Patient with good understanding of and agreement to plan and is comfortable going home at this time This document was made in part using voice recognition software. While efforts are made to proofread this document, sound alike and grammatical errors may occur. Departure - Departure Disposition: 01 Home, Self Care Clinical Impression: STD exposure, Bacterial vaginitis Condition: Good Instructions: ED Chlamydia GC Poss Culture Pend, ED Vaginosis Bacterial Follow-Up: your,doctor in 1 week if not better [Other] Prescriptions: Metronidazole [Flagyl] 500 mg PO BID #14 tablet Comments: You were treated for possible gonorrhea and chlamydia today. The official test will be back tomorrow, if this is positive you will receive a phone call. If it is positive, your partner(s) will need to be tested and treated as well. Use condoms for any sexual activity. You tested positive for bacterial vaginitis today. Use the flagyl as prescribed.
[2019-12-18] MEDS ORDERED: cefTRIAXone 250 MG VIAL IM STA (16:14)
[2019-12-18] MEDS ORDERED: LIDOCAINE 1% 2 ML VIAL MC ONE (16:14)
[2019-12-18] MEDS ORDERED: AZITHROMYCIN 250 MG TABLET PO STA (16:14)
[2019-12-18 17:50] LABS: CANDIDA GROUP DNA NEGATIVE (NEGATIVE); CANDIDA KRUSEI DNA NEGATIVE (NEGATIVE); TRICHOMONAS VAGINALIS DNA NEGATIVE (NEGATIVE)
[2019-12-18 22:32] LABS: TRICHOMONAS VAGINALIS DNA NEGATIVE (NEGATIVE)
== END 2019-12-18 16:38 | disposition home or self-care (01) ==
LOC: ED 15:05
DX: N76.0 Acute vaginitis (principal); B96.89 Other specified bacterial agents as the cause of diseases classified elsewhere; Z20.2 Contact with and (suspected) exposure to infections with a predominantly sexual mode of transmission; Z87.891 Personal history of nicotine dependence
CPT/HCPCS: 81003; 81025; 87210; 87481; 87491; 87591; 87661; 87801; 96372; 99283; 99284; A9270; 81001; 87086

== ENCOUNTER 2020-01-12 14:07 | Emergency (ER) | payer MEDICAID ==
[2020-01-12 14:19] VITALS: BP 120/79
--- NOTE | 2020-01-12 14:52 | XRAY Report ---
Reason: CHEST PAIN Procedure Date: 01/12/2020 Accession Number: [id number] / [id number] Procedure: XR - Chest 2 View X-Ray CPT Code: 16297 Final Report FULL RESULT: EXAM: CHEST RADIOGRAPHY EXAM DATE: 01/12/2020 02:30 PM. CLINICAL HISTORY: CHEST PAIN. COMPARISON: CHEST 2 VIEW 01/10/2019 5:44 PM. TECHNIQUE: 2 views. FINDINGS: Lungs/Pleura: No focal opacities evident. No pleural effusion. No pneumothorax. Normal volumes. Mediastinum: Heart and mediastinal contours are unremarkable. Other: None. IMPRESSION: Normal 2-view chest radiography. [facility]IA
== END 2020-01-12 16:00 | disposition left against medical advice (07) ==
LOC: ED 14:07
DX: Z53.21 Procedure and treatment not carried out due to patient leaving prior to being seen by health care provider (principal)
CPT/HCPCS: 71046; 80053; 83690; 84484; 85025; 93005

== ENCOUNTER 2020-04-20 13:57 | Emergency (ER) | payer MEDICAID ==
[2020-04-20 14:10] VITALS: BP 134/77
== END 2020-04-20 15:15 | disposition left against medical advice (07) ==
LOC: ED 13:57
DX: Z53.21 Procedure and treatment not carried out due to patient leaving prior to being seen by health care provider (principal)

== ENCOUNTER 2020-04-28 20:58 | Inpatient (IN) | payer MEDICAID ==
--- NOTE | 2020-04-28 21:25 | ED Physician Documentation ---
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 she is on oral replacement for potassium and magnesium at home but is unable to keep it down she reports she started drinking alcohol yesterday and then started vomiting continued to vomit since then.) Review of Systems Constitutional: reports: Reviewed and negative Eyes: reports: Reviewed and negative Ears: reports: Reviewed and negative Nose: reports: Reviewed and negative Throat: reports: Reviewed and negative Cardiac: reports: Reviewed and negative Respiratory: reports: Reviewed and negative GI: reports: Nausea, Vomiting : reports: Reviewed and negative Skin: reports: Reviewed and negative Musculoskeletal: reports: Reviewed and negative Neurologic: reports: Reviewed and negative Psychiatric: reports: Reviewed and negative Endocrine: reports: Reviewed and negative Immunocompromised: reports: Reviewed and negative PD PAST MEDICAL HISTORY - Past Medical History Cardiovascular: Murmur Respiratory: Asthma Neuro: Headaches Endocrine/Autoimmune: None GI: GERD 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: Ovarian cysts : Chronic bladder infection, Frequency, Other HEENT: None Psych: Depression, Anxiety, Bipolar disorder, Post traumatic stress disorder Musculoskeletal: Fatigue, Chronic back pain Derm: None, Eczema - Past Surgical History Past Surgical History: Yes Ortho: ACL reconstruction, Arthroscopic surgery HEENT: Myringotomy (tubes), Tonsil/Adenoidectomy - Present Medications Home Medications: Ambulatory Orders Medication Instructions Recorded Confirmed Potassium Chloride [Klor-Con 10] 60 meq PO BIDWM 11/21/17 04/28/20 Magnesium Oxide 3 tab PO BID #120 tablet 09/15/19 04/28/20 - Allergies Allergies/Adverse Reactions: Allergies Allergy/AdvReac Type Severity Reaction Status Date / Time bismuth subsalicylate Allergy Respiratory Verified 04/28/20 21:03 [From Pepto-Bismol] cinnamon Allergy Anaphylaxis Verified 04/28/20 21:03 lavender (Lavandula Allergy Hives Verified 04/28/20 21:03 angustifolia) lorazepam [From Ativan] Allergy Hives Verified 04/28/20 21:03 ondansetron HCl * Allergy Itching Verified 04/28/20 21:03 [From Zofran (as hydrochloride)] hydromorphone AdvReac Hallucinati Verified 04/28/20 21:03 ons - Social History Does the pt smoke?: No Smoking Status: Former smoker Does the pt drink ETOH?: No Does the pt have substance abuse?: No - Immunizations Immunizations are current?: Yes Immunizations: Other immun not current - POLST Patient has POLST: No POLST Status: Full Code PD ED PE NORMAL - Vitals Vital signs reviewed: Yes - General General: Alert and oriented X 3, No acute distress, Well developed/nourished - HEENT HEENT: PERRL, Pharynx benign - Neck Neck: Supple, no meningeal sign, No JVD - Cardiac Cardiac: RRR, No murmur, Strong equal pulses - Respiratory Respiratory: No respiratory distress, Clear bilaterally - Abdomen Abdomen: Normal bowel sounds, Soft, Non tender, Non distended, No organomegaly - Derm Derm: Normal color, Warm and dry, No rash - Extremities Extremities: No deformity, No tenderness to palpate, Normal ROM s pain, No edema, No calf tenderness / cord - Neuro Neuro: Alert and oriented X 3, stone setter 2-12 intact, No motor deficit, No sensory deficit, Normal speech - Psych Psych: Normal mood, Normal affect Results - Vitals Vitals: Vital Signs - 24 hr 04/28/20 04/28/20 21:00 22:31 Temperature 37.1 C Heart Rate 74 72 Respiratory 18 16 Rate Blood Pressure 163/102 H 97/54 L O2 Saturation 100 98 Oxygen O2 Source Room air - EKG (time done) 22:40 Rate: Other (no stemi) - Labs Labs: Laboratory Tests 04/28/20 04/28/20 04/28/20 21:55 21:55 21:55 WBC 16.9 H RBC 4.30 Hgb 13.9 Hct 38.6 MCV 89.8 MCH 32.3 H MCHC 36.0 RDW 11.7 L Plt Count 402 MPV 8.3 Neut # (Auto) 15.1 H Lymph # (Auto) 1.2 L [place] # (Auto) 0.4 Eos # (Auto) 0.1 Baso # (Auto) 0.1 Absolute Nucleated RBC 0.00 Nucleated RBC % 0.0 Sodium 135 Potassium 2.2 L* Chloride 90 L Carbon Dioxide 33 H Anion Gap 12.0 BUN 13 Creatinine 0.7 Estimated GFR (MDRD) 105 Glucose 118 H Lactic Acid 1.5 Calcium 8.6 Magnesium 0.9 L* Total Bilirubin 0.8 AST 37 ALT 39 Alkaline Phosphatase 49 Total Protein 7.7 Albumin 4.4 Globulin 3.3 Albumin/Globulin Ratio 1.3 Lipase 29 Ethyl Alcohol < 5.0 PD MEDICAL DECISION MAKING - ED course Complexity details: considered differential (Intractable vomiting, hypokalemia and hypomagnesemia) - Consults Consults: Discussed case with (dr. roca. will admit for observation.) Departure - Departure Disposition: ED Place in Observation Clinical Impression: Hypokalemia, Hypomagnesemia, Gitelman syndrome Vomiting Qualifiers: Vomiting type: unspecified Vomiting Intractability: intractable Nausea presence: with nausea Qualified Code(s): R11.2 - Nausea with vomiting, unspecified Condition: Stable
[2020-04-28] MEDS ORDERED: SODIUM CHLORIDE 0.9% 1,000 ML IV STA (21:41)
[2020-04-28] MEDS ORDERED: ONDANSETRON 4 MG/2 ML VIAL IVP STA (21:41)
[2020-04-28] MEDS ORDERED: PROMETHAZINE INJ 25 MG in SODIUM CHLORIDE 0.9% 50 ML IV STA (21:46)
[2020-04-28] MEDS ORDERED: LOPERAMIDE 2 MG CAPSULE PO STA (21:56)
[2020-04-28 22:01] LABS: BASOPHILS # (AUTO) 0.1 10^3/uL (0.0-0.1); BASOPHILS % (AUTO) 0.3 %; EOSINOPHILS # (AUTO) 0.1 10^3/uL (0.0-0.7); EOSINOPHILS % (AUTO) 0.4 %; HGB - HEMOGLOBIN 13.9 g/dL (12.0-16.0); LYMPHOCYTES # (AUTO) 1.2 10^3/uL (1.5-3.5); LYMPHOCYTES % (AUTO) 7.1 %; MEAN CORPUSCULAR HEMOGLOBIN 32.3 pg (27.0-31.0); MEAN CORPUSCULAR VOLUME 89.8 fL (81.0-99.0); MEAN PLATELET VOLUME 8.3 fL (7.9-10.8); MONOCYTES # (AUTO) 0.4 10^3/uL (0.0-1.0); MONOCYTES % (AUTO) 2.5 %; NEUTROPHILS # (AUTO) 15.1 10^3/uL (1.5-6.6); NEUTROPHILS % (AUTO) 89.2 %; PLT - PLATELET COUNT 402 10^3/uL (130-450); RED CELL DISTRIBUTION WIDTH 11.7 % (12.0-15.0); WHITE BLOOD COUNT 16.9 x10^3/uL (4.8-10.8)
[2020-04-28 22:15] LABS: ALBUMIN 4.4 g/dL (3.2-5.5); ALBUMIN/GLOBULIN RATIO 1.3 (1.0-2.2); ALKALINE PHOSPHATASE 49 IU/L (42-121); ALT ALANINE AMINOTRANSFERASE 39 IU/L (10-60); AST ASPARTATE AMINOTRANSFERASE 37 IU/L (10-42); BILIRUBIN,TOTAL 0.8 mg/dL (0.2-1.0); BUN - BLOOD UREA NITROGEN 13 mg/dL (6-20); CALCIUM 8.6 mg/dL (8.5-10.3); CARBON DIOXIDE - CO2 33 mmol/L (21-32); CHLORIDE 90 mmol/L (101-111); CREATININE 0.7 mg/dL (0.4-1.0); GLUCOSE 118 mg/dL (70-100); LIPASE 29 U/L (22-51); SODIUM 135 mmol/L (135-145); TOTAL PROTEIN 7.7 g/dL (6.7-8.2)
[2020-04-28 22:17] LABS: MAGNESIUM 0.9 mg/dL (1.7-2.8)
[2020-04-28] MEDS ORDERED: PROMETHAZINE 25 MG/1 ML VIAL IM PRN (22:30)
[2020-04-28] MEDS ORDERED: SODIUM CHLORIDE FLUSH 0.9% 10 ML SYRINGE IVP PRN (22:30)
[2020-04-28] MEDS ORDERED: MAGNESIUM SULFATE 2 GRAM 2 GM/50 ML BAG IV ONE ×2 (22:30→23:11)
[2020-04-28] MEDS ORDERED: POTASSIUM CHLOR 10 MEQ/100 ML 10 MEQ/100 ML BAG IV ONE (22:30)
[2020-04-28] MEDS ORDERED: PROCHLORPERAZINE 10 MG/2 ML VIAL IVP PRN (22:36)
--- NOTE | 2020-04-28 22:47 | HISTORY & PHYSICAL EXAMINATION ---
Chief Complaint - Chief Complaint Chief Complaint: intractable nausea/vomiting, hypokalemia, hypomagnesemia. History of Present Illness - Admitted From Admitted From:: [facility] ED - History Obtained From Records Reviewed: Yes History obtained from: Patient - History of Present Illness HPI Comment/Other: Patient is a 24-year-old female who presented to the ED with complaint of intractable nausea and vomiting. Her symptoms started yesterday and have persisted. She states she was drinking alcohol yesterday. Her blood alcohol today was negative. She has a history of Gittleman syndrome and is normally on potassium and magnesium supplements. However she has not been able to take her medications due to the intractable nausea and vomiting. In the ED she was found to have a potassium of 2.2 and a magnesium level of 0.9. As a result of this lab findings and her persistent nausea and vomiting she was presented for admission for further treatment. Upon arrival to the floor she was insistent on taking a shower. She reports that that it would help her feel better. She has a history of marijuana use. She complained of heartburn and back spasms. She denied dyspnea or fever. The rest of her history was unremarkable. 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: Ovarian cysts : reports: Chronic bladder infection, Frequency, Other HEENT: reports: None Psych: reports: Depression, Anxiety, Bipolar disorder, Post traumatic stress disorder Musculoskeletal: reports: Fatigue, Chronic back pain Derm: reports: None, Eczema MRSA Hx?: No - Past Surgical History Ortho: reports: ACL reconstruction, Arthroscopic surgery HEENT: reports: Myringotomy (tubes), Tonsil/Adenoidectomy - Family & Social History Family History: Mother: Alive and Well, Father: Alive and Well Family History Comment/Other: The patient will not answer any details about her parents and does not think they have any chronic illnesses. Social History Notes: The patient lived in [place], [place] both in 2011 and in 2014. She was living with her dad since 2014, but now lives with her boyfriend and his family. 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 She admits to previous tobacco dependence, but has recently switched to marijuana given her daily chronic pain in her spine. She denies other illicit drug or alcohol use. She wishes to be a FULL code. - Substance History Use: Uses substance without health or social issues: Tobacco, Cannabis - POLST Patient has POLST: No POLST Status: Full Code Meds/Allgy - Home Medications Home Medications: Ambulatory Orders Medication Instructions Recorded Confirmed Potassium Chloride [Klor-Con 10] 60 meq PO BIDWM 11/21/17 04/28/20 Magnesium Oxide 3 tab PO BID #120 tablet 09/15/19 04/28/20 - Allergies Allergies/Adverse Reactions: Allergies Allergy/AdvReac Type Severity Reaction Status Date / Time bismuth subsalicylate Allergy Respiratory Verified 04/28/20 21:03 [From Pepto-Bismol] cinnamon Allergy Anaphylaxis Verified 04/28/20 21:03 lavender (Lavandula Allergy Hives Verified 04/28/20 21:03 angustifolia) lorazepam [From Ativan] Allergy Hives Verified 04/28/20 21:03 ondansetron HCl * Allergy Itching Verified 04/28/20 21:03 [From Zofran (as hydrochloride)] hydromorphone AdvReac Hallucinati Verified 04/28/20 21:03 ons Review of Systems - Constitutional Constitutional: reports: Fatigue, Weakness. denies: Fever, Chills - Eyes Eyes: denies: Pain - Ears, Nose & Throat Ears, Nose & Throat: denies: Sore throat - Cardiovascular Cariovascular: denies: Irregular heart rate, Palpitations, Chest pain, Edema, Exertional dyspnea - Respiratory Respiratory: denies: Cough, Sputum production, Wheezing, SOB at rest - Gastrointestinal Gastrointestinal: reports: Nausea, Vomiting, Reflux/heartburn. denies: Abdominal pain, Abdominal distention, Coffee grounds emesis - Genitourinary Genitourinary: denies: Dysuria, Frequency, Urgency, Hematuria - Musculoskeletal Musculoskeletal: reports: Back pain (chronic) - Integumentary Integumentary: denies: Rash, Pruritis, Lesions, Dryness - Neurological Neurological: denies: Focal weakness, Headache - Psychiatric Psychiatric: reports: Depression, Anxiety - Endocrine Endocrine: denies: Polyuria, Polydypsia - Hematologic/Lymphatic Hematologic/Lymphatic: denies: Anemia, Bruising Prior Level of Functionality: She is independent of activities of daily living Exam - Vital Signs Vital Signs: Vital Signs x48h Temp Pulse Resp BP Pulse Ox 04/28/20 22:31 72 16 97/54 L 98 04/28/20 21:00 37.1 C 74 18 163/102 H 100 - Physical Exam General Appearance: positive: Alert, Mild distress Eyes Bilateral: positive: PERRL, EOMI ENT: positive: Dry mucous membranes Neck: positive: No JVD, Trachea midline Respiratory: positive: Chest non-tender, No respiratory distress, Breath sounds nml. negative: Wheezes, Rales, Rhonchi Cardiovascular: positive: Regular rate & rhythm Abdomen: positive: Non-tender, No organomegaly, Nml bowel sounds, No distention. negative: Guarding, Rebound Back: positive: Nml inspection Skin: positive: Color nml, No rash, Warm, Dry Extremities: positive: Non-tender, Full ROM, Nml appearance, No pedal edema Neurologic/Psychiatric: positive: Oriented x3, Motor nml, Mood/affect nml Conclusion/Plan - Problem List (1) Intractable nausea and vomiting Conclusion/Plan: This could be due to marijuana use. Urine drug screen pending IV hydration with normal saline at 100 mils per hour. Clear liquids diet as tolerated. Phenergan and/or Compazine as needed for nausea (2) Hypokalemia Conclusion/Plan: Acute on chronic. Patient has Gittleman syndrome. However has been able to keep anything down due to intractable nausea vomiting. As a result she has not been able to take her daily potassium. Potassium today was 2.[address] potassium with potassium chloride 10 mEq every 1 hour IV for a total of 10 doses and recheck (3) Hypomagnesemia Conclusion/Plan: Acute on chronic. Patient has Gittleman syndrome. However she has been unable to keep anything down due to intractable nausea vomiting. As a result she has not been able to take her daily magnesium. Magnesium today was 0.9 Patient was given 2 g of magnesium sulfate IV in the ED. We will replace another 2 g of magnesium sulfate IV x1 and recheck with morning labs (4) Back pain Conclusion/Plan: Chronic. [place] and Flexeril ordered prn. Qualifiers: Back pain location: low back pain Chronicity: unspecified Back pain laterality: left Sciatica presence: without sciatica Qualified Code(s): M54.5 - Low back pain - Lab Results Fish Bones: 06/04/20 04:50 04/29/20 04:50 Core Measures - Anticipated LOS I expect patient to be DC'd or transferred within 96 hours.: Yes - DVT/VTE - Prophylaxis VTE/DVT Device ordered at admit?: Yes
[2020-04-28] MEDS ORDERED: diphenhydrAMINE 25 MG CAPSULE PO PRN (23:35)
[2020-04-28] MEDS ORDERED: CALCIUM CARBONATE CHEW 500 MG TABLET PO PRN (23:36)
[2020-04-28] MEDS ORDERED: CYCLOBENZAPRINE 10 MG TABLET PO PRN (23:37)
[2020-04-28] MEDS: SODIUM CHLORIDE FLUSH 0.9% 10 ML SYRINGE IVP SCH (23:49)
[2020-04-28] MEDS: POTASSIUM CHLOR 10 MEQ/100 ML 10 MEQ/100 ML BAG IV SCH (23:49)
[2020-04-28] MEDS: SODIUM CHLORIDE 0.9% 1,000 ML IV SCH (23:49)
[2020-04-29] MEDS: POTASSIUM CHLOR 10 MEQ/100 ML 10 MEQ/100 ML BAG IV SCH ×9 (00:57→16:46)
[2020-04-29] MEDS ORDERED: MAGNESIUM SULFATE 2 GRAM 2 GM/50 ML BAG IV ONE (02:00)
[2020-04-29] MEDS: HYDROcod/ACETAM 5/325 MG TABLET PO PRN ×4 (04:42→19:45)
[2020-04-29 05:07] LABS: MUDS CUTOFF CONCENTRATIONS CUTOFF CONC BELOW:
[2020-04-29 05:09] LABS: BILIRUBIN,URINE NEGATIVE (NEGATIVE); GLUCOSE, URINE (UA) NEGATIVE (NEGATIVE); KETONES,URINE (UA) 15 mg/dL (NEGATIVE); LEUKOCYTE ESTERASE, URINE NEGATIVE (NEGATIVE); NITRITE,URINE NEGATIVE (NEGATIVE); OCCULT BLOOD,URINE MODERATE (NEGATIVE); PROTEIN,URINE NEGATIVE (NEGATIVE); UROBILINOGEN,URINE 0.2 (NORMAL) E.U./dL (NORMAL)
[2020-04-29 05:09] LABS: BASOPHILS % (AUTO) 0.2 %; EOSINOPHILS # (AUTO) 0.1 10^3/uL (0.0-0.7); EOSINOPHILS % (AUTO) 0.3 %; HGB - HEMOGLOBIN 12.8 g/dL (12.0-16.0); LYMPHOCYTES # (AUTO) 2.7 10^3/uL (1.5-3.5); LYMPHOCYTES % (AUTO) 16.4 %; MEAN CORPUSCULAR HEMOGLOBIN 32.3 pg (27.0-31.0); MEAN CORPUSCULAR HGB CONC 35.6 g/dL (32.0-36.0); MEAN CORPUSCULAR VOLUME 90.9 fL (81.0-99.0); MEAN PLATELET VOLUME 8.3 fL (7.9-10.8); MONOCYTES # (AUTO) 1.2 10^3/uL (0.0-1.0); MONOCYTES % (AUTO) 7.3 %; NEUTROPHILS # (AUTO) 12.3 10^3/uL (1.5-6.6); NEUTROPHILS % (AUTO) 75.2 %; PLT - PLATELET COUNT 398 10^3/uL (130-450); RED BLOOD COUNT 3.96 10^6/uL (4.20-5.40); RED CELL DISTRIBUTION WIDTH 11.7 % (12.0-15.0); WHITE BLOOD COUNT 16.3 x10^3/uL (4.8-10.8)
[2020-04-29 05:10] LABS: CLARITY,URINE CLEAR (CLEAR)
[2020-04-29 05:11] LABS: HCG UR QUAL NEGATIVE
[2020-04-29 05:16] LABS: BACTERIA,URINE Few /HPF (None Seen); SQUAMOUS EPITHELIAL CELL,UR FEW Squamous (<= Few)
[2020-04-29 05:18] LABS: CALCIUM 8.1 mg/dL (8.5-10.3); CREATININE 0.7 mg/dL (0.4-1.0); MAGNESIUM 2.2 mg/dL (1.7-2.8)
[2020-04-29 05:19] LABS: AMPHETAMINE SCREEN,URINE NEGATIVE (NEGATIVE); BENZODIAZEPINES SCREEN, URINE NEGATIVE (NEGATIVE); COCAINE SCREEN URINE NEGATIVE (NEGATIVE); METHADONE SCREEN, URINE NEGATIVE (NEGATIVE); METHAMPHETAMINES SCREEN, URINE NEGATIVE (NEGATIVE); OPIATE SCREEN, URINE NEGATIVE (NEGATIVE); OXYCODONE SCREEN, URINE NEGATIVE (NEGATIVE); PROPOXYPHENE SCREEN, URINE NEGATIVE (NEGATIVE); TRICYCLIC ANTIDEPRESSANT,URINE NEGATIVE (NEGATIVE)
[2020-04-29] MEDS ORDERED: POTASSIUM CHLORIDE 20 MEQ TABLET PO ONE (06:55)
[2020-04-29] MEDS ORDERED: PANTOPRAZOLE 40 MG VIAL IVP SCH (07:00)
[2020-04-29] MEDS: SODIUM CHLORIDE FLUSH 0.9% 10 ML SYRINGE IVP SCH ×2 (08:07→16:04)
--- NOTE | 2020-04-29 09:16 | PHARMACY PROGRESS NOTE ---
- Best Possible Medication History Admit Date and Time: 04/28/202229 Processed by: Nursing Medication History completed: Yes As the person ultimately responsible for medication therapy, providers are able to order a medication from an existing home medication list in [facility] via the "Reconcile Routine" prior to Confirmation of that medication by intranet support. Such practice is discouraged except when the physician, in their clinical judgment, deems that a medical need exists for a medication without regard to previous use.
[2020-04-29] MEDS: SODIUM CHLORIDE 0.9% 1,000 ML IV SCH (09:41)
[2020-04-29] MEDS ORDERED: POTASSIUM CHLORIDE 20 MEQ TABLET PO SCH (11:00)
[2020-04-29] MEDS: MAGNESIUM OXIDE 400 MG TABLET PO SCH ×2 (11:48→19:34)
[2020-04-29] MEDS ORDERED: IBUPROFEN 400 MG TABLET PO PRN (12:48)
[2020-04-29 13:22] LABS: CALCIUM 7.7 mg/dL (8.5-10.3); CREATININE 0.8 mg/dL (0.4-1.0); MAGNESIUM 1.9 mg/dL (1.7-2.8)
[2020-04-29] MEDS ORDERED: LACTATED RINGERS 1,000 ML IV SCH (14:00)
--- NOTE | 2020-04-29 14:19 | PROVIDER PROGRESS NOTE ---
Subjective - Prog Note Date Prog Note Date: 04/29/20 - Subjective Pt reports feeling: Improved Subjective: pt still complain of N/V and headache. she denies fever, chill, SOB or chest pain or palpitations Current Medications - Current Medications Current Medications: Active Medications Hydrocodone Bitart/Acetaminophen ([place] 5/325) 1 tab PO Q4HR PRN PRN Reason: PAIN Last Admin: 04/29/20 10:01 Dose: 1 tab Calcium Carbonate/Glycine (Tums) 500 mg PO TID PRN PRN Reason: Heartburn Cyclobenzaprine HCl (Flexeril) 10 mg PO TID PRN PRN Reason: Spasms Diphenhydramine HCl (Benadryl) 25 mg PO Q4HR PRN PRN Reason: Allergy Symptoms Lactated Ringer's (Lr) 1,000 mls @ 100 mls/hr IV .Q10H YOLANDA Potassium Chloride (Potassium Chloride) 10 meq in 100 mls @ 50 mls/hr IV Q2H [facility] Stop: 04/29/20 17:59 Ibuprofen (Motrin) 400 mg PO Q6HR PRN PRN Reason: PAIN Last Admin: 04/29/20 13:28 Dose: 400 mg Magnesium Oxide (Mag Ox) 1,200 mg PO BID [facility] Last Admin: 04/29/20 11:48 Dose: 1,200 mg Pantoprazole Sodium (Protonix) 40 mg IVP QDAC [facility] Last Admin: 04/29/20 06:29 Dose: 40 mg Potassium Chloride (K-Dur) 60 meq PO BIDWM [facility] Last Admin: 04/29/20 11:49 Dose: 60 meq Prochlorperazine Edisylate (Compazine Inj) 10 mg IVP Q6HR PRN PRN Reason: Nausea / Vomiting Promethazine HCl (Phenergan Inj) 25 mg IM Q6HR PRN PRN Reason: Nausea / Vomiting Last Admin: 04/29/20 08:08 Dose: 25 mg Sodium Chloride (Normal Saline Flush 0.9%) 10 ml IVP PRN PRN PRN Reason: NEEDED PER PROVIDER ORDERS Last Admin: 04/29/20 06:30 Dose: 10 ml Sodium Chloride (Normal Saline Flush 0.9%) 10 ml IVP 0100,0900,1700 [facility] Last Admin: 04/29/20 08:07 Dose: 10 ml Potassium Chloride [Klor-Con 10] 60 meq PO BIDWM 11/21/17 Objective - Vital Signs/Intake & Output Vital Signs: Vital Signs x48h Temp Pulse Resp BP Pulse Ox 04/29/20 07:18 104/41 L 04/29/20 07:16 36.8 C 67 18 90/67 97 Intake & Output: Intake & Output 04/26/20 04/27/20 04/28/20 04/29/20 23:59 23:59 23:59 23:59 Intake Total 1051 2636.667 Output Total 500 Balance 1051 2136.667 - Objective General Appearance: positive: Alert, Mild distress. negative: Lethargic Eyes Bilateral: positive: Normal inspection, PERRL, No lid inflammation ENT: positive: ENT inspection nml, No signs of dehydration. negative: Purulent nasal drainage, Oral lesions Neck: positive: Nml inspection, Thyroid nml, No JVD, Trachea midline. negative: Thyromegaly, Stiff neck, Tracheal deviation Respiratory: positive: Chest non-tender, No respiratory distress, Breath sounds nml. negative: Wheezes, Rales, Rhonchi Cardiovascular: positive: Regular rate & rhythm, No murmur, No gallop. negative: Irregularly irregular, Tachycardia, Bradycardia, Systolic murmur, Diastolic murmur Peripheral Pulses: 2+ Radial (R), 2+ Radial (L), 2+ Dorsalis pedis (R), 2+ Dorsalis pedis (L) Abdomen: positive: Non-tender, No organomegaly, Nml bowel sounds. negative: Tenderness, Guarding, Rebound Back: positive: Nml inspection. negative: CVA tenderness (R), CVA tenderness (L) Skin: positive: Color nml, No rash, Warm, Dry. negative: Cyanosis, Diaphoresis, Pallor Extremities: positive: Non-tender, Full ROM, Nml appearance. negative: Calf tenderness, Kylee's sign/cords Neurologic/Psychiatric: positive: Oriented x3, Motor nml, Sensation nml. negative: Weakness, Sensory loss, Facial droop, Slurred/abnml speech - Lab Results Fish Bones: 04/29/20 04:50 04/29/20 13:07 Other Labs: Lab Results x24hrs 04/29/20 04/29/20 04/29/20 Range/Units 13:07 04:50 04:50 WBC 16.3 H (4.8-10.8) x10^3/uL RBC 3.96 L (4.20-5.40) 10^6/uL Hgb 12.8 (12.0-16.0) g/dL Hct 36.0 L (37.0-47.0) % MCV 90.9 (81.0-99.0) fL MCH 32.3 H (27.0-31.0) pg MCHC 35.6 (32.0-36.0) g/dL RDW 11.7 L (12.0-15.0) % Plt Count 398 (130-450) 10^3/uL MPV 8.3 (7.9-10.8) fL Neut # (Auto) 12.3 H (1.5-6.6) 10^3/uL Lymph # (Auto) 2.7 (1.5-3.5) 10^3/uL [place] # (Auto) 1.2 H (0.0-1.0) 10^3/uL Eos # (Auto) 0.1 (0.0-0.7) 10^3/uL Baso # (Auto) 0.0 (0.0-0.1) 10^3/uL Absolute Nucleated RBC 0.00 x10^3/uL Nucleated RBC % 0.0 /100WBC Sodium 136 137 (135-145) mmol/L Potassium 3.3 L 2.4 L* (3.5-5.0) mmol/L Chloride 99 L 97 L (101-111) mmol/L Carbon Dioxide 28 28 (21-32) mmol/L Anion Gap 9.0 12.0 (6-13) BUN 11 11 (6-20) mg/dL Creatinine 0.8 0.7 (0.4-1.0) mg/dL Estimated GFR (MDRD) 90 105 (>89) Glucose 91 101 H (70-100) mg/dL Lactic Acid (0.5-2.2) mmol/L Calcium 7.7 L 8.1 L (8.5-10.3) mg/dL Magnesium 1.9 2.2 (1.7-2.8) mg/dL Total Bilirubin (0.2-1.0) mg/dL AST (10-42) IU/L ALT (10-60) IU/L Alkaline Phosphatase (42-121) IU/L Total Protein (6.7-8.2) g/dL Albumin (3.2-5.5) g/dL Globulin (2.1-4.2) g/dL Albumin/Globulin Ratio (1.0-2.2) Lipase (22-51) U/L Urine Color Urine Clarity (CLEAR) Urine pH (5.0-7.5) PH Ur Specific [place] (1.002-1.030) Urine Protein (NEGATIVE) mg/dL Urine Glucose (UA) (NEGATIVE) mg/dL Urine Ketones (NEGATIVE) mg/dL Urine Occult Blood (NEGATIVE) Urine Nitrite (NEGATIVE) Urine Bilirubin (NEGATIVE) Urine Urobilinogen (NORMAL) E.U./dL Ur Leukocyte Esterase (NEGATIVE) Urine RBC (0-5) /HPF Urine WBC (0-5) /HPF Ur Squamous Epith Cells (<= Few) Urine Bacteria (None Seen) /HPF Ur Microscopic Review Urine Culture Comments Urine HCG, Qual Urine Opiates Screen (NEGATIVE) Ur Oxycodone Screen (NEGATIVE) Urine Methadone Screen (NEGATIVE) Ur Propoxyphene Screen (NEGATIVE) Ur Barbiturates Screen (NEGATIVE) Ur Tricyclics Screen (NEGATIVE) Ur Phencyclidine Scrn (NEGATIVE) Ur Amphetamine Screen (NEGATIVE) U Methamphetamines Scrn (NEGATIVE) U Benzodiazepines Scrn (NEGATIVE) Urine Cocaine Screen (NEGATIVE) U Cannabinoids Screen (NEGATIVE) Ethyl Alcohol mg/dL 04/29/20 04/29/20 04/28/20 Range/Units 04:45 04:45 21:55 WBC (4.8-10.8) x10^3/uL RBC (4.20-5.40) 10^6/uL Hgb (12.0-16.0) g/dL Hct (37.0-47.0) % MCV (81.0-99.0) fL MCH (27.0-31.0) pg MCHC (32.0-36.0) g/dL RDW (12.0-15.0) % Plt Count (130-450) 10^3/uL MPV (7.9-10.8) fL Neut # (Auto) (1.5-6.6) 10^3/uL Lymph # (Auto) (1.5-3.5) 10^3/uL [place] # (Auto) (0.0-1.0) 10^3/uL Eos # (Auto) (0.0-0.7) 10^3/uL Baso # (Auto) (0.0-0.1) 10^3/uL Absolute Nucleated RBC x10^3/uL Nucleated RBC % /100WBC Sodium (135-145) mmol/L Potassium (3.5-5.0) mmol/L Chloride (101-111) mmol/L Carbon Dioxide (21-32) mmol/L Anion Gap (6-13) BUN (6-20) mg/dL Creatinine (0.4-1.0) mg/dL Estimated GFR (MDRD) (>89) Glucose (70-100) mg/dL Lactic Acid 1.5 (0.5-2.2) mmol/L Calcium (8.5-10.3) mg/dL Magnesium (1.7-2.8) mg/dL Total Bilirubin (0.2-1.0) mg/dL AST (10-42) IU/L ALT (10-60) IU/L Alkaline Phosphatase (42-121) IU/L Total Protein (6.7-8.2) g/dL Albumin (3.2-5.5) g/dL Globulin (2.1-4.2) g/dL Albumin/Globulin Ratio (1.0-2.2) Lipase (22-51) U/L Urine Color YELLOW Urine Clarity CLEAR (CLEAR) Urine pH 7.0 (5.0-7.5) PH Ur Specific [place] 1.020 1.020 (1.002-1.030) Urine Protein NEGATIVE (NEGATIVE) mg/dL Urine Glucose (UA) NEGATIVE (NEGATIVE) mg/dL Urine Ketones 15 H (NEGATIVE) mg/dL Urine Occult Blood MODERATE H (NEGATIVE) Urine Nitrite NEGATIVE (NEGATIVE) Urine Bilirubin NEGATIVE (NEGATIVE) Urine Urobilinogen 0.2 (NORMAL) (NORMAL) E.U./dL Ur Leukocyte Esterase NEGATIVE (NEGATIVE) Urine RBC 11-25 H (0-5) /HPF Urine WBC 0-3 (0-5) /HPF Ur Squamous Epith Cells FEW Squamous (<= Few) Urine Bacteria Few (None Seen) /HPF Ur Microscopic Review INDICATED Urine Culture Comments NOT INDICATED Urine HCG, Qual NEGATIVE Urine Opiates Screen NEGATIVE (NEGATIVE) Ur Oxycodone Screen NEGATIVE (NEGATIVE) Urine Methadone Screen NEGATIVE (NEGATIVE) Ur Propoxyphene Screen NEGATIVE (NEGATIVE) Ur Barbiturates Screen NEGATIVE (NEGATIVE) Ur Tricyclics Screen NEGATIVE (NEGATIVE) Ur Phencyclidine Scrn NEGATIVE (NEGATIVE) Ur Amphetamine Screen NEGATIVE (NEGATIVE) U Methamphetamines Scrn NEGATIVE (NEGATIVE) U Benzodiazepines Scrn NEGATIVE (NEGATIVE) Urine Cocaine Screen NEGATIVE (NEGATIVE) U Cannabinoids Screen POSITIVE H (NEGATIVE) Ethyl Alcohol mg/dL 04/28/20 04/28/20 Range/Units 21:55 21:55 WBC 16.9 H (4.8-10.8) x10^3/uL RBC 4.30 (4.20-5.40) 10^6/uL Hgb 13.9 (12.0-16.0) g/dL Hct 38.6 (37.0-47.0) % MCV 89.8 (81.0-99.0) fL MCH 32.3 H (27.0-31.0) pg MCHC 36.0 (32.0-36.0) g/dL RDW 11.7 L (12.0-15.0) % Plt Count 402 (130-450) 10^3/uL MPV 8.3 (7.9-10.8) fL Neut # (Auto) 15.1 H (1.5-6.6) 10^3/uL Lymph # (Auto) 1.2 L (1.5-3.5) 10^3/uL [place] # (Auto) 0.4 (0.0-1.0) 10^3/uL Eos # (Auto) 0.1 (0.0-0.7) 10^3/uL Baso # (Auto) 0.1 (0.0-0.1) 10^3/uL Absolute Nucleated RBC 0.00 x10^3/uL Nucleated RBC % 0.0 /100WBC Sodium 135 (135-145) mmol/L Potassium 2.2 L* (3.5-5.0) mmol/L Chloride 90 L (101-111) mmol/L Carbon Dioxide 33 H (21-32) mmol/L Anion Gap 12.0 (6-13) BUN 13 (6-20) mg/dL Creatinine 0.7 (0.4-1.0) mg/dL Estimated GFR (MDRD) 105 (>89) Glucose 118 H (70-100) mg/dL Lactic Acid (0.5-2.2) mmol/L Calcium 8.6 (8.5-10.3) mg/dL Magnesium 0.9 L* (1.7-2.8) mg/dL Total Bilirubin 0.8 (0.2-1.0) mg/dL AST 37 (10-42) IU/L ALT 39 (10-60) IU/L Alkaline Phosphatase 49 (42-121) IU/L Total Protein 7.7 (6.7-8.2) g/dL Albumin 4.4 (3.2-5.5) g/dL Globulin 3.3 (2.1-4.2) g/dL Albumin/Globulin Ratio 1.3 (1.0-2.2) Lipase 29 (22-51) U/L Urine Color Urine Clarity (CLEAR) Urine pH (5.0-7.5) PH Ur Specific [place] (1.002-1.030) Urine Protein (NEGATIVE) mg/dL Urine Glucose (UA) (NEGATIVE) mg/dL Urine Ketones (NEGATIVE) mg/dL Urine Occult Blood (NEGATIVE) Urine Nitrite (NEGATIVE) Urine Bilirubin (NEGATIVE) Urine Urobilinogen (NORMAL) E.U./dL Ur Leukocyte Esterase (NEGATIVE) Urine RBC (0-5) /HPF Urine WBC (0-5) /HPF Ur Squamous Epith Cells (<= Few) Urine Bacteria (None Seen) /HPF Ur Microscopic Review Urine Culture Comments Urine HCG, Qual Urine Opiates Screen (NEGATIVE) Ur Oxycodone Screen (NEGATIVE) Urine Methadone Screen (NEGATIVE) Ur Propoxyphene Screen (NEGATIVE) Ur Barbiturates Screen (NEGATIVE) Ur Tricyclics Screen (NEGATIVE) Ur Phencyclidine Scrn (NEGATIVE) Ur Amphetamine Screen (NEGATIVE) U Methamphetamines Scrn (NEGATIVE) U Benzodiazepines Scrn (NEGATIVE) Urine Cocaine Screen (NEGATIVE) U Cannabinoids Screen (NEGATIVE) Ethyl Alcohol < 5.0 mg/dL ABX Reporting Has patient been on IV antibiotics over the past 48 hours?: No Assessment/Plan - Problem List (1) Intractable nausea and vomiting Impression: 04/29 Patient still complain nausea and vomiting, it is likely From patient taking marijuana, her UDS test is positive for marijuana. Continue intravenous IV fluids, continue anti-emesis meds as needed, lab monitor (2) Hypokalemia Conclusion/Plan: improved to 3.3, continue replacement and lab monitor (3) Hypomagnesemia Conclusion/Plan: resolved. continue home meds, and lab monitor (4) Back pain Conclusion/Plan: Chronic. [place] and Flexeril ordered prn. (5) headache Patient report She has chronic headache, she state usually ibuprofen will help for her headache, order ibuprofen as needed for headache. 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 Continue lab monitor, advised patient continue follow her PCP and neurophysiology tech to manage her this chronic genetics disease
[2020-04-29] MEDS: VANCOMYCIN 125 MG CAPSULE PO SCH ×2 (19:35→21:52)
[2020-04-29 19:42] VITALS: BP 122/62
--- NOTE | 2020-04-29 23:09 | DISCHARGE SUMMARY ---
Discharge Summary Admit Date: 04/28/20 Discharge Date: 04/29/20 Discharging Provider: Radha Tenorioflip Code Status: Attempt Resuscitation Condition at Discharge: Stable Discharge Disposition: 07 Against Medical Advice - DIAGNOSES Admission Diagnoses: 1. Intractable nausea vomiting 2 hypokalemia 3 hypomagnesemia 4 back pain Discharge Diagnoses with Status of Each Condition: 1. Intractable nausea vomiting: Improved 2 hypokalemia: Improving 3 hypomagnesemia: Improving 4 back pain: Improving 5 C. diff: On going - HPI History of Present Illness: Patient is a 24-year-old female who presented to the ED with complaint of intractable nausea and vomiting. Her symptoms started yesterday and have persisted. She states she was drinking alcohol yesterday. Her blood alcohol today was negative. She has a history of Gittleman syndrome and is normally on potassium and magnesium supplements. However she has not been able to take her medications due to the intractable nausea and vomiting. In the ED she was found to have a potassium of 2.2 and a magnesium level of 0.9. As a result of this lab findings and her persistent nausea and vomiting she was presented for admission for further treatment. Upon arrival to the floor she was insistent on taking a shower. She reports that that it would help her feel better. She has a history of marijuana use. She complained of heartburn and back spasms. She denied dyspnea or fever. The rest of her history was unremarkable. - HOSPITAL COURSE Hospital Course: Patient was admitted and received hourly replacement of potassium with 10 mEq IV for a total of 10 bags. She also received 60 mEq of potassium chloride p.o. She also received IV replacement of her magnesium. Subsequent lab checks showed a potassium level of 3.3 and magnesium of 2.2. Patient's nausea vomiting persisted but was improved. Patient's white blood cell count stayed elevated at 16. In light of complaining of diarrhea a C. difficile test was done which came back positive. Consequently she was started on oral vancomycin. Later in the evening on 04/29/2020 the patient suddenly became significantly Belligerent. She was insistent on leaving AGAINST MEDICAL ADVICE. She complained about her nursing care and stated that the hospital almost killed her brother 7 times. She refused to listen to reason. She signed the required documents and left the premises. - ALLERGIES Allergies/Adverse Reactions: Allergies Allergy/AdvReac Type Severity Reaction Status Date / Time bismuth subsalicylate Allergy Respiratory Verified 04/28/20 21:03 [From Pepto-Bismol] cinnamon Allergy Anaphylaxis Verified 04/28/20 21:03 lavender (Lavandula Allergy Hives Verified 04/28/20 21:03 angustifolia) lorazepam [From Ativan] Allergy Hives Verified 04/28/20 21:03 ondansetron HCl * Allergy Itching Verified 04/28/20 21:03 [From Zofran (as hydrochloride)] hydromorphone AdvReac Hallucinati Verified 04/28/20 21:03 ons - MEDICATIONS Home Medications: Ambulatory Orders Medication Instructions Recorded Confirmed Potassium Chloride [Klor-Con 10] 60 meq PO BIDWM 11/21/17 04/28/20 Magnesium Oxide 3 tab PO BID #120 tablet 09/15/19 04/28/20 - LABS Result Diagrams: 04/29/20 04:50 04/29/20 13:07 - TIME SPENT Time Spent in Discharge (Minutes): 15
--- NOTE | 2020-04-29 23:10 | Discharge Plan ---
Discharge Plan Problem Reviewed?: Yes Disposition: 07 Against Medical Advice Condition: Stable No Smoking: If you smoke, Please STOP! Call for help.
== END 2020-04-29 22:15 | disposition left against medical advice (07) | DRG 373 ==
LOC: ED 20:58 → MS2 22:30 → OBSVTOIN 04-29 19:00
PROVIDERS: ADMIT Nurse Practitioner Gerontology; ATTEND Internal Medicine
DX: A04.72 Enterocolitis due to Clostridium difficile, not specified as recurrent (principal); E87.6 Hypokalemia; E83.42 Hypomagnesemia; G89.29 Other chronic pain; M54.5 Low back pain; N07.8 Hereditary nephropathy, not elsewhere classified with other morphologic lesions; K21.9 Gastro-esophageal reflux disease without esophagitis; R51 Headache; Z87.891 Personal history of nicotine dependence; Z72.89 Other problems related to lifestyle
CPT/HCPCS: 36415; 80048; 80053; 80306; 80320; 81001; 81025; 83605; 83690; 83735; 85025; 87493; 93005; 96365; 96366; 96367; 96368; 96372; 96375; 99284; 99285; A9270; J7040; J7120; J8499; 81003; 87086

== ENCOUNTER 2020-05-27 14:13 | Emergency (ER) | payer MEDICAID ==
[2020-05-27 15:21] LABS: BASOPHILS # (AUTO) 0.1 10^3/uL (0.0-0.1); BASOPHILS % (AUTO) 0.7 %; EOSINOPHILS # (AUTO) 0.4 10^3/uL (0.0-0.7); EOSINOPHILS % (AUTO) 4.4 %; HGB - HEMOGLOBIN 13.6 g/dL (12.0-16.0); LYMPHOCYTES # (AUTO) 2.7 10^3/uL (1.5-3.5); LYMPHOCYTES % (AUTO) 28.4 %; MEAN CORPUSCULAR HEMOGLOBIN 32.5 pg (27.0-31.0); MEAN CORPUSCULAR HGB CONC 35.1 g/dL (32.0-36.0); MEAN CORPUSCULAR VOLUME 92.6 fL (81.0-99.0); MEAN PLATELET VOLUME 8.4 fL (7.9-10.8); MONOCYTES # (AUTO) 0.6 10^3/uL (0.0-1.0); MONOCYTES % (AUTO) 6.6 %; NEUTROPHILS # (AUTO) 5.7 10^3/uL (1.5-6.6); NEUTROPHILS % (AUTO) 59.5 %; PLT - PLATELET COUNT 391 10^3/uL (130-450); RED BLOOD COUNT 4.18 10^6/uL (4.20-5.40); RED CELL DISTRIBUTION WIDTH 11.5 % (12.0-15.0); WHITE BLOOD COUNT 9.6 x10^3/uL (4.8-10.8)
[2020-05-27 15:32] LABS: ALBUMIN 4.1 g/dL (3.2-5.5); ALBUMIN/GLOBULIN RATIO 1.5 (1.0-2.2); BILIRUBIN,TOTAL 0.8 mg/dL (0.2-1.0); CALCIUM 8.8 mg/dL (8.5-10.3); CREATININE 0.7 mg/dL (0.4-1.0); TOTAL PROTEIN 6.8 g/dL (6.7-8.2)
[2020-05-27] MEDS ORDERED: POTASSIUM CHLORIDE 20 MEQ TABLET PO STA (15:41)
--- NOTE | 2020-05-27 15:44 | ED Physician Documentation ---
History of Present Illness - Stated complaint Stated Complaint: CLEARANCE FOR WORK, HASNT HAD MEDS IN A WEEK - Chief complaint Chief Complaint: General - History obtained from History obtained from: Patient - History of Present Illness Timing: How many weeks ago (1) - Additonal information Additional information: 25-year-old female with a history of Gettleman syndrome has lost her medications 1 week ago and she is come into the emergency department now wanting to get a note to return to work and to do refill for her medications as she has lost them. She has an appointment to see the kidney doctor on the and she is requesting enough potassium to last until then. She is also been prescribed some vancomycin for C. difficile which she only finished 2 days of. She states her symptoms of the diarrhea are improved but she wants to finish the course as she does have some cramping abdominal pain remaining. She does states she has some soreness to her arms bilaterally similar to what she gets when she has a low potassium. She reports signing out of the hospital here AGAINST MEDICAL ADVICE at the beginning of April and she has subsequently been in the hospital at [facility] and she had been into the emergency department at [place] twice. Review of Systems Constitutional: reports: Myalgias. denies: Fever, Chills Eyes: denies: Decreased vision Ears: denies: Ear pain Nose: denies: Rhinorrhea / runny nose, Congestion Throat: denies: Sore throat Cardiac: denies: Chest pain / pressure, Palpitations Respiratory: denies: Dyspnea, Cough GI: reports: Abdominal Pain, Diarrhea : denies: Dysuria, Frequency PD PAST MEDICAL HISTORY - Past Medical History Past Medical History: Yes Cardiovascular: Murmur Respiratory: Asthma Neuro: Headaches Endocrine/Autoimmune: None GI: GERD HOME HEALTH TRAVEL PT: Ovarian cysts : Chronic bladder infection, Frequency, Other HEENT: None Psych: Depression, Anxiety, Bipolar disorder, Post traumatic stress disorder Musculoskeletal: Fatigue, Chronic back pain Derm: None, Eczema - Past Surgical History Past Surgical History: Yes Ortho: ACL reconstruction, Arthroscopic surgery HEENT: Myringotomy (tubes), Tonsil/Adenoidectomy - Present Medications Home Medications: Ambulatory Orders Medication Instructions Recorded Confirmed Potassium Chloride [Klor-Con 10] 60 meq PO BIDWM 11/21/17 04/28/20 Magnesium Oxide 3 tab PO BID #120 tablet 09/15/19 04/28/20 Potassium Chloride 60 meq PO BID #120 tablet.er 05/27/20 Promethazine [Phenergan] 25 mg PO Q6H PRN #10 tab 05/27/20 Vancomycin HCl 125 mg PO QID #40 capsule 05/27/20 - Allergies Allergies/Adverse Reactions: Allergies Allergy/AdvReac Type Severity Reaction Status Date / Time bismuth subsalicylate Allergy Respiratory Verified 04/28/20 21:03 [From Pepto-Bismol] cinnamon Allergy Anaphylaxis Verified 04/28/20 21:03 lavender (Lavandula Allergy Hives Verified 04/28/20 21:03 angustifolia) lorazepam [From Ativan] Allergy Hives Verified 04/28/20 21:03 ondansetron HCl * Allergy Itching Verified 04/28/20 21:03 [From Zofran (as hydrochloride)] hydromorphone AdvReac Hallucinati Verified 04/28/20 21:03 ons - Social History Does the pt smoke?: No Smoking Status: Never smoker Does the pt drink ETOH?: No Does the pt have substance abuse?: No - Immunizations Immunizations are current?: Yes Immunizations: Other immun not current - POLST Patient has POLST: No POLST Status: Full Code PD ED PE NORMAL - Vitals Vital signs reviewed: Yes (hypertensive ) - General General: Alert and oriented X 3, No acute distress, Well developed/nourished - HEENT HEENT: Atraumatic, PERRL, EOMI - Neck Neck: Supple, no meningeal sign, No bony TTP - Cardiac Cardiac: RRR, No murmur - Respiratory Respiratory: No respiratory distress, Clear bilaterally - Abdomen Abdomen: Normal bowel sounds, Soft, Non tender, Non distended, No organomegaly - Back Back: No CVA TTP, No spinal TTP - Derm Derm: Normal color, Warm and dry, No rash - Extremities Extremities: No deformity, No edema, No calf tenderness / cord - Neuro Neuro: Alert and oriented X 3, vice president and portfolio manager 2-12 intact, No motor deficit, No sensory deficit, Normal speech Eye Opening: Spontaneous Motor: Obeys Commands Verbal: Oriented GCS Score: 15 - Psych Psych: Normal mood, Normal affect Results - Vitals Vitals: Vital Signs - 24 hr 05/27/20 05/27/20 14:20 16:02 Temperature 36.6 C 36.6 C Heart Rate 74 88 Respiratory 18 16 Rate Blood Pressure 136/67 H 128/74 O2 Saturation 97 98 Oxygen O2 Source Room air - EKG (time done) 1432 Rate: Rate (enter#) (67) Rhythm: NSR Ischemia: Normal ST segments Compare to prior EKG: Unchanged from prior EKG (SPT 04-29-2020 no changes) Computer interpretation: Agree with computer - Labs Labs: Laboratory Tests 05/27/20 05/27/20 15:14 15:14 WBC 9.6 RBC 4.18 L Hgb 13.6 Hct 38.7 MCV 92.6 MCH 32.5 H MCHC 35.1 RDW 11.5 L Plt Count 391 MPV 8.4 Neut # (Auto) 5.7 Lymph # (Auto) 2.7 [place] # (Auto) 0.6 Eos # (Auto) 0.4 Baso # (Auto) 0.1 Absolute Nucleated RBC 0.00 Nucleated RBC % 0.0 Sodium 140 Potassium 2.6 L Chloride 100 L Carbon Dioxide 28 Anion Gap 12.0 BUN 9 Creatinine 0.7 Estimated GFR (MDRD) 104 Glucose 105 H Calcium 8.8 Total Bilirubin 0.8 AST 24 ALT 22 Alkaline Phosphatase 39 L Total Protein 6.8 Albumin 4.1 Globulin 2.7 Albumin/Globulin Ratio 1.5 Lipase 31 PD MEDICAL DECISION MAKING - ED course Complexity details: reviewed results, re-evaluated patient, considered differential, d/w patient ED course: 25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 I have written for 3 refills of 10-day supply. Departure - Departure Disposition: Home, Self Care Clinical Impression: Hypokalemia, C. difficile colitis Condition: Stable Instructions: Clostridium Difficile Infec, ED Potassium Deficiency, ED Diet High Potassium Follow-Up: Damaso Abreu MD [Physician No Access] - Prescriptions: Promethazine [Phenergan] 25 mg PO Q6H PRN #10 tab PRN Reason: Nausea / Vomiting Potassium Chloride 60 meq PO BID #120 tablet.er Vancomycin HCl 125 mg PO QID #40 capsule Forms: Activity restrictions Discharge Date/Time: 05/27/20 16:04
[2020-05-27 16:04] VITALS: BP 128/74
== END 2020-05-27 16:04 | disposition home or self-care (01) ==
LOC: ED 14:13
DX: E87.6 Hypokalemia (principal); A04.72 Enterocolitis due to Clostridium difficile, not specified as recurrent
CPT/HCPCS: 36415; 80053; 83690; 85025; 93005; 99283; 99284; A9270

== ENCOUNTER 2020-08-09 11:20 | Emergency (ER) | payer MEDICAID ==
[2020-08-09 12:29] LABS: BASOPHILS # (AUTO) 0.1 10^3/uL (0.0-0.1); BASOPHILS % (AUTO) 0.6 %; EOSINOPHILS # (AUTO) 0.6 10^3/uL (0.0-0.7); EOSINOPHILS % (AUTO) 5.1 %; HGB - HEMOGLOBIN 15.9 g/dL (12.0-16.0); LYMPHOCYTES # (AUTO) 2.9 10^3/uL (1.5-3.5); LYMPHOCYTES % (AUTO) 23.4 %; MEAN CORPUSCULAR HGB CONC 36.4 g/dL (32.0-36.0); MEAN CORPUSCULAR VOLUME 87.9 fL (81.0-99.0); MEAN PLATELET VOLUME 8.6 fL (7.9-10.8); MONOCYTES # (AUTO) 0.9 10^3/uL (0.0-1.0); MONOCYTES % (AUTO) 7.3 %; NEUTROPHILS # (AUTO) 7.9 10^3/uL (1.5-6.6); NEUTROPHILS % (AUTO) 63.2 %; PLT - PLATELET COUNT 442 10^3/uL (130-450); RED BLOOD COUNT 4.97 10^6/uL (4.20-5.40); RED CELL DISTRIBUTION WIDTH 11.6 % (12.0-15.0); WHITE BLOOD COUNT 12.6 x10^3/uL (4.8-10.8)
[2020-08-09] MEDS ORDERED: MORPHINE 10 MG/ML VIAL IM STA ×2 (12:36→15:04)
[2020-08-09 12:40] LABS: ALBUMIN 4.6 g/dL (3.2-5.5); ALBUMIN/GLOBULIN RATIO 1.3 (1.0-2.2); BILIRUBIN,TOTAL 0.9 mg/dL (0.2-1.0); CALCIUM 9.3 mg/dL (8.5-10.3); CREATININE 0.6 mg/dL (0.4-1.0); MAGNESIUM 1.5 mg/dL (1.7-2.8); TOTAL PROTEIN 8.2 g/dL (6.7-8.2)
[2020-08-09 12:48] LABS: BILIRUBIN,URINE NEGATIVE (NEGATIVE); GLUCOSE, URINE (UA) NEGATIVE (NEGATIVE); KETONES,URINE (UA) NEGATIVE (NEGATIVE); LEUKOCYTE ESTERASE, URINE NEGATIVE (NEGATIVE); NITRITE,URINE NEGATIVE (NEGATIVE); OCCULT BLOOD,URINE MODERATE (NEGATIVE); PROTEIN,URINE NEGATIVE (NEGATIVE); UROBILINOGEN,URINE 0.2 (NORMAL) E.U./dL (NORMAL)
[2020-08-09] MEDS ORDERED: POTASSIUM CHLORIDE 20 MEQ TABLET PO STA (12:50)
[2020-08-09 12:57] LABS: BACTERIA,URINE None Seen /HPF (None Seen); CLARITY,URINE CLEAR (CLEAR); SQUAMOUS EPITHELIAL CELL,UR RARE Squamous (<= Few)
[2020-08-09 12:59] LABS: HCG,QUALITATIVE BLOOD NEGATIVE
--- NOTE | 2020-08-09 14:42 | Ultrasound Report ---
PROCEDURE: Pelvic w/Transvag+Doppler Ltd INDICATIONS: lower abd pain, left/mid TECHNIQUE: Real-time scanning was performed of the pelvic organs, with image documentation. Additional endovagi nal scanning was necessary due to incomplete visualization of the adnexal and endometrial structures by transabdominal scanning. COMPARISON: None. FINDINGS: Transabdominal scanning: Limited scanning through the kidneys shows no hydronephrosis. No pathologi c free abdominal or pelvic fluid. Endovaginal scanning: Uterus: Uterus is normal in size at 2.9 x 5.4 x 5.8 cm. The endometrium measures 6.0 mm in combined thickness. Ovaries: The right ovary measures 2.5 x 1.6 x 1.9 cm and contains follicular cysts. The left ovary i s limited and visualization but does not appear enlarged and measures approximately 1.3 x 1.6 cm in m aximal axial dimension. Bowel gas appears visualization. Increased vascularity appears present, parti ally visualized, at the left adnexal area. IMPRESSION: The exam is limited by significant bowel gas and fluid-filled bowel, and the bladder was not sufficie ntly filled for excellent visualization through transabdominal scanning. Normal right ovary, limited visualization of the left ovary. Accurate assessment of the left ovary is somewhat limited. Reviewed by: Bruno Lockwood MD on 08/09/2020 2:40 PM PDT Approved by: Bruno Lockwood MD on 08/09/2020 2:40 PM PDT Station ID: [id number]
--- NOTE | 2020-08-09 15:10 | ED Physician Documentation ---
PD HPI ABD PAIN - Stated complaint Stated Complaint: HEART FLUTTERS/ABD PX - Chief complaint Chief Complaint: General - History obtained from History obtained from: Patient - History of Present Illness Timing - onset: How many days ago (2) Timing - duration: Days (2) Timing - details: Gradual onset, Waxing and waning Quality: Cramping, Aching, Pain Location: Periumbilical, LLQ Radiation: Lower back. No: Left flank, Right flank Associated symptoms: Nausea. No: Fever, Vomiting, Diarrhea, Constipation (states she is not regular with BMs but every 2-3 days.), Dysuria, Near syncope / syncope Similar symptoms before: Has not had sx before (has had ovarian cysts in the past. Has Merina so unlikely . Has had the chest discomfort and muscle cramps often when lytes are low.) Review of Systems Constitutional: denies: Fever, Chills Nose: denies: Rhinorrhea / runny nose, Congestion Throat: denies: Sore throat Cardiac: denies: Palpitations Respiratory: denies: Cough GI: reports: Abdominal Pain, Nausea. 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 : Chronic bladder infection, Frequency, Other HEENT: None Psych: Depression, Anxiety, Bipolar disorder, Post traumatic stress disorder Musculoskeletal: Fatigue, Chronic back pain Derm: None, Eczema - Past Surgical History Past Surgical History: Yes Ortho: ACL reconstruction, Arthroscopic surgery HEENT: Myringotomy (tubes), Tonsil/Adenoidectomy - Present Medications Home Medications: Ambulatory Orders Medication Instructions Recorded Confirmed Potassium Chloride [Klor-Con 10] 60 meq PO BIDWM 11/21/17 04/28/20 Magnesium Oxide 3 tab PO BID #120 tablet 09/15/19 04/28/20 Potassium Chloride 60 meq PO BID #120 tablet.er 05/27/20 Promethazine [Phenergan] 25 mg PO Q6H PRN #10 tab 05/27/20 Vancomycin HCl 125 mg PO QID #40 capsule 05/27/20 Albuterol Sulfate [Albuterol 2 puffs IH QID #1 hfa.aer.ad 08/09/20 Sulfate Hfa] Oxycodone HCl/Acetaminophen 1 each PO Q6H PRN #14 tablet 08/09/20 [Percocet 5-325 mg Tablet] Psyllium Husk [Fiber] 0.4 gm PO DAILY #30 capsule 08/09/20 - Allergies Allergies/Adverse Reactions: Allergies Allergy/AdvReac Type Severity Reaction Status Date / Time bismuth subsalicylate Allergy Respiratory Verified 08/09/20 11:31 [From Pepto-Bismol] cinnamon Allergy Anaphylaxis Verified 08/09/20 11:31 ketorolac [From Toradol] Allergy Hives Verified 08/09/20 12:42 lavender (Lavandula Allergy Hives Verified 08/09/20 11:31 angustifolia) lorazepam [From Ativan] Allergy Hives Verified 08/09/20 11:31 ondansetron HCl * Allergy Itching Verified 08/09/20 11:31 [From Zofran (as hydrochloride)] hydromorphone AdvReac Hallucinati Verified 08/09/20 11:31 ons - Social History Does the pt smoke?: Yes Smoking Status: Current every day smoker Does the pt drink ETOH?: Yes Does the pt have substance abuse?: No - Immunizations Immunizations are current?: Yes Immunizations: Other immun not current - POLST Patient has POLST: No POLST Status: Full Code PD ED PE NORMAL - Vitals Vital signs reviewed: Yes - General General: Alert and oriented X 3, Well developed/nourished, Other (appears uncomfortable due to lower abd pain. ) - Neck Neck: Supple, no meningeal sign, No adenopathy - Cardiac Cardiac: RRR, No murmur - Respiratory Respiratory: No respiratory distress, Clear bilaterally - Abdomen Abdomen: Normal bowel sounds, Soft, Non distended, No organomegaly, Other (tender left lower abd/suprapubic area) - Female Female : Deferred - Back Back: No CVA TTP - Derm Derm: Normal color, Warm and dry - Extremities Extremities: No tenderness to palpate, Normal ROM s pain - Neuro Neuro: Alert and oriented X 3, No motor deficit, Normal speech Results - Vitals Vitals: Vital Signs - 24 hr 08/09/20 08/09/20 08/09/20 11:28 11:31 13:31 Temperature 36.8 C 37 C 36.8 C Heart Rate 83 73 76 Respiratory 16 20 20 Rate Blood Pressure 125/111 H 111/63 101/85 H O2 Saturation 95 99 99 08/09/20 08/09/20 14:37 15:16 Temperature 36.5 C 36.6 C Heart Rate 77 75 Respiratory 12 17 Rate Blood Pressure 115/82 H 120/72 O2 Saturation 95 99 Oxygen O2 Source Room air - Labs Labs: Laboratory Tests 08/09/20 08/09/20 08/09/20 12:20 12:20 12:20 WBC 12.6 H RBC 4.97 Hgb 15.9 Hct 43.7 MCV 87.9 MCH 32.0 H MCHC 36.4 H RDW 11.6 L Plt Count 442 MPV 8.6 Neut # (Auto) 7.9 H Lymph # (Auto) 2.9 [place] # (Auto) 0.9 Eos # (Auto) 0.6 Baso # (Auto) 0.1 Absolute Nucleated RBC 0.00 Nucleated RBC % 0.0 Sodium 137 Potassium 2.7 L Chloride 99 L Carbon Dioxide 25 Anion Gap 13.0 BUN 10 Creatinine 0.6 Estimated GFR (MDRD) 124 Glucose 94 Calcium 9.3 Magnesium 1.5 L Total Bilirubin 0.9 AST 23 ALT 23 Alkaline Phosphatase 45 Troponin I High Sens 3.7 Total Protein 8.2 Albumin 4.6 Globulin 3.6 Albumin/Globulin Ratio 1.3 Lipase 40 Serum HCG, Qual Urine Color Urine Clarity Urine pH Ur Specific [place] Urine Protein Urine Glucose (UA) Urine Ketones Urine Occult Blood Urine Nitrite Urine Bilirubin Urine Urobilinogen Ur Leukocyte Esterase Urine RBC Urine WBC Ur Squamous Epith Cells Urine Bacteria Ur Microscopic Review Urine Culture Comments C. glabrata (PCR) C. krusei (PCR) Lesa species DNA T. vaginalis (PCR) Bact Vaginosis (PCR) 08/09/20 08/09/20 08/09/20 12:20 12:25 14:59 WBC RBC Hgb Hct MCV MCH MCHC RDW Plt Count MPV Neut # (Auto) Lymph # (Auto) [place] # (Auto) Eos # (Auto) Baso # (Auto) Absolute Nucleated RBC Nucleated RBC % Sodium Potassium Chloride Carbon Dioxide Anion Gap BUN Creatinine Estimated GFR (MDRD) Glucose Calcium Magnesium Total Bilirubin AST ALT Alkaline Phosphatase Troponin I High Sens Total Protein Albumin Globulin Albumin/Globulin Ratio Lipase Serum HCG, Qual NEGATIVE Urine Color YELLOW Urine Clarity CLEAR Urine pH 8.0 H Ur Specific [place] 1.015 Urine Protein NEGATIVE Urine Glucose (UA) NEGATIVE Urine Ketones NEGATIVE Urine Occult Blood MODERATE H Urine Nitrite NEGATIVE Urine Bilirubin NEGATIVE Urine Urobilinogen 0.2 (NORMAL) Ur Leukocyte Esterase NEGATIVE Urine RBC 6-10 H Urine WBC 0-3 Ur Squamous Epith Cells RARE Squamous Urine Bacteria None Seen Ur Microscopic Review INDICATED Urine Culture Comments NOT INDICATED C. glabrata (PCR) NEGATIVE C. krusei (PCR) NEGATIVE Lesa species DNA NEGATIVE T. vaginalis (PCR) NEGATIVE Bact Vaginosis (PCR) POSITIVE A - Rads (name of study) pelvic U/S Radiology: Prelim report reviewed (left ovary poorly seen on U/S but no noted abnormality. ), See rad report PD MEDICAL DECISION MAKING - ED course Complexity details: reviewed results (U/S is okay. Consider BV as cause of left/pelvic pain. Await vaginal testing results. ), considered differential (Do es not seem too sick so went for IM pain med and oral Potassium. to get US and labs, blood HCG.), d/w patient Departure - Departure Disposition: Home, Self Care Clinical Impression: Left lower quadrant abdominal pain, Hypokalemia Condition: Stable Record reviewed to determine appropriate education?: Yes Instructions: ED Abdominal Pain Unkn Cause Prescriptions: Albuterol Sulfate [Albuterol Sulfate Hfa] 2 puffs IH QID #1 hfa.aer.ad Psyllium Husk [Fiber] 0.4 gm PO DAILY #30 capsule Oxycodone HCl/Acetaminophen [Percocet 5-325 mg Tablet] 1 each PO Q6H PRN #14 tablet PRN Reason: pain Comments: Test is negative. Your urine does not show signs of infection. Your potassium is moderately low for you, 2.7, so be sure to use your supplements. Your ultrasound does not show any obvious abnormality of the ovaries or uterus. The vaginal cultures will result in another day and will call you if we need to add any antibiotics for vaginitis. Stay well-hydrated. Tylenol if needed for mild pains or oxycodone if needed for worse pain. Recheck if not improved over the next couple of days. Off work today and tomorrow if needed. Forms: Activity restrictions Discharge Date/Time: 08/09/20 15:32
[2020-08-09 15:16] VITALS: BP 120/72
[2020-08-09 17:36] LABS: CANDIDA GROUP DNA NEGATIVE (NEGATIVE); CANDIDA KRUSEI DNA NEGATIVE (NEGATIVE); TRICHOMONAS VAGINALIS DNA NEGATIVE (NEGATIVE)
== END 2020-08-09 15:32 | disposition home or self-care (01) ==
LOC: ED 11:20
DX: R10.32 Left lower quadrant pain (principal); E87.6 Hypokalemia
CPT/HCPCS: 36415; 76830; 76856; 80053; 81001; 81599; 83690; 83735; 84484; 84703; 85025; 87481; 87661; 87801; 93005; 93976; 96372; 99284; A9270; 81003; 87086; 87491; 87591

== ENCOUNTER 2020-08-28 20:52 | Emergency (ER) | payer MEDICAID ==
--- NOTE | 2020-08-28 21:24 | ED Physician Documentation ---
PD HPI ABD PAIN - Stated complaint Stated Complaint: ABD PX/DIARRHEA - Chief complaint Chief Complaint: Abd Pain - History obtained from History obtained from: Patient - History of Present Illness Timing - onset: Yesterday Timing - details: Gradual onset, Waxing and waning Pain level now: 9 Quality: Cramping, Pain Location: All over / everywhere Improved by: Other (nothing) Worsened by: Eating Associated symptoms: Nausea, Vomiting, Diarrhea. No: Fever, Hematemesis, Melena, Hematochezia Recently seen: Emergency Dept (last month; abdias is her 10th [facility] ED visit over past 12 months) - Additional information Additional information: c/o 1-2 days of generalized abdominal cramping, nausea and vomiting, diarrhea. Review of Systems Constitutional: denies: Fever, Chills, Sweats Cardiac: reports: Reviewed and negative Respiratory: reports: Reviewed and negative GI: reports: Abdominal Pain, Nausea, Vomiting, Diarrhea. 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 : Chronic bladder infection, Frequency, Other HEENT: None Psych: Depression, Anxiety, Bipolar disorder, Post traumatic stress disorder Musculoskeletal: Fatigue, Chronic back pain Derm: None, Eczema - Past Surgical History Past Surgical History: Yes Ortho: ACL reconstruction, Arthroscopic surgery HEENT: Myringotomy (tubes), Tonsil/Adenoidectomy - Present Medications Home Medications: Ambulatory Orders Medication Instructions Recorded Confirmed Potassium Chloride [Klor-Con 10] 60 meq PO BIDWM 11/21/17 04/28/20 Magnesium Oxide 3 tab PO BID #120 tablet 09/15/19 04/28/20 Potassium Chloride 60 meq PO BID #120 tablet.er 05/27/20 Promethazine [Phenergan] 25 mg PO Q6H PRN #10 tab 05/27/20 Vancomycin HCl 125 mg PO QID #40 capsule 05/27/20 Albuterol Sulfate [Albuterol 2 puffs IH QID #1 hfa.aer.ad 08/09/20 Sulfate Hfa] Oxycodone HCl/Acetaminophen 1 each PO Q6H PRN #14 tablet 08/09/20 [Percocet 5-325 mg Tablet] Psyllium Husk [Fiber] 0.4 gm PO DAILY #30 capsule 08/09/20 Promethazine [Phenergan] 25 - 50 mg PO Q6H PRN #10 tab 08/28/20 - Allergies Allergies/Adverse Reactions: Allergies Allergy/AdvReac Type Severity Reaction Status Date / Time bismuth subsalicylate Allergy Respiratory Verified 08/09/20 11:31 [From Pepto-Bismol] cinnamon Allergy Anaphylaxis Verified 08/09/20 11:31 ketorolac [From Toradol] Allergy Hives Verified 08/09/20 12:42 lavender (Lavandula Allergy Hives Verified 08/09/20 11:31 angustifolia) lorazepam [From Ativan] Allergy Hives Verified 08/09/20 11:31 ondansetron HCl * Allergy Itching Verified 08/09/20 11:31 [From Zofran (as hydrochloride)] hydromorphone AdvReac Hallucinati Verified 08/09/20 11:31 ons - Social History Does the pt smoke?: Yes Smoking Status: Current every day smoker Does the pt drink ETOH?: Yes Does the pt have substance abuse?: No - Immunizations Immunizations are current?: Yes Immunizations: Other immun not current - POLST Patient has POLST: No POLST Status: Full Code PD ED PE NORMAL - Vitals Vital signs reviewed: Yes - General General: Alert and oriented X 3, No acute distress, Well developed/nourished - HEENT HEENT: Moist mucous membranes - Neck Neck: Supple, no meningeal sign - Cardiac Cardiac: RRR, No murmur - Respiratory Respiratory: No respiratory distress, Clear bilaterally - Abdomen Abdomen: Soft, Non tender - Back Back: No CVA TTP Results - Vitals Vitals: Vital Signs - 24 hr 08/28/20 08/28/20 21:07 23:20 Temperature 36.5 C 36.2 C L Heart Rate 65 70 Respiratory 18 18 Rate Blood Pressure 128/69 114/77 O2 Saturation 99 100 Oxygen O2 Source Room air - Labs Labs: Laboratory Tests 08/28/20 08/28/20 08/28/20 21:21 21:34 21:34 WBC 10.5 RBC 4.54 Hgb 14.5 Hct 40.0 MCV 88.1 MCH 31.9 H MCHC 36.3 H RDW 11.5 L Plt Count 438 MPV 8.5 Neut # (Auto) 5.6 Lymph # (Auto) 3.2 [place] # (Auto) 0.9 Eos # (Auto) 0.7 Baso # (Auto) 0.1 Absolute Nucleated RBC 0.00 Nucleated RBC % 0.0 Sodium 139 Potassium 2.3 L* Chloride 96 L Carbon Dioxide 29 Anion Gap 14.0 H BUN 7 Creatinine 0.7 Estimated GFR (MDRD) 104 Glucose 95 Calcium 9.6 Phosphorus 3.7 Magnesium 1.5 L Total Bilirubin 0.8 AST 27 ALT 23 Alkaline Phosphatase 44 Total Protein 7.7 Albumin 4.4 Globulin 3.3 Albumin/Globulin Ratio 1.3 Lipase 37 Urine Color LT. YELLOW Urine Clarity CLEAR Urine pH 8.5 H Ur Specific [place] 1.015 Urine Protein NEGATIVE Urine Glucose (UA) NEGATIVE Urine Ketones NEGATIVE Urine Occult Blood MODERATE H Urine Nitrite NEGATIVE Urine Bilirubin NEGATIVE Urine Urobilinogen 0.2 (NORMAL) Ur Leukocyte Esterase NEGATIVE Urine RBC 6-10 H Urine WBC 4-5 Ur Squamous Epith Cells FEW Squamous Urine Bacteria None Seen Ur Microscopic Review INDICATED Urine Culture Comments NOT INDICATED Urine HCG, Qual NEGATIVE PD MEDICAL DECISION MAKING - ED course Complexity details: reviewed old records, reviewed results, re-evaluated patient, considered differential, d/w patient ED course: testing tonight is most significant for hypokalemia, potassium level 2.3. She has a variant of RTA and is hypokalemic on the comfortable majority of her visits to this ED. I recommended IV repletion which she adamantly refuses, but agreeable to PO repletion. She says she will follow up in outpatient setting for recheck of her potassium and will return if worse. She did not have emesis nor diarrhea during ED stay (gave small stool sample for c. diff, and the stool was formed; she expressed concerns that she might have c. 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 Departure - Departure Disposition: 01 Home, Self Care Clinical Impression: Hypokalemia Condition: Good Instructions: ED Potassium Deficiency Prescriptions: Promethazine [Phenergan] 25 - 50 mg PO Q6H PRN #10 tab PRN Reason: Nausea / Vomiting Forms: Activity restrictions Discharge Date/Time: 08/28/20 23:38
[2020-08-28 21:30] LABS: BILIRUBIN,URINE NEGATIVE (NEGATIVE); GLUCOSE, URINE (UA) NEGATIVE (NEGATIVE); KETONES,URINE (UA) NEGATIVE (NEGATIVE); LEUKOCYTE ESTERASE, URINE NEGATIVE (NEGATIVE); NITRITE,URINE NEGATIVE (NEGATIVE); OCCULT BLOOD,URINE MODERATE (NEGATIVE); PH,URINE 8.5 PH (5.0-7.5); PROTEIN,URINE NEGATIVE (NEGATIVE); UROBILINOGEN,URINE 0.2 (NORMAL) E.U./dL (NORMAL)
[2020-08-28 21:33] LABS: CLARITY,URINE CLEAR (CLEAR); HCG UR QUAL NEGATIVE
[2020-08-28 21:44] LABS: BASOPHILS # (AUTO) 0.1 10^3/uL (0.0-0.1); BASOPHILS % (AUTO) 0.7 %; EOSINOPHILS # (AUTO) 0.7 10^3/uL (0.0-0.7); EOSINOPHILS % (AUTO) 6.2 %; HGB - HEMOGLOBIN 14.5 g/dL (12.0-16.0); LYMPHOCYTES # (AUTO) 3.2 10^3/uL (1.5-3.5); LYMPHOCYTES % (AUTO) 30.7 %; MEAN CORPUSCULAR HEMOGLOBIN 31.9 pg (27.0-31.0); MEAN CORPUSCULAR HGB CONC 36.3 g/dL (32.0-36.0); MEAN CORPUSCULAR VOLUME 88.1 fL (81.0-99.0); MEAN PLATELET VOLUME 8.5 fL (7.9-10.8); MONOCYTES # (AUTO) 0.9 10^3/uL (0.0-1.0); MONOCYTES % (AUTO) 8.6 %; NEUTROPHILS # (AUTO) 5.6 10^3/uL (1.5-6.6); NEUTROPHILS % (AUTO) 53.4 %; PLT - PLATELET COUNT 438 10^3/uL (130-450); RED BLOOD COUNT 4.54 10^6/uL (4.20-5.40); RED CELL DISTRIBUTION WIDTH 11.5 % (12.0-15.0); WHITE BLOOD COUNT 10.5 x10^3/uL (4.8-10.8)
[2020-08-28] MEDS ORDERED: SODIUM CHLORIDE 0.9% 1,000 ML IV STA (21:49)
[2020-08-28 21:52] LABS: BACTERIA,URINE None Seen /HPF (None Seen); SQUAMOUS EPITHELIAL CELL,UR FEW Squamous (<= Few)
[2020-08-28 21:58] LABS: ALBUMIN 4.4 g/dL (3.2-5.5); ALBUMIN/GLOBULIN RATIO 1.3 (1.0-2.2); BILIRUBIN,TOTAL 0.8 mg/dL (0.2-1.0); CALCIUM 9.6 mg/dL (8.5-10.3); CREATININE 0.7 mg/dL (0.4-1.0); MAGNESIUM 1.5 mg/dL (1.7-2.8); PHOSPHORUS 3.7 mg/dL (2.5-4.6); TOTAL PROTEIN 7.7 g/dL (6.7-8.2)
[2020-08-28] MEDS ORDERED: PROMETHAZINE INJ 25 MG in SODIUM CHLORIDE 0.9% 50 ML IV STA (22:05)
[2020-08-28] MEDS ORDERED: PROMETHAZINE 25 MG/1 ML VIAL ONE (22:17)
[2020-08-28] MEDS ORDERED: POTASSIUM CHLORIDE 20 MEQ TABLET PO STA (22:44)
[2020-08-28] MEDS ORDERED: POTASSIUM CHLOR 10 MEQ/100 ML 10 MEQ/100 ML BAG IV SCH (23:00)
[2020-08-28 23:21] VITALS: BP 114/77
== END 2020-08-28 23:38 | disposition home or self-care (01) ==
LOC: ED 20:52
DX: E87.6 Hypokalemia (principal); F17.200 Nicotine dependence, unspecified, uncomplicated
CPT/HCPCS: 36415; 80053; 81001; 81025; 83690; 83735; 84100; 85025; 96365; 99284; A9270; J7040; 81003; 87086; 87493

== ENCOUNTER 2020-08-30 08:40 | Emergency (ER) | payer MEDICAID ==
[2020-08-30 09:16] LABS: BASOPHILS # (AUTO) 0.1 10^3/uL (0.0-0.1); BASOPHILS % (AUTO) 0.9 %; EOSINOPHILS # (AUTO) 0.6 10^3/uL (0.0-0.7); EOSINOPHILS % (AUTO) 6.5 %; HGB - HEMOGLOBIN 13.9 g/dL (12.0-16.0); LYMPHOCYTES # (AUTO) 1.7 10^3/uL (1.5-3.5); LYMPHOCYTES % (AUTO) 20.3 %; MEAN CORPUSCULAR HEMOGLOBIN 31.7 pg (27.0-31.0); MEAN CORPUSCULAR HGB CONC 35.5 g/dL (32.0-36.0); MEAN CORPUSCULAR VOLUME 89.1 fL (81.0-99.0); MEAN PLATELET VOLUME 8.6 fL (7.9-10.8); MONOCYTES # (AUTO) 0.6 10^3/uL (0.0-1.0); MONOCYTES % (AUTO) 6.6 %; NEUTROPHILS # (AUTO) 5.5 10^3/uL (1.5-6.6); NEUTROPHILS % (AUTO) 65.2 %; PLT - PLATELET COUNT 393 10^3/uL (130-450); RED BLOOD COUNT 4.39 10^6/uL (4.20-5.40); RED CELL DISTRIBUTION WIDTH 11.5 % (12.0-15.0); WHITE BLOOD COUNT 8.5 x10^3/uL (4.8-10.8)
[2020-08-30 09:32] LABS: ALBUMIN 4.2 g/dL (3.2-5.5); ALBUMIN/GLOBULIN RATIO 1.3 (1.0-2.2); BILIRUBIN,TOTAL 0.4 mg/dL (0.2-1.0); CREATININE 0.7 mg/dL (0.4-1.0); TOTAL PROTEIN 7.4 g/dL (6.7-8.2)
[2020-08-30] MEDS ORDERED: POTASSIUM CHLORIDE 20 MEQ TABLET PO STA (10:09)
--- NOTE | 2020-08-30 11:36 | ED Physician Documentation ---
PD HPI ABD PAIN - Stated complaint Stated Complaint: ABD PX - Chief complaint Chief Complaint: Abd Pain - History obtained from History obtained from: Patient - Additional information Additional information: Pt returns to the ED with continuing concern over possible C. diff. 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 The pt has had diarrhea for a week, and was seen here a few days ago. At that time, she had formed stool, and the lab was unable to use the sample she gave. This is why she has returned to the ED. Pt states she took some Immodium last night, so has not had much diarrhea this morning. She c/o lower abd cramping. No fever. No vomiting. No other complaints. She was noted to have low potassium last time she was here, which she states is chronic for her. She takes a supplement at home. Review of Systems Ten Systems: 10 systems reviewed and negative Constitutional: reports: Reviewed and negative. denies: Fever Eyes: reports: Reviewed and negative Ears: reports: Reviewed and negative Nose: reports: Reviewed and negative Throat: reports: Reviewed and negative Cardiac: reports: Reviewed and negative. 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 : Chronic bladder infection, Frequency, Other HEENT: None Psych: Depression, Anxiety, Bipolar disorder, Post traumatic stress disorder Musculoskeletal: Fatigue, Chronic back pain Derm: None, Eczema - Past Surgical History Past Surgical History: Yes Ortho: ACL reconstruction, Arthroscopic surgery HEENT: Myringotomy (tubes), Tonsil/Adenoidectomy - Present Medications Home Medications: Ambulatory Orders Medication Instructions Recorded Confirmed Potassium Chloride [Klor-Con 10] 60 meq PO BIDWM 11/21/17 04/28/20 Magnesium Oxide 3 tab PO BID #120 tablet 09/15/19 04/28/20 Potassium Chloride 60 meq PO BID #120 tablet.er 05/27/20 Promethazine [Phenergan] 25 mg PO Q6H PRN #10 tab 05/27/20 Vancomycin HCl 125 mg PO QID #40 capsule 05/27/20 Albuterol Sulfate [Albuterol 2 puffs IH QID #1 hfa.aer.ad 08/09/20 Sulfate Hfa] Oxycodone HCl/Acetaminophen 1 each PO Q6H PRN #14 tablet 08/09/20 [Percocet 5-325 mg Tablet] Psyllium Husk [Fiber] 0.4 gm PO DAILY #30 capsule 08/09/20 Promethazine [Phenergan] 25 - 50 mg PO Q6H PRN #10 tab 08/28/20 - Allergies Allergies/Adverse Reactions: Allergies Allergy/AdvReac Type Severity Reaction Status Date / Time bismuth subsalicylate Allergy Respiratory Verified 08/30/20 08:52 [From Pepto-Bismol] cinnamon Allergy Anaphylaxis Verified 08/30/20 08:52 ketorolac [From Toradol] Allergy Hives Verified 08/30/20 08:52 lavender (Lavandula Allergy Hives Verified 08/30/20 08:52 angustifolia) lorazepam [From Ativan] Allergy Hives Verified 08/30/20 08:52 ondansetron HCl * Allergy Itching Verified 08/30/20 08:52 [From Zofran (as hydrochloride)] hydromorphone AdvReac Hallucinati Verified 08/30/20 08:52 ons - Social History Does the pt smoke?: Yes Smoking Status: Current every day smoker Does the pt drink ETOH?: Yes Does the pt have substance abuse?: No - Immunizations Immunizations are current?: Yes Immunizations: Other immun not current - POLST Patient has POLST: No POLST Status: Full Code PD ED PE NORMAL - Vitals Vital signs reviewed: Yes - General General: Alert and oriented X 3, No acute distress - HEENT HEENT: Atraumatic, PERRL, EOMI, Moist mucous membranes - Neck Neck: Supple, no meningeal sign - Cardiac Cardiac: RRR, No murmur, Strong equal pulses - Respiratory Respiratory: No respiratory distress, Clear bilaterally - Abdomen Abdomen: Soft, Non distended, Other (mild, diffuse lower abd tenderness.) - Derm Derm: Warm and dry - Extremities Extremities: No deformity - Neuro Neuro: Alert and oriented X 3 - Psych Psych: Normal mood, Normal affect Results - Vitals Vitals: Vital Signs - 24 hr 08/30/20 08/30/20 08/30/20 09:30 10:25 11:51 Temperature 36.4 C L Heart Rate 69 68 67 Respiratory 15 16 16 Rate Blood Pressure 113/77 124/64 104/95 H O2 Saturation 100 100 97 Oxygen O2 Source Room air - Labs Labs: Laboratory Tests 08/30/20 08/30/20 08/30/20 09:11 09:11 09:20 WBC 8.5 RBC 4.39 Hgb 13.9 Hct 39.1 MCV 89.1 MCH 31.7 H MCHC 35.5 RDW 11.5 L Plt Count 393 MPV 8.6 Neut # (Auto) 5.5 Lymph # (Auto) 1.7 [place] # (Auto) 0.6 Eos # (Auto) 0.6 Baso # (Auto) 0.1 Absolute Nucleated RBC 0.00 Nucleated RBC % 0.0 Sodium 139 Potassium 2.7 L Chloride 100 L Carbon Dioxide 26 Anion Gap 13.0 BUN 10 Creatinine 0.7 Estimated GFR (MDRD) 104 Glucose 107 H Calcium 9.0 Total Bilirubin 0.4 AST 24 ALT 23 Alkaline Phosphatase 41 L Total Protein 7.4 Albumin 4.2 Globulin 3.2 Albumin/Globulin Ratio 1.3 Lipase 41 Stl C. diff Tox B Gene NEGATIVE PD MEDICAL DECISION MAKING - ED course Complexity details: reviewed old records, reviewed results, re-evaluated patient, considered differential, d/w patient ED course: Pt was given IV fluid. Her potassium was better today than last time, though still low at 2.7. The pt was given an oral dose of K here. Her C. diff was not going to be back in a timely manner, so the pt was discharged and instructed to follow up on her results with medical records tomorrow. If she is positive, she will need to see her PCP or us for abx, and will need to be off work until sx resolve. Departure - Departure Disposition: 01 Home, Self Care Clinical Impression: Hypokalemia Diarrhea Qualifiers: Diarrhea type: unspecified type Qualified Code(s): R19.7 - Diarrhea, unspecified Condition: Stable Instructions: ED Diet Vomiting Diarrhea Comments: Your potassium is 2.7 today which is a little better than it was a couple of days ago. The lab is not able to get your C. difficile test done in a timely manner, and so you will have to come back and check on your results tomorrow. You do not need to check in at the emergency department, but can simply go to medical records to find out your results. Discharge Date/Time: 08/30/20 12:04
[2020-08-30 11:56] VITALS: BP 104/95
== END 2020-08-30 12:04 | disposition home or self-care (01) ==
LOC: ED 08:40
DX: E87.6 Hypokalemia (principal); R19.7 Diarrhea, unspecified; F17.200 Nicotine dependence, unspecified, uncomplicated
CPT/HCPCS: 36415; 80053; 81599; 83690; 85025; 87493; 99283; 99284; A9270; 87045; 87046

== ENCOUNTER 2020-09-10 10:51 | Emergency (ER) | payer MEDICAID ==
[2020-09-10 11:29] LABS: BASOPHILS # (AUTO) 0.1 10^3/uL (0.0-0.1); BASOPHILS % (AUTO) 0.7 %; EOSINOPHILS # (AUTO) 0.5 10^3/uL (0.0-0.7); EOSINOPHILS % (AUTO) 5.3 %; HGB - HEMOGLOBIN 12.9 g/dL (12.0-16.0); LYMPHOCYTES # (AUTO) 2.6 10^3/uL (1.5-3.5); MEAN CORPUSCULAR HEMOGLOBIN 31.2 pg (27.0-31.0); MEAN CORPUSCULAR HGB CONC 35.2 g/dL (32.0-36.0); MEAN CORPUSCULAR VOLUME 88.6 fL (81.0-99.0); MEAN PLATELET VOLUME 8.5 fL (7.9-10.8); MONOCYTES # (AUTO) 0.6 10^3/uL (0.0-1.0); MONOCYTES % (AUTO) 6.3 %; NEUTROPHILS # (AUTO) 5.4 10^3/uL (1.5-6.6); NEUTROPHILS % (AUTO) 59.5 %; PLT - PLATELET COUNT 364 10^3/uL (130-450); RED BLOOD COUNT 4.13 10^6/uL (4.20-5.40); RED CELL DISTRIBUTION WIDTH 11.5 % (12.0-15.0); WHITE BLOOD COUNT 9.1 x10^3/uL (4.8-10.8)
[2020-09-10 11:57] LABS: ALBUMIN 4.1 g/dL (3.2-5.5); ALBUMIN/GLOBULIN RATIO 1.3 (1.0-2.2); BILIRUBIN,TOTAL 0.5 mg/dL (0.2-1.0); CALCIUM 8.6 mg/dL (8.5-10.3); CREATININE 0.7 mg/dL (0.4-1.0); MAGNESIUM 1.4 mg/dL (1.7-2.8); TOTAL PROTEIN 7.2 g/dL (6.7-8.2)
[2020-09-10] MEDS ORDERED: POTASSIUM CITRATE 5 MEQ TABLET PO STA (12:17)
[2020-09-10] MEDS ORDERED: MAGNESIUM OXIDE 400 MG TABLET PO STA (12:17)
--- NOTE | 2020-09-10 12:17 | ED Physician Documentation ---
PD HPI CHEST PAIN - Stated complaint Stated Complaint: CHEST PX/SOA - Chief complaint Chief Complaint: Cardiac - History obtained from History obtained from: Patient - Additional information Additional information: 25yo woman with chronic electrolyte abnormalities presents with chest and body pain that is been going on constantly for 3 days. She describes it as a sharp substernal pain that is worse if she moves her arms, takes a deep breath, or pushes something with her arms. She was seen a couple of days ago at another facility with reported negative work-up although she said she did have ovarian cyst. It is unclear if her test was done at that time. Review of Systems Constitutional: reports: Fatigue. 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: Ovarian cysts : Chronic bladder infection, Frequency, Other HEENT: None Psych: Depression, Anxiety, Bipolar disorder, Post traumatic stress disorder Musculoskeletal: Fatigue, Chronic back pain Derm: None, Eczema - Past Surgical History Past Surgical History: Yes Ortho: ACL reconstruction, Arthroscopic surgery HEENT: Myringotomy (tubes), Tonsil/Adenoidectomy - Present Medications Home Medications: Ambulatory Orders Medication Instructions Recorded Confirmed Potassium Chloride [Klor-Con 10] 60 meq PO BIDWM 11/21/17 04/28/20 Magnesium Oxide 3 tab PO BID #120 tablet 09/15/19 04/28/20 Potassium Chloride 60 meq PO BID #120 tablet.er 05/27/20 Promethazine [Phenergan] 25 mg PO Q6H PRN #10 tab 05/27/20 Vancomycin HCl 125 mg PO QID #40 capsule 05/27/20 Albuterol Sulfate [Albuterol 2 puffs IH QID #1 hfa.aer.ad 08/09/20 Sulfate Hfa] Oxycodone HCl/Acetaminophen 1 each PO Q6H PRN #14 tablet 08/09/20 [Percocet 5-325 mg Tablet] Psyllium Husk [Fiber] 0.4 gm PO DAILY #30 capsule 08/09/20 Promethazine [Phenergan] 25 - 50 mg PO Q6H PRN #10 tab 08/28/20 - Allergies Allergies/Adverse Reactions: Allergies Allergy/AdvReac Type Severity Reaction Status Date / Time bismuth subsalicylate Allergy Respiratory Verified 09/10/20 11:10 [From Pepto-Bismol] cinnamon Allergy Anaphylaxis Verified 09/10/20 11:10 ketorolac [From Toradol] Allergy Hives Verified 09/10/20 11:10 lavender (Lavandula Allergy Hives Verified 09/10/20 11:10 angustifolia) lorazepam [From Ativan] Allergy Hives Verified 09/10/20 11:10 ondansetron HCl * Allergy Itching Verified 09/10/20 11:10 [From Zofran (as hydrochloride)] hydromorphone AdvReac Hallucinati Verified 09/10/20 11:10 ons - Social History Does the pt smoke?: Yes Smoking Status: Current every day smoker Does the pt drink ETOH?: Yes Does the pt have substance abuse?: No - Immunizations Immunizations are current?: Yes Immunizations: Other immun not current - POLST Patient has POLST: No POLST Status: Full Code PD ED PE NORMAL - Vitals Vital signs reviewed: Yes - General General: Alert and oriented X 3, No acute distress - HEENT HEENT: PERRL, EOMI - Neck Neck: Supple, no meningeal sign, No bony TTP - Cardiac Cardiac: RRR, No murmur - Respiratory Respiratory: No respiratory distress, Clear bilaterally - Abdomen Abdomen: Non tender - Extremities Extremities: No edema, No calf tenderness / cord - Neuro Neuro: Alert and oriented X 3, Normal speech Results - Vitals Vitals: Vital Signs - 24 hr 09/10/20 09/10/20 09/10/20 11:06 12:19 12:30 Temperature 36.0 C L 37.0 C Heart Rate 68 68 63 Respiratory 12 19 16 Rate Blood Pressure 118/75 116/72 119/74 O2 Saturation 100 100 100 09/10/20 09/10/20 13:00 13:08 Temperature Heart Rate 64 63 Respiratory 20 18 Rate Blood Pressure 113/57 L 113/57 L O2 Saturation 100 100 Oxygen O2 Source Room air - EKG (time done) 1100 Rate: Rate (enter#) (68) Rhythm: NSR [place]: Normal Intervals: Normal [place] QRS: Normal Ischemia: Normal ST segments Computer interpretation: Agree with computer - Labs Labs: Laboratory Tests 09/10/20 09/10/20 09/10/20 11:25 11:25 11:25 WBC 9.1 RBC 4.13 L Hgb 12.9 Hct 36.6 L MCV 88.6 MCH 31.2 H MCHC 35.2 RDW 11.5 L Plt Count 364 MPV 8.5 Neut # (Auto) 5.4 Lymph # (Auto) 2.6 [place] # (Auto) 0.6 Eos # (Auto) 0.5 Baso # (Auto) 0.1 Absolute Nucleated RBC 0.00 Nucleated RBC % 0.0 Sodium 136 Potassium 2.6 L Chloride 100 L Carbon Dioxide 26 Anion Gap 10.0 BUN 12 Creatinine 0.7 Estimated GFR (MDRD) 104 Glucose 88 Calcium 8.6 Magnesium 1.4 L Total Bilirubin 0.5 AST 20 ALT 20 Alkaline Phosphatase 38 L Troponin I High Sens 2.8 Total Protein 7.2 Albumin 4.1 Globulin 3.1 Albumin/Globulin Ratio 1.3 Lipase 42 Urine Color Urine Clarity Urine pH Ur Specific [place] Urine Protein Urine Glucose (UA) Urine Ketones Urine Occult Blood Urine Nitrite Urine Bilirubin Urine Urobilinogen Ur Leukocyte Esterase Urine RBC Urine WBC Ur Squamous Epith Cells Urine Bacteria Ur Microscopic Review Urine Culture Comments Urine HCG, Qual 09/10/20 12:20 WBC RBC Hgb Hct MCV MCH MCHC RDW Plt Count MPV Neut # (Auto) Lymph # (Auto) [place] # (Auto) Eos # (Auto) Baso # (Auto) Absolute Nucleated RBC Nucleated RBC % Sodium Potassium Chloride Carbon Dioxide Anion Gap BUN Creatinine Estimated GFR (MDRD) Glucose Calcium Magnesium Total Bilirubin AST ALT Alkaline Phosphatase Troponin I High Sens Total Protein Albumin Globulin Albumin/Globulin Ratio Lipase Urine Color YELLOW Urine Clarity CLEAR Urine pH 7.0 Ur Specific [place] 1.015 Urine Protein NEGATIVE Urine Glucose (UA) NEGATIVE Urine Ketones NEGATIVE Urine Occult Blood SMALL H Urine Nitrite NEGATIVE Urine Bilirubin NEGATIVE Urine Urobilinogen 0.2 (NORMAL) Ur Leukocyte Esterase NEGATIVE Urine RBC 0-5 Urine WBC 0-3 Ur Squamous Epith Cells RARE Squamous Urine Bacteria Rare Ur Microscopic Review INDICATED Urine Culture Comments NOT INDICATED Urine HCG, Qual NEGATIVE - Rads (name of study) 1v chest Radiology: EMP read contemporaneously (normaal) PD MEDICAL DECISION MAKING - ED course Complexity details: reviewed results, re-evaluated patient, considered differential (HEART one (tobacco), nothing to suggest PE), d/w patient Departure - Departure Disposition: 01 Home, Self Care Clinical Impression: Hypokalemia, Hypomagnesemia, Generalized body aches Chest pain Qualifiers: Chest pain type: unspecified Qualified Code(s): R07.9 - Chest pain, unspecified Condition: Stable Record reviewed to determine appropriate education?: Yes Instructions: ED Chest Pain NonCardiac Comments: Seen today for chest pain and body aches. We did heart testing, nothing worrisome was found. We also did a chest x-ray, it looks normal. Your labs were notable for a potassium of 2.6 and a magnesium of 1.4. For you, these but labs are not too bad, it seems that your numbers are actually usually lower than this. Continue your usual medications. Follow-up with your primary care physician, next available appointment. We did do a test, that was negative. Return as needed for new or worsening symptoms. Forms: Activity restrictions Discharge Date/Time: 09/10/20 13:25
[2020-09-10 12:26] LABS: BILIRUBIN,URINE NEGATIVE (NEGATIVE); GLUCOSE, URINE (UA) NEGATIVE (NEGATIVE); KETONES,URINE (UA) NEGATIVE (NEGATIVE); LEUKOCYTE ESTERASE, URINE NEGATIVE (NEGATIVE); NITRITE,URINE NEGATIVE (NEGATIVE); OCCULT BLOOD,URINE SMALL (NEGATIVE); PROTEIN,URINE NEGATIVE (NEGATIVE); UROBILINOGEN,URINE 0.2 (NORMAL) E.U./dL (NORMAL)
[2020-09-10 12:28] LABS: CLARITY,URINE CLEAR (CLEAR); HCG UR QUAL NEGATIVE
[2020-09-10 12:34] LABS: BACTERIA,URINE Rare /HPF (None Seen); RBC,URINE 0-5 /HPF (0-5); SQUAMOUS EPITHELIAL CELL,UR RARE Squamous (<= Few)
--- NOTE | 2020-09-10 13:07 | XRAY Report ---
PROCEDURE: Chest 1 View X-Ray INDICATIONS: Chest pain TECHNIQUE: One view of the chest was acquired. COMPARISON: 01/12/2020 FINDINGS: Surgical changes and devices: None. Lungs and pleura: No pleural effusions or pneumothorax. Lungs are clear. Mediastinum: Mediastinal contours appear normal. Heart size is normal. Bones and chest wall: No suspicious bony lesions. Overlying soft tissues appear unremarkable. IMPRESSION: No acute cardiopulmonary disease process. Reviewed by: Carla Shin MD, PhD on 09/10/2020 12:06 PM SAMMY Approved by: Carla Shin MD, PhD on 09/10/2020 12:06 PM SAMMY Station ID: [id number]
[2020-09-10 13:08] VITALS: BP 113/57
== END 2020-09-10 13:25 | disposition home or self-care (01) ==
LOC: ED 10:51
DX: R07.89 Other chest pain (principal); E87.6 Hypokalemia; E83.42 Hypomagnesemia; Z32.02 Encounter for pregnancy test, result negative; F17.200 Nicotine dependence, unspecified, uncomplicated
CPT/HCPCS: 36415; 71045; 80053; 81001; 81025; 83690; 83735; 84484; 85025; 93005; 99284; A9270; 81003; 87086

== ENCOUNTER 2020-10-04 09:39 | Emergency (ER) | payer MEDICAID ==
--- NOTE | 2020-10-04 10:17 | ED Physician Documentation ---
PD HPI FOCAL NEURO - Stated complaint Stated Complaint: WEAKNESS - Chief complaint Chief Complaint: Neuro - History obtained from History obtained from: Patient - History of Present Illness Timing - onset: How many days ago (last 1-2 days feeling weak generalized like when lytes are low. She is and so did not know for sure if she can still take all her usual supplements.) Timing - details: Gradual onset, Still present Severity of deficit: Moderate Weakness: Other (generalized) Numbness: No: Face, Arm, Leg Associated symptoms: Nausea / vomiting. 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 denies: Abdominal Pain, Vomiting, Diarrhea : reports: Now EGA. 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 : Chronic bladder infection, Frequency, Other HEENT: None Psych: Depression, Anxiety, Bipolar disorder, Post traumatic stress disorder Musculoskeletal: Fatigue, Chronic back pain Derm: None, Eczema - Past Surgical History Past Surgical History: Yes Ortho: ACL reconstruction, Arthroscopic surgery HEENT: Myringotomy (tubes), Tonsil/Adenoidectomy - Present Medications Home Medications: Ambulatory Orders Medication Instructions Recorded Confirmed Potassium Chloride [Klor-Con 10] 60 meq PO BIDWM 11/21/17 04/28/20 Magnesium Oxide 3 tab PO BID #120 tablet 09/15/19 04/28/20 Potassium Chloride 60 meq PO BID #120 tablet.er 05/27/20 Promethazine [Phenergan] 25 mg PO Q6H PRN #10 tab 05/27/20 Vancomycin HCl 125 mg PO QID #40 capsule 05/27/20 Albuterol Sulfate [Albuterol 2 puffs IH QID #1 hfa.aer.ad 08/09/20 Sulfate Hfa] Oxycodone HCl/Acetaminophen 1 each PO Q6H PRN #14 tablet 08/09/20 [Percocet 5-325 mg Tablet] Psyllium Husk [Fiber] 0.4 gm PO DAILY #30 capsule 08/09/20 Promethazine [Phenergan] 25 - 50 mg PO Q6H PRN #10 tab 08/28/20 Diphenoxylate/Atropine [Lomotil] 1 each PO QID PRN #12 tablet 10/04/20 Pnv No.95/Ferrous Fum/Folic AC 1 each PO DAILY #30 tablet 10/04/20 [ Tablet] Promethazine [Phenergan] 25 mg PO Q6H PRN #30 tab 10/04/20 - Allergies Allergies/Adverse Reactions: Allergies Allergy/AdvReac Type Severity Reaction Status Date / Time bismuth subsalicylate Allergy Respiratory Verified 09/10/20 11:10 [From Pepto-Bismol] cinnamon Allergy Anaphylaxis Verified 09/10/20 11:10 ketorolac [From Toradol] Allergy Hives Verified 09/10/20 11:10 lavender (Lavandula Allergy Hives Verified 09/10/20 11:10 angustifolia) lorazepam [From Ativan] Allergy Hives Verified 09/10/20 11:10 ondansetron HCl * Allergy Itching Verified 09/10/20 11:10 [From Zofran (as hydrochloride)] hydromorphone AdvReac Hallucinati Verified 09/10/20 11:10 ons - Social History Does the pt smoke?: Yes Smoking Status: Current every day smoker Does the pt drink ETOH?: Yes Does the pt have substance abuse?: No - Immunizations Immunizations are current?: Yes Immunizations: Other immun not current - POLST Patient has POLST: No POLST Status: Full Code PD ED PE NORMAL - Vitals Vital signs reviewed: Yes - General General: Alert and oriented X 3, No acute distress, Well developed/nourished - Cardiac Cardiac: No murmur - Respiratory Respiratory: Clear bilaterally - Abdomen Abdomen: Soft, Non tender - Back Back: No CVA TTP - Derm Derm: Normal color, Warm and dry - Extremities Extremities: No tenderness to palpate, Normal ROM s pain, No calf tenderness / cord - Neuro Neuro: Alert and oriented X 3, No motor deficit, No sensory deficit, Normal speech Results - Vitals Vitals: Vital Signs - 24 hr 10/04/20 10/04/20 10/04/20 11:00 11:01 11:42 Temperature Heart Rate 22 L 56 L 63 Respiratory 20 18 19 Rate Blood Pressure 106/60 105/55 L 106/54 L O2 Saturation 99 100 100 10/04/20 10/04/20 10/04/20 12:00 13:42 14:00 Temperature 36.5 C Heart Rate 63 66 57 L Respiratory 18 15 17 Rate Blood Pressure 110/61 113/70 105/66 O2 Saturation 99 100 100 10/04/20 15:08 Temperature Heart Rate 70 Respiratory 21 Rate Blood Pressure 114/60 O2 Saturation 99 Oxygen O2 Source Room air - Labs Labs: Laboratory Tests 10/04/20 10/04/20 10/04/20 10:19 10:30 12:10 Sodium 137 Potassium 2.9 L Chloride 97 L Carbon Dioxide 27 Anion Gap 13.0 BUN 8 Creatinine 0.5 Estimated GFR (MDRD) 153 Glucose 75 Calcium 8.9 Magnesium 1.3 L Total Bilirubin 0.5 AST 17 ALT 19 Alkaline Phosphatase 34 L Total Protein 6.7 Albumin 3.7 Globulin 3.0 Albumin/Globulin Ratio 1.2 HCG, Quant 04991.00 Urine Color YELLOW Urine Clarity CLEAR Urine pH 8.0 H Ur Specific [place] 1.020 Urine Protein NEGATIVE Urine Glucose (UA) NEGATIVE Urine Ketones NEGATIVE Urine Occult Blood TRACE-INTA Urine Nitrite NEGATIVE Urine Bilirubin NEGATIVE Urine Urobilinogen 0.2 (NORMAL) Ur Leukocyte Esterase NEGATIVE Ur Microscopic Review NOT INDICATED Urine Culture Comments NOT INDICATED Urine HCG, Qual POSITIVE - Rads (name of study) OB U/S Radiology: Prelim report reviewed (normal IUP 7 weeks. No free fluid. ), See rad report PD MEDICAL DECISION MAKING - ED course Complexity details: reviewed results, considered differential (given IV supplements. Told okay to be taking her usual potassium supplements, etc. ), d/w patient Departure - Departure Disposition: 01 Home, Self Care Clinical Impression: Weakness generalized, Hypokalemia Qualifiers: Weeks of gestation: less than 8 weeks Qualified Code(s): Z3A.01 - Less than 8 weeks gestation of Condition: Stable Record reviewed to determine appropriate education?: Yes Follow-Up: [facility] [Provider Group] Prescriptions: Diphenoxylate/Atropine [Lomotil] 1 each PO QID PRN #12 tablet PRN Reason: Diarrhea Promethazine [Phenergan] 25 mg PO Q6H PRN #30 tab PRN Reason: Nausea / Vomiting Pnv No.95/Ferrous Fum/Folic AC [ Tablet] 1 each PO DAILY #30 tablet Comments: Your potassium and magnesium are low as usual but not excessively low. Continue usual supplements. These are okay to take in . Your ultrasound shows a normal-appearing at 7 weeks. Follow-up with [facility], call for an appointment. Social work talked with you about where to contact regarding work leave etc. Follow-up with that. Discharge Date/Time: 10/04/20 15:14
[2020-10-04] MEDS ORDERED: POTASSIUM CHLOR 10 MEQ/100 ML 10 MEQ/100 ML BAG IV ONE ×2 (10:18→11:56)
[2020-10-04] MEDS ORDERED: LACTATED RINGERS 1,000 ML IV STA (10:18)
[2020-10-04] MEDS ORDERED: MAGNESIUM SULFATE 2 GRAM 2 GM/50 ML BAG IV ONE (10:49)
[2020-10-04 11:01] LABS: ALBUMIN 3.7 g/dL (3.2-5.5); ALBUMIN/GLOBULIN RATIO 1.2 (1.0-2.2); BILIRUBIN,TOTAL 0.5 mg/dL (0.2-1.0); CALCIUM 8.9 mg/dL (8.5-10.3); CREATININE 0.5 mg/dL (0.4-1.0); MAGNESIUM 1.3 mg/dL (1.7-2.8); TOTAL PROTEIN 6.7 g/dL (6.7-8.2)
[2020-10-04 13:15] LABS: BILIRUBIN,URINE NEGATIVE (NEGATIVE); GLUCOSE, URINE (UA) NEGATIVE (NEGATIVE); KETONES,URINE (UA) NEGATIVE (NEGATIVE); LEUKOCYTE ESTERASE, URINE NEGATIVE (NEGATIVE); NITRITE,URINE NEGATIVE (NEGATIVE); OCCULT BLOOD,URINE TRACE-INTA (NEGATIVE); PROTEIN,URINE NEGATIVE (NEGATIVE); UROBILINOGEN,URINE 0.2 (NORMAL) E.U./dL (NORMAL)
[2020-10-04 13:17] LABS: CLARITY,URINE CLEAR (CLEAR); HCG UR QUAL POSITIVE
--- NOTE | 2020-10-04 14:38 | Ultrasound Report ---
PROCEDURE: OB First Trimester INDICATIONS: early preg approx 6 wks OUTSIDE/PRIOR DATING DATA: Last menstrual period (LMP): Not available. LMP-based estimated date of delivery (CLARISSA): Not available. First dating scan (date and location): 10/04/2020. Estimated date of delivery (CLARISSA) from first dating scan: 05/23/2021. TECHNIQUE: Real-time scanning was performed of the fetus and maternal pelvic organs, with image documentation. COMPARISON: None for this FINDINGS: 0.9 cm crown-rump length which correlates with a gestational age of 7 weeks 0 days, +/- 5 days. Embryo: cardiac activity observed, 1 27 bpm. Measurement variability in dating: +/- 4 weeks by LMP, +/- 7 days by mean sac diameter (use before 6 weeks gestation if crown-rump length not able to be measured), +/- 5 days by crown-rump length (6-12 weeks gestation). Maternal organs: Ovaries normal considering gestational status. Limited images through the kidneys demonstrate no hydronephrosis. IMPRESSION: 7 week 0 day gestational age from crown-rump length, +/- 5 days, with delivery date projected to be c entered on 05/23/2021. 20 week anatomic survey is recommended. Reviewed by: Bruno Lockwood MD on 10/04/2020 2:37 PM PST Approved by: Bruno Lockwood MD on 10/04/2020 2:37 PM PST Station ID: [id number]
--- NOTE | 2020-10-04 14:40 | Ultrasound Report ---
PROCEDURE: OB Transvaginal INDICATIONS: early preg approx 6 wks; weakness TECHNIQUE: Both transabdominal and transvaginal scanning were performed. COMPARISON: None for this . FINDINGS: Please refer to the report presenting the combined findings for both transabdominal and transvaginal scanning, titled OB first trimester IMPRESSION: Please see combined report for both transabdominal and transvaginal scanning, same day. Reviewed by: Bruno Lockwood MD on 10/04/2020 2:39 PM PST Approved by: Bruno Lockwood MD on 10/04/2020 2:39 PM PST Station ID: [id number]
[2020-10-04 15:09] VITALS: BP 114/60
== END 2020-10-04 15:14 | disposition home or self-care (01) ==
LOC: ED 09:39
DX: O99.281 Endocrine, nutritional and metabolic diseases complicating pregnancy, first trimester (principal); E87.6 Hypokalemia; E83.42 Hypomagnesemia; R53.1 Weakness; O99.331 Smoking (tobacco) complicating pregnancy, first trimester; F17.200 Nicotine dependence, unspecified, uncomplicated; Z3A.01 Less than 8 weeks gestation of pregnancy
CPT/HCPCS: 36415; 76801; 76817; 80053; 81003; 81025; 83735; 84702; 93005; 96365; 96366; 96367; 96368; 99284; J7120; 81001; 87086

== ENCOUNTER 2020-10-19 17:24 | Emergency (ER) | payer MEDICAID ==
[2020-10-19 17:45] VITALS: BP 109/58
== END 2020-10-19 17:47 | disposition left against medical advice (07) ==
LOC: ED 17:24
DX: Z53.21 Procedure and treatment not carried out due to patient leaving prior to being seen by health care provider (principal)
CPT/HCPCS: 80053; 83690; 85025

== ENCOUNTER 2020-11-07 21:34 | Emergency (ER) | payer MEDICAID ==
--- NOTE | 2020-11-07 21:44 | ED Physician Documentation ---
PD HPI FOCAL NEURO - Stated complaint Stated Complaint: WEAKNESS, SPASMS - Chief complaint Chief Complaint: General - History obtained from History obtained from: Patient - History of Present Illness Timing - onset: Today Timing - duration: Days (1) Timing - details: Gradual onset, Waxing and waning (having feeling of weakness and numbness arms and legs. Realized she took more than usual amount of potassium supplement and concerned about her levels. Is and is changing OB from [place] to [place], but no appt yet.) Severity of deficit: Mild Numbness: Arm, Leg, Other (both sides) Associated symptoms: Nausea / vomiting (has had more nausea than usual with the . Is out of Phenergan. Taking vitamins. No other new meds. Takes K and Mag supplements.). No: Headache, Syncope Baseline status: positive: A&OX3, ambulatory, indep Similar symptoms before: Diagnosis (symptoms usually from low K and/or Mag due to renal tubular problem.) Review of Systems Constitutional: denies: Fever Nose: denies: Rhinorrhea / runny nose, Congestion Throat: denies: Sore throat Respiratory: denies: Cough GI: reports: Nausea. denies: Vomiting, Diarrhea Neurologic: reports: Generalized weakness. 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 : Chronic bladder infection, Frequency, Other HEENT: None Psych: Depression, Anxiety, Bipolar disorder, Post traumatic stress disorder Musculoskeletal: Fatigue, Chronic back pain Derm: None, Eczema - Past Surgical History Past Surgical History: Yes Ortho: ACL reconstruction, Arthroscopic surgery HEENT: Myringotomy (tubes), Tonsil/Adenoidectomy - Present Medications Home Medications: Ambulatory Orders Medication Instructions Recorded Confirmed Magnesium Oxide 3 tab PO BID #120 tablet 09/15/19 04/28/20 Doxylamine Succinate [Unisom] 25 mg PO BID #40 tablet 11/07/20 Potassium Chloride 40 meq PO BID 11/07/20 No122/Iron/Folic Acid 1 tab PO DAILY PM 11/07/20 11/07/20 [ Multi Tablet] Promethazine [Phenergan] 25 mg PO Q6H PRN #25 tab 11/07/20 Pyridoxine HCl (Vitamin B6) 250 mg PO BID #40 tablet 11/07/20 [Vitamin B-6] - Allergies Allergies/Adverse Reactions: Allergies Allergy/AdvReac Type Severity Reaction Status Date / Time bismuth subsalicylate Allergy Respiratory Verified 09/10/20 11:10 [From Pepto-Bismol] cinnamon Allergy Anaphylaxis Verified 09/10/20 11:10 ketorolac [From Toradol] Allergy Hives Verified 09/10/20 11:10 lavender (Lavandula Allergy Hives Verified 09/10/20 11:10 angustifolia) lorazepam [From Ativan] Allergy Hives Verified 09/10/20 11:10 ondansetron HCl * Allergy Itching Verified 09/10/20 11:10 [From Zofran (as hydrochloride)] hydromorphone AdvReac Hallucinati Verified 09/10/20 11:10 ons - Social History Does the pt smoke?: Yes Smoking Status: Current every day smoker Does the pt drink ETOH?: Yes Does the pt have substance abuse?: No - Immunizations Immunizations are current?: Yes Immunizations: Other immun not current - POLST Patient has POLST: No POLST Status: Full Code PD ED PE NORMAL - Vitals Vital signs reviewed: Yes - General General: Alert and oriented X 3, No acute distress, Well developed/nourished - Neck Neck: Supple, no meningeal sign, No adenopathy - Cardiac Cardiac: RRR, No murmur - Respiratory Respiratory: Clear bilaterally - Abdomen Abdomen: Normal bowel sounds, Soft, Non tender, Other (enlarged uterus with fundus above umbilicus. bedside U/S showing movement and FHR. BPD c/w 13w6d size. ) - Back Back: No CVA TTP - Derm Derm: Normal color, Warm and dry, No rash - Neuro Neuro: Alert and oriented X 3, No motor deficit, Normal speech Results - Vitals Vitals: Vital Signs - 24 hr 11/07/20 11/07/20 21:40 23:01 Temperature 36.6 C 36.7 C Heart Rate 97 83 Respiratory 20 16 Rate Blood Pressure 147/77 H 123/66 O2 Saturation 98 99 Oxygen O2 Source Room air - Labs Labs: Laboratory Tests 11/07/20 22:23 Sodium 136 Potassium 2.7 L Chloride 101 Carbon Dioxide 23 Anion Gap 12.0 BUN 9 Creatinine 0.5 Estimated GFR (MDRD) 153 Glucose 134 H Calcium 9.3 Magnesium 1.4 L Total Bilirubin 0.4 AST 20 ALT 18 Alkaline Phosphatase 35 L Total Protein 6.9 Albumin 3.6 Globulin 3.3 Albumin/Globulin Ratio 1.1 PD MEDICAL DECISION MAKING - ED course Complexity details: reviewed results, considered differential, d/w patient Departure - Departure Disposition: 01 Home, Self Care Clinical Impression: Chronic hypokalemia, Hypomagnesemia, Nausea/vomiting in Qualifiers: Weeks of gestation: 13 weeks Qualified Code(s): Z3A.13 - 13 weeks gestation of Condition: Stable Record reviewed to determine appropriate education?: Yes Instructions: Hypokalemia Dc, ED Preg Morning Sickness Prescriptions: Promethazine [Phenergan] 25 mg PO Q6H PRN #25 tab PRN Reason: Nausea / Vomiting Doxylamine Succinate [Unisom] 25 mg PO BID #40 tablet Pyridoxine HCl (Vitamin B6) [Vitamin B-6] 250 mg PO BID #40 tablet Comments: Your Potassium and Magnesium levels are low but not as low as commonly. You can continue your supplements even at the higher dose amount. For your nausea, Vitamin B6 and doxylamine twice daily. To that add promethazine if needed for nausea. 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 Discharge Date/Time: 11/07/20 23:02
[2020-11-07] MEDS ORDERED: PROMETHAZINE 25 MG TABLET PO STA (22:06)
[2020-11-07 22:39] LABS: ALBUMIN 3.6 g/dL (3.2-5.5); ALBUMIN/GLOBULIN RATIO 1.1 (1.0-2.2); BILIRUBIN,TOTAL 0.4 mg/dL (0.2-1.0); CALCIUM 9.3 mg/dL (8.5-10.3); CREATININE 0.5 mg/dL (0.4-1.0); MAGNESIUM 1.4 mg/dL (1.7-2.8); TOTAL PROTEIN 6.9 g/dL (6.7-8.2)
[2020-11-07 23:02] VITALS: BP 123/66
== END 2020-11-07 23:02 | disposition home or self-care (01) ==
LOC: ED 21:34
DX: O21.1 Hyperemesis gravidarum with metabolic disturbance (principal); E87.6 Hypokalemia; E83.42 Hypomagnesemia; O99.331 Smoking (tobacco) complicating pregnancy, first trimester; F17.200 Nicotine dependence, unspecified, uncomplicated; Z3A.13 13 weeks gestation of pregnancy
CPT/HCPCS: 36415; 80053; 83735; 99283; 99284; Q0169

== ENCOUNTER 2020-11-10 11:16 | Emergency (ER) | payer MEDICAID ==
[2020-11-10 11:39] VITALS: BP 111/63
[2020-11-10] MEDS ORDERED: PROCHLORPERAZINE 10 MG/2 ML VIAL IVP STA (11:43)
[2020-11-10 11:57] LABS: BASOPHILS # (AUTO) 0.1 10^3/uL (0.0-0.1); BASOPHILS % (AUTO) 0.4 %; EOSINOPHILS # (AUTO) 0.6 10^3/uL (0.0-0.7); EOSINOPHILS % (AUTO) 4.8 %; HGB - HEMOGLOBIN 12.3 g/dL (12.0-16.0); LYMPHOCYTES # (AUTO) 2.2 10^3/uL (1.5-3.5); LYMPHOCYTES % (AUTO) 18.9 %; MEAN CORPUSCULAR HEMOGLOBIN 32.3 pg (27.0-31.0); MEAN CORPUSCULAR HGB CONC 35.8 g/dL (32.0-36.0); MEAN CORPUSCULAR VOLUME 90.3 fL (81.0-99.0); MEAN PLATELET VOLUME 8.7 fL (7.9-10.8); MONOCYTES # (AUTO) 0.7 10^3/uL (0.0-1.0); MONOCYTES % (AUTO) 5.7 %; NEUTROPHILS # (AUTO) 8.1 10^3/uL (1.5-6.6); NEUTROPHILS % (AUTO) 69.5 %; PLT - PLATELET COUNT 318 10^3/uL (130-450); RED BLOOD COUNT 3.81 10^6/uL (4.20-5.40); RED CELL DISTRIBUTION WIDTH 11.9 % (12.0-15.0); WHITE BLOOD COUNT 11.7 x10^3/uL (4.8-10.8)
--- NOTE | 2020-11-10 12:08 | ED Physician Documentation ---
History of Present Illness - Stated complaint Stated Complaint: DIZZY,VOMMITING,NAUSEA - Chief complaint Chief Complaint: Abd Pain - History obtained from History obtained from: Patient - History of Present Illness Timing: Prior to arrival - Additonal information Additional information: 25-year-old female who reports that she is approximately 13 weeks p resents to the emergency department with uncontrolled nausea and vomiting. She was seen here 11/07/2020 for similar. At that time she was noted to have hypokalemia as well as hypomagnesia. She does have a history of a renal tubular disorder in which she is chronically low on potassium and magnesium. Due to and vomiting she has been unable to keep her electrolyte supplements down and therefore presents the emergency department with increased weakness and nausea. She also reports that this morning she began having vaginal spotting. reports lower pelvic cramping, but no focal pain. She has had an ultrasound establishing IUP. Pt was dc with rx for B6 and unisom at last visit, however she reports she was unable to fill it as it was not covered by insurance. Last menstrual period 09/05/2020. G1, P0. She has not yet been able to establish with an OB provider. She reports that she was turned away by both providers in [place] and [place]. Review of Systems Constitutional: reports: Fatigue. denies: Myalgias, Weight Loss, Sweats Eyes: reports: Reviewed and negative Ears: reports: Reviewed and negative Nose: reports: Reviewed and negative Throat: reports: Reviewed and negative Cardiac: reports: Reviewed and negative Respiratory: reports: Reviewed and negative GI: reports: Abdominal Pain, Nausea, Vomiting : reports: LMP (09/05/2020), Vaginal bleeding. 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: Ovarian cysts : Chronic bladder infection, Frequency, Other HEENT: None Psych: Depression, Anxiety, Bipolar disorder, Post traumatic stress disorder Musculoskeletal: Fatigue, Chronic back pain Derm: None, Eczema - Past Surgical History Past Surgical History: Yes Ortho: ACL reconstruction, Arthroscopic surgery HEENT: Myringotomy (tubes), Tonsil/Adenoidectomy - Present Medications Home Medications: Ambulatory Orders Medication Instructions Recorded Confirmed Magnesium Oxide 3 tab PO BID #120 tablet 09/15/19 04/28/20 Doxylamine Succinate [Unisom] 25 mg PO BID #40 tablet 11/07/20 Potassium Chloride 40 meq PO BID 11/07/20 No122/Iron/Folic Acid 1 tab PO DAILY PM 11/07/20 11/07/20 [ Multi Tablet] Promethazine [Phenergan] 25 mg PO Q6H PRN #25 tab 11/07/20 Pyridoxine HCl (Vitamin B6) 250 mg PO BID #40 tablet 11/07/20 [Vitamin B-6] - Allergies Allergies/Adverse Reactions: Allergies Allergy/AdvReac Type Severity Reaction Status Date / Time bismuth subsalicylate Allergy Respiratory Verified 11/10/20 11:26 [From Pepto-Bismol] cinnamon Allergy Anaphylaxis Verified 11/10/20 11:26 ketorolac [From Toradol] Allergy Hives Verified 11/10/20 11:26 lavender (Lavandula Allergy Hives Verified 11/10/20 11:26 angustifolia) lorazepam [From Ativan] Allergy Hives Verified 11/10/20 11:26 ondansetron HCl * Allergy Itching Verified 11/10/20 11:26 [From Zofran (as hydrochloride)] hydromorphone AdvReac Hallucinati Verified 11/10/20 11:26 ons - Social History Does the pt smoke?: Yes Smoking Status: Current every day smoker Does the pt drink ETOH?: Yes Does the pt have substance abuse?: No - Immunizations Immunizations are current?: Yes Immunizations: Other immun not current - POLST Patient has POLST: No POLST Status: Full Code PD ED PE EXPANDED - General General: Alert, No acute distress, Well developed/nourished - Cardiac Cardiac: Regular Rate, Regular Rhythm, Radial strong equal, Pedal strong equal, Cap refill < 2 sec. No: Murmur Present - Respiratory Respiratory: Clear to ausultation windy. No: Distress, Labored - Abdomen Abdomen: No: Tender to palpation - Extremities Extremities: Normal - Neuro Neuro: Alert and Oriented X 3, Normal Sensation, CNII-XII intact - GCS Eye Opening: Spontaneous Motor: Obeys Commands Verbal: Oriented Total: 15 Results - Vitals Vitals: Vital Signs - 24 hr 12/16/20 11:22 Temperature 36.5 C Heart Rate 62 Respiratory 17 Rate Blood Pressure 111/63 O2 Saturation 100 Oxygen O2 Source Room air - Labs Labs: Laboratory Tests 11/10/20 11/10/20 11:44 11:44 WBC 11.7 H RBC 3.81 L Hgb 12.3 Hct 34.4 L MCV 90.3 MCH 32.3 H MCHC 35.8 RDW 11.9 L Plt Count 318 MPV 8.7 Neut # (Auto) 8.1 H Lymph # (Auto) 2.2 [place] # (Auto) 0.7 Eos # (Auto) 0.6 Baso # (Auto) 0.1 Absolute Nucleated RBC 0.00 Nucleated RBC % 0.0 Sodium 136 Potassium 2.5 L* Chloride 102 Carbon Dioxide 23 Anion Gap 11.0 BUN 8 Creatinine 0.5 Estimated GFR (MDRD) 153 Glucose 84 Calcium 9.1 Total Bilirubin 0.6 AST 19 ALT 17 Alkaline Phosphatase 34 L Total Protein 7.1 Albumin 3.6 Globulin 3.5 Albumin/Globulin Ratio 1.0 Lipase 28 PD MEDICAL DECISION MAKING - ED course Complexity details: reviewed old records, reviewed results, re-evaluated patient, considered differential ED course: 25-year-old female who is reportedly 13 weeks presents with uncontrolled vomiting. This is in the setting of a history of a renal tubular disorder in which she has chronically low magnesium and potassium. She also reported vaginal spotting this a.m. Here in the emergency department we started with baseline screening labs. Her potassium was 2.5. I did order both IV and oral potassium supplementation however for an unclear reason the patient became suddenly agitated and demanded that her IV be removed and she was left to the emergency department AGAINST MEDICAL ADVICE. We were unable to convince her to stay. She reports that she wants the "regular doctor" who sees her and was not satisfied with either provider on shift today. We were unable to complete the OB ultrasound. She understood that vaginal bleeding in the first trimester is a possible miscarriage. I encouraged her to f/u with women's clinic. We do have a previous ultrasound confirming IUP in September. I did tell her that she was free to return for further treatment and evaluation at any time she wished. Departure - Departure Disposition: Against Medical Advice Clinical Impression: Vomiting affecting , Hypokalemia, Threatened miscarriage in early Follow-Up: [facility] [Provider Group] Comments: Elayne I hope that you are feeling better soon please continue to take the Phenergan. The Doxyalamine and the B6 vitamin supplementation can help with your nausea. It is very important that you arrange follow-up for your . We did offer you electrolyte supplementation today as well as IV fluids and an ultrasound of your . However you have elected to leave AGAINST MEDICAL ADVICE. You may return at any time for further care if you desire.
[2020-11-10] MEDS ORDERED: SODIUM CHLORIDE 0.9% 1,000 ML IV STA (12:23)
[2020-11-10 12:26] LABS: ALBUMIN 3.6 g/dL (3.2-5.5); BILIRUBIN,TOTAL 0.6 mg/dL (0.2-1.0); CALCIUM 9.1 mg/dL (8.5-10.3); CREATININE 0.5 mg/dL (0.4-1.0); TOTAL PROTEIN 7.1 g/dL (6.7-8.2)
[2020-11-10] MEDS ORDERED: POTASSIUM CHLORIDE 20 MEQ TABLET PO STA (12:28)
[2020-11-10] MEDS ORDERED: POTASSIUM CHLOR 10 MEQ/100 ML 10 MEQ/100 ML BAG IV SCH (13:00)
== END 2020-11-10 12:49 | disposition left against medical advice (07) ==
LOC: ED 11:16
DX: O21.1 Hyperemesis gravidarum with metabolic disturbance (principal); O20.0 Threatened abortion; O26.831 Pregnancy related renal disease, first trimester; N25.9 Disorder resulting from impaired renal tubular function, unspecified; O99.331 Smoking (tobacco) complicating pregnancy, first trimester; F17.200 Nicotine dependence, unspecified, uncomplicated; Z3A.13 13 weeks gestation of pregnancy; Z53.20 Procedure and treatment not carried out because of patient's decision for unspecified reasons
CPT/HCPCS: 36415; 80053; 83690; 84702; 85025; 96374; 99283; 99284; A9270

== ENCOUNTER 2020-11-15 10:58 | Emergency (ER) | payer MEDICAID ==
[2020-11-15 11:31] LABS: BASOPHILS % (AUTO) 0.3 %; EOSINOPHILS # (AUTO) 0.7 10^3/uL (0.0-0.7); EOSINOPHILS % (AUTO) 5.2 %; HGB - HEMOGLOBIN 12.5 g/dL (12.0-16.0); LYMPHOCYTES # (AUTO) 2.1 10^3/uL (1.5-3.5); LYMPHOCYTES % (AUTO) 16.7 %; MEAN CORPUSCULAR HEMOGLOBIN 32.7 pg (27.0-31.0); MEAN CORPUSCULAR HGB CONC 35.8 g/dL (32.0-36.0); MEAN CORPUSCULAR VOLUME 91.4 fL (81.0-99.0); MEAN PLATELET VOLUME 8.6 fL (7.9-10.8); MONOCYTES # (AUTO) 0.6 10^3/uL (0.0-1.0); MONOCYTES % (AUTO) 4.8 %; NEUTROPHILS # (AUTO) 9.1 10^3/uL (1.5-6.6); NEUTROPHILS % (AUTO) 72.4 %; PLT - PLATELET COUNT 344 10^3/uL (130-450); RED BLOOD COUNT 3.82 10^6/uL (4.20-5.40); RED CELL DISTRIBUTION WIDTH 11.9 % (12.0-15.0); WHITE BLOOD COUNT 12.6 x10^3/uL (4.8-10.8)
[2020-11-15 11:49] LABS: ALBUMIN 3.7 g/dL (3.2-5.5); BILIRUBIN,TOTAL 0.3 mg/dL (0.2-1.0); CALCIUM 8.9 mg/dL (8.5-10.3); CREATININE 0.5 mg/dL (0.4-1.0); TOTAL PROTEIN 7.4 g/dL (6.7-8.2)
[2020-11-15] MEDS ORDERED: SODIUM CHLORIDE 0.9% 1,000 ML IV STA (12:26)
[2020-11-15] MEDS ORDERED: POTASSIUM CHLOR 10 MEQ/100 ML 10 MEQ/100 ML BAG IV STA (12:26)
[2020-11-15] MEDS ORDERED: PROMETHAZINE INJ 25 MG in SODIUM CHLORIDE 0.9% 50 ML IV STA (12:27)
--- NOTE | 2020-11-15 12:28 | ED Physician Documentation ---
PD HPI ABD PAIN - Stated complaint Stated Complaint: CHEST DISCOMFORT, VOMMITING BLOOD - Chief complaint Chief Complaint: Abd Pain - History obtained from History obtained from: Patient - Additional information Additional information: 25-year-old woman with chronic hypokalemia, now G1 at 14 weeks presents with vomiting in and some ongoing abdominal discomfort during . She has been unable to keep down her Phenergan which is the only thing that helps. Review of Systems Ten Systems: 10 systems reviewed and negative Constitutional: denies: Fever, Chills GI: reports: Nausea, Vomiting. 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 : Chronic bladder infection, Frequency, Other HEENT: None Psych: Depression, Anxiety, Bipolar disorder, Post traumatic stress disorder Musculoskeletal: Fatigue, Chronic back pain Derm: None, Eczema - Past Surgical History Past Surgical History: Yes Ortho: ACL reconstruction, Arthroscopic surgery HEENT: Myringotomy (tubes), Tonsil/Adenoidectomy - Present Medications Home Medications: Ambulatory Orders Medication Instructions Recorded Confirmed Magnesium Oxide 3 tab PO BID #120 tablet 09/15/19 11/15/20 Doxylamine Succinate [Unisom] 25 mg PO BID #40 tablet 11/07/20 11/15/20 Potassium Chloride 40 meq PO BID 11/07/20 11/15/20 No122/Iron/Folic Acid 1 tab PO DAILY PM 11/07/20 11/15/20 [ Multi Tablet] Promethazine [Phenergan] 25 mg PO Q6H PRN #25 tab 11/07/20 11/15/20 Pyridoxine HCl (Vitamin B6) 250 mg PO BID #40 tablet 11/07/20 11/15/20 [Vitamin B-6] Promethazine Supp [Phenergan Supp] 25 mg FL Q6H PRN #15 supp 11/15/20 Promethazine [Phenergan] 25 mg PO Q6H PRN #14 tab 11/15/20 - Allergies Allergies/Adverse Reactions: Allergies Allergy/AdvReac Type Severity Reaction Status Date / Time bismuth subsalicylate Allergy Respiratory Verified 11/15/20 11:05 [From Pepto-Bismol] cinnamon Allergy Anaphylaxis Verified 11/15/20 11:05 ketorolac [From Toradol] Allergy Hives Verified 11/15/20 11:05 lavender (Lavandula Allergy Hives Verified 11/15/20 11:05 angustifolia) lorazepam [From Ativan] Allergy Hives Verified 11/15/20 11:05 ondansetron HCl * Allergy Itching Verified 11/15/20 11:05 [From Zofran (as hydrochloride)] hydromorphone AdvReac Hallucinati Verified 11/15/20 11:05 ons - Social History Does the pt smoke?: Yes Smoking Status: Current every day smoker Does the pt drink ETOH?: Yes Does the pt have substance abuse?: No - Immunizations Immunizations are current?: Yes Immunizations: Other immun not current - POLST Patient has POLST: No POLST Status: Full Code PD ED PE NORMAL - Vitals Vital signs reviewed: Yes - General General: Alert and oriented X 3, No acute distress - Neck Neck: Supple, no meningeal sign, No bony TTP - Cardiac Cardiac: RRR, No murmur - Respiratory Respiratory: No respiratory distress, Clear bilaterally - Abdomen Abdomen: Non tender, Other (Bedside ultrasound demonstrates single live intrauterine with a heart rate of 150.) - Derm Derm: No rash - Extremities Extremities: No edema, No calf tenderness / cord - Neuro Neuro: Alert and oriented X 3, Normal speech Results - Vitals Vitals: Vital Signs - 24 hr 11/15/20 11/15/20 11:02 12:07 Temperature 36.3 C L Heart Rate 85 77 Respiratory 20 13 Rate Blood Pressure 130/103 H 113/77 O2 Saturation 100 99 Oxygen O2 Source Room air - EKG (time done) 1114 Rate: Rate (enter#) (72) Rhythm: NSR [place]: Normal Intervals: Normal FL QRS: Normal Ischemia: Normal ST segments Computer interpretation: Agree with computer - Labs Labs: Laboratory Tests 11/15/20 11/15/20 11/15/20 11:26 11:26 12:13 WBC 12.6 H RBC 3.82 L Hgb 12.5 Hct 34.9 L MCV 91.4 MCH 32.7 H MCHC 35.8 RDW 11.9 L Plt Count 344 MPV 8.6 Neut # (Auto) 9.1 H Lymph # (Auto) 2.1 [place] # (Auto) 0.6 Eos # (Auto) 0.7 Baso # (Auto) 0.0 Absolute Nucleated RBC 0.00 Nucleated RBC % 0.0 Sodium 134 L Potassium 2.8 L Chloride 102 Carbon Dioxide 22 Anion Gap 10.0 BUN 7 Creatinine 0.5 Estimated GFR (MDRD) 153 Glucose 92 Calcium 8.9 Total Bilirubin 0.3 AST 21 ALT 23 Alkaline Phosphatase 36 L Total Protein 7.4 Albumin 3.7 Globulin 3.7 Albumin/Globulin Ratio 1.0 Lipase 28 Urine Color YELLOW Urine Clarity CLEAR Urine pH 8.5 H Ur Specific [place] 1.015 Urine Protein NEGATIVE Urine Glucose (UA) NEGATIVE Urine Ketones NEGATIVE Urine Occult Blood SMALL H Urine Nitrite NEGATIVE Urine Bilirubin NEGATIVE Urine Urobilinogen 0.2 (NORMAL) Ur Leukocyte Esterase NEGATIVE Urine RBC 6-10 H Urine WBC 0-3 Ur Squamous Epith Cells RARE Squamous Urine Bacteria None Seen Ur Microscopic Review INDICATED Urine Culture Comments NOT INDICATED PD MEDICAL DECISION MAKING - ED course ED course: 25-year-old woman with chronic hypokalemia presents with vomiting in . Actually for her her potassium is not too bad, she was administered some IV potassium and fluids as well as Phenergan and feeling much better and requesting discharge. Departure - Departure Disposition: 01 Home, Self Care Clinical Impression: Hypokalemia, , Nausea/vomiting in Condition: Stable Record reviewed to determine appropriate education?: Yes Instructions: ED Preg Morning Sickness Prescriptions: Promethazine [Phenergan] 25 mg PO Q6H PRN #14 tab PRN Reason: Nausea / Vomiting Promethazine Supp [Phenergan Supp] 25 mg [place] Q6H PRN #15 supp PRN Reason: Nausea / Vomiting Comments: Follow-up with your OB as scheduled. Return for new or worsening symptoms. Continue usual electrolyte supplementation.
[2020-11-15 12:29] LABS: BILIRUBIN,URINE NEGATIVE (NEGATIVE); GLUCOSE, URINE (UA) NEGATIVE (NEGATIVE); KETONES,URINE (UA) NEGATIVE (NEGATIVE); LEUKOCYTE ESTERASE, URINE NEGATIVE (NEGATIVE); NITRITE,URINE NEGATIVE (NEGATIVE); OCCULT BLOOD,URINE SMALL (NEGATIVE); PH,URINE 8.5 PH (5.0-7.5); PROTEIN,URINE NEGATIVE (NEGATIVE); UROBILINOGEN,URINE 0.2 (NORMAL) E.U./dL (NORMAL)
[2020-11-15 12:32] LABS: CLARITY,URINE CLEAR (CLEAR)
[2020-11-15 12:42] LABS: SQUAMOUS EPITHELIAL CELL,UR RARE Squamous (<= Few)
[2020-11-15 12:43] LABS: BACTERIA,URINE None Seen /HPF (None Seen)
[2020-11-15 13:53] VITALS: BP 123/63
== END 2020-11-15 13:57 | disposition home or self-care (01) ==
LOC: ED 10:58
DX: O21.1 Hyperemesis gravidarum with metabolic disturbance (principal); O99.331 Smoking (tobacco) complicating pregnancy, first trimester; F17.200 Nicotine dependence, unspecified, uncomplicated; Z3A.14 14 weeks gestation of pregnancy
CPT/HCPCS: 36415; 80053; 81001; 83690; 85025; 93005; 96365; 96368; 99284; J7040; 81003; 87086

== ENCOUNTER 2020-11-18 08:00 | Outpatient (CLI) | payer MEDICAID ==
[2020-11-18 14:28] LABS: MUDS CUTOFF CONCENTRATIONS CUTOFF CONC BELOW:
[2020-11-18 14:43] LABS: BILIRUBIN,URINE NEGATIVE (NEGATIVE); GLUCOSE, URINE (UA) NEGATIVE (NEGATIVE); KETONES,URINE (UA) NEGATIVE (NEGATIVE); LEUKOCYTE ESTERASE, URINE NEGATIVE (NEGATIVE); NITRITE,URINE NEGATIVE (NEGATIVE); OCCULT BLOOD,URINE SMALL (NEGATIVE); PROTEIN,URINE NEGATIVE (NEGATIVE); UROBILINOGEN,URINE 0.2 (NORMAL) E.U./dL (NORMAL)
[2020-11-18 14:44] LABS: CLARITY,URINE CLEAR (CLEAR)
[2020-11-18 14:57] LABS: BACTERIA,URINE None Seen /HPF (None Seen); SQUAMOUS EPITHELIAL CELL,UR RARE Squamous (<= Few)
[2020-11-18 14:58] LABS: AMPHETAMINE SCREEN,URINE NEGATIVE (NEGATIVE); BENZODIAZEPINES SCREEN, URINE NEGATIVE (NEGATIVE); COCAINE SCREEN URINE NEGATIVE (NEGATIVE); METHADONE SCREEN, URINE NEGATIVE (NEGATIVE); METHAMPHETAMINES SCREEN, URINE NEGATIVE (NEGATIVE); OPIATE SCREEN, URINE NEGATIVE (NEGATIVE); OXYCODONE SCREEN, URINE NEGATIVE (NEGATIVE); PROPOXYPHENE SCREEN, URINE NEGATIVE (NEGATIVE); TRICYCLIC ANTIDEPRESSANT,URINE NEGATIVE (NEGATIVE)
== END 2020-11-18 23:59 ==
LOC: LAB.N 08:00
PROVIDERS: ATTEND Obstetrics & Gynecology
DX: Z36.89 Encounter for other specified antenatal screening (principal)
CPT/HCPCS: 80306; 81001; 87086

== ENCOUNTER 2020-11-18 08:00 | Outpatient (CLI) | payer MEDICAID ==
[2020-11-18 20:26] LABS: CANDIDA GROUP DNA POSITIVE (NEGATIVE); CANDIDA KRUSEI DNA NEGATIVE (NEGATIVE); TRICHOMONAS VAGINALIS DNA NEGATIVE (NEGATIVE)
== END 2020-11-18 23:59 ==
LOC: LAB.N 08:00
PROVIDERS: ATTEND Obstetrics & Gynecology
DX: Z12.4 Encounter for screening for malignant neoplasm of cervix (principal); N76.0 Acute vaginitis
CPT/HCPCS: 87661; 87801

== ENCOUNTER 2020-11-23 13:09 | Outpatient (CLI) | payer MEDICAID ==
[2020-11-23 13:44] LABS: BASOPHILS % (AUTO) 0.3 %; EOSINOPHILS # (AUTO) 0.9 10^3/uL (0.0-0.7); EOSINOPHILS % (AUTO) 5.9 %; HGB - HEMOGLOBIN 12.1 g/dL (12.0-16.0); LYMPHOCYTES # (AUTO) 2.3 10^3/uL (1.5-3.5); LYMPHOCYTES % (AUTO) 14.9 %; MEAN CORPUSCULAR HEMOGLOBIN 32.5 pg (27.0-31.0); MEAN CORPUSCULAR HGB CONC 35.4 g/dL (32.0-36.0); MEAN CORPUSCULAR VOLUME 91.9 fL (81.0-99.0); MEAN PLATELET VOLUME 8.5 fL (7.9-10.8); MONOCYTES # (AUTO) 0.7 10^3/uL (0.0-1.0); MONOCYTES % (AUTO) 4.5 %; NEUTROPHILS # (AUTO) 11.2 10^3/uL (1.5-6.6); NEUTROPHILS % (AUTO) 73.6 %; PLT - PLATELET COUNT 333 10^3/uL (130-450); RED BLOOD COUNT 3.72 10^6/uL (4.20-5.40); RED CELL DISTRIBUTION WIDTH 12.1 % (12.0-15.0); WHITE BLOOD COUNT 15.2 x10^3/uL (4.8-10.8)
[2020-11-23 13:58] LABS: ALBUMIN 3.6 g/dL (3.2-5.5); BILIRUBIN,TOTAL 0.4 mg/dL (0.2-1.0); CALCIUM 9.8 mg/dL (8.5-10.3); CREATININE 0.6 mg/dL (0.4-1.0); MAGNESIUM 1.3 mg/dL (1.7-2.8); TOTAL PROTEIN 7.3 g/dL (6.7-8.2)
[2020-11-24 12:32] LABS: HEPATITIS B SURFACE ANTIGEN NON-REACTIVE (NON-REACTIVE)
[2020-11-24 15:47] LABS: HIV AG/AB 4TH GEN NON-REACTIVE (NON-REACTIVE)
== END 2020-11-23 13:10 | disposition home or self-care (01) ==
LOC: LAB 13:09
PROVIDERS: ATTEND Obstetrics & Gynecology
DX: O09.90 Supervision of high risk pregnancy, unspecified, unspecified trimester (principal); N25.9 Disorder resulting from impaired renal tubular function, unspecified; Z36.89 Encounter for other specified antenatal screening
CPT/HCPCS: 36415; 80053; 81599; 83735; 85025; 86317; 86592; 86762; 86787; 86850; 86900; 86901; 87340; 87389

== ENCOUNTER 2020-11-25 13:27 | Outpatient (CLI) | payer MEDICAID ==
--- NOTE | 2020-11-25 14:34 | Ultrasound Report ---
PROCEDURE: OB 14+ Weeks INDICATIONS: SUPERVISION OF HIGH RISK , DATING OUTSIDE/PRIOR DATING DATA: Last menstrual period (LMP): Unknown. LMP-based estimated date of delivery (CLARISSA): Unknown. First dating scan (date and location): 10/04/2020. Estimated date of delivery (CLARISSA) from first dating scan: 05/23/2021. TECHNIQUE: Real-time scanning was performed of the fetus, with image documentation and biometric measurements. Endovaginal scanning: Not performed COMPARISON: 10/04/2020 FINDINGS: General: A single living intrauterine gestation is present. Presentation: There Placenta: Placental position is posterior, without previa. Amniotic fluid index: Deepest pocket is 4.2 cm. heart rate: 152 beats per minute. Maternal cervical canal: Closed biometrics: Biparietal diameter: 2.99 cm = 15 weeks 3 days Head circumference: 10.9 cm = 15 weeks 2 days Abdominal circumference: 8.8 cm = 15 weeks 0 days Femur length: 1.7 cm = 15 weeks 0 days Estimated gestational age from initial scan: 14 weeks 3 days. Composite gestational age from present scan: 15 weeks 1 day Estimated weight and percentile: Measurement variability for biometric dating: +/- 10 days from 12-20 weeks gestation, +/- 2 weeks fro m 20-30 weeks gestation, +/- 3 weeks for 30 weeks gestation or later. Anatomic survey: Neuro: Ventricles are non-dilated at less than 10 mm. Diaphragm: Diaphragm is intact. Stomach: Left-sided stomach is present. Bladder: Normal in size. Extremities: All 4 extremities identified. The remaining organs were not identified due to limitation of the exam by body habitus and gestationa l age. IMPRESSION: 1. Composite gestational age from present scan = 15 weeks 1 day. 2. Limited exam due to body habitus and gestational age. Reviewed by: Misha Murphy on 11/25/2020 2:32 PM PST Approved by: Misha Murphy on 11/25/2020 2:32 PM PST Station ID: [id number]
== END 2020-11-25 13:28 | disposition home or self-care (01) ==
LOC: DI 13:27
PROVIDERS: ATTEND Obstetrics & Gynecology
DX: O09.92 Supervision of high risk pregnancy, unspecified, second trimester (principal)

== ENCOUNTER 2020-11-27 04:26 | Emergency (ER) | payer MEDICAID ==
[2020-11-27 04:36] VITALS: BP 100/62
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
[2020-11-27] MEDS ORDERED: CYCLOBENZAPRINE 10 MG TABLET PO STA (05:17)
[2020-11-27] MEDS ORDERED: HYDROcod/ACETAM 5/325 MG TABLET PO STA ×2 (05:17→06:09)
[2020-11-27] MEDS ORDERED: PROMETHAZINE 25 MG TABLET PO STA (06:09)
--- NOTE | 2020-11-27 08:48 | XRAY Report ---
PROCEDURE: Foot 3 View RT INDICATIONS: injury, tenderness distal metatarsals TECHNIQUE: 3 views of the foot were acquired. COMPARISON: None FINDINGS: Bones: No fractures or dislocations. No suspicious bony lesions. Toe alignment abnormalities can b e seen. Soft tissues: No tibiotalar joint effusion. Achilles tendon appears normal. IMPRESSION: No acute plain film abnormality is seen. Note: No significant discrepancy from the preliminary report. Reviewed by: Jose Alberto Riggs MD on 11/27/2020 7:47 AM [facility] Approved by: Jose Alberto Riggs MD on 11/27/2020 7:47 AM [facility] Station ID: [id number]
== END 2020-11-27 06:23 | disposition home or self-care (01) ==
LOC: ED 04:26
DX: O9A.212 Injury, poisoning and certain other consequences of external causes complicating pregnancy, second trimester (principal); S39.012A Strain of muscle, fascia and tendon of lower back, initial encounter; S90.414A Abrasion, right lesser toe(s), initial encounter; W01.0XXA Fall on same level from slipping, tripping and stumbling without subsequent striking against object, initial encounter; Y92.007 Garden or yard of unspecified non-institutional (private) residence as the place of occurrence of the external cause; O99.332 Smoking (tobacco) complicating pregnancy, second trimester; F17.200 Nicotine dependence, unspecified, uncomplicated; Z3A.15 15 weeks gestation of pregnancy
CPT/HCPCS: 73630; 99283; 99284; A9270; Q0169

== ENCOUNTER 2020-12-01 12:27 | Outpatient (CLI) | payer MEDICAID ==
[2020-12-01 13:36] LABS: CALCIUM 9.1 mg/dL (8.5-10.3); CREATININE 0.4 mg/dL (0.4-1.0); MAGNESIUM 1.5 mg/dL (1.7-2.8)
--- OUTSIDE RECORDS SUMMARY | 2020-12-08 00:43 | EXTERNAL MEDICAL SUMMARY RPT | Continuity of Care Document ---
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 [facility] Surg ical Care 2020-11-12 00:00:00 null [facility] Surg ical Care 2020-11-12 00:00:00 null [facility] Surg ical Care 2020-11-12 00:00:00 null [facility] 2020-11-12 00:00:00 null [facility] 2020-11-12 00:00:00 null [facility] Surg ical Care 2020-11-12 00:00:00 null [facility] Surg ical Care 2020-11-12 00:00:00 null [facility] 2020-11-12 00:00:00 null [facility] Surg ical Care 2020-11-12 00:00:00 null [facility] 2020-11-12 00:00:00 null [facility] 2020-11-12 00:00:00 POTASSIUM CHLORIDE [facility] Surg ical Care 2020-11-12 00:00:00 PYRIDOXINE HCL TABS [facility] g[facility] Care 2020-11-12 00:00:00 PROMETHAZINE HCL [facility] Surg ical Care 2020-11-12 00:00:00 MAGNESIUM OXIDE TABS [facility] 2020-11-12 00:00:00 DOXYLAMINE SUCCINATE (SLEEP) [facility] 2020-11-12 00:00:00 [id number] [facility] 2020-11-12 00:00:00 DOXYLAMINE SUCCINATE (SLEEP) [facility] 2020-11-12 00:00:00 POTASSIUM [facility]ORIDE [facility] 2020-11-12 00:00:00 PYRIDOXINE [facility]CL [facility]S [facility] 2020-11-12 00:00:00 MAGNESIUM OXIDE TABS [facility] 2020-11-12 00:00:00 PROMETHAZINE HCL [facility] 2020-11-12 00:00:00 null [facility] CPV [facility]HC 2020-11-12 00:00:00 null [facility] 2020-11-12 00:00:00 null [facility] 2020-11-12 00:00:00 null [facility] 2020-11-12 00:00:00 null [facility] 2020-11-12 00:00:00 null [facility] 2020-11-12 00:00:00 null [facility] 2020-11-12 00:00:00 null [facility] 2020-11-12 00:00:00 null [facility] 2020-11-12 00:00:00 null [facility] 2020-11-12 00:00:00 null [facility] 2020-11-12 00:00:00 null [facility] 2020-11-12 00:00:00 POTASSIUM CHLORIDE [facility] 2020-11-12 00:00:00 PYRIDOXINE HCL TABS [facility] 2020-11-12 00:00:00 PROMETHAZINE HCL [facility] 2020-11-12 00:00:00 MAGNESIUM OXIDE TABS [facility] 2020-11-12 00:00:00 DOXYLAMINE SUCCINATE (SLEEP) [facility] 2020-11-12 00:00:00 [id number] [facility] 2020-11-12 00:00:00 DOXYLAMINE SUCCINATE (SLEEP) [facility] 2020-11-12 00:00:00 POTASSIUM CHLORIDE [facility] 2020-11-12 00:00:00 PYRIDOXINE HCL TABS [facility] 2020-11-12 00:00:00 MAGNESIUM OXIDE TABS [facility] 2020-11-12 00:00:00 PROMETHAZINE HCL [facility] 2020-11-12 00:00:00 null [facility] 2020-11-12 00:00:00 null [facility] 2020-11-12 00:00:00 null [facility] 2020-11-12 00:00:00 null [facility] 2020-11-12 00:00:00 null [facility] 2020-11-12 00:00:00 null [facility] 2020-11-12 00:00:00 null [facility] 2020-11-12 00:00:00 null [facility] 2020-11-12 00:00:00 null [facility] 2020-11-12 00:00:00 null [facility] 2020-11-12 00:00:00 null [facility] 2020-11-12 00:00:00 null [facility] 2020-11-12 00:00:00 null [facility] 2020-11-12 00:00:00 null [facility] 2020-11-12 00:00:00 null [facility] 2020-11-12 00:00:00 null [facility] 2020-11-12 00:00:00 null [facility] 2020-11-12 00:00:00 null [facility] 2020-11-12 00:00:00 null [facility] 2020-11-12 00:00:00 null [facility] 2020-11-12 00:00:00 null [facility] 2020-11-12 00:00:00 null [facility] 2020-11-12 00:00:00 null [facility] 2020-11-12 00:00:00 null [facility] 2020-11-12 00:00:00 POTASSIUM CHLORIDE [facility] 2020-11-12 00:00:00 METOCLOPRAMIDE HCL [facility] 2020-11-12 00:00:00 P[facility]ASSIUM [facility]ORIDE [facility] 2020-11-12 00:00:00 PYRIDOXINE HCL TABS [facility] 2020-11-12 00:00:00 PROMETHAZINE HCL [facility] 2020-11-12 00:00:00 MAGNESIUM OXIDE TABS [facility] 2020-11-12 00:00:00 SALINE [facility] 2020-11-12 00:00:00 DOXYLAMINE SUCCINATE (SLEEP) [facility] 2020-11-12 00:00:00 PROMETHAZINE HCL [facility] 2020-11-12 00:00:00 ASPIRIN [facility] 2020-11-12 00:00:00 [id number] [facility] CPV RHC 2020-11-12 00:00:00 MV & MIN W/FA-DHA [facility] CPV RHC 2020-11-12 00:00:00 DOXYLAMINE SUCCINATE (SLEEP) [facility] 2020-11-12 00:00:00 POTASSIUM CHLORIDE [facility] 2020-11-12 00:00:00 POTASSIUM CHLORIDE [facility] 2020-11-12 00:00:00 PYRIDOXINE HCL TABS [facility] 2020-11-12 00:00:00 METOCLOPRAMIDE HCL [facility] 2020-11-12 00:00:00 MAGNESIUM OXIDE TABS [facility] 2020-11-12 00:00:00 PROMETHAZINE HCL [facility] 2020-11-12 00:00:00 PROMETHAZINE HCL [facility] 2020-11-12 00:00:00 null [facility] 2020-11-12 00:00:00 null [facility] 2020-11-12 00:00:00 null [facility] 2020-11-12 00:00:00 null [facility] 2020-11-12 00:00:00 null [facility] 2020-11-12 00:00:00 null [facility] 2020-11-12 00:00:00 null [facility] 2020-11-12 00:00:00 null [facility] 2020-11-12 00:00:00 null [facility] 2020-11-12 00:00:00 null [facility] 2020-11-12 00:00:00 null [facility] 2020-11-12 00:00:00 null [facility] 2020-11-12 00:00:00 null [facility] 2020-11-12 00:00:00 null [facility] 2020-11-12 00:00:00 null [facility] 2020-11-12 00:00:00 null [facility] 2020-11-12 00:00:00 null [facility] 2020-11-12 00:00:00 null [facility] 2020-11-12 00:00:00 null [facility] 2020-11-12 00:00:00 null [facility] 2020-11-12 00:00:00 null [facility] 2020-11-12 00:00:00 null [facility] 2020-11-12 00:00:00 null [facility] 2020-11-12 00:00:00 null [facility] 2020-11-12 00:00:00 POTASSIUM CHLORIDE [facility] 2020-11-12 00:00:00 METOCLOPRAMIDE HCL [facility] 2020-11-12 00:00:00 POTASSIUM CHLORIDE [facility] 2020-11-12 00:00:00 PYRIDOXINE HCL TABS [facility] 2020-11-12 00:00:00 PROMETHAZINE HCL [facility] 2020-11-12 00:00:00 MAGNESIUM OXIDE TABS [facility] 2020-11-12 00:00:00 SALINE [facility] 2020-11-12 00:00:00 DOXYLAMINE SUCCINATE (SLEEP) [facility] 2020-11-12 00:00:00 PROMETHAZINE HCL [facility] 2020-11-12 00:00:00 ASPIRIN [facility] 2020-11-12 00:00:00 [id number] [facility] 2020-11-12 00:00:00 MV & MIN W/FA-DHA [facility] 2020-11-12 00:00:00 DOXYLAMINE SUCCINATE (SLEEP) [facility] 2020-11-12 00:00:00 POTASSIUM CHLORIDE [facility] 2020-11-12 00:00:00 POTASSIUM CHLORIDE [facility] 2020-11-12 00:00:00 PYRIDOXINE HCL TABS [facility] 2020-11-12 00:00:00 METOCLOPRAMIDE HCL [facility] 2020-11-12 00:00:00 MAGNESIUM OXIDE TABS [facility] 2020-11-12 00:00:00 PROMETHAZINE HCL [facility] 2020-11-12 00:00:00 PROMETHAZINE HCL [facility] 2020-11-12 00:00:00 null [facility] 2020-11-12 00:00:00 null [facility] 2020-11-12 00:00:00 null [facility] 2020-11-12 00:00:00 null [facility] 2020-11-12 00:00:00 null [facility] 2020-11-12 00:00:00 null [facility] 2020-11-12 00:00:00 null [facility] 2020-11-12 00:00:00 null [facility] 2020-11-12 00:00:00 null [facility] 2020-11-12 00:00:00 null [facility] 2020-11-12 00:00:00 null [facility] 2020-11-12 00:00:00 null [facility] 2020-11-12 00:00:00 null [facility] 2020-11-12 00:00:00 null [facility] 2020-11-12 00:00:00 null [facility] 2020-11-12 00:00:00 null [facility] 2020-11-12 00:00:00 null [facility] 2020-11-12 00:00:00 null [facility] 2020-11-12 00:00:00 null [facility] 2020-11-12 00:00:00 null [facility] 2020-11-12 00:00:00 null [facility] 2020-11-12 00:00:00 null [facility] 2020-11-12 00:00:00 null [facility] 2020-11-12 00:00:00 null [facility] 2020-11-12 00:00:00 POTASSIUM CHLORIDE [facility] 2020-11-12 00:00:00 METOCLOPRAMIDE HCL [facility] 2020-11-12 00:00:00 POTASSIUM CHLORIDE [facility] 2020-11-12 00:00:00 PYRIDOXINE HCL TABS [facility] 2020-11-12 00:00:00 PROMETHAZINE HCL [facility] 2020-11-12 00:00:00 MAGNESIUM OXIDE TABS [facility] 2020-11-12 00:00:00 SALINE [facility] 2020-11-12 00:00:00 DOXYLAMINE SUCCINATE (SLEEP) [facility] 2020-11-12 00:00:00 PROM[facility]HAZINE [facility]CL [facility] 2020-11-12 00:00:00 ASPIRIN [facility] 2020-11-12 00:00:00 [id number] [facility] CPV RHC 2020-11-12 00:00:00 MV & MIN W/FA-DHA [facility] 2020-11-12 00:00:00 DOXYLAMINE SUCCINATE (SLEEP) [facility] 2020-11-12 00:00:00 POTASSIUM CHLORIDE [facility] 2020-11-12 00:00:00 POTASSIUM CHLORIDE [facility] 2020-11-12 00:00:00 PYRIDOXINE HCL TABS [facility] 2020-11-12 00:00:00 METOCLOPRAMIDE HCL [facility] 2020-11-12 00:00:00 MAGNESIUM OXIDE TABS [facility] 2020-11-12 00:00:00 PROMETHAZINE HCL [facility] 2020-11-12 00:00:00 PROMETHAZINE HCL [facility] 2020-11-12 00:00:00 null [facility] 2020-11-12 00:00:00 null [facility] 2020-11-12 00:00:00 null [facility] 2020-11-12 00:00:00 null [facility] 2020-11-12 00:00:00 null [facility] C[facility] 2020-11-12 00:00:00 null [facility] 2020-11-12 00:00:00 null [facility] 2020-11-12 00:00:00 null [facility] 2020-11-12 00:00:00 null [facility] 2020-11-12 00:00:00 null [facility] 2020-11-12 00:00:00 null [facility] 2020-11-12 00:00:00 null [facility] C[facility] 2020-11-12 00:00:00 null [facility] 2020-11-12 00:00:00 null [facility] 2020-11-12 00:00:00 null [facility] 2020-11-12 00:00:00 null [facility] 2020-11-12 00:00:00 null [facility] CPV RHC 2020-11-12 00:00:00 null [facility] 2020-11-12 00:00:00 null [facility] 2020-11-12 00:00:00 null [facility] C[facility] 2020-11-12 00:00:00 null [facility] C[facility] 2020-11-12 00:00:00 null [facility] C[facility] 2020-11-12 00:00:00 null [facility] 2020-11-12 00:00:00 null [facility] 2020-11-12 00:00:00 POTASSIUM CHLORIDE [facility] 2020-11-12 00:00:00 METOCLOPRAMIDE HCL [facility] 2020-11-12 00:00:00 POTASSIUM CHLORIDE [facility] 2020-11-12 00:00:00 P[facility]OXINE [facility] 2020-11-12 00:00:00 PROMETHAZINE [facility]CL [facility] 2020-11-12 00:00:00 MAGNESIUM OXIDE [facility]S [facility] 2020-11-12 00:00:00 SALINE [facility] 2020-11-12 00:00:00 DOXYLAMINE SUCCINATE (SLEEP) [facility] 2020-11-12 00:00:00 [facility] 2020-11-12 00:00:00 ASPIRIN [facility] 2020-11-12 00:00:00 [id number] [facility] 2020-11-12 00:00:00 MV & MIN W/FA-DHA [facility] 2020-11-12 00:00:00 DOXYLAMINE [facility]IN[facility]SLE[facility]) [facility] 2020-11-12 00:00:00 POTASSIUM CHLORIDE [facility] 2020-11-12 00:00:00 POTASSIUM CHLORIDE [facility] 2020-11-12 00:00:00 PYRIDOXINE HCL TABS [facility] 2020-11-12 00:00:00 METOCLOPRAMIDE HCL [facility] 2020-11-12 00:00:00 MAGNESIUM OXIDE TABS [facility] 2020-11-12 00:00:00 PROMETHAZINE HCL [facility] 2020-11-12 00:00:00 PROMETHAZINE HCL [facility] 2020-11-15 00:00:00 Promethazine [facility] 2020-11-15 00:00:00 [facility] 2020-11-18 00:00:00 null [facility] 2020-11-18 00:00:00 null [facility] 2020-11-18 00:00:00 CLOTRIMAZOLE [facility] 2020-11-18 00:00:00 CLOTRIMAZOLE [facility] 2020-11-18 00:00:00 null [facility] 2020-11-18 00:00:00 null [facility] 2020-11-18 00:00:00 CLOTRIMAZOLE [facility] 2020-11-18 00:00:00 CLOTRIMAZOLE [facility] 2020-11-18 00:00:00 null [facility] 2020-11-18 00:00:00 null [facility] 2020-11-18 00:00:00 CLOTRIMAZOLE [facility] 2020-11-18 00:00:00 [facility]IMAZOLE [facility] 2020-11-18 00:00:00 [facility] 2020-11-18 00:00:00 [facility] 2020-11-18 00:00:00 [facility]AZOLE [facility] 2020-11-18 00:00:00 CLOTRIMAZOLE [facility] R[facility] Procedures date description facility 2020-09-29 00:00:00 [facility] date description facility 2020-09-29 00:00:00 [facility] date description facility 2020-11-18 00:00:00 CHLAM, NEISSERIA, TRICH DNA [facility] RHC date description facility 2020-11-18 00:00:00 US OB >14 WEEKS [facility] R[facility] date description facility 2020-11-18 00:00:00 UTOX w/ Reflex Testing [facility]PV RHC date description facility 2020-11-18 00:00:00 Urinalysis with Microscopic [facility] CPV Exam, Culture in Indicated RHC date description facility 2020-11-18 00:00:00 Vaginitis 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 [facility] CPV III RHC date description facility 2020-11-18 00:00:00 THIN PREP PAP w/GC & CHLAMYDIA [facility] CPV 21-30 Y/O RHC date description facility 2020-11-18 00:00:00 [id number] Initial Visit [facility] CPV (Global) RHC date description facility 2020-11-18 00:00:00 [facility] R[facility] date description facility 2020-11-18 00:00:00 CHLAM, NEISSERIA, TRICH DNA [facility] CPV RHC date description facility 2020-11-18 00:00:00 US OB >14 WEEKS [facility] R[facility] date description facility 2020-11-18 00:00:00 UTOX w/ Reflex Testing [facility] R[facility] date description facility 2020-11-18 00:00:00 [facility]inal[facility] with Microscopic [facility] Exam, Culture in Indicated RHC date description facility 2020-11-18 00:00:00 Vaginitis 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 [facility] C[facility] III RHC date description facility 2020-11-18 00:00:00 THIN PREP PAP w/GC & CHLAMYDIA [facility] 21-30 Y/O RHC date description facility 2020-11-18 00:00:00 [id number] Initial Visit [facility] CPV (Global) RHC date description facility 2020-11-18 00[facility] description facility 2020-11-18 00:00:00 CHLAM, NEISSERIA, TRICH DNA [facility] R[facility] date description facility 2020-11-18 00:00:00 US [facility] >[address] [facility] date description facility 2020-11-18 00:00:00 UTOX w/ Reflex Testing [facility]PV RHC date description facility 2020-11-18 00:00:00 Urinalysis with Microscopic [facility] Exam, Culture in Indicated RHC date description facility 2020-11-18 00:00:00 Vaginitis 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 [facility] CPV III RHC date description facility 2020-11-18 00:00:00 THIN PREP PAP w/GC & CHLAMYDIA [facility] 21-30 Y/O RHC date description facility 2020-11-18 00:00:00 [id number] Initial Visit [facility] (Global) RHC date description facility 2020-11-18 00:00[facility] date description facility 2020-11-18 00:00:00 CHLAM, NEISSERIA, TRICH DNA [facility] date description facility 2020-11-18 00:00:00 US OB >14 WEEKS [facility] RHC date description facility 2020-11-18 00:00:00 UTOX w/ Reflex Testing [facility] R[facility] date description facility 2020-11-18 00:00:00 Urinalysis with Microscopic [facility] Exam, Culture in Indicated RHC date description facility 2020-11-18 00:00:00 Vaginitis 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 [facility] CPV III RHC date description facility 2020-11-18 00:00:00 THIN PREP PAP w/GC & CHLAMYDIA [facility]PV 21-30 Y/O RHC date description facility 2020-11-18 00:00:00 [id number] Initial Visit [facility] CPV (Global) RHC date description facility 2020-11-18 00:00:00 [facility] R[facility] date description facility 2020-11-23 00:00:00 [facility] date description facility 2020-11-23 00:00:00 Magnesium (Mg) [facility] R[facility] date description facility 2020-11-23 00:00:[facility] date description facility 2020-11-24 00:00:00 Iron & TIBC [facility] RHC date description facility 2020-11-24 00:00:00 Ferritin [facility] date description facility 2020-11-24 00:00:[address] [facility] CPV RHC date description facility 2020-11-24 00:00:00 [facility] date description facility 2020-11-30 00:00:00 General Physician [facility] Results Social History date description facility [id number] Smokes tobacco daily (finding) [facility] date description facility 2020-11-12 00:00:00 [facility] facility 2020-11-18 00:00:00 Current [facility] sm[facility] RH Social History date description facility [id number] Smokes tobacco daily (finding) [facility] date description facility 2020-11-12 00:00:00 [facility] description facility 2020-11-18 00:00:00 Current [facility] day sm[facility] C date description facility [id number]
== END 2020-12-01 12:28 | disposition home or self-care (01) ==
LOC: LAB 12:27
PROVIDERS: ATTEND Obstetrics & Gynecology
DX: O09.90 Supervision of high risk pregnancy, unspecified, unspecified trimester (principal); O99.283 Endocrine, nutritional and metabolic diseases complicating pregnancy, third trimester; O99.019 Anemia complicating pregnancy, unspecified trimester; D64.89 Other specified anemias; E83.42 Hypomagnesemia; Z3A.00 Weeks of gestation of pregnancy not specified; E87.6 Hypokalemia
CPT/HCPCS: 36415; 80048; 81599; 82728; 83021; 83540; 83735; 84466; 85014; 85018; 85041

== ENCOUNTER 2020-12-06 11:50 | Emergency (ER) | payer MEDICAID ==
[2020-12-06 11:59] VITALS: BP 133/53
== END 2020-12-06 13:14 | disposition left against medical advice (07) ==
LOC: ED 11:50
DX: Z53.21 Procedure and treatment not carried out due to patient leaving prior to being seen by health care provider (principal)

== ENCOUNTER 2020-12-14 12:10 | Outpatient (CLI) | payer MEDICAID ==
[2020-12-14 12:41] LABS: BASOPHILS # (AUTO) 0.1 10^3/uL (0.0-0.1); BASOPHILS % (AUTO) 0.4 %; EOSINOPHILS # (AUTO) 0.6 10^3/uL (0.0-0.7); HGB - HEMOGLOBIN 11.7 g/dL (12.0-16.0); LYMPHOCYTES # (AUTO) 2.5 10^3/uL (1.5-3.5); LYMPHOCYTES % (AUTO) 15.7 %; MEAN CORPUSCULAR HEMOGLOBIN 32.1 pg (27.0-31.0); MEAN CORPUSCULAR HGB CONC 34.7 g/dL (32.0-36.0); MEAN CORPUSCULAR VOLUME 92.6 fL (81.0-99.0); MEAN PLATELET VOLUME 8.6 fL (7.9-10.8); MONOCYTES # (AUTO) 0.9 10^3/uL (0.0-1.0); MONOCYTES % (AUTO) 5.3 %; NEUTROPHILS # (AUTO) 11.8 10^3/uL (1.5-6.6); NEUTROPHILS % (AUTO) 72.9 %; PLT - PLATELET COUNT 322 10^3/uL (130-450); RED BLOOD COUNT 3.64 10^6/uL (4.20-5.40); RED CELL DISTRIBUTION WIDTH 12.3 % (12.0-15.0); WHITE BLOOD COUNT 16.2 x10^3/uL (4.8-10.8)
[2020-12-14 12:46] LABS: BILIRUBIN,URINE NEGATIVE (NEGATIVE); GLUCOSE, URINE (UA) NEGATIVE (NEGATIVE); KETONES,URINE (UA) NEGATIVE (NEGATIVE); LEUKOCYTE ESTERASE, URINE NEGATIVE (NEGATIVE); NITRITE,URINE NEGATIVE (NEGATIVE); OCCULT BLOOD,URINE SMALL (NEGATIVE); PROTEIN,URINE NEGATIVE (NEGATIVE); UROBILINOGEN,URINE 0.2 (NORMAL) E.U./dL (NORMAL)
[2020-12-14 12:50] LABS: CLARITY,URINE CLEAR (CLEAR)
[2020-12-14 12:51] LABS: CREATININE 0.5 mg/dL (0.4-1.0); MAGNESIUM 1.3 mg/dL (1.7-2.8)
[2020-12-14 12:59] LABS: BACTERIA,URINE Rare /HPF (None Seen); RBC,URINE 0-5 /HPF (0-5); SQUAMOUS EPITHELIAL CELL,UR RARE Squamous (<= Few)
[2020-12-14 13:53] LABS: CREATININE,URINE 91.6 mg/dL; MICROALBUM/CREATININE RATIO,UR 2.2 ug/mg (<30.0); MICROALBUMIN,URINE 0.2 mg/dL (0-300.0)
== END 2020-12-14 12:11 | disposition home or self-care (01) ==
LOC: LAB 12:10
PROVIDERS: ATTEND Internal Medicine Nephrology
DX: E83.42 Hypomagnesemia (principal); E87.6 Hypokalemia
CPT/HCPCS: 36415; 80048; 81001; 81599; 82043; 82310; 82570; 83735; 84133; 85025; 87086

== ENCOUNTER 2020-12-15 13:44 | Outpatient (CLI) | payer MEDICAID ==
[2020-12-15 13:53] VITALS: BP 122/56
--- NOTE | 2020-12-15 16:15 | HISTORY & PHYSICAL EXAMINATION ---
DATE OF SERVICE: 12/15/2020 Physician: Christopher Morales MD IDENTIFICATION: The patient is a 25-year-old primigravida who is currently 17 weeks and 1 day. This is determined by a 7-week ultrasound. CHIEF COMPLAINT: Vaginal bleeding. HISTORY OF PRESENT ILLNESS: The patient states she has had 2 episodes of what appears to be initially reddish and now brownish vaginal discharge. She denies any trauma. She states this happened spontaneously. The last episode of intercourse was roughly 2 days ago. She denies any pain or tenderness at this time. She is noted to be A positive for blood type. She has not had any cramping otherwise. She has had ultrasounds in the past, which shows a placenta which is posterior. PAST MEDICAL HISTORY: Positive for anxiety, asthma, migraines, ovarian cysts as well as Gitelman syndrome, and chronic urinary tract infections. PAST SURGICAL HISTORY: Positive for ACL reconstruction, myringotomy, tonsillectomy, and adenoidectomy. HABITS: The patient denies a history of alcohol. She does smoke on a daily basis. SOCIAL HISTORY: The patient lives in [place]. The father of the baby is currently involved with the . ALLERGIES: ZOFRAN, HYDROMORPHONE, CINNAMON, BISMUTH, TORADOL, LORAZEPAM, AND LAVENDER. CURRENT MEDICATIONS: Clotrimazole cream. She is taking vitamins, which she is running out, but has an appointment to be seen in the clinic on Sunday. magnesium titrate, K. PHYSICAL EXAMINATION: GENERAL: A well-developed, well-nourished white female. She is in no acute distress at this time. She is obese. HEENT: Pupils equal and round. Extraocular muscles are intact. HEART: Regular rate and rhythm without murmurs. LUNGS: Lung mora are clear without rales or wheezes. BACK: The patient has tenderness in the back, probably about mid back. She has a history of having a fall back in October and is currently being evaluated. ABDOMEN: Uterus is nontender, appropriate size. DIAGNOSTIC DATA: Ultrasound showed a normal placenta without evidence of any abruption. An active normal fetus was seen inside. She has not performed her 20-week ultrasound, but is scheduled in the near future. IMPRESSION: A 25-year-old primigravida at 17 weeks 1 day with vaginal bleeding, which appears to be old in nature. There is no evidence of any abruption or history of any trauma. I have instructed her to relax, take it easy for the next couple of days. She is not to engage in intercourse for 2 weeks. She is instructed to follow up at appointment on Sunday. yesterday her K was 3.4 Mg 1.3. TD: 12/15/2020 16:03 [facility]ITAL[facility]
--- NOTE | 2020-12-15 16:40 | Ultrasound Report ---
PROCEDURE: OB F/U or Repeat INDICATIONS: Vaginal bleeding OUTSIDE/PRIOR DATING DATA: Last menstrual period (LMP): Unknown. LMP-based estimated date of delivery (CLARISSA): Unknown. First dating scan (date and location): 10/04/2020. Estimated date of delivery (CLARISSA) from first dating scan: 05/23/2021. TECHNIQUE: Real-time scanning was performed of the fetus, with image documentation and biometric measurements. COMPARISON: OB ultrasound 10/04/2020, 11/10/2020, 11/25/2020 FINDINGS: General: A single living intrauterine gestation is present. Presentation: Vertex Placenta: Placental position is posterior, without previa. Placenta is approximately 5.8 cm from th e cervical os. Amniotic fluid index: 12.0 cm, 37th percentile for gestational age. Largest pocket 3.7 cm heart rate: 147 beats per minute. Maternal cervical canal: 3.8 cm long; normal length is 2.5 cm or more. biometrics: Estimated gestational age from initial scan: 17 weeks 2 days Other: Not applicable. IMPRESSION: 1. Single live intrauterine with ultrasound gestational age of 17 weeks 2 days. 2. Cervical length is within normal limits measuring 3.8 cm. Reviewed by: Anni Nash MD on 12/15/2020 4:39 PM PST Approved by: Anni Nash MD on 12/15/2020 4:39 PM PST Station ID: [id number]
[2020-12-16 00:03] LABS: CANDIDA KRUSEI DNA NEGATIVE (NEGATIVE)
[2020-12-16 00:04] LABS: CANDIDA GROUP DNA POSITIVE (NEGATIVE); TRICHOMONAS VAGINALIS DNA NEGATIVE (NEGATIVE)
== END 2020-12-15 16:15 | disposition home or self-care (01) ==
LOC: WFO 13:44 → FBP 13:46 → WFO 16:15
PROVIDERS: ATTEND Obstetrics & Gynecology
DX: O20.9 Hemorrhage in early pregnancy, unspecified (principal); Z3A.17 17 weeks gestation of pregnancy; O99.342 Other mental disorders complicating pregnancy, second trimester; F41.9 Anxiety disorder, unspecified; O99.512 Diseases of the respiratory system complicating pregnancy, second trimester; J45.909 Unspecified asthma, uncomplicated; O99.352 Diseases of the nervous system complicating pregnancy, second trimester; G43.909 Migraine, unspecified, not intractable, without status migrainosus; O34.82 Maternal care for other abnormalities of pelvic organs, second trimester; N83.209 Unspecified ovarian cyst, unspecified side; O99.891 Other specified diseases and conditions complicating pregnancy; N25.89 Other disorders resulting from impaired renal tubular function
CPT/HCPCS: 87661; 87801; 99212

== ENCOUNTER 2020-12-18 10:44 | Emergency (ER) | payer MEDICAID ==
[2020-12-18 11:26] LABS: BILIRUBIN,URINE NEGATIVE (NEGATIVE); GLUCOSE, URINE (UA) NEGATIVE (NEGATIVE); KETONES,URINE (UA) NEGATIVE (NEGATIVE); LEUKOCYTE ESTERASE, URINE NEGATIVE (NEGATIVE); NITRITE,URINE NEGATIVE (NEGATIVE); PH,URINE 8.5 PH (5.0-7.5); PROTEIN,URINE NEGATIVE (NEGATIVE); UROBILINOGEN,URINE 0.2 (NORMAL) E.U./dL (NORMAL)
[2020-12-18 11:39] LABS: CLARITY,URINE CLEAR (CLEAR); OCCULT BLOOD,URINE TRACE-LYSED (NEGATIVE)
[2020-12-18] MEDS ORDERED: HYDROcod/ACETAM 5/325 MG TABLET PO STA (11:45)
[2020-12-18] MEDS ORDERED: FLUCONAZOLE 100 MG TABLET PO STA (11:46)
[2020-12-18 12:07] LABS: ALBUMIN 3.4 g/dL (3.2-5.5); BILIRUBIN,TOTAL 0.5 mg/dL (0.2-1.0); CALCIUM 9.4 mg/dL (8.5-10.3); CREATININE 0.5 mg/dL (0.4-1.0); MAGNESIUM 1.3 mg/dL (1.7-2.8)
[2020-12-18 12:08] LABS: ALBUMIN/GLOBULIN RATIO 0.9 (1.0-2.2)
--- NOTE | 2020-12-18 12:29 | ED Physician Documentation ---
PD HPI FEMALE - Stated complaint Stated Complaint: CRAMPING - Chief complaint Chief Complaint: Abd Pain - History obtained from History obtained from: Patient - History of Present Illness Timing - onset: How many days ago (1-2 days of lower abd cramping. No vaginal bleeding. Has had some vaginal burning and itching. Had MORTAR MIXER OPERATOR visit 2-3 days ago and had vaginal exam and swab done at that time, does not have results yet. Has had flank pain, and concerrned for kidney infection, though had fallen and struck back) Timing - duration: Days (2) Timing - details: Gradual onset Associated symptoms: Back pain (left flank area), Pelvic pain, Vaginal pain (burning and itching). No: Fever, Vaginal bleeding, Vaginal discharge, Dysuria Contributing factors: . No: Exposed to STD OB-SATURATION EQUIPMENT OPERATOR History: G (1), P (0) Similar symptoms before: Diagnosis (has had back pains with kidney infections. Some cramps lower abd since end first trimester .) Recently seen: Clinic (2 days ago in [employer]PER[employer]; saw retail assistant store manager last week with increased doses K and Mag.) Review of Systems Constitutional: denies: Fever, Chills Nose: denies: Rhinorrhea / runny nose, Congestion Throat: denies: Sore throat Respiratory: denies: Cough GI: reports: Abdominal Pain (cramping lower abd). denies: Nausea, Vomiting, Diarrhea : denies: Discharge (but having itching and burning feeling vaginally) Skin: denies: Rash, Lesions Musculoskeletal: reports: Back pain PD PAST MEDICAL HISTORY - Past Medical History Past Medical History: Yes Cardiovascular: Murmur, Arrhythmia Respiratory: Asthma Neuro: Headaches Endocrine/Autoimmune: None GI: GERD, Ulcers SATURATION EQUIPMENT OPERATOR: Ovarian cysts : Chronic bladder infection, Frequency, Other HEENT: None Psych: Depression, Anxiety, Bipolar disorder, Post traumatic stress disorder Musculoskeletal: Fatigue, Chronic back pain Derm: None, Eczema - Past Surgical History Past Surgical History: Yes Ortho: ACL reconstruction, Arthroscopic surgery HEENT: Myringotomy (tubes), Tonsil/Adenoidectomy - Present Medications Home Medications: Ambulatory Orders Medication Instructions Recorded Confirmed Magnesium Oxide 3 tab PO BID #120 tablet 09/15/19 11/15/20 Doxylamine Succinate [Unisom] 25 mg PO BID #40 tablet 11/07/20 11/15/20 Potassium Chloride 40 meq PO BID 11/07/20 11/15/20 No122/Iron/Folic Acid 1 tab PO DAILY PM 11/07/20 11/15/20 [ Multi Tablet] Promethazine [Phenergan] 25 mg PO Q6H PRN #25 tab 11/07/20 11/15/20 Pyridoxine HCl (Vitamin B6) 250 mg PO BID #40 tablet 11/07/20 11/15/20 [Vitamin B-6] Promethazine Supp [Phenergan Supp] 25 mg OR Q6H PRN #15 supp 11/15/20 Promethazine [Phenergan] 25 mg PO Q6H PRN #14 tab 11/15/20 Cyclobenzaprine [Flexeril] 10 mg PO TID PRN #10 tablet 11/27/20 HYDROcod/ACETAM 5/325 [[place] 5/325] 1 tab PO Q6H PRN #12 tablet 11/27/20 Fluconazole [Diflucan] 150 mg PO Q3D #2 tablet 12/18/20 HYDROcod/ACETAM 5/325 [[place] 5/325] 1 ea PO Q6H PRN #12 tablet 12/18/20 - Allergies Allergies/Adverse Reactions: Allergies Allergy/AdvReac Type Severity Reaction Status Date / Time bismuth subsalicylate Allergy Respiratory Verified 12/18/20 11:05 [From Pepto-Bismol] cinnamon Allergy Anaphylaxis Verified 12/18/20 11:05 ketorolac [From Toradol] Allergy Hives Verified 12/18/20 11:05 lavender (Lavandula Allergy Hives Verified 12/18/20 11:05 angustifolia) lorazepam [From Ativan] Allergy Hives Verified 12/18/20 11:05 ondansetron HCl * Allergy Itching Verified 12/18/20 11:05 [From Zofran (as hydrochloride)] hydromorphone AdvReac Hallucinati Verified 12/18/20 11:05 ons - Social History Does the pt smoke?: Yes Smoking Status: Current every day smoker Does the pt drink ETOH?: Yes Does the pt have substance abuse?: No - Immunizations Immunizations are current?: Yes Immunizations: Other immun not current - POLST Patient has POLST: No POLST Status: Full Code PD ED PE NORMAL - Vitals Vital signs reviewed: Yes - General General: Alert and oriented X 3, No acute distress, Well developed/nourished - Cardiac Cardiac: RRR, No murmur - Respiratory Respiratory: Clear bilaterally - Abdomen Abdomen: Soft, Non tender - Female Female : Deferred, Other (looked at vaginal probe results from 2 days ago, showing positive for yeast. Else negative. ) - Back Back: No spinal TTP, Other (some tenderness left parathoracic area, soft tissue and lower ribs area. No bruising. No crepitance nor deformity.) - Derm Derm: Normal color, Warm and dry - Extremities Extremities: No tenderness to palpate, Normal ROM s pain Results - Vitals Vitals: Vital Signs - 24 hr 12/18/20 12/18/20 11:01 12:46 Temperature 36.7 C 36.7 C Heart Rate 84 72 Respiratory 17 18 Rate Blood Pressure 126/61 122/73 O2 Saturation 98 99 Oxygen O2 Source Room air - Labs Labs: Laboratory Tests 12/18/20 12/18/20 11:10 11:49 Sodium 136 Potassium 3.0 L Chloride 101 Carbon Dioxide 24 Anion Gap 11.0 BUN 8 Creatinine 0.5 Estimated GFR (MDRD) 153 Glucose 90 Calcium 9.4 Magnesium 1.3 L Total Bilirubin 0.5 AST 17 ALT 16 Alkaline Phosphatase 39 L Total Protein 7.0 Albumin 3.4 Globulin 3.6 Albumin/Globulin Ratio 0.9 L Urine Color YELLOW Urine Clarity CLEAR Urine pH 8.5 H Ur Specific [place] 1.015 Urine Protein NEGATIVE Urine Glucose (UA) NEGATIVE Urine Ketones NEGATIVE Urine Occult Blood TRACE-LYSED Urine Nitrite NEGATIVE Urine Bilirubin NEGATIVE Urine Urobilinogen 0.2 (NORMAL) Ur Leukocyte Esterase NEGATIVE Ur Microscopic Review NOT INDICATED Urine Culture Comments NOT INDICATED PD MEDICAL DECISION MAKING - ED course Complexity details: reviewed results (UA without signs of infection. Lytes are actually normal or a bit better than usual. ), considered differential (fall with local injury lower parathoracic. Prefer not xrays and would not change treatment if rib injury. Had yeast vaginitis by testing 2 days ago. Bedside U/S showing normal HR and movement. BPD c/w 17.4 wks, but defer to planned OB U/S next week. ), d/w patient Departure - Departure Disposition: 01 Home, Self Care Clinical Impression: Lesa vaginitis, Pelvic cramping, Back contusion Qualifiers: Encounter type: initial encounter Laterality: unspecified laterality Qualified Code(s): S20.229A - Contusion of unspecified back wall of thorax, initial encounter Condition: Stable Record reviewed to determine appropriate education?: Yes Instructions: ED Contusion Back Follow-Up: [facility] [Provider Group] Prescriptions: Fluconazole [Diflucan] 150 mg PO Q3D #2 tablet HYDROcod/ACETAM 5/325 [[place] 5/325] 1 ea PO Q6H PRN #12 tablet PRN Reason: Pain Comments: Usual medications. Use the Diflucan antifungal tablet every 3 days for two more doses. This is for the yeast vaginitis and should help your symptoms there. Tylenol every 4-6 hours or hydrocodone if needed for worse pain in the back over the short-term (the next several days to a week). Follow-up with MORTAR MIXER OPERATOR this coming week as planned. Discharge Date/Time: 12/18/20 12:46
[2020-12-18 12:48] VITALS: BP 122/73
== END 2020-12-18 12:46 | disposition home or self-care (01) ==
LOC: ED 10:44
DX: O23.592 Infection of other part of genital tract in pregnancy, second trimester (principal); B37.3 Candidiasis of vulva and vagina; O9A.212 Injury, poisoning and certain other consequences of external causes complicating pregnancy, second trimester; S20.229A Contusion of unspecified back wall of thorax, initial encounter; W19.XXXA Unspecified fall, initial encounter; O99.332 Smoking (tobacco) complicating pregnancy, second trimester; F17.200 Nicotine dependence, unspecified, uncomplicated; Z3A.17 17 weeks gestation of pregnancy
CPT/HCPCS: 36415; 80053; 81003; 83735; 99283; 99284; A9270; 81001; 87086

== ENCOUNTER 2021-01-04 08:00 | Outpatient (CLI) | payer MEDICAID ==
[2021-01-04 13:28] LABS: CREATININE 0.5 mg/dL (0.4-1.0); MAGNESIUM 1.2 mg/dL (1.7-2.8)
== END 2021-01-04 23:59 | disposition home or self-care (01) ==
LOC: LAB 08:00
PROVIDERS: ATTEND Internal Medicine Nephrology
DX: E87.6 Hypokalemia (principal)
CPT/HCPCS: 36415; 80048; 83735

== ENCOUNTER 2021-01-09 20:23 | Emergency (ER) | payer MEDICAID ==
[2021-01-09 20:50] LABS: CALCIUM 9.4 mg/dL (8.5-10.3); CREATININE 0.5 mg/dL (0.4-1.0); MAGNESIUM 1.5 mg/dL (1.7-2.8)
[2021-01-09] MEDS ORDERED: POTASSIUM CHLORIDE 20 MEQ TABLET PO STA ×2 (20:59→21:10)
[2021-01-09] MEDS ORDERED: MAGNESIUM SULFATE 1 GM/2 ML VIAL IV STA (21:00)
--- NOTE | 2021-01-09 21:04 | ED Physician Documentation ---
History of Present Illness - Stated complaint Stated Complaint: POTASSIUM CONCERN - Chief complaint Chief Complaint: General - Additonal information Additional information: 25-year-old female who is in her second trimester of presents the emergency department for generalized muscle cramping and weakness. She has a history of Gettleman's syndrome and though she takes magnesium and potassium supplementation through her optical instrument repairer in [place] she is concerned that her potassium level is lower than it should be. She also felt a fluttering in her heart. No syncope chest pain or shortness of breath . Patient reports to us that she is approximately 20 weeks based on LMP likely 18. She endorses positive movement. Denies vaginal bleeding loss of fluids. No dysuria urgency or frequency. She is followed by Michelle Ross with our OB department. Review of Systems Constitutional: reports: Other (muscle cramps). denies: Fever, Chills Eyes: reports: Reviewed and negative Ears: reports: Reviewed and negative Nose: reports: Reviewed and negative Throat: reports: Reviewed and negative Cardiac: reports: Palpitations. denies: Chest pain / pressure, Pedal edema, Calf pain Respiratory: reports: Reviewed and negative GI: denies: Abdominal Pain, Nausea, Vomiting : reports: Other (Palpable uterus felt 3 cm below the umbilicus.). denies: Dysuria, Frequency, Hesitancy Skin: denies: Rash, Lesions Musculoskeletal: denies: Neck pain, Back pain PD PAST MEDICAL HISTORY - Past Medical History Past Medical History: Yes Cardiovascular: Murmur, Arrhythmia Respiratory: Asthma Neuro: Headaches Endocrine/Autoimmune: None GI: GERD, Ulcers DIRECTOR LEARNING SERVICES: Ovarian cysts : Chronic bladder infection, Frequency, Other HEENT: None Psych: Depression, Anxiety, Bipolar disorder, Post traumatic stress disorder Musculoskeletal: Fatigue, Chronic back pain Derm: None, Eczema - Past Surgical History Past Surgical History: Yes Ortho: ACL reconstruction, Arthroscopic surgery HEENT: Myringotomy (tubes), Tonsil/Adenoidectomy - Present Medications Home Medications: Ambulatory Orders Medication Instructions Recorded Confirmed Magnesium Oxide 3 tab PO BID #120 tablet 09/15/19 01/09/21 Potassium Chloride 40 meq PO BID 11/07/20 01/09/21 No122/Iron/Folic Acid 1 tab PO DAILY PM 11/07/20 01/09/21 [ Multi Tablet] Promethazine [Phenergan] 25 mg PO Q6H PRN #25 tab 11/07/20 01/09/21 Pyridoxine HCl (Vitamin B6) 250 mg PO BID #40 tablet 11/07/20 01/09/21 [Vitamin B-6] - Allergies Allergies/Adverse Reactions: Allergies Allergy/AdvReac Type Severity Reaction Status Date / Time bismuth subsalicylate Allergy Respiratory Verified 12/18/20 11:05 [From Pepto-Bismol] cinnamon Allergy Anaphylaxis Verified 12/18/20 11:05 ketorolac [From Toradol] Allergy Hives Verified 12/18/20 11:05 lavender (Lavandula Allergy Hives Verified 12/18/20 11:05 angustifolia) lorazepam [From Ativan] Allergy Hives Verified 12/18/20 11:05 ondansetron HCl * Allergy Itching Verified 12/18/20 11:05 [From Zofran (as hydrochloride)] hydromorphone AdvReac Hallucinati Verified 12/18/20 11:05 ons - Social History Does the pt smoke?: Yes Smoking Status: Current every day smoker Does the pt drink ETOH?: No Does the pt have substance abuse?: No Substance Use and Type: Marijuana - Immunizations Immunizations are current?: Yes Immunizations: Other immun not current - POLST Patient has POLST: No POLST Status: Full Code PD ED PE EXPANDED - General General: Well developed/nourished - Neck Neck: Supple w/out meningeal sx. No: Adenopathy - Cardiac Cardiac: Regular Rate, Radial strong equal, Pedal strong equal, Cap refill < 2 sec. No: Murmur Present - Respiratory Respiratory: Clear to ausultation windy. No: Distress, Labored - Abdomen Abdomen: Normal Bowel sounds. No: Tender to palpation - Derm Derm: Normal color, Warm and dry. No: Rash - Extremities Extremities: Normal. No: Deformity, Tenderness - Neuro Neuro: Alert and Oriented X 3, CNII-XII intact, Normal gait, Normal finger nose, Normal speech - GCS Eye Opening: Spontaneous Motor: Obeys Commands Verbal: Oriented Total: 15 Results - Vitals Vitals: Vital Signs - 24 hr 01/09/21 01/09/21 20:26 20:46 Temperature 36.5 C Heart Rate 77 89 Respiratory 18 98 H Rate Blood Pressure 137/75 H 114/62 O2 Saturation 99 17 L Oxygen O2 Source Room air - EKG (time done) 2050 Rate: Rate (enter#) (74) [place]: Normal Intervals: Normal AL QRS: Normal Ischemia: Normal ST segments Compare to prior EKG: Unchanged from prior EKG Computer interpretation: Agree with computer - Labs Labs: Laboratory Tests 01/09/21 20:37 Sodium 139 Potassium 3.1 L Chloride 101 Carbon Dioxide 24 Anion Gap 14.0 H BUN 8 Creatinine 0.5 Estimated GFR (MDRD) 153 Glucose 105 H Calcium 9.4 Magnesium 1.5 L PD MEDICAL DECISION MAKING - ED course Complexity details: reviewed results, re-evaluated patient, d/w patient ED course: -year-old female who is in her second trimester presents the emergency department with generalized arm and leg cramping she has a history of Geitleman syndrome. Screening electrolytes today show sodium of 139, potassium of 3.1 and a magnesium of 1.5. We have repleted her potassium with 80 mEq orally. This is the standard dose that she takes at home. Also given her 2 g of magnesium IV. Screening EKG without any worrisome electrolyte electrocardiogram findings. Upon reevaluation patient reports that the cramping is better and she feels ready for discharge home. Nursing staff was able to easily obtain Doppler full tones with a heart rate of 144. Patient endorses movement. No loss of fluid or vaginal bleeding. She will continue to follow-up with Michelle Ross next week as already scheduled. Emergent return precautions discussed Departure - Departure Disposition: 01 Home, Self Care Clinical Impression: Gitelman disease, Hypokalemia, Hypomagnesemia Condition: Stable Record reviewed to determine appropriate education?: Yes Comments: Continue to take your potassium and magnesium at home as already prescribed by your optical instrument repairer. If you feel that your symptoms are occurring again or worsening please return to the emergency department. Continue to follow-up with Dr. Ross next week as scheduled.
[2021-01-09 22:34] VITALS: BP 126/53
== END 2021-01-09 22:35 | disposition home or self-care (01) ==
LOC: ED 20:23
DX: O26.832 Pregnancy related renal disease, second trimester (principal); N25.89 Other disorders resulting from impaired renal tubular function; O99.282 Endocrine, nutritional and metabolic diseases complicating pregnancy, second trimester; E87.6 Hypokalemia; E83.42 Hypomagnesemia; O99.332 Smoking (tobacco) complicating pregnancy, second trimester; F17.200 Nicotine dependence, unspecified, uncomplicated; Z3A.20 20 weeks gestation of pregnancy
CPT/HCPCS: 80048; 83735; 93005; 99283; 99284; A9270

== ENCOUNTER 2021-01-11 08:00 | Outpatient (CLI) | payer MEDICAID ==
[2021-01-11 10:55] LABS: CALCIUM 8.8 mg/dL (8.5-10.3); CREATININE 0.6 mg/dL (0.4-1.0); MAGNESIUM 1.5 mg/dL (1.7-2.8)
== END 2021-01-11 23:59 | disposition home or self-care (01) ==
LOC: LAB 08:00
PROVIDERS: ATTEND Internal Medicine Nephrology
DX: E87.6 Hypokalemia (principal)
CPT/HCPCS: 36415; 80048; 83735

== ENCOUNTER 2021-01-18 14:15 | Outpatient (CLI) | payer MEDICAID ==
[2021-01-18 14:41] LABS: CALCIUM 9.6 mg/dL (8.5-10.3); CREATININE 0.5 mg/dL (0.4-1.0); MAGNESIUM 1.4 mg/dL (1.7-2.8)
== END 2021-01-18 14:16 | disposition home or self-care (01) ==
LOC: LAB 14:15
PROVIDERS: ATTEND Internal Medicine Nephrology
DX: E87.6 Hypokalemia (principal)
CPT/HCPCS: 36415; 80048; 83735

== ENCOUNTER 2021-01-26 11:32 | Outpatient (CLI) | payer MEDICAID ==
[2021-01-26 12:07] LABS: ALBUMIN 3.4 g/dL (3.2-5.5); ALBUMIN/GLOBULIN RATIO 0.9 (1.0-2.2); BILIRUBIN,TOTAL 0.4 mg/dL (0.2-1.0); CALCIUM 9.4 mg/dL (8.5-10.3); CREATININE 0.5 mg/dL (0.4-1.0); MAGNESIUM 1.1 mg/dL (1.7-2.8); POTASSIUM 2.8 mmol/L (3.5-5.0); TOTAL PROTEIN 7.1 g/dL (6.7-8.2)
== END 2021-01-26 11:33 | disposition home or self-care (01) ==
LOC: LAB 11:32
PROVIDERS: ATTEND Internal Medicine Nephrology
DX: O09.90 Supervision of high risk pregnancy, unspecified, unspecified trimester (principal); O99.280 Endocrine, nutritional and metabolic diseases complicating pregnancy, unspecified trimester; O26.839 Pregnancy related renal disease, unspecified trimester; O99.019 Anemia complicating pregnancy, unspecified trimester; D64.89 Other specified anemias; E87.6 Hypokalemia; E83.42 Hypomagnesemia; N25.89 Other disorders resulting from impaired renal tubular function
CPT/HCPCS: 36415; 80053; 83735

== ENCOUNTER 2021-02-02 13:33 | Outpatient (CLI) | payer MEDICAID ==
[2021-02-02 14:13] LABS: ALBUMIN 3.4 g/dL (3.2-5.5); ALBUMIN/GLOBULIN RATIO 0.9 (1.0-2.2); BILIRUBIN,TOTAL 0.4 mg/dL (0.2-1.0); CALCIUM 8.8 mg/dL (8.5-10.3); CREATININE 0.5 mg/dL (0.4-1.0); MAGNESIUM 1.4 mg/dL (1.7-2.8); POTASSIUM 2.9 mmol/L (3.5-5.0)
== END 2021-02-02 13:34 | disposition home or self-care (01) ==
LOC: LAB 13:33
PROVIDERS: ATTEND Obstetrics & Gynecology
DX: O99.280 Endocrine, nutritional and metabolic diseases complicating pregnancy, unspecified trimester (principal); O09.90 Supervision of high risk pregnancy, unspecified, unspecified trimester; O26.839 Pregnancy related renal disease, unspecified trimester; O99.019 Anemia complicating pregnancy, unspecified trimester; D64.89 Other specified anemias; E87.6 Hypokalemia; E83.42 Hypomagnesemia; N25.89 Other disorders resulting from impaired renal tubular function
CPT/HCPCS: 36415; 80053; 83735

== ENCOUNTER 2021-02-15 08:00 | Outpatient (CLI) | payer MEDICAID ==
[2021-02-15 12:29] LABS: ALBUMIN 3.3 g/dL (3.2-5.5); BILIRUBIN,TOTAL 0.2 mg/dL (0.2-1.0); CALCIUM 9.5 mg/dL (8.5-10.3); CREATININE 0.4 mg/dL (0.4-1.0); MAGNESIUM 1.5 mg/dL (1.7-2.8); POTASSIUM 3.7 mmol/L (3.5-5.0); TOTAL PROTEIN 6.7 g/dL (6.7-8.2)
== END 2021-02-15 23:59 | disposition home or self-care (01) ==
LOC: LAB 08:00
PROVIDERS: ATTEND Obstetrics & Gynecology
DX: O99.891 Other specified diseases and conditions complicating pregnancy (principal); N25.89 Other disorders resulting from impaired renal tubular function; N28.9 Disorder of kidney and ureter, unspecified; O99.280 Endocrine, nutritional and metabolic diseases complicating pregnancy, unspecified trimester; E83.42 Hypomagnesemia; E87.6 Hypokalemia; O09.90 Supervision of high risk pregnancy, unspecified, unspecified trimester
CPT/HCPCS: 36415; 80053; 83735

== ENCOUNTER 2021-02-24 10:52 | Outpatient (CLI) | payer MEDICAID ==
[2021-02-24 11:31] LABS: ALBUMIN 3.1 g/dL (3.2-5.5); ALBUMIN/GLOBULIN RATIO 0.9 (1.0-2.2); BILIRUBIN,TOTAL 0.4 mg/dL (0.2-1.0); CALCIUM 8.9 mg/dL (8.5-10.3); CREATININE 0.6 mg/dL (0.4-1.0); MAGNESIUM 1.3 mg/dL (1.7-2.8); POTASSIUM 3.5 mmol/L (3.5-5.0); TOTAL PROTEIN 6.6 g/dL (6.7-8.2)
--- OUTSIDE RECORDS SUMMARY | 2021-03-02 00:48 | EXTERNAL MEDICAL SUMMARY RPT | Continuity of Care Document ---
:1995 Demographics Phone Unavailable Preferred Language Unknown Marital Status Unknown Latter Day Affiliation Unknown Race Unknown Ethnic Group Unknown Author Organization [facility] Address [address] [place] [address] Phone Social History date description facility [phone]
== END 2021-02-24 10:53 | disposition home or self-care (01) ==
LOC: LAB 10:52
PROVIDERS: ATTEND Obstetrics & Gynecology
DX: O09.90 Supervision of high risk pregnancy, unspecified, unspecified trimester (principal); O99.280 Endocrine, nutritional and metabolic diseases complicating pregnancy, unspecified trimester; E83.42 Hypomagnesemia; E87.6 Hypokalemia; O99.891 Other specified diseases and conditions complicating pregnancy; N28.9 Disorder of kidney and ureter, unspecified; N25.89 Other disorders resulting from impaired renal tubular function
CPT/HCPCS: 36415; 80053; 83735

== ENCOUNTER 2021-02-25 07:33 | Outpatient (CLI) | payer MEDICAID ==
--- NOTE | 2021-02-25 09:09 | Ultrasound Report ---
PROCEDURE: Retroperitoneal INDICATIONS: LT CVA TENDERNESS, PAIN IN LT UPPER QUAD TECHNIQUE: Real-time scanning was performed of the retroperitoneal organs, with image documentation. COMPARISON: None. FINDINGS: Kidneys: Kidneys are normal in size. Right kidney measures 12.7 cm long; left kidney measures 14.3 cm long. Right renal cortical thickness is 2.3 cm; left renal cortical thickness is 1.9 cm. There i s a 1.5 cm cyst in the superior pole which is simple. No solid masses, hydronephrosis, or nephrolithi asis. Bladder: No bladder wall thickening or mass. Prevoid volume is 25 cc. Postvoid volume is 0 cc. Bilate ral ureteral jets are seen. IMPRESSION: 1. 1.5 cm simple right renal cyst. 2. No hydronephrosis. 3. Intrauterine is incidentally noted with a heart rate of 124 BPM. Reviewed by: Misha Murphy on 02/25/2021 9:08 AM JOHNSON Approved by: Misha Murphy on 02/25/2021 9:08 AM PDT Station ID: [id number]
--- NOTE | 2021-02-25 09:12 | Ultrasound Report ---
PROCEDURE: Abdomen Limited INDICATIONS: LT CVA TENDERNESS, PAIN IN LT UPPER QUAD TECHNIQUE: Real-time focused scanning was performed of the abdomen, with image documentation. COMPARISON: None FINDINGS: Limited ultrasound in the area of pain in the left upper quadrant was performed. No solid or cystic m ass is identified in the area of pain. The spleen was incidentally noted to be enlarged measuring 13. 6 x 4.7 x 13.3 cm. Volume = 448 cc. The patient is and the fetus was noted in the renal ultr asound with a heart rate of 124 bpm. IMPRESSION: 1. No acute abnormality identified in the area of pain. 2. Splenomegaly. Reviewed by: Misha Murphy on 02/25/2021 9:11 AM PDT Approved by: Misha Murphy on 02/25/2021 9:11 AM PDT Station ID: [id number]
--- OUTSIDE RECORDS SUMMARY | 2021-03-02 01:30 | EXTERNAL MEDICAL SUMMARY RPT | Continuity of Care Document ---
:1995 Demographics Phone Unavailable Preferred Language Unknown Marital Status Unknown Judaism Affiliation Unknown Race Unknown Ethnic Group Unknown Author Organization [facility] Address [address] [place] [address] Phone Social History date description facility [phone]
== END 2021-02-25 07:34 | disposition home or self-care (01) ==
LOC: DI 07:33
PROVIDERS: ATTEND Obstetrics & Gynecology
DX: O09.90 Supervision of high risk pregnancy, unspecified, unspecified trimester (principal); R10.12 Left upper quadrant pain; N28.1 Cyst of kidney, acquired; R16.1 Splenomegaly, not elsewhere classified

== ENCOUNTER 2021-03-01 08:43 | Outpatient (CLI) | payer MEDICAID ==
[2021-03-01 09:48] LABS: BILIRUBIN,URINE NEGATIVE (NEGATIVE); GLUCOSE, URINE (UA) NEGATIVE (NEGATIVE); KETONES,URINE (UA) NEGATIVE (NEGATIVE); LEUKOCYTE ESTERASE, URINE NEGATIVE (NEGATIVE); NITRITE,URINE NEGATIVE (NEGATIVE); OCCULT BLOOD,URINE SMALL (NEGATIVE); PROTEIN,URINE NEGATIVE (NEGATIVE); UROBILINOGEN,URINE 0.2 (NORMAL) E.U./dL (NORMAL)
[2021-03-01 09:52] LABS: ALBUMIN 3.1 g/dL (3.2-5.5); ALBUMIN/GLOBULIN RATIO 0.9 (1.0-2.2); BILIRUBIN,TOTAL 0.6 mg/dL (0.2-1.0); CALCIUM 8.7 mg/dL (8.5-10.3); CREATININE 0.4 mg/dL (0.4-1.0); MAGNESIUM 1.9 mg/dL (1.7-2.8); POTASSIUM 3.7 mmol/L (3.5-5.0); TOTAL PROTEIN 6.5 g/dL (6.7-8.2)
[2021-03-01 09:59] LABS: CLARITY,URINE CLEAR (CLEAR)
[2021-03-01] MEDS ORDERED: LOPERAMIDE 2 MG CAPSULE PO PRN (10:32)
[2021-03-01] MEDS ORDERED: PROMETHAZINE 25 MG TABLET PO PRN (10:35)
[2021-03-01 10:48] LABS: BACTERIA,URINE Rare /HPF (None Seen); RBC,URINE 0-5 /HPF (0-5); SQUAMOUS EPITHELIAL CELL,UR FEW Squamous (<= Few); WBC,URINE 0-3 /HPF (0-5)
--- NOTE | 2021-03-01 11:06 | PROVIDER PROGRESS NOTE ---
- HPI Current : Current EDU 05/23/21 Gestation 28 Weeks and 1 Days 1 Para 0 Vital Signs Temperature 98.8 F 03/01/21 08:56 Heart Rate 74 03/01/21 08:56 Respiratory Rate 16 03/01/21 08:56 Blood Pressure 129/63 03/01/21 08:56 O2 Saturation 97 03/01/21 08:56 Temperature 98.8 F 03/01/21 08:56 Heart Rate 74 03/01/21 08:56 Respiratory Rate 16 03/01/21 08:56 Blood Pressure 129/63 03/01/21 08:56 O2 Saturation 97 03/01/21 08:56 - Procedures OB Procedure Performed: NST Diagnosis/Indication for NST: Other (abdominal pain in ) Service Date of procedure: 03/01/21 Procedure Details: Baseline: BPM 140 Variability: Moderate Accelerations: Present Decelerations: Absent Trends in FHR over time: no changes [place] contractions in 10 minutes: 0 Impression: reactive Category 1 NST start time 08:52, stop time 09:31 Findings: CC: heart palpitations, vaginal bleeding HPI: pt here with c/o all starting around Sunday (3d ago) 1) Abnormal electrolyte hx, not able to keep her potassium down today, would like K checked. 2) Heart palpitations: happening today when unable to keep K down. Has had in the past, worries her. No chest pain or SOB. No tachycardia, no faintness. 3) Vaginal spotting and irritation: Had a quarter-size spot of bright red blood in her underwear yesterday. Nothing since. Good FM. No LOF, no contractions. Having a generalized irritated feeling in the vaginal area. No change in discharge. No odor. 4) Possible unfaithful partner: requests STI screening 5) Urinary frequency with small-volume voids: new issue, no dysuria, no hematuria 6) Back pain: has been milder earlier in and now is severe, 10/10, feels sharp and stabbing, starts in the left SI region, can go across to the right low back and up to the thoracic area as well. When the pain gets bad she feels like her legs are noodles and she needs her partner to help her to ambulate. Movement makes the pain worse, laying on back is terrible. Nothing makes the pain better--has tried naproxen and tylenol. When the pain is bad it gives her nausea as well. Pain is constant. 7) LUQ pain: constant, flares when the back pain flares, has been an issue in the past, thinks it is due to her splenomegaly, is sharp, can be 10/10 pain, radiates to the suprapubic and vaginal areas, sometimes radiates down the legs. Nothing makes it better or worse, Associated with nausea when the pain is bad. 8) Diarrhea: worse in the past few days, can have bouts of diarrhea from time to time that pt attributes to abnl electrolytes. Hx of c.diff. Now reporting BM hourly. No BRBPR. 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 Pt reports 3 episodes of v-tach when electrolytes were abnormal. Sees security systems installer Maxwell at [facility]. Mild asthma. Current smoker, Current THC user, hx of pyelonephritis O: AVSS Alert, resting comfortably when hunched in bed, grimaces in pain when flat on back. Head AT/NC Eyes EMOI Cor RRR no murmurs Lungs CTA bilat Abd soft, mild tenderrness in LUQ, no tenderness elsewhere, no guarding, no rebound, no mass No CVA tenderness External genitalia normal Vagina pink with physiologic discharge Cervix with normal discharge SVE 1/75/-1/soft/mid LE without edema Normal gait Affect anxious Category 1 NST, toco neg CMP normal, K 3.7, mag 1.9 UA neg ketones, SG 1.02, neg LCE, trace bloo, few squamous epi, rare bact, ammonium urate crystals present Wet mount with clue cells and yeast. No trich. Moderate WBC. EKG NSR Transvag US: cervix closed, no funneling, CL >2.0cm [place] spot: nheg C.diff: unable to collect sample, is feeling better US 02/25/21: splenomegaly present, 13 x 4 x 13cm = 448cc volume US 02/25/21: 1.5cm simple renal cyst, no hydronephrosis. PVR 0cc. 25yo at 28w1d by 7w UShere with multiple issues --Unfaithful partner: gc/ct, hiv, hep b, RPR sent --Yeast vaginitis: will treat with fluconazole --BV: will treat with po metronidazole --Hx of electrolyte imbalance, sometimes vomits up potassium. Phenergen Rx for home use --SI joint dysfunction and lumbago will refer to outpatient PT --Heart palpitations: likely normal PVC. EKG normal, lytes normal, exam normal, no associated sx. Will order outpatient holter. --Urinary frequency: PVR 0, UA without signs of infection, ammonium urate crystals present --LUQ pain: likely MSK as it is associated with back pain and feeling of legs giving up. [place] spot neg. --Short cervix on SVE: not seen on US. Repeat US in 1w, needs anatomy done at that time too. --Diarrhea: hydration normal on UA, lytes normal. Will give immodium and check for c.diff--unable to collect here, will collect at home and bring in PRN ongoing diarrhea. --Mild splenomegaly on US 4d ago, 13cm long, normal is 12 and is 14 for males, pt is tall, likely normal variant, mono spot neg, EBV titers pending, unlikely cause of pain. 86min visit of MD time Including review of MFM consultation, labs, studies, and PMH.
[2021-03-01] MEDS ORDERED: metroNIDAZOLE 250 MG TABLET PO SCH (11:12)
[2021-03-01] MEDS ORDERED: FLUCONAZOLE 100 MG TABLET PO SCH (11:13)
[2021-03-01 11:48] LABS: INFECTIOUS MONONUCLEOSIS NEGATIVE (Negative)
--- NOTE | 2021-03-01 12:15 | Ultrasound Report ---
PROCEDURE: OB Limited INDICATIONS: Short cervix on digital exam OUTSIDE/PRIOR DATING DATA: Last menstrual period (LMP): Unknown. LMP-based estimated date of delivery (CLARISSA): Not available. First dating scan (date and location): 10/04/2020. Estimated date of delivery (CLARISSA) from first dating scan: 05/23/2021. TECHNIQUE: Real-time scanning was performed of the fetus, with image documentation. Endovaginal scanning: Performed COMPARISON: 12/15/2020. FINDINGS: A single living intrauterine gestation is present. Presentation: Vertex Placenta: Placental position is posterior lateral, without previa. Amniotic fluid index: 19 cm, normal and at 83rd percentile for gestational age. Largest pocket measu res 8.5 cm in size. heart rate: 155 beats per minutes. Maternal cervical canal: Short cervix is again seen measures 2.4 cm at rest, and less than 2 cm with Valsalva. No funneling is seen within the cervix. Estimated gestational age from initial scan: 26 weeks, 0 day. chest, stomach, bilateral kidneys, urinary bladder and cord insertion are visualized and are wi thin normal limits. IMPRESSION: 1. Single live intrauterine with fetus in cephalic presentation. heart rate is 155 bp m. 2. IMCA is 19 cm with the largest pocket measures 8.5 cm in size. This is at 83rd percentile for gesta tional age. 3. Short cervix measures 2.4 cm at rest and less than 2 cm with Valsalva movement. Normal cervical le ngth to be more than 2.5 cm. No funneling is seen. Reviewed by: Maurice Downs MD on 03/01/2021 12:13 PM PDT Approved by: Maurice Downs MD on 03/01/2021 12:13 PM PDT Station ID: [id number]
--- NOTE | 2021-03-01 12:15 | Ultrasound Report ---
PROCEDURE: OB Transvaginal INDICATIONS: Short cervix on digital exam OUTSIDE/PRIOR DATING DATA: Last menstrual period (LMP): Unknown. LMP-based estimated date of delivery (CLARISSA): Not available. First dating scan (date and location): 10/04/2020. Estimated date of delivery (CLARISSA) from first dating scan: 05/23/2021. TECHNIQUE: Endovaginal scanning was performed of the fetus, with image documentation. COMPARISON: 12/15/2020. FINDINGS: A single living intrauterine gestation is present. Presentation: Vertex Placenta: Placental position is posterior lateral, without previa. Amniotic fluid index: 19 cm, normal and at 83rd percentile for gestational age. Largest pocket measu res 8.5 cm in size. heart rate: 155 beats per minutes. Maternal cervical canal: Short cervix is again seen measures 2.4 cm at rest, and less than 2 cm with Valsalva. No funneling is seen within the cervix. Estimated gestational age from initial scan: 26 weeks, 0 day. chest, stomach, bilateral kidneys, urinary bladder and cord insertion are visualized and are wi thin normal limits. IMPRESSION: 1. Single live intrauterine with fetus in cephalic presentation. heart rate is 155 bp m. 2. MICA is 19 cm with the largest pocket measures 8.5 cm in size. This is at 83rd percentile for gesta tional age. 3. Short cervix measures 2.4 cm at rest and less than 2 cm with Valsalva movement. Normal cervical le ngth to be more than 2.5 cm. No funneling is seen. Reviewed by: Maurice Downs MD on 03/01/2021 12:14 PM PDT Approved by: Maurice Downs MD on 03/01/2021 12:14 PM PDT Station ID: [id number]
[2021-03-01 12:27] VITALS: BP 115/48
[2021-03-01 14:14] LABS: CHLAMYDIA TRACHOMATIS DNA NEGATIVE (NEGATIVE); NEISSERIA GONORRHOEAE DNA NEGATIVE (NEGATIVE); TRICHOMONAS VAGINALIS DNA NEGATIVE (NEGATIVE)
[2021-03-01 17:58] LABS: BACTERIAL VAGINOSIS DNA NEGATIVE (NEGATIVE); CANDIDA GLABRATA DNA NEGATIVE (NEGATIVE); CANDIDA GROUP DNA POSITIVE (NEGATIVE); CANDIDA KRUSEI DNA NEGATIVE (NEGATIVE); TRICHOMONAS VAGINALIS DNA NEGATIVE (NEGATIVE)
[2021-03-02 09:57] LABS: HEPATITIS B SURFACE ANTIGEN NON-REACTIVE (NON-REACTIVE); HIV AG/AB 4TH GEN NON-REACTIVE (NON-REACTIVE)
[2021-03-04 21:22] LABS: EBV VIRAL CAPSID AB VCA IGM <36.00 U/mL
== END 2021-03-01 12:50 | disposition home or self-care (01) ==
LOC: WFO 08:43 → FBP 08:45 → WFO 12:50
PROVIDERS: ATTEND Obstetrics & Gynecology
DX: O98.813 Other maternal infectious and parasitic diseases complicating pregnancy, third trimester (principal); B37.3 Candidiasis of vulva and vagina; O23.593 Infection of other part of genital tract in pregnancy, third trimester; B96.89 Other specified bacterial agents as the cause of diseases classified elsewhere; O26.873 Cervical shortening, third trimester; O99.283 Endocrine, nutritional and metabolic diseases complicating pregnancy, third trimester; E87.6 Hypokalemia; E83.42 Hypomagnesemia; O99.891 Other specified diseases and conditions complicating pregnancy; N25.89 Other disorders resulting from impaired renal tubular function; R16.1 Splenomegaly, not elsewhere classified; R19.7 Diarrhea, unspecified; R00.2 Palpitations; M54.9 Dorsalgia, unspecified; R10.812 Left upper quadrant abdominal tenderness; M25.80 Other specified joint disorders, unspecified joint; R35.0 Frequency of micturition; O09.73 Supervision of high risk pregnancy due to social problems, third trimester; Z63.0 Problems in relationship with spouse or partner; Z3A.28 28 weeks gestation of pregnancy; O99.333 Smoking (tobacco) complicating pregnancy, third trimester; F17.200 Nicotine dependence, unspecified, uncomplicated; O99.323 Drug use complicating pregnancy, third trimester; F12.90 Cannabis use, unspecified, uncomplicated; Z87.440 Personal history of urinary (tract) infections
CPT/HCPCS: 76815; 76817; 80053; 81001; 83735; 86308; 86592; 86665; 87210; 87340; 87389; 87481; 87491; 87493; 87591; 87661; 87801; 93005; 99215; A9270; Q0169; 87086

== ENCOUNTER 2021-03-09 08:00 | Outpatient (CLI) | payer MEDICAID ==
[2021-03-09 12:08] LABS: ALBUMIN 3.1 g/dL (3.2-5.5); ALBUMIN/GLOBULIN RATIO 0.9 (1.0-2.2); BILIRUBIN,TOTAL 0.3 mg/dL (0.2-1.0); CALCIUM 9.1 mg/dL (8.5-10.3); CREATININE 0.4 mg/dL (0.4-1.0); MAGNESIUM 1.6 mg/dL (1.7-2.8); TOTAL PROTEIN 6.4 g/dL (6.7-8.2)
== END 2021-03-09 10:25 | disposition home or self-care (01) ==
LOC: LAB 08:00
PROVIDERS: ATTEND Obstetrics & Gynecology
DX: O09.90 Supervision of high risk pregnancy, unspecified, unspecified trimester (principal); O99.891 Other specified diseases and conditions complicating pregnancy; N25.89 Other disorders resulting from impaired renal tubular function; N28.9 Disorder of kidney and ureter, unspecified; O99.280 Endocrine, nutritional and metabolic diseases complicating pregnancy, unspecified trimester; E83.42 Hypomagnesemia; E87.6 Hypokalemia
CPT/HCPCS: 36415; 80053; 83735

== ENCOUNTER 2021-03-22 08:00 | Outpatient (CLI) | payer MEDICAID ==
[2021-03-22 22:32] LABS: CHLAMYDIA TRACHOMATIS DNA NEGATIVE (NEGATIVE); NEISSERIA GONORRHOEAE DNA NEGATIVE (NEGATIVE); TRICHOMONAS VAGINALIS DNA NEGATIVE (NEGATIVE)
== END 2021-03-22 23:59 | disposition home or self-care (01) ==
LOC: LAB.WC 08:00
PROVIDERS: ATTEND Obstetrics & Gynecology
DX: O09.90 Supervision of high risk pregnancy, unspecified, unspecified trimester (principal)
CPT/HCPCS: 87491; 87591; 87661; 87797

== ENCOUNTER 2021-03-22 12:05 | Outpatient (CLI) | payer MEDICAID ==
[2021-03-22 12:21] VITALS: BP 120/58
[2021-03-22 12:31] LABS: BASOPHILS % (AUTO) 0.3 %; EOSINOPHILS # (AUTO) 0.3 10^3/uL (0.0-0.7); HCT - HEMATOCRIT 31.2 % (37.0-47.0); HGB - HEMOGLOBIN 10.8 g/dL (12.0-16.0); LYMPHOCYTES # (AUTO) 2.1 10^3/uL (1.5-3.5); LYMPHOCYTES % (AUTO) 14.6 %; MEAN CORPUSCULAR HEMOGLOBIN 31.5 pg (27.0-31.0); MEAN CORPUSCULAR HGB CONC 34.6 g/dL (32.0-36.0); MEAN PLATELET VOLUME 8.5 fL (7.9-10.8); MONOCYTES # (AUTO) 0.9 10^3/uL (0.0-1.0); MONOCYTES % (AUTO) 6.1 %; NEUTROPHILS # (AUTO) 10.6 10^3/uL (1.5-6.6); NEUTROPHILS % (AUTO) 74.8 %; PLT - PLATELET COUNT 335 10^3/uL (130-450); RED BLOOD COUNT 3.43 10^6/uL (4.20-5.40); WHITE BLOOD COUNT 14.2 x10^3/uL (4.8-10.8)
[2021-03-22 12:37] LABS: VBG PH 7.442 (7.31-7.41)
[2021-03-22 12:38] LABS: CALCIUM, IONIZED 1.07 mmol/L (1.15-1.33)
[2021-03-22 12:46] LABS: ALBUMIN/GLOBULIN RATIO 0.8 (1.0-2.2); BILIRUBIN,TOTAL 0.5 mg/dL (0.2-1.0); CALCIUM 9.1 mg/dL (8.5-10.3); CREATININE 0.5 mg/dL (0.4-1.0); MAGNESIUM 1.3 mg/dL (1.7-2.8); POTASSIUM 2.9 mmol/L (3.5-5.0); TOTAL PROTEIN 6.7 g/dL (6.7-8.2)
[2021-03-22] MEDS ORDERED: POTASSIUM CHLORIDE 20 MEQ TABLET PO SCH (13:30)
[2021-03-22] MEDS ORDERED: MAGNESIUM OXIDE 400 MG TABLET PO SCH (14:00)
[2021-03-22] MEDS ORDERED: CALCIUM CARBONATE CHEW 500 MG TABLET PO SCH ×2 (14:00→21:00)
--- NOTE | 2021-03-25 16:25 | PROVIDER PROGRESS NOTE ---
- HPI Chief Complaint: Other (Electrolyte assessment) Current : Current EDU 05/23/21 Gestation 31 Weeks and 1 Days 1 Para 0 Vital Signs Temperature 97.5 F L 03/22/21 12:20 Heart Rate 78 03/22/21 12:20 Respiratory Rate 18 03/22/21 12:20 Blood Pressure 120/58 L 03/22/21 12:20 O2 Saturation 100 03/22/21 12:20 Temperature 97.5 F L 03/22/21 12:20 Heart Rate 78 03/22/21 12:20 Respiratory Rate 18 03/22/21 12:20 Blood Pressure 120/58 L 03/22/21 12:20 O2 Saturation 100 03/22/21 12:20 - Exam Patient is a 25 yo at 31+1 wga here for assessment of labor and electrolyte repletion. Medically complicated with Gitelman's Syndrome; kidney disease resulting in chronically low potassium and magnesium Needs daily repletion. Patient was seen in clinic today and reported uterine contractions. SVE was performed Past Medical History: Gitelman syndrome with chronic hypokalemia and low Mg with daily repletion Chronic UTI. Anxiety Asthma Headache/Migraine Ovarian Cysts Past Surgical History: Reviewed history from 11/12/2020 and no changes required: ACL reconstruction Myringotomy Tonsil/Adenoidectomy Family History Summary: Brother: Kidney disease/Gitelman's disease. Maternal grandfather: Leukemia. Maternal cousin: Uterine cancer. Mother: Hypertension. Father: Diabetes and hypertension. Social History Summary: Patient lives in [place] with friend Recently dismissed from home of [employer] with charges of DV on FOB Works at [employer] T: Quitting, she has been smoking half pack a day and is now down to 2 cigarettes a day. E: None. D: THC previously 5 times a day, now down to 1 to 2 times a day. Safe at home. ROS: As per HPI, otherwise remaining systems are negative PE: VS: See below GEN: NAD HEENT: NCAT CV: RRR RESP: CTAB ABD: Gravid, S&NT SVE: FT/long/high--no change from prior exam - Procedures OB Procedure Performed: NST Diagnosis/Indication for NST: Other (abdomain pain, Kidney disease) NST Procedure: NST Procedure Start Date 03/22/21 Start Time 12:15 Stop Time 12:35 Vibroacoustic Stimulation Used No Patient States Movement Yes EFM 130 mod ignacia 15x15 accels no decels TOCO: quiet Service Date of procedure: 03/22/21 Procedure Details: K 2.9 Magnesium 1.3 - Plan Plan: 25 yo at 31+1 with complicated by Gitelmans Syndrome here for la bor assessment SVE unchanges from prior exam TOCO w/o evidence of labor Potassium 2.9, repleted with 60 meQ KCL pox1 Magnesium 400 mg x1 Calcium 100 mg po x1 Will FU in clinic Starting weekyl NST and weekly MICA in one week Weekly electrolyte assessments Encouraged to take daily supplements per Nephrology Reviewed that cramping is related to electrolyte imbalace DX: False labor Gitelman's Syndrome Hypokalemia Magnesium deficiency IUP at 31+1 wga
== END 2021-03-22 14:15 | disposition home or self-care (01) ==
LOC: WFO 12:05 → FBP 12:09 → WFO 14:15
PROVIDERS: ATTEND Obstetrics & Gynecology
DX: O09.893 Supervision of other high risk pregnancies, third trimester (principal); O60.03 Preterm labor without delivery, third trimester; Z3A.31 31 weeks gestation of pregnancy; O99.891 Other specified diseases and conditions complicating pregnancy; N25.89 Other disorders resulting from impaired renal tubular function; O99.333 Smoking (tobacco) complicating pregnancy, third trimester; F17.210 Nicotine dependence, cigarettes, uncomplicated; O99.323 Drug use complicating pregnancy, third trimester; F12.90 Cannabis use, unspecified, uncomplicated
CPT/HCPCS: 36415; 59025; 80053; 82330; 83735; 85025; 87491; 87591; 87661; 87797; A9270; 80048

== ENCOUNTER 2021-03-25 15:17 | Outpatient (CLI) | payer MEDICAID ==
[2021-03-25] MEDS ORDERED: FERRIC GLUCONATE 125 MG in SODIUM CHLORIDE 0.9% 100ML 100 ML IV ONE (15:19)
--- NOTE | 2021-03-25 15:23 | PROVIDER PROGRESS NOTE ---
- HPI Chief Complaint: Other (Gitelman's Syndrome; chronic electrolyte imbalance, anemia) Current : Patient is a 25 yo at 31+4 wga with complicated by Gitelman's Syndrome, chronic hypokalemia, low magnesium, and now anemia here for NST, lab work, and Iron infusion. - Exam VS: see above GEN: NAD HEENT: NCTA CV: RR RESP: nl effort ABD: gravid, S&NT EXT: WWP PSYCH: appropriate affect NEURO: A&O - Procedures OB Procedure Performed: NST Diagnosis/Indication for NST: Other (Kidney disease) NST Procedure: NST Procedure Start Time 12:15 Stop Time 12:35 EFM 130 mod ignacia 15x15 accels no decels TOCO: quiet Service Date of procedure: 03/25/21 Procedure Details: Cat I tracing - Plan Plan: 25 yo at 31+1 wga with PMHas above here for NST, iron infusion, electrolyte assessment ANEMIA: Ferric gluconate 125 mg IV given today FWB: Cat I tracing GITELMAN'S SYNDROME: Did not take KCL and Magnesium this pm Labs showed K 3.1 and Mg 1.4 Administered home dose of KCL 60 mEq and MgOxide 1200 mg po x1 Will cont with twice weekly NST and weekly MICA Weekly labs Face to face examination and assessment
[2021-03-25 15:41] VITALS: BP 123/57
[2021-03-25 15:51] LABS: ALBUMIN/GLOBULIN RATIO 0.9 (1.0-2.2); ALKALINE PHOSPHATASE 71 IU/L (42-121); ALT ALANINE AMINOTRANSFERASE 18 IU/L (10-60); AST ASPARTATE AMINOTRANSFERASE 19 IU/L (10-42); BILIRUBIN,TOTAL 0.7 mg/dL (0.2-1.0); BUN - BLOOD UREA NITROGEN 12 mg/dL (6-20); CALCIUM 8.4 mg/dL (8.5-10.3); CARBON DIOXIDE - CO2 25 mmol/L (21-32); CHLORIDE 100 mmol/L (101-111); CREATININE 0.6 mg/dL (0.4-1.0); GFR - MDRD 124 (>89); GLUCOSE 106 mg/dL (70-100); IONIZED CALCIUM IF INDICATED NO; POTASSIUM 3.1 mmol/L (3.5-5.0); SODIUM 135 mmol/L (135-145); TOTAL PROTEIN 6.3 g/dL (6.7-8.2)
[2021-03-25 16:55] LABS: BASOPHILS # (AUTO) 0.1 10^3/uL (0.0-0.1); BASOPHILS % (AUTO) 0.4 %; EOSINOPHILS # (AUTO) 0.4 10^3/uL (0.0-0.7); EOSINOPHILS % (AUTO) 2.7 %; HCT - HEMATOCRIT 30.8 % (37.0-47.0); HGB - HEMOGLOBIN 10.5 g/dL (12.0-16.0); LYMPHOCYTES # (AUTO) 2.5 10^3/uL (1.5-3.5); LYMPHOCYTES % (AUTO) 16.4 %; MEAN CORPUSCULAR HEMOGLOBIN 31.6 pg (27.0-31.0); MEAN CORPUSCULAR HGB CONC 34.1 g/dL (32.0-36.0); MEAN CORPUSCULAR VOLUME 92.8 fL (81.0-99.0); MEAN PLATELET VOLUME 8.7 fL (7.9-10.8); MONOCYTES # (AUTO) 1.1 10^3/uL (0.0-1.0); MONOCYTES % (AUTO) 7.1 %; NEUTROPHILS # (AUTO) 10.5 10^3/uL (1.5-6.6); NEUTROPHILS % (AUTO) 69.7 %; PLT - PLATELET COUNT 339 10^3/uL (130-450); RED BLOOD COUNT 3.32 10^6/uL (4.20-5.40); RED CELL DISTRIBUTION WIDTH 12.1 % (12.0-15.0); WHITE BLOOD COUNT 15.1 x10^3/uL (4.8-10.8)
[2021-03-25] MEDS ORDERED: POTASSIUM CHLORIDE 20 MEQ TABLET PO ONE (17:00)
[2021-03-25 17:03] LABS: SLIDE REVIEW? Indicated
[2021-03-25] MEDS ORDERED: MAGNESIUM OXIDE 400 MG TABLET PO ONE (17:04)
[2021-03-25 17:32] LABS: PLATELET ESTIMATE, MANUAL NORMAL (130-450,000) (NORMAL); PLATELET MORPHOLOGY NORMAL APPEARANCE (NORMAL); RBC MORPHOLOGY (MULTIPLE) NORMAL APPEARANCE (NORMAL); WBC MORPHOLOGY (MULTIPLE) NORMAL APPEARANCE (NORMAL)
== END 2021-03-25 18:21 | disposition home or self-care (01) ==
LOC: WFO 15:17 → FBP 15:19 → WFO 18:21
PROVIDERS: ATTEND Obstetrics & Gynecology
DX: O99.013 Anemia complicating pregnancy, third trimester (principal); O99.891 Other specified diseases and conditions complicating pregnancy; N25.89 Other disorders resulting from impaired renal tubular function; Z3A.31 31 weeks gestation of pregnancy
CPT/HCPCS: 36415; 59025; 80053; 83735; 85025; 96365; A9270; J2916

== ENCOUNTER 2021-03-29 17:04 | Outpatient (CLI) | payer MEDICAID ==
[2021-03-29 17:30] VITALS: BP 123/57
[2021-03-29 17:51] LABS: CALCIUM 8.8 mg/dL (8.5-10.3); CREATININE 0.5 mg/dL (0.4-1.0); MAGNESIUM 1.5 mg/dL (1.7-2.8); POTASSIUM 2.9 mmol/L (3.5-5.0)
--- NOTE | 2021-03-30 02:41 | PROCEDURE REPORT ---
- HPI Diagnosis/Indication for NST: Other (Gitelman syndrome, electrolyte imbalance, high risk ) Current EDU 05/23/21 Gestation 32 Weeks and 1 Days Para 0 Vital Signs Temperature 98.6 F 03/29/21 17:14 Heart Rate 84 03/29/21 17:14 Respiratory Rate 18 03/29/21 17:14 Blood Pressure 123/57 L 03/29/21 17:14 O2 Saturation 97 03/29/21 17:14 Temperature 98.6 F 03/29/21 17:14 Heart Rate 84 03/29/21 17:14 Respiratory Rate 18 03/29/21 17:14 Blood Pressure 123/57 L 03/29/21 17:14 O2 Saturation 97 03/29/21 17:14 - NST Procedure NST Procedure Start Date 03/29/21 Start Time 17:11 Stop Time 17:38 Vibroacoustic Stimulation Used No Patient States Movement Yes - Results and Plan Findings/Impression: Baseline: BPM 125 Variability: Moderate Accelerations: Present Decelerations: Absent Trends in FHR over time: no changes [place] contractions in 10 minutes: 0 Impression: reactive Category 1 NST Patient was also due for electrolyte check, they were abnormal, she has not taken her electrolytes last night or this am. Compliance with tx re- recommended.
== END 2021-03-29 18:10 | disposition home or self-care (01) ==
LOC: WFO 17:04 → FBP 17:06 → WFO 18:10
PROVIDERS: ATTEND Obstetrics & Gynecology
DX: O09.893 Supervision of other high risk pregnancies, third trimester (principal); O99.891 Other specified diseases and conditions complicating pregnancy; N25.89 Other disorders resulting from impaired renal tubular function; Z3A.32 32 weeks gestation of pregnancy
CPT/HCPCS: 36415; 59025; 80048; 83735

== ENCOUNTER 2021-04-01 16:55 | Outpatient (CLI) | payer MEDICAID ==
--- NOTE | 2021-04-01 19:13 | Ultrasound Report ---
PROCEDURE: OB F/U or Repeat INDICATIONS: SUPERVISION HIGH RISK OUTSIDE/PRIOR DATING DATA: Last menstrual period (LMP): Unknown. LMP-based estimated date of delivery (CLARISSA): Not applicable First dating scan (date and location): 10/04/2020. Estimated date of delivery (CLARISSA) from first dating scan: 05/23/2021. TECHNIQUE: Real-time scanning was performed of the fetus, with image documentation and biometric measurements. Endovaginal scanning: No COMPARISON: None. FINDINGS: Examination is limited by maternal body habitus. General: A single living intrauterine gestation is present. Presentation: Variable Placenta: Placental position is posterior, without previa. Amniotic fluid index: 4.2 cm heart rate: 152 beats per minute. Maternal cervical canal: Closed biometrics: Biparietal diameter: 30 mm; 15 weeks 3 days Head circumference: 109 mm; 15 weeks 2 days Abdominal circumference: 88 mm; 15 weeks 0 days Femur length: 17 mm; 15 weeks 0 days Estimated gestational age from initial scan: 14 weeks 3 days Composite gestational age from present scan: 15 weeks 1 day Measurement variability in biometric dating: +/- 10 days from 12-20 weeks gestation, +/- 2 weeks from 20-30 weeks gestation, +/- 3 weeks at 30 weeks gestation or more. Other: Limited survey of anatomy includes normal chest/diaphragm, stomach/abdomen, urinary blad bismark/pelvis, bilateral upper and lower extremities. IMPRESSION: 1. Single living intrauterine gestation. 2. Limited normal survey of anatomy. Reviewed by: Belgica Mccormick MD on 04/01/2021 7:11 PM PDT Approved by: Belgica Mccormick MD on 04/01/2021 7:11 PM PDT Station ID: [id number]
--- NOTE | 2021-04-02 10:15 | PROCEDURE REPORT ---
- HPI Diagnosis/Indication for NST: Other (high risk 3rd trimester) - NST Procedure NST Procedure Start Time 17:11 Stop Time 17:38 - Results and Plan Findings/Impression: Baseline: BPM 125 Variability: Moderate Accelerations: Present Decelerations: Absent Trends in FHR over time: no changes Naranja contractions in 10 minutes: 0 Impression: reactive Category 1 NST
== END 2021-04-01 16:56 | disposition home or self-care (01) ==
LOC: DI 16:55
PROVIDERS: ATTEND Obstetrics & Gynecology
DX: O09.90 Supervision of high risk pregnancy, unspecified, unspecified trimester (principal)

== ENCOUNTER 2021-04-01 17:18 | Outpatient (CLI) | payer MEDICAID ==
[2021-04-01 17:49] VITALS: BP 132/71
--- NOTE | 2021-04-02 13:10 | PROCEDURE REPORT ---
- HPI Diagnosis/Indication for NST: Other (high risk 3rd trimester) Current EDU 05/23/21 Gestation 32 Weeks and 4 Days 1 Para 0 Vital Signs Temperature 98.4 F 04/01/21 17:41 Heart Rate 82 04/01/21 17:41 Respiratory Rate 18 04/01/21 17:41 Blood Pressure 132/71 H 04/01/21 17:41 O2 Saturation 100 04/01/21 17:41 Temperature 98.4 F 04/01/21 17:41 Heart Rate 82 04/01/21 17:41 Respiratory Rate 18 04/01/21 17:41 Blood Pressure 132/71 H 04/01/21 17:41 O2 Saturation 100 04/01/21 17:41 - NST Procedure NST Procedure Start Date 04/01/21 Start Time 18:36 Stop Time 19:05 Vibroacoustic Stimulation Used No Patient States Movement Yes - Results and Plan Findings/Impression: Baseline: BPM 125 Variability: Moderate Accelerations: Present Decelerations: Absent Trends in FHR over time: no changes Spur contractions in 10 minutes: 0 Impression: reactive Category 1 NST
== END 2021-04-01 19:05 | disposition home or self-care (01) ==
LOC: WFO 17:18 → FBP 17:19 → WFO 19:05
PROVIDERS: ATTEND Obstetrics & Gynecology
DX: O09.93 Supervision of high risk pregnancy, unspecified, third trimester (principal); Z3A.32 32 weeks gestation of pregnancy
CPT/HCPCS: 59025

== ENCOUNTER 2021-04-12 11:33 | Outpatient (CLI) | payer MEDICAID ==
[2021-04-12 11:52] VITALS: BP 135/83
[2021-04-12 12:18] LABS: CREATININE 0.6 mg/dL (0.4-1.0); MAGNESIUM 1.6 mg/dL (1.7-2.8); POTASSIUM 3.4 mmol/L (3.5-5.0)
--- NOTE | 2021-04-24 16:52 | PROCEDURE REPORT ---
- HPI Diagnosis/Indication for NST: Other (Gitelman's Disease with chronic hypokalemia and hypomagnesemia) Current EDU 05/13/21 Gestation 35 Weeks and 4 Days 1 Vital Signs Temperature 98.2 F 04/12/21 11:50 Heart Rate 99 04/12/21 11:50 Respiratory Rate 18 04/12/21 11:50 Blood Pressure 135/83 H 04/12/21 11:50 Temperature 98.2 F 04/12/21 11:50 Heart Rate 99 04/12/21 11:50 Respiratory Rate 18 04/12/21 11:50 Blood Pressure 135/83 H 04/12/21 11:50 O2 Saturation - NST Procedure NST Procedure Start Date 04/12/21 Start Time 11:42 Stop Time 12:35 Vibroacoustic Stimulation Used No Patient States Movement Yes EFM 135 mod ignacia 15x15 accels no decels TOCO: quiet - Results and Plan Findings/Impression: Patient is a 25 yo at 34+3 wga with affected by Gitelman's Syndrome and chronic electrolyte imbalance Cat I tracing K and magnesium borderline low Patient due for pm meds and will replete with home dosing Cont with twice weekly NST and weekly MICA DX: IUP at 34+3 Gitelmans' Syndrome Chronic potassium and magnesium deficiency/wasting
== END 2021-04-12 12:35 | disposition home or self-care (01) ==
LOC: WFO 11:33 → FBP 11:35 → WFO 12:35
PROVIDERS: ATTEND Obstetrics & Gynecology
DX: O99.891 Other specified diseases and conditions complicating pregnancy (principal); N25.89 Other disorders resulting from impaired renal tubular function; Z3A.34 34 weeks gestation of pregnancy; E87.6 Hypokalemia; E83.42 Hypomagnesemia
CPT/HCPCS: 36415; 59025; 80048; 83735; 99213

== ENCOUNTER 2021-04-15 17:12 | Outpatient (CLI) | payer MEDICAID ==
[2021-04-15 17:55] VITALS: BP 135/62
--- NOTE | 2021-04-19 12:54 | PROCEDURE REPORT ---
- HPI Diagnosis/Indication for NST: Other (HYPOKALEMIA, GITELMAN'S SYNDROME) Current EDU 05/23/21 Gestation 34 Weeks and 4 Days 1 Para 0 Vital Signs Temperature 37.3 C 04/15/21 17:52 Heart Rate 85 04/15/21 17:52 Respiratory Rate 17 04/15/21 17:52 Blood Pressure 135/62 H 04/15/21 17:52 O2 Saturation 98 04/15/21 17:52 Temperature 37.3 C 04/15/21 17:52 Heart Rate 85 04/15/21 17:52 Respiratory Rate 17 04/15/21 17:52 Blood Pressure 135/62 H 04/15/21 17:52 O2 Saturation 98 04/15/21 17:52 - NST Procedure NST Procedure Start Date 04/15/21 Start Time 18:05 Stop Time 18:38 Vibroacoustic Stimulation Used No Patient States Movement Yes - Results and Plan Findings/Impression: REACTIVE NST Plan: CONTINUE TESTING DOS 04/15/21 2379
== END 2021-04-15 18:45 | disposition home or self-care (01) ==
LOC: WFO 17:12 → FBP 17:16 → WFO 18:45
PROVIDERS: ATTEND Obstetrics & Gynecology
DX: O09.90 Supervision of high risk pregnancy, unspecified, unspecified trimester (principal); O99.283 Endocrine, nutritional and metabolic diseases complicating pregnancy, third trimester; O99.891 Other specified diseases and conditions complicating pregnancy; N25.89 Other disorders resulting from impaired renal tubular function; E87.6 Hypokalemia; Z3A.34 34 weeks gestation of pregnancy
CPT/HCPCS: 59025

== ENCOUNTER 2021-04-15 20:33 | Outpatient (CLI) | payer MEDICAID ==
--- NOTE | 2021-04-15 21:24 | Ultrasound Report ---
PROCEDURE: OB Limited INDICATIONS: HYPOMAGNESEMIA, HYPOKALEMIA. Weekly. 5. OUTSIDE/PRIOR DATING DATA: Last menstrual period (LMP): Unknown. LMP-based estimated date of delivery (CLARISSA): Unknown. First dating scan (date and location): 10/04/2020. Estimated date of delivery (CLARISSA) from first dating scan: 05/23/2021. TECHNIQUE: Real-time scanning was performed of the fetus, with image documentation. COMPARISON: 04/01/2021. FINDINGS: A single living intrauterine gestation is present. Presentation: Vertex Placenta: Placental position is posterior, without previa. Amniotic fluid index: 19.4 cm, greater than 50% for gestational age. Largest pocket is 6.6 cm. heart rate: 130 beats per minutes. Maternal cervical canal: Not well seen Estimated gestational age from initial scan: 34 weeks 4 days. IMPRESSION: MICA is 19.4 cm, within normal limits. Living third trimester intrauterine . Reviewed by: Joel Bernal MD on 04/15/2021 9:23 PM PDT Approved by: Joel Bernal MD on 04/15/2021 9:23 PM PDT Station ID: [id number]
== END 2021-04-15 20:34 | disposition home or self-care (01) ==
LOC: DI 20:33
PROVIDERS: ATTEND Obstetrics & Gynecology
DX: O09.90 Supervision of high risk pregnancy, unspecified, unspecified trimester (principal); O99.283 Endocrine, nutritional and metabolic diseases complicating pregnancy, third trimester; Z3A.34 34 weeks gestation of pregnancy

== ENCOUNTER 2021-04-19 11:59 | Outpatient (CLI) | payer MEDICAID ==
[2021-04-19 12:19] VITALS: BP 112/59
[2021-04-19 12:41] LABS: BASOPHILS % (AUTO) 0.3 %; EOSINOPHILS % (AUTO) 2.8 %; HGB - HEMOGLOBIN 10.9 g/dL (12.0-16.0); LYMPHOCYTES % (AUTO) 12.8 %; MEAN CORPUSCULAR HEMOGLOBIN 31.1 pg (27.0-31.0); MEAN CORPUSCULAR HGB CONC 34.1 g/dL (32.0-36.0); MEAN CORPUSCULAR VOLUME 91.4 fL (81.0-99.0); MEAN PLATELET VOLUME 8.6 fL (7.9-10.8); NEUTROPHILS % (AUTO) 72.4 %; PLT - PLATELET COUNT 286 10^3/uL (130-450); RED CELL DISTRIBUTION WIDTH 12.9 % (12.0-15.0); WHITE BLOOD COUNT 14.9 x10^3/uL (4.8-10.8)
[2021-04-19 12:46] LABS: SLIDE REVIEW? Indicated
[2021-04-19 12:52] LABS: ALBUMIN/GLOBULIN RATIO 0.9 (1.0-2.2); BILIRUBIN,TOTAL 0.5 mg/dL (0.2-1.0); CALCIUM 8.6 mg/dL (8.5-10.3); CREATININE 0.5 mg/dL (0.4-1.0); POTASSIUM 3.7 mmol/L (3.5-5.0); TOTAL PROTEIN 6.5 g/dL (6.7-8.2)
[2021-04-19 13:01] LABS: ABNORMAL LYMPHS % (MANUAL) 0 %
[2021-04-19 13:04] LABS: BAND NEUTROPHILS % (MANUAL) 3 %; DIFFERENTIAL COMMENT MANUAL DIFFERENTIAL; EOSINOPHILS # (MANUAL) 0.6 10^3/uL (0-0.7); LYMPHOCYTES # (MANUAL) 1.5 10^3/uL (1.5-3.5); LYMPHOCYTES % (MANUAL) 8 %; METAMYELOCYTES % (MANUAL) 2 %; MYELOCYTES % (MANUAL) 1 %; NEUTROPHILS # (MANUAL) 11.3 10^3/uL (1.5-6.6); REACTIVE LYMPHS % (MANUAL) 2 %
--- NOTE | 2021-04-24 18:20 | PROCEDURE REPORT ---
- HPI Diagnosis/Indication for NST: Other (Gitelman's Syndrome, chornic electrolyte deficiency) Current EDU 05/23/21 Gestation 35 Weeks and 1 Days 1 Para 0 Vital Signs Temperature 99.0 F 04/19/21 12:15 Heart Rate 90 04/19/21 12:15 Respiratory Rate 18 04/19/21 12:15 Blood Pressure 112/59 L 04/19/21 12:15 O2 Saturation 98 04/19/21 12:15 Temperature 99.0 F 04/19/21 12:15 Heart Rate 90 04/19/21 12:15 Respiratory Rate 18 04/19/21 12:15 Blood Pressure 112/59 L 04/19/21 12:15 O2 Saturation 98 04/19/21 12:15 - NST Procedure NST Procedure Start Date 04/19/21 Start Time 12:12 Stop Time 12:57 Vibroacoustic Stimulation Used No Patient States Movement Yes EFM 145 mod ignacia 15x15 accesl no decels TOCO: quiet - Results and Plan Findings/Impression: 25 yo at 35+1 wga with complicated by Gitelman's Syndrome and chornic potassium and magnesium deficiency Cat I tracing Potassium and magnesium wnl Cont with tiwce weekly NST and weekly MICA DX: IUP at 35+ 1 wga Gitelman's Syndrome Chronic potassium and magnesium deficiency
== END 2021-04-19 13:25 | disposition home or self-care (01) ==
LOC: WFO 11:59 → FBP 12:12 → WFO 13:25
PROVIDERS: ATTEND Obstetrics & Gynecology
DX: O99.891 Other specified diseases and conditions complicating pregnancy (principal); N25.89 Other disorders resulting from impaired renal tubular function; E87.6 Hypokalemia; E83.42 Hypomagnesemia; Z3A.35 35 weeks gestation of pregnancy
CPT/HCPCS: 36415; 59025; 80048; 80053; 83735; 85025

== ENCOUNTER 2021-04-27 11:29 | Outpatient (CLI) | payer MEDICAID ==
[2021-04-27 11:38] VITALS: BP 123/74
[2021-04-27 12:17] LABS: HGB - HEMOGLOBIN 11.5 g/dL (12.0-16.0); MEAN CORPUSCULAR HEMOGLOBIN 30.3 pg (27.0-31.0); MEAN CORPUSCULAR HGB CONC 32.9 g/dL (32.0-36.0); MEAN CORPUSCULAR VOLUME 92.3 fL (81.0-99.0); MEAN PLATELET VOLUME 8.6 fL (7.9-10.8); RED BLOOD COUNT 3.79 10^6/uL (4.20-5.40); WHITE BLOOD COUNT 16.1 x10^3/uL (4.8-10.8)
[2021-04-27 12:38] LABS: CALCIUM 9.2 mg/dL (8.5-10.3); CREATININE 0.5 mg/dL (0.4-1.0); MAGNESIUM 1.6 mg/dL (1.7-2.8); POTASSIUM 4.2 mmol/L (3.5-5.0)
--- NOTE | 2021-05-27 00:13 | PROCEDURE REPORT ---
- HPI Diagnosis/Indication for NST: Other (Gitelmans Syndrome/electrolyte imbalance) Current EDU 05/23/21 Gestation 36 Weeks and 2 Days 1 Para 0 Vital Signs Temperature 99.5 F 04/27/21 11:37 Heart Rate 92 04/27/21 11:37 Respiratory Rate 20 04/27/21 11:37 Blood Pressure 123/74 04/27/21 11:37 O2 Saturation 97 04/27/21 11:37 Temperature 99.5 F 04/27/21 11:37 Heart Rate 92 04/27/21 11:37 Respiratory Rate 20 04/27/21 11:37 Blood Pressure 123/74 04/27/21 11:37 O2 Saturation 97 04/27/21 11:37 - NST Procedure NST Procedure Start Date 04/27/21 Start Time 11:35 Stop Time 12:04 Vibroacoustic Stimulation Used No Patient States Movement Yes EFM 135 mod ignacia 15x15 accels no decels TOCO: quiet - Results and Plan Findings/Impression: 26 at 36w2d with complicated by Gitelmans Syndrome here for NST Cat I tracing Potassium levels improved Reviewed low magnesium levels and need for vigilance in home repletion Delivering at [facility] twice weekly NST and weekly MICA DX: IUP at 36+2 wga Gitlelmans Syndrome Hypokalemia Chronic magnesium deficiency NST read 04/27/21 DOS 04/27/21
== END 2021-04-27 12:15 | disposition home or self-care (01) ==
LOC: WFO 11:29 → FBP 11:31 → WFO 12:15
PROVIDERS: ATTEND Obstetrics & Gynecology
DX: O99.891 Other specified diseases and conditions complicating pregnancy (principal); N25.89 Other disorders resulting from impaired renal tubular function; Z3A.36 36 weeks gestation of pregnancy
CPT/HCPCS: 36415; 59025; 80048; 83735; 85027

== ENCOUNTER 2021-06-24 22:22 | Emergency (ER) | payer MEDICAID ==
[2021-06-24 22:35] VITALS: BP 151/68
--- NOTE | 2021-06-24 23:24 | ED Physician Documentation ---
PD HPI FEMALE - Stated complaint Stated Complaint: POST FEMALE /BLEEDING - Chief complaint Chief Complaint: Abd Pain - History obtained from History obtained from: Patient - History of Present Illness Timing - onset: Today ("off and on" (per patient) since giving 05/17 but worse tonight with clots) Associated symptoms: Vaginal bleeding. No: Fever, Dysuria, Urinary frequency Contributing factors: No: Recently seen: Other (gave last month (see narrative below)) - Additional information Additional information: c/o vaginal bleeding "off and on" (per patient) since giving 05/17/21 (induced at 39 weeks, vaginal delivery). tonight bleeding became suddenly and significantly worse with passage of a few large clots; this was associated with pelvic cramping pain. Review of Systems Constitutional: denies: Fever, Chills, Sweats Cardiac: reports: Reviewed and negative Respiratory: reports: Reviewed and negative GI: denies: Abdominal Pain, Nausea, Vomiting : reports: Vaginal bleeding. 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: Ovarian cysts : Chronic bladder infection, Frequency, Other HEENT: None Psych: Depression, Anxiety, Bipolar disorder, Post traumatic stress disorder Musculoskeletal: Fatigue, Chronic back pain Derm: None, Eczema - Past Surgical History Past Surgical History: Yes Ortho: ACL reconstruction, Arthroscopic surgery HEENT: Myringotomy (tubes), Tonsil/Adenoidectomy - Present Medications Home Medications: Ambulatory Orders Medication Instructions Recorded Confirmed Magnesium Oxide 3 tab PO BID #120 tablet 09/15/19 01/09/21 Potassium Chloride 40 meq PO BID 11/07/20 01/09/21 No122/Iron/Folic Acid 1 tab PO DAILY PM 11/07/20 01/09/21 [ Multi Tablet] Promethazine [Phenergan] 25 mg PO Q6H PRN #25 tab 11/07/20 01/09/21 Pyridoxine HCl (Vitamin B6) 250 mg PO BID #40 tablet 11/07/20 01/09/21 [Vitamin B-6] - Allergies Allergies/Adverse Reactions: Allergies Allergy/AdvReac Type Severity Reaction Status Date / Time bismuth subsalicylate Allergy Respiratory Verified 06/24/21 22:35 [From Pepto-Bismol] cinnamon Allergy Anaphylaxis Verified 06/24/21 22:35 ketorolac [From Toradol] Allergy Hives Verified 06/24/21 22:35 lavender (Lavandula Allergy Hives Verified 06/24/21 22:35 angustifolia) lorazepam [From Ativan] Allergy Hives Verified 06/24/21 22:35 ondansetron HCl * Allergy Itching Verified 06/24/21 22:35 [From Zofran (as hydrochloride)] hydromorphone AdvReac Hallucinati Verified 06/24/21 22:35 ons - Social History Does the pt smoke?: Yes Smoking Status: Current every day smoker Does the pt drink ETOH?: No Does the pt have substance abuse?: No - Immunizations Immunizations are current?: Yes Immunizations: Other immun not current - POLST Patient has POLST: No POLST Status: Full Code PD ED PE NORMAL - Vitals Vital signs reviewed: Yes - General General: Alert and oriented X 3, No acute distress, Well developed/nourished - Cardiac Cardiac: RRR, No murmur - Respiratory Respiratory: No respiratory distress, Clear bilaterally - Abdomen Abdomen: Soft, Non tender, Non distended - Back Back: No CVA TTP - Derm Derm: Normal color Results - Vitals Vitals: Oxygen O2 Source Room air - Labs Labs: Laboratory Tests 06/24/21 06/24/21 06/24/21 23:10 23:10 23:10 WBC 9.0 RBC 4.05 L Hgb 11.0 L Hct 34.8 L MCV 85.9 MCH 27.2 MCHC 31.6 L RDW 13.4 Plt Count 387 MPV 8.6 Neut # (Auto) 4.8 Lymph # (Auto) 2.9 [place] # (Auto) 0.7 Eos # (Auto) 0.6 Baso # (Auto) 0.1 Absolute Nucleated RBC 0.00 Nucleated RBC % 0.0 Sodium 139 Potassium 3.1 L Chloride 100 L Carbon Dioxide 28 Anion Gap 11.0 BUN 13 Creatinine 0.7 Estimated GFR (MDRD) 103 Glucose 93 Calcium 8.5 Total Bilirubin 0.7 AST 26 ALT 29 Alkaline Phosphatase 50 Total Protein 7.1 Albumin 3.9 Globulin 3.2 Albumin/Globulin Ratio 1.2 Lipase 38 HCG, Quant 1.07 - Rads (name of study) pelvic US w/TV doppler Radiology: Prelim report reviewed, See rad report PD MEDICAL DECISION MAKING - ED course Complexity details: reviewed old records, reviewed results, re-evaluated patient, considered differential, d/w patient ED course: reassuring h/h (hemoglobin 11; this was 11.5 04/27, 10.9 on 04/19). she has long h/o hypokalemia due to Gitelman syndrome, and incidental note of potassium level 3.1 tonight. She says she is taking her prescription medications, including PO potassium, as prescribed. her symptoms improved during ED stay without specific intervention. 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 Departure - Departure Disposition: 01 Home, Self Care Clinical Impression: Vaginal bleeding Condition: Good Instructions: ED Bleed Irregular Vaginal Comments: Follow up with your poultice machine operator next week as scheduled Discharge Date/Time: 06/25/21 02:15
[2021-06-24 23:25] LABS: BASOPHILS # (AUTO) 0.1 10^3/uL (0.0-0.1); BASOPHILS % (AUTO) 0.6 %; EOSINOPHILS # (AUTO) 0.6 10^3/uL (0.0-0.7); EOSINOPHILS % (AUTO) 6.9 %; HCT - HEMATOCRIT 34.8 % (37.0-47.0); LYMPHOCYTES # (AUTO) 2.9 10^3/uL (1.5-3.5); LYMPHOCYTES % (AUTO) 32.5 %; MEAN CORPUSCULAR HEMOGLOBIN 27.2 pg (27.0-31.0); MEAN CORPUSCULAR HGB CONC 31.6 g/dL (32.0-36.0); MEAN CORPUSCULAR VOLUME 85.9 fL (81.0-99.0); MEAN PLATELET VOLUME 8.6 fL (7.9-10.8); MONOCYTES # (AUTO) 0.7 10^3/uL (0.0-1.0); MONOCYTES % (AUTO) 7.2 %; NEUTROPHILS # (AUTO) 4.8 10^3/uL (1.5-6.6); NEUTROPHILS % (AUTO) 52.5 %; PLT - PLATELET COUNT 387 10^3/uL (130-450); RED BLOOD COUNT 4.05 10^6/uL (4.20-5.40); RED CELL DISTRIBUTION WIDTH 13.4 % (12.0-15.0)
[2021-06-24 23:49] LABS: ALBUMIN 3.9 g/dL (3.2-5.5); ALBUMIN/GLOBULIN RATIO 1.2 (1.0-2.2); BILIRUBIN,TOTAL 0.7 mg/dL (0.2-1.0); CALCIUM 8.5 mg/dL (8.5-10.3); CREATININE 0.7 mg/dL (0.4-1.0); POTASSIUM 3.1 mmol/L (3.5-5.0); TOTAL PROTEIN 7.1 g/dL (6.7-8.2)
--- NOTE | 2021-06-25 10:10 | Ultrasound Report ---
PROCEDURE: Pelvic w/Transvag+Doppler Comp INDICATIONS: Right pelvic pain TECHNIQUE: Real-time scanning was performed of the pelvic organs, with image documentation. Additional endovagi nal scanning was necessary due to incomplete visualization of the adnexal and endometrial structures by transabdominal scanning. COMPARISON: 04/15/2021 FINDINGS: The uterine body measures 4.6 x 5.9 x 8.0 cm. The endometrial stripe complex is normal in thickness, measuring approximately 10 mm in double layer thickness. No abnormal echogenic material in the uterine cavity identified. No focus of increased Doppler flow t o suggest retained products of conception. There is a small focus of hypoechogenicity in the endometrial canal measuring up to 6 mm, likely a sm all blood clot. Both ovaries unremarkable with normal blood flow on color and spectral Doppler imaging. No findings o f torsion. IMPRESSION: No evidence to suggest retained product of conception. Reviewed by: Jarek Vigil MD on 06/25/2021 10:09 AM PDT Approved by: Jarek Vigil MD on 06/25/2021 10:09 AM PDT Station ID: [id number]
== END 2021-06-25 02:15 | disposition home or self-care (01) ==
LOC: ED 22:22
DX: O72.2 Delayed and secondary postpartum hemorrhage (principal); F17.200 Nicotine dependence, unspecified, uncomplicated
CPT/HCPCS: 36415; 80053; 83690; 84702; 85025; 93975; 99284

== ENCOUNTER 2022-02-14 14:03 | Emergency (ER) | payer MEDICAID ==
[2022-02-14 14:36] LABS: BILIRUBIN,URINE NEGATIVE (NEGATIVE); GLUCOSE, URINE (UA) NEGATIVE (NEGATIVE); KETONES,URINE (UA) NEGATIVE (NEGATIVE); LEUKOCYTE ESTERASE, URINE NEGATIVE (NEGATIVE); NITRITE,URINE NEGATIVE (NEGATIVE); OCCULT BLOOD,URINE MODERATE (NEGATIVE); PH,URINE 8.5 PH (5.0-7.5); PROTEIN,URINE 30 mg/dL (NEGATIVE); UROBILINOGEN,URINE 0.2 (NORMAL) E.U./dL (NORMAL)
[2022-02-14 14:43] LABS: BASOPHILS # (AUTO) 0.1 10^3/uL (0.0-0.1); BASOPHILS % (AUTO) 0.4 %; EOSINOPHILS # (AUTO) 0.5 10^3/uL (0.0-0.7); EOSINOPHILS % (AUTO) 3.3 %; HCT - HEMATOCRIT 38.4 % (37.0-47.0); LYMPHOCYTES # (AUTO) 2.5 10^3/uL (1.5-3.5); LYMPHOCYTES % (AUTO) 15.7 %; MEAN CORPUSCULAR HEMOGLOBIN 27.5 pg (27.0-31.0); MEAN CORPUSCULAR HGB CONC 33.9 g/dL (32.0-36.0); MEAN CORPUSCULAR VOLUME 81.2 fL (81.0-99.0); MEAN PLATELET VOLUME 8.6 fL (7.9-10.8); MONOCYTES # (AUTO) 0.8 10^3/uL (0.0-1.0); NEUTROPHILS # (AUTO) 11.9 10^3/uL (1.5-6.6); NEUTROPHILS % (AUTO) 75.2 %; PLT - PLATELET COUNT 445 10^3/uL (130-450); RED BLOOD COUNT 4.73 10^6/uL (4.20-5.40); RED CELL DISTRIBUTION WIDTH 14.3 % (12.0-15.0); WHITE BLOOD COUNT 15.9 x10^3/uL (4.8-10.8)
[2022-02-14 14:54] LABS: CLARITY,URINE CLEAR (CLEAR)
[2022-02-14 14:59] LABS: BILIRUBIN,TOTAL 0.4 mg/dL (0.2-1.0); CALCIUM 8.6 mg/dL (8.5-10.3); CREATININE 0.8 mg/dL (0.4-1.0); POTASSIUM 2.4 mmol/L (3.5-5.0)
[2022-02-14 15:01] LABS: HCG UR QUAL NEGATIVE
[2022-02-14] MEDS ORDERED: IOVERSOL 320 100 ML VIAL IVP ONE ×2 (15:13→20:27)
[2022-02-14 15:17] LABS: MAGNESIUM 1.2 mg/dL (1.7-2.8); PHOSPHORUS 2.6 mg/dL (2.5-4.6)
[2022-02-14 15:19] LABS: BACTERIA,URINE Few /HPF (None Seen); SQUAMOUS EPITHELIAL CELL,UR FEW Squamous (<= Few); WBC,URINE 0-3 /HPF (0-5)
[2022-02-14] MEDS ORDERED: MORPHINE 10 MG/ML VIAL IVP STA (15:21)
--- NOTE | 2022-02-14 15:21 | ED Physician Documentation ---
History of Present Illness - Stated complaint Stated Complaint: L SIDE PX,VOMIT - Chief complaint Chief Complaint: Abd Pain - History obtained from History obtained from: Patient - History of Present Illness Pain level max: 7 Pain level now: 5 - Additonal information Additional information: Patient is a 26-year-old female who presents to the emergency department left- sided abdominal/back pain. Has been ongoing for the past 3 months. Worse with movement, better with rest. She states no relief with [id number] remedies. Has had nausea and vomiting as well. Has a history of hypokalemia and hypomagnesemia. Has not had these recently checked. She is not breast- feeding. Has a 9-month-old at home. No urinary symptoms. No fevers. No chills. No diarrhea or constipation. 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 POURER: Ovarian cysts : Chronic bladder infection, Frequency, Other HEENT: None Psych: Depression, Anxiety, Bipolar disorder, Post traumatic stress disorder Musculoskeletal: Fatigue, Chronic back pain Derm: None, Eczema - Past Surgical History Past Surgical History: Yes Ortho: ACL reconstruction, Arthroscopic surgery HEENT: Myringotomy (tubes), Tonsil/Adenoidectomy - Present Medications Home Medications: Ambulatory Orders Medication Instructions Recorded Confirmed Magnesium Oxide 3 tab PO BID #120 tablet 09/15/19 02/14/22 Potassium Chloride 40 meq PO BID 11/07/20 02/14/22 Oxycodone HCl/Acetaminophen 1 tab PO Q6H PRN #10 tablet 02/14/22 [Oxycodone-Acetaminophn 7.5-325] Promethazine [Phenergan] 25 mg PO Q6H PRN #10 tab 02/14/22 - Allergies Allergies/Adverse Reactions: Allergies Allergy/AdvReac Type Severity Reaction Status Date / Time bismuth subsalicylate Allergy Respiratory Verified 02/14/22 14:07 [From Pepto-Bismol] cinnamon Allergy Anaphylaxis Verified 02/14/22 14:07 ketorolac [From Toradol] Allergy Hives Verified 02/14/22 14:07 lavender (Lavandula Allergy Hives Verified 02/14/22 14:07 angustifolia) lorazepam [From Ativan] Allergy Hives Verified 02/14/22 14:07 ondansetron HCl * Allergy Itching Verified 02/14/22 14:07 [From Zofran (as hydrochloride)] hydromorphone AdvReac Hallucinati Verified 02/14/22 14:07 ons - Social History Does the pt smoke?: Yes Smoking Status: Current every day smoker Does the pt drink ETOH?: No Does the pt have substance abuse?: No - Immunizations Immunizations are current?: Yes Immunizations: Other immun not current - POLST Patient has POLST: No POLST Status: Full Code PD ED PE NORMAL - Vitals Vital signs reviewed: Yes - General General: Alert and oriented X 3, No acute distress, Well developed/nourished - HEENT HEENT: Moist mucous membranes - Neck Neck: Supple, no meningeal sign - Cardiac Cardiac: RRR, Strong equal pulses - Respiratory Respiratory: No respiratory distress, Clear bilaterally - Abdomen Abdomen: Normal bowel sounds, Soft, Non tender, Non distended - Back Back: No CVA TTP, No spinal TTP - Derm Derm: Warm and dry - Extremities Extremities: No edema, No calf tenderness / cord - Neuro Neuro: Alert and oriented X 3 - Psych Psych: Normal mood, Normal affect Results - Vitals Vitals: Vital Signs - 24 hr 02/14/22 02/14/22 02/14/22 14:07 14:11 16:11 Temperature 36.3 C L 36.5 C 36.6 C Heart Rate 73 79 71 Respiratory 16 16 16 Rate Blood Pressure 141/79 H 137/99 H 126/86 H O2 Saturation 100 100 97 02/14/22 18:00 Temperature 36.8 C Heart Rate 77 Respiratory 16 Rate Blood Pressure 133/81 H O2 Saturation 100 Oxygen O2 Source Room air - Labs Labs: Laboratory Tests 02/14/22 02/14/22 02/14/22 14:13 14:25 14:37 WBC 15.9 H RBC 4.73 Hgb 13.0 Hct 38.4 MCV 81.2 MCH 27.5 MCHC 33.9 RDW 14.3 Plt Count 445 MPV 8.6 Neut # (Auto) 11.9 H Lymph # (Auto) 2.5 [facility] # (Auto) 0.8 Eos # (Auto) 0.5 Baso # (Auto) 0.1 Absolute Nucleated RBC 0.00 Nucleated RBC % 0.0 Sodium Potassium Chloride Carbon Dioxide Anion Gap BUN Creatinine Estimated GFR (MDRD) Glucose Calcium Phosphorus 2.6 Magnesium 1.2 L Total Bilirubin AST ALT Alkaline Phosphatase Total Protein Albumin Globulin Albumin/Globulin Ratio Lipase Urine Color YELLOW Urine Clarity CLEAR Urine pH 8.5 H Ur Specific [place] 1.015 Urine Protein 30 H Urine Glucose (UA) NEGATIVE Urine Ketones NEGATIVE Urine Occult Blood MODERATE H Urine Nitrite NEGATIVE Urine Bilirubin NEGATIVE Urine Urobilinogen 0.2 (NORMAL) Ur Leukocyte Esterase NEGATIVE Urine RBC 6-10 H Urine WBC 0-3 Ur Squamous Epith Cells FEW Squamous Urine Bacteria Few Ur Microscopic Review INDICATED Urine Culture Comments NOT INDICATED Urine HCG, Qual NEGATIVE 02/14/22 14:37 WBC RBC Hgb Hct MCV MCH MCHC RDW Plt Count MPV Neut # (Auto) Lymph # (Auto) [facility] # (Auto) Eos # (Auto) Baso # (Auto) Absolute Nucleated RBC Nucleated RBC % Sodium 135 Potassium 2.4 L* Chloride 96 L Carbon Dioxide 26 Anion Gap 13.0 BUN 7 Creatinine 0.8 Estimated GFR (MDRD) 88 L Glucose 116 H Calcium 8.6 Phosphorus Magnesium Total Bilirubin 0.4 AST 27 ALT 29 Alkaline Phosphatase 67 Total Protein 8.0 Albumin 4.0 Globulin 4.0 Albumin/Globulin Ratio 1.0 Lipase 34 Urine Color Urine Clarity Urine pH Ur Specific [place] Urine Protein Urine Glucose (UA) Urine Ketones Urine Occult Blood Urine Nitrite Urine Bilirubin Urine Urobilinogen Ur Leukocyte Esterase Urine RBC Urine WBC Ur Squamous Epith Cells Urine Bacteria Ur Microscopic Review Urine Culture Comments Urine HCG, Qual - Rads (name of study) ct abd pelvis Radiology: Final report received, EMP read contemporaneously, See rad report PD MEDICAL DECISION MAKING - ED course Complexity details: reviewed results, re-evaluated patient, considered differential, d/w patient ED course: No acute findings on CT scan. Does have an ovarian cyst. This is not the cause of her symptoms. She will follow up with her doctor for this. Patient has potassium and magnesium at home that she will resume. Nausea well controlled. Tolerating p.o. without difficulty. Pain well controlled. Abdomen is soft, nontender nondistended on serial exam. We will place on pain medication and nausea medication for home. Given IV potassium and IV magnesium here. Patient counseled regarding signs and symptoms for which I believe and urgent re- evaluation would be necessary. Patient with good understanding of and agreement to plan and is comfortable going home at this time This document was made in part using voice recognition software. While efforts are made to proofread this document, sound alike and grammatical errors may occur. Departure - Departure Disposition: 01 Home, Self Care Clinical Impression: Flank pain, Hypokalemia, Hypomagnesemia Vomiting Qualifiers: Vomiting type: unspecified Nausea presence: with nausea Qualified Code(s): R11.2 - Nausea with vomiting, unspecified Condition: Good Instructions: ED Abdominal Pain Female Non-Specific Abdominal Pain, ED Nausea Vomiting Follow-Up: your,doctor in 1 week [Other] Prescriptions: Oxycodone HCl/Acetaminophen [Oxycodone-Acetaminophn 7.5-325] 1 tab PO Q6H PRN #10 tablet PRN Reason: Abdominal Pain Promethazine [Phenergan] 25 mg PO Q6H PRN #10 tab PRN Reason: Nausea / Vomiting Comments: Your prescriptions were sent to [facility] in [place]. Please follow-up with your doctor for further care. Resume your potassium and magnesium supplements at home. Return if you worsen Discharge Date/Time: 02/14/22 18:23
[2022-02-14] MEDS ORDERED: MAGNESIUM SULFATE 2 GRAM 2 GM/50 ML BAG IV ONE (15:24)
[2022-02-14] MEDS ORDERED: POTASSIUM CHLOR 10 MEQ/100 ML 10 MEQ/100 ML BAG IV STA (15:24)
[2022-02-14] MEDS ORDERED: PROMETHAZINE INJ 25 MG in SODIUM CHLORIDE 0.9% 50 ML IV STA (15:39)
--- NOTE | 2022-02-14 17:29 | CT Report ---
PROCEDURE: Abdomen/Pelvis W INDICATIONS: L flank pain CONTRAST: IV CONTRAST: Optiray 320 ml: 100 PO CONTRAST: *NO PO CONTRAST TECHNIQUE: After the administration of IV contrast, 5 mm thick sections acquired from the diaphragms to the symp hysis. 5 mm thick coronal and sagittal reformats were acquired. For radiation dose reduction, the f ollowing was used: automated exposure control, adjustment of mA and/or kV according to patient size. COMPARISON: 08/10/2019 FINDINGS: Image quality: This study is limited by body habitus. ABDOMEN: Lung bases: Lung bases are clear. Heart size is normal. Solid organs: Diffuse fatty liver infiltration can be seen. The liver demonstrates normal size. No focal liver lesions are seen. The spleen demonstrates normal size and demonstrates no suspicious lesi ons. Gallbladder wall does not appear thickened. Biliary system is non dilated. Pancreas enhance s normally. No adrenal nodules. In this patient with this given history, scrutiny is given to the left kidney. There is no left-sided hydronephrosis. No stones are seen. No hydroureter. The right kidney is unremarkable. Peritoneum and bowel: Bowel loops demonstrate normal wall thickness and caliber. No free fluid or a ir. Nodes and vessels: No retroperitoneal or mesenteric adenopathy by size criteria. Aorta and inferior vena cava are normal in size. Incidental note is made of a retroaortic left renal vein. Miscellaneous: No ventral hernias. PELVIS: Genitourinary: Bladder wall thickness is normal. The uterus demonstrates an unremarkable appearance for age. No adnexal masses are seen. A 4.7 cm right ovarian cyst can be seen. Miscellaneous: No inguinal hernias or adenopathy. Bones: No suspicious bony lesions. No vertebral body compression fractures. Mild premature lower l umbar spine degenerative changes are seen, with mild to moderate disc space narrowing at L5-S1. IMPRESSION: A cause of left-sided flank pain is not seen. There is no left-sided hydronephrosis or h ydroureter. No stones are seen. 4.7 cm right ovarian cyst. If clinically appropriate, please consider a follow-up ultrasound in 6 w eeks to ensure resolution/improvement. However, if there is strong clinical concern for ovarian path ology causing the patient's symptoms, please consider a short-term follow-up pelvic ultrasound. Incidental note is made of: Fatty liver infiltration Retroaortic left renal vein Premature lower lumbar spine degenerative change Reviewed by: Jose Alberto Riggs MD on 02/14/2022 4:28 PM AKDT Approved by: Jose Alberto Riggs MD on 02/14/2022 4:28 PM [id number] Station ID: [id number]
[2022-02-14] MEDS ORDERED: MORPHINE 2 MG/ML CARPUJECT IVP STA (17:52)
[2022-02-14 18:10] VITALS: BP 133/81
--- NOTE | 2022-02-14 19:47 | ED Physician Documentation ---
ED Addendum - Addendum Addendum: 02/14/22 19:44 [facility] pharmacy called and stated they did not receive the narcotic pr escription. They state they are closing and the patient request this be sent to [facility]. The prescription was sent to [facility]. When the patient arrived at [facility], they stated they do not take her insurance and so she request that be sent to [facility]. Departure - Departure Disposition: 01 Home, Self Care Clinical Impression: Flank pain, Hypokalemia, Hypomagnesemia Vomiting Qualifiers: Vomiting type: unspecified Nausea presence: with nausea Qualified Code(s): R11.2 - Nausea with vomiting, unspecified Condition: Good Instructions: ED Abdominal Pain Female Non-Specific Abdominal Pain, ED Nausea Vomiting Follow-Up: your,doctor in 1 week [Other] Prescriptions: Oxycodone HCl/Acetaminophen [Oxycodone-Acetaminophn 7.5-325] 1 tab PO Q6H PRN #10 tablet PRN Reason: Abdominal Pain Promethazine [Phenergan] 25 mg PO Q6H PRN #10 tab PRN Reason: Nausea / Vomiting Comments: Your prescriptions were sent to [facility] in [place]. Please follow-up with your doctor for further care. Resume your potassium and magnesium supplements at home. Return if you worsen Discharge Date/Time: 02/14/22 18:23
[2022-02-14 20:43] LABS: BACTERIAL VAGINOSIS DNA POSITIVE (NEGATIVE); CANDIDA GLABRATA DNA NEGATIVE (NEGATIVE); CANDIDA GROUP DNA NEGATIVE (NEGATIVE); CANDIDA KRUSEI DNA NEGATIVE (NEGATIVE); TRICHOMONAS VAGINALIS DNA NEGATIVE (NEGATIVE)
[2022-02-14 23:28] LABS: CHLAMYDIA TRACHOMATIS DNA NEGATIVE (NEGATIVE); NEISSERIA GONORRHOEAE DNA NEGATIVE (NEGATIVE); TRICHOMONAS VAGINALIS DNA NEGATIVE (NEGATIVE)
== END 2022-02-14 18:23 | disposition home or self-care (01) ==
LOC: ED 14:03
DX: R10.9 Unspecified abdominal pain (principal); R11.2 Nausea with vomiting, unspecified; E87.6 Hypokalemia; E83.42 Hypomagnesemia; N83.201 Unspecified ovarian cyst, right side; F17.200 Nicotine dependence, unspecified, uncomplicated
CPT/HCPCS: 36415; 74177; 80053; 81001; 81025; 83690; 83735; 84100; 85025; 87481; 87491; 87591; 87661; 87801; 96365; 96367; 96368; 96375; 96376; 99284; J7040; Q9967; 81003; 87086

== ENCOUNTER 2022-04-02 19:53 | Emergency (ER) | payer MEDICAID ==
[2022-04-02 20:17] LABS: BASOPHILS # (AUTO) 0.1 10^3/uL (0.0-0.1); BASOPHILS % (AUTO) 0.4 %; EOSINOPHILS # (AUTO) 0.9 10^3/uL (0.0-0.7); EOSINOPHILS % (AUTO) 6.5 %; HCT - HEMATOCRIT 37.5 % (37.0-47.0); HGB - HEMOGLOBIN 12.9 g/dL (12.0-16.0); MEAN CORPUSCULAR HEMOGLOBIN 28.6 pg (27.0-31.0); MEAN CORPUSCULAR HGB CONC 34.4 g/dL (32.0-36.0); MEAN CORPUSCULAR VOLUME 83.1 fL (81.0-99.0); MEAN PLATELET VOLUME 8.5 fL (7.9-10.8); MONOCYTES # (AUTO) 0.7 10^3/uL (0.0-1.0); MONOCYTES % (AUTO) 5.3 %; NEUTROPHILS % (AUTO) 58.3 %; PLT - PLATELET COUNT 437 10^3/uL (130-450); RED BLOOD COUNT 4.51 10^6/uL (4.20-5.40); RED CELL DISTRIBUTION WIDTH 13.4 % (12.0-15.0); WHITE BLOOD COUNT 13.8 x10^3/uL (4.8-10.8)
[2022-04-02 20:31] LABS: ALBUMIN 3.8 g/dL (3.2-5.5); BILIRUBIN,TOTAL 0.5 mg/dL (0.2-1.0); CALCIUM 8.2 mg/dL (8.5-10.3); CREATININE 0.7 mg/dL (0.4-1.0); MAGNESIUM 1.2 mg/dL (1.7-2.8); PHOSPHORUS 3.2 mg/dL (2.5-4.6); POTASSIUM 2.6 mmol/L (3.5-5.0); TOTAL PROTEIN 7.7 g/dL (6.7-8.2)
[2022-04-02 20:32] LABS: MUDS CUTOFF CONCENTRATIONS CUTOFF CONC BELOW:
[2022-04-02 20:37] LABS: BILIRUBIN,URINE NEGATIVE (NEGATIVE); GLUCOSE, URINE (UA) NEGATIVE (NEGATIVE); KETONES,URINE (UA) NEGATIVE (NEGATIVE); LEUKOCYTE ESTERASE, URINE NEGATIVE (NEGATIVE); NITRITE,URINE NEGATIVE (NEGATIVE); OCCULT BLOOD,URINE MODERATE (NEGATIVE); PROTEIN,URINE NEGATIVE (NEGATIVE); UROBILINOGEN,URINE 0.2 (NORMAL) E.U./dL (NORMAL)
[2022-04-02 20:40] LABS: CLARITY,URINE HAZY (CLEAR); HCG UR QUAL NEGATIVE
[2022-04-02] MEDS ORDERED: MAGNESIUM SULFATE 2 GRAM 2 GM/50 ML BAG IV ONE (20:44)
[2022-04-02] MEDS ORDERED: POTASSIUM CHLORIDE 20 MEQ TABLET PO STA ×2 (20:44→23:02)
[2022-04-02] MEDS ORDERED: POTASSIUM CHLOR 10 MEQ/100 ML 10 MEQ/100 ML BAG IV STA ×2 (20:44→22:13)
[2022-04-02 20:49] LABS: AMPHETAMINE SCREEN,URINE NEGATIVE (NEGATIVE); BARBITURATE SCREEN,UR NEGATIVE (NEGATIVE); BENZODIAZEPINES SCREEN, URINE NEGATIVE (NEGATIVE); COCAINE SCREEN URINE NEGATIVE (NEGATIVE); METHADONE SCREEN, URINE NEGATIVE (NEGATIVE); METHAMPHETAMINES SCREEN, URINE NEGATIVE (NEGATIVE); OPIATE SCREEN, URINE NEGATIVE (NEGATIVE); OXYCODONE SCREEN, URINE NEGATIVE (NEGATIVE); PROPOXYPHENE SCREEN, URINE NEGATIVE (NEGATIVE); THC CANNABINOID SCREEN, URINE NEGATIVE (NEGATIVE); TRICYCLIC ANTIDEPRESSANT,URINE NEGATIVE (NEGATIVE)
[2022-04-02 20:58] LABS: BACTERIA,URINE None Seen /HPF (None Seen); SQUAMOUS EPITHELIAL CELL,UR MOD Squamous (<= Few)
--- NOTE | 2022-04-02 21:02 | ED Physician Documentation ---
History of Present Illness - Stated complaint Stated Complaint: BODY NUMBNESS - Chief complaint Chief Complaint: Neuro - History obtained from History obtained from: Patient - History of Present Illness Timing: Today Pain level now: 4 Improved by: nothing Worsened by: no exacerbating factors - Additonal information Additional information: c/o my whole body has been fuzzy, locked up and stiff (per patient). 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 She says she ran out of potassium today and thus missed one dose, and ran out of magnesium approximately 2 weeks ago. Review of Systems Constitutional: reports: Myalgias, Fatigue. denies: Fever Eyes: denies: Loss of vision, Decreased vision Cardiac: reports: Reviewed and negative Respiratory: reports: Reviewed and negative GI: reports: Nausea. denies: Abdominal Pain, Vomiting Musculoskeletal: reports: Reviewed and negative Neurologic: reports: Generalized weakness, Headache. 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: Ovarian cysts : Chronic bladder infection, Frequency, Other HEENT: None Psych: Depression, Anxiety, Bipolar disorder, Post traumatic stress disorder Musculoskeletal: Fatigue, Chronic back pain Derm: None, Eczema - Past Surgical History Past Surgical History: Yes Ortho: ACL reconstruction, Arthroscopic surgery HEENT: Myringotomy (tubes), Tonsil/Adenoidectomy - Present Medications Home Medications: Ambulatory Orders Medication Instructions Recorded Confirmed Magnesium Oxide 3 tab PO BID #120 tablet 09/15/19 02/14/22 Potassium Chloride 40 meq PO BID 11/07/20 02/14/22 Oxycodone HCl/Acetaminophen 1 tab PO Q6H PRN #10 tablet 02/14/22 [Oxycodone-Acetaminophn 7.5-325] Promethazine [Phenergan] 25 mg PO Q6H PRN #10 tab 02/14/22 - Allergies Allergies/Adverse Reactions: Allergies Allergy/AdvReac Type Severity Reaction Status Date / Time bismuth subsalicylate Allergy Respiratory Verified 04/02/22 20:03 [From Pepto-Bismol] cinnamon Allergy Anaphylaxis Verified 04/02/22 20:03 ketorolac [From Toradol] Allergy Hives Verified 04/02/22 20:03 lavender (Lavandula Allergy Hives Verified 04/02/22 20:03 angustifolia) lorazepam [From Ativan] Allergy Hives Verified 04/02/22 20:03 ondansetron HCl * Allergy Itching Verified 04/02/22 20:03 [From Zofran (as hydrochloride)] hydromorphone AdvReac Hallucinati Verified 04/02/22 20:03 ons - Social History Does the pt smoke?: Yes Smoking Status: Current every day smoker Does the pt drink ETOH?: No Does the pt have substance abuse?: No - Immunizations Immunizations are current?: Yes Immunizations: Other immun not current - POLST Patient has POLST: No POLST Status: Full Code PD ED PE NORMAL - Vitals Vital signs reviewed: Yes - General General: Alert and oriented X 3, No acute distress, Well developed/nourished - HEENT HEENT: Moist mucous membranes - Neck Neck: Supple, no meningeal sign - Cardiac Cardiac: RRR, No murmur, No gallop - Respiratory Respiratory: No respiratory distress, Clear bilaterally - Abdomen Abdomen: Normal bowel sounds, Soft, Non tender, Non distended - Back Back: No CVA TTP - Derm Derm: Normal color, Warm and dry - Extremities Extremities: No edema - Neuro Neuro: Alert and oriented X 3 Results - Vitals Vitals: Oxygen O2 Source Room air - EKG (time done) No standard instances Rate: Rate (enter#) (80) Rhythm: NSR [place]: Normal Intervals: Normal OR QRS: Normal Ischemia: Normal ST segments - Labs Labs: Laboratory Tests 04/02/22 04/02/22 04/02/22 20:12 20:12 20:28 WBC 13.8 H RBC 4.51 Hgb 12.9 Hct 37.5 MCV 83.1 MCH 28.6 MCHC 34.4 RDW 13.4 Plt Count 437 MPV 8.5 Neut # (Auto) 8.0 H Lymph # (Auto) 4.0 H [place] # (Auto) 0.7 Eos # (Auto) 0.9 H Baso # (Auto) 0.1 Absolute Nucleated RBC 0.00 Nucleated RBC % 0.0 Sodium 138 Potassium 2.6 L Chloride 98 L Carbon Dioxide 28 Anion Gap 12.0 BUN 13 Creatinine 0.7 Estimated GFR (MDRD) 103 Glucose 101 H Calcium 8.2 L Phosphorus 3.2 Magnesium 1.2 L Total Bilirubin 0.5 AST 29 ALT 36 Alkaline Phosphatase 70 Total Protein 7.7 Albumin 3.8 Globulin 3.9 Albumin/Globulin Ratio 1.0 Urine Color YELLOW Urine Clarity HAZY Urine pH 7.0 Ur Specific [place] 1.015 Urine Protein NEGATIVE Urine Glucose (UA) NEGATIVE Urine Ketones NEGATIVE Urine Occult Blood MODERATE H Urine Nitrite NEGATIVE Urine Bilirubin NEGATIVE Urine Urobilinogen 0.2 (NORMAL) Ur Leukocyte Esterase NEGATIVE Urine RBC 6-10 H Urine WBC 4-5 Ur Squamous Epith Cells MOD Squamous H Urine Bacteria None Seen Ur Microscopic Review INDICATED Urine Culture Comments NOT INDICATED Urine HCG, Qual NEGATIVE Urine Opiates Screen NEGATIVE Ur Oxycodone Screen NEGATIVE Urine Methadone Screen NEGATIVE Ur Propoxyphene Screen NEGATIVE Ur Barbiturates Screen NEGATIVE Ur Tricyclics Screen NEGATIVE Ur Phencyclidine Scrn NEGATIVE Ur Amphetamine Screen NEGATIVE U Methamphetamines Scrn NEGATIVE U Benzodiazepines Scrn NEGATIVE Urine Cocaine Screen NEGATIVE U Cannabinoids Screen NEGATIVE PD MEDICAL DECISION MAKING - ED course Complexity details: reviewed old records, reviewed results, re-evaluated patient, considered differential, d/w patient ED course: potassium 2.5, magnesium 1.2 on tonights lab draws. These are not unusual for her, and patient says that at these levels, she is typically able to get one dose each of IV magnesium and potassium along with one dose each of oral potassium and magnesium and then discharged. This plan was undertaken, with 20meq PO KCl, 10 meq IV kcl, 2 gm IV magnesium, and then given po magnesium and po KCl prior to d/c. She says she feels much better on reevaluation prior to d/c and is comfortable with d/c home. She says she has refills for both the po tassium and magnesium waiting for her at the pharmacy and she can pick these up in the morning Departure - Departure Disposition: 01 Home, Self Care Clinical Impression: Hypokalemia, Hypomagnesemia Condition: Good Instructions: Hypomagnesemia Dc, ED Potassium Deficiency Comments: Fill your prescriptions in the morning for your potassium and magnesium so that you can resume/continue taking them as prescribed Discharge Date/Time: 04/03/22 00:04
[2022-04-02] MEDS ORDERED: MORPHINE 2 MG/ML CARPUJECT IVP STA (21:16)
[2022-04-02] MEDS ORDERED: PROMETHAZINE INJ 25 MG in SODIUM CHLORIDE 0.9% 50 ML IV STA (21:53)
[2022-04-02] MEDS ORDERED: PROMETHAZINE 25 MG TABLET PO STA (22:13)
[2022-04-02 23:02] VITALS: BP 118/74
[2022-04-02] MEDS ORDERED: MAGNESIUM OXIDE 400 MG TABLET PO STA (23:02)
[2022-04-02] MEDS ORDERED: oxyCODONE/ACET 5/325 Prepack 4 PO STA (23:49)
== END 2022-04-03 00:04 | disposition home or self-care (01) ==
LOC: ED 19:53
DX: E87.6 Hypokalemia (principal); E83.42 Hypomagnesemia; F17.200 Nicotine dependence, unspecified, uncomplicated
CPT/HCPCS: 36415; 80053; 80306; 81001; 81025; 83735; 84100; 85025; 93005; 96365; 96366; 96368; 96375; 99284; A9270; Q0169; 81003; 87086

== ENCOUNTER 2022-05-28 23:20 | Emergency (ER) | payer MEDICAID ==
[2022-05-28 23:46] LABS: BASOPHILS % (AUTO) 0.2 %; BILIRUBIN,URINE NEGATIVE (NEGATIVE); EOSINOPHILS % (AUTO) 5.3 %; GLUCOSE, URINE (UA) NEGATIVE (NEGATIVE); HGB - HEMOGLOBIN 13.9 g/dL (12.0-16.0); KETONES,URINE (UA) NEGATIVE (NEGATIVE); LEUKOCYTE ESTERASE, URINE NEGATIVE (NEGATIVE); LYMPHOCYTES % (AUTO) 9.8 %; MEAN CORPUSCULAR HEMOGLOBIN 28.5 pg (27.0-31.0); MEAN CORPUSCULAR HGB CONC 33.9 g/dL (32.0-36.0); MEAN CORPUSCULAR VOLUME 84.2 fL (81.0-99.0); MEAN PLATELET VOLUME 8.5 fL (7.9-10.8); MONOCYTES % (AUTO) 5.5 %; NEUTROPHILS % (AUTO) 78.7 %; NITRITE,URINE NEGATIVE (NEGATIVE); OCCULT BLOOD,URINE MODERATE (NEGATIVE); PLT - PLATELET COUNT 456 10^3/uL (130-450); PROTEIN,URINE NEGATIVE (NEGATIVE); RED BLOOD COUNT 4.87 10^6/uL (4.20-5.40); RED CELL DISTRIBUTION WIDTH 12.7 % (12.0-15.0); UROBILINOGEN,URINE 0.2 (NORMAL) E.U./dL (NORMAL); WHITE BLOOD COUNT 19.9 x10^3/uL (4.8-10.8)
[2022-05-28 23:52] LABS: ABNORMAL LYMPHS % (MANUAL) 0 %; CLARITY,URINE CLEAR (CLEAR); HCG UR QUAL NEGATIVE
[2022-05-28 23:56] LABS: BACTERIA,URINE None Seen /HPF (None Seen); SQUAMOUS EPITHELIAL CELL,UR RARE Squamous (<= Few); WBC,URINE 0-3 /HPF (0-5)
[2022-05-28 23:57] LABS: BILIRUBIN,TOTAL 0.7 mg/dL (0.2-1.0); CALCIUM 9.1 mg/dL (8.5-10.3); CREATININE 0.7 mg/dL (0.4-1.0); POTASSIUM 3.1 mmol/L (3.5-5.0); TOTAL PROTEIN 7.9 g/dL (6.7-8.2)
[2022-05-29 00:09] LABS: BAND NEUTROPHILS % (MANUAL) 1 %; EOSINOPHILS # (MANUAL) 0.4 10^3/uL (0-0.7); LYMPHOCYTES % (MANUAL) 15 %; MONOCYTES # (MANUAL) 1.2 10^3/uL (0.0-1.0); NEUTROPHILS # (MANUAL) 15.3 10^3/uL (1.5-6.6)
[2022-05-29 00:10] LABS: DIFFERENTIAL COMMENT MANUAL DIFFERENTIAL; PLATELET ESTIMATE, MANUAL NORMAL (130-450,000) (NORMAL); PLATELET MORPHOLOGY NORMAL APPEARANCE (NORMAL); RBC MORPHOLOGY (MULTIPLE) NORMAL APPEARANCE (NORMAL); WBC MORPHOLOGY (MULTIPLE) NORMAL APPEARANCE (NORMAL)
--- NOTE | 2022-05-29 00:52 | ED Physician Documentation ---
PD HPI ABD PAIN - Stated complaint Stated Complaint: ABD PX,VOMITTING - Chief complaint Chief Complaint: Abd Pain - History obtained from History obtained from: Patient - History of Present Illness Timing - onset: How many hours ago (approximately ten hours [employer]OCI[employer]), Today Timing - details: Abrupt onset Pain level now: 6 Quality: Pain Location: All over / everywhere Improved by: Other (nothing) Worsened by: Other (no exacerbating factors) Associated symptoms: Nausea, Vomiting. No: Fever, Diarrhea, Constipation - Additional information Additional information: c/o generalized abdominal pain with nausea and vomiting. Has had similar symptoms in the past but she says this is the worst abdominal pain she has had compared to previous. 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 Review of Systems Constitutional: denies: Fever, Chills, Sweats Cardiac: reports: Reviewed and negative Respiratory: reports: Reviewed and negative GI: reports: Abdominal Pain, Nausea, Vomiting. 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: Ovarian cysts : Chronic bladder infection, Frequency, Other HEENT: None Psych: Depression, Anxiety, Bipolar disorder, Post traumatic stress disorder Musculoskeletal: Fatigue, Chronic back pain Derm: None, Eczema - Past Surgical History Past Surgical History: Yes Ortho: ACL reconstruction, Arthroscopic surgery HEENT: Myringotomy (tubes), Tonsil/Adenoidectomy - Present Medications Home Medications: Ambulatory Orders Medication Instructions Recorded Confirmed Magnesium Oxide 3 tab PO BID #120 tablet 09/15/19 02/14/22 Potassium Chloride 40 meq PO BID 11/07/20 02/14/22 Oxycodone HCl/Acetaminophen 1 tab PO Q6H PRN #10 tablet 02/14/22 [Oxycodone-Acetaminophn 7.5-325] Promethazine [Phenergan] 25 mg PO Q6H PRN #10 tab 02/14/22 Promethazine [Phenergan] 25 mg PO Q6H PRN #10 tab 05/29/22 - Allergies Allergies/Adverse Reactions: Allergies Allergy/AdvReac Type Severity Reaction Status Date / Time bismuth subsalicylate Allergy Respiratory Verified 05/28/22 23:27 [From Pepto-Bismol] cinnamon Allergy Anaphylaxis Verified 05/28/22 23:27 ketorolac [From Toradol] Allergy Hives Verified 05/28/22 23:27 lavender (Lavandula Allergy Hives Verified 05/28/22 23:27 angustifolia) lorazepam [From Ativan] Allergy Hives Verified 05/28/22 23:27 ondansetron HCl * Allergy Itching Verified 05/28/22 23:27 [From Zofran (as hydrochloride)] hydromorphone AdvReac Hallucinati Verified 05/28/22 23:27 ons - Social History Does the pt smoke?: Yes Smoking Status: Current every day smoker Does the pt drink ETOH?: No Does the pt have substance abuse?: No - Immunizations Immunizations are current?: Yes Immunizations: Other immun not current - POLST Patient has POLST: No POLST Status: Full Code PD ED PE NORMAL - Vitals Vital signs reviewed: Yes - General General: Alert and oriented X 3, No acute distress, Well developed/nourished - Neck Neck: Supple, no meningeal sign - Cardiac Cardiac: RRR, No murmur - Respiratory Respiratory: No respiratory distress, Clear bilaterally - Abdomen Abdomen: Soft, Non distended, Other (mild and diffuse tenderness to palpation without rebound or guarding) - Back Back: No CVA TTP - Derm Derm: Normal color, Warm and dry Results - Vitals Vitals: Oxygen O2 Source Room air - Labs Labs: Laboratory Tests 05/28/22 05/28/22 05/28/22 23:36 23:36 23:36 WBC 19.9 H RBC 4.87 Hgb 13.9 Hct 41.0 MCV 84.2 MCH 28.5 MCHC 33.9 RDW 12.7 Plt Count 456 H MPV 8.5 Neut # (Auto) Not Reportable Lymph # (Auto) Not Reportable [place] # (Auto) Not Reportable Eos # (Auto) Not Reportable Baso # (Auto) Not Reportable Absolute Nucleated RBC Not Reportable Total Counted 100 Band Neuts % (Manual) 1 Abnorm Lymph % (Manual) 0 Nucleated RBC % Not Reportable Neutrophils # (Manual) 15.3 H Lymphocytes # (Manual) 3.0 Monocytes # (Manual) 1.2 H Eosinophils # (Manual) 0.4 Basophils # (Manual) 0.0 Differential Comment MANUAL DIFFERENTIAL WBC Morphology NORMAL APPEARANCE Platelet Estimate NORMAL (130-450,000) Platelet Morphology NORMAL APPEARANCE RBC Morph Micro Appear NORMAL APPEARANCE Sodium 138 Potassium 3.1 L Chloride 100 L Carbon Dioxide 29 Anion Gap 9.0 BUN 11 Creatinine 0.7 Estimated GFR (MDRD) 102 Glucose 107 H Calcium 9.1 Magnesium Total Bilirubin 0.7 AST 37 ALT 46 Alkaline Phosphatase 74 Total Protein 7.9 Albumin 4.0 Globulin 3.9 Albumin/Globulin Ratio 1.0 Lipase 39 Urine Color YELLOW Urine Clarity CLEAR Urine pH 8.0 H Ur Specific [place] 1.015 Urine Protein NEGATIVE Urine Glucose (UA) NEGATIVE Urine Ketones NEGATIVE Urine Occult Blood MODERATE H Urine Nitrite NEGATIVE Urine Bilirubin NEGATIVE Urine Urobilinogen 0.2 (NORMAL) Ur Leukocyte Esterase NEGATIVE Urine RBC 6-10 H Urine WBC 0-3 Ur Squamous Epith Cells RARE Squamous Urine Bacteria None Seen Ur Microscopic Review INDICATED Urine Culture Comments NOT INDICATED Urine HCG, Qual NEGATIVE 05/28/22 23:36 WBC RBC Hgb Hct MCV MCH MCHC RDW Plt Count MPV Neut # (Auto) Lymph # (Auto) [place] # (Auto) Eos # (Auto) Baso # (Auto) Absolute Nucleated RBC Total Counted Band Neuts % (Manual) Abnorm Lymph % (Manual) Nucleated RBC % Neutrophils # (Manual) Lymphocytes # (Manual) Monocytes # (Manual) Eosinophils # (Manual) Basophils # (Manual) Differential Comment WBC Morphology Platelet Estimate Platelet Morphology RBC Morph Micro Appear Sodium Potassium Chloride Carbon Dioxide Anion Gap BUN Creatinine Estimated GFR (MDRD) Glucose Calcium Magnesium 1.1 L Total Bilirubin AST ALT Alkaline Phosphatase Total Protein Albumin Globulin Albumin/Globulin Ratio Lipase Urine Color Urine Clarity Urine pH Ur Specific [place] Urine Protein Urine Glucose (UA) Urine Ketones Urine Occult Blood Urine Nitrite Urine Bilirubin Urine Urobilinogen Ur Leukocyte Esterase Urine RBC Urine WBC Ur Squamous Epith Cells Urine Bacteria Ur Microscopic Review Urine Culture Comments Urine HCG, Qual - Rads (name of study) CT A/P Radiology: Prelim report reviewed, See rad report PD MEDICAL DECISION MAKING - ED course Complexity details: reviewed old records, reviewed results, re-evaluated patient, considered differential, d/w patient ED course: Patient has many previous visits which have mostly involved nausea/vomiting and symptoms attributable to hypokalemia and hypomagesemia (due to gitelman syndrome). Tonight's tests results include potassium of 3.1, magnesium 1.1, and WBC 19.9. She is given IV potassium and magnesium as well as IV NS, morphine, and phenergan. Her potassium and magnesium are not significantly off from her baseline although her WBC is higher than previous results and this, combined with c/o abdominal pain, prompts CT A/P. There are no concerning findings on CT A/P and on reevaluation, she is in NAD and reports feeling significant improvement and is comfortable with d/c home. Results d/w patient, return precautions discussed. Departure - Departure Disposition: Home, Self Care Clinical Impression: Potassium wasting nephropathy, Hypomagnesemia, Abdominal pain Condition: Good Instructions: ED Abdominal Pain Female Non-Specific Abdominal Pain Prescriptions: Promethazine [Phenergan] 25 mg PO Q6H PRN #10 tab PRN Reason: Nausea / Vomiting Comments: Your potassium and magnesium levels were both low tonight and you were given IV potassium and magnesium for this. Your white blood cell count was high and thus a CT scan of your abdomen and pelvis was performed; there are no concerning findings on the CT scan. The cause of your symptoms is not apparent at this time. Take your potassium and magnesium as prescribed by your doctor. Discharge Date/Time: 05/29/22 03:44
[2022-05-29] MEDS ORDERED: MAGNESIUM SULFATE 2 GRAM 2 GM/50 ML BAG IV ONE (01:12)
[2022-05-29] MEDS ORDERED: MORPHINE 2 MG/ML CARPUJECT IVP STA (01:12)
[2022-05-29] MEDS ORDERED: PROMETHAZINE INJ 25 MG in SODIUM CHLORIDE 0.9% 50 ML IV STA (01:12)
[2022-05-29] MEDS ORDERED: SODIUM CHLORIDE 0.9% 1,000 ML IV STA (01:12)
[2022-05-29] MEDS ORDERED: POTASSIUM CHLOR 10 MEQ/100 ML 10 MEQ/100 ML BAG IV STA (01:13)
[2022-05-29] MEDS ORDERED: PROMETHAZINE 25 MG/1 ML VIAL ONE (01:29)
--- NOTE | 2022-05-29 02:08 | CT Report ---
PROCEDURE: Abdomen/Pelvis WO INDICATIONS: abd. pain TECHNIQUE: Noncontrast 5 mm thick sections acquired from the diaphragms to the symphysis. 5 mm coronal and sagi ttal reformats were then performed. For radiation dose reduction, the following was used: automated exposure control, adjustment of mA and/or kV according to patient size. COMPARISON: CT abdomen pelvis 02/14/2022, 08/10/2019. FINDINGS: Image quality: Diagnostic. Lung bases:There is mild linear scarring in the lung bases. Heart: Heart is normal in size. There is a small hiatal hernia. ABDOMEN: Liver:Noncontrast evaluation of liver demonstrates no discrete mass lesion. Gallbladder: Within normal limits without calcified gallstones. Biliary ducts: No biliary ductal dilatation. Pancreas:No peripancreatic fat stranding or fluid collections to suggest acute pancreatitis. Spleen: Normal in size. Adrenal Glands: No adrenal nodules. Kidneys and Ureters: No hydronephrosis. Stomach and Bowel: Stomach, small bowel loops, and colon are normal in caliber and wall thickness. T he appendix is normal in appearance. Peritoneum: No abnormal intraperitoneal fluid. No free air. Ventral Wall: No hernia. Abdominal Nodes: No retroperitoneal or mesenteric adenopathy by size criteria. Vessels: Aorta and inferior vena cava are normal in size. PELVIS: Pelvic Organs: Unremarkable. Bladder: Unremarkable. Pelvic Nodes: No enlarged lymph nodes. Miscellaneous: No inguinal hernias are seen. Bones: Visualized osseous structures demonstrate no suspicious focal lesions. IMPRESSION: 1. No definite acute intra-abdominal abnormality. Specifically, no CT evidence of pancreatitis or cho lecystitis. 2. No nephrolithiasis or obstructive uropathy. Reviewed by: Igor Lazo MD on 05/29/2022 2:07 AM PDT Approved by: Igor Lazo MD on 05/29/2022 2:07 AM PDT Station ID: [id number]
[2022-05-29 03:20] VITALS: BP 108/58
== END 2022-05-29 03:44 | disposition home or self-care (01) ==
LOC: ED 23:20
DX: N15.8 Other specified renal tubulo-interstitial diseases (principal); E83.42 Hypomagnesemia; N25.89 Other disorders resulting from impaired renal tubular function; D72.829 Elevated white blood cell count, unspecified; F17.200 Nicotine dependence, unspecified, uncomplicated
CPT/HCPCS: 36415; 74176; 80053; 81001; 81025; 83690; 83735; 85025; 96365; 96366; 96368; 96375; 99284; J7040; 81003; 87086

== ENCOUNTER 2022-08-16 18:54 | Emergency (ER) | payer MEDICAID ==
[2022-08-16 19:21] LABS: BILIRUBIN,URINE NEGATIVE (NEGATIVE); GLUCOSE, URINE (UA) NEGATIVE (NEGATIVE); KETONES,URINE (UA) NEGATIVE (NEGATIVE); LEUKOCYTE ESTERASE, URINE NEGATIVE (NEGATIVE); NITRITE,URINE NEGATIVE (NEGATIVE); OCCULT BLOOD,URINE MODERATE (NEGATIVE); PROTEIN,URINE TRACE mg/dL (NEGATIVE); UROBILINOGEN,URINE 0.2 (NORMAL) E.U./dL (NORMAL)
[2022-08-16 19:23] LABS: CLARITY,URINE CLEAR (CLEAR); HCG UR QUAL NEGATIVE
[2022-08-16 19:29] LABS: BACTERIA,URINE Rare /HPF (None Seen); SQUAMOUS EPITHELIAL CELL,UR FEW Squamous (<= Few); WBC,URINE 0-3 /HPF (0-5)
[2022-08-16 20:04] LABS: BASOPHILS # (AUTO) 0.1 10^3/uL (0.0-0.1); BASOPHILS % (AUTO) 0.6 %; EOSINOPHILS # (AUTO) 0.7 10^3/uL (0.0-0.7); EOSINOPHILS % (AUTO) 6.5 %; HCT - HEMATOCRIT 37.9 % (37.0-47.0); LYMPHOCYTES # (AUTO) 3.4 10^3/uL (1.5-3.5); LYMPHOCYTES % (AUTO) 30.2 %; MEAN CORPUSCULAR HEMOGLOBIN 29.1 pg (27.0-31.0); MEAN CORPUSCULAR HGB CONC 34.3 g/dL (32.0-36.0); MEAN CORPUSCULAR VOLUME 84.8 fL (81.0-99.0); MEAN PLATELET VOLUME 8.4 fL (7.9-10.8); MONOCYTES # (AUTO) 0.6 10^3/uL (0.0-1.0); MONOCYTES % (AUTO) 5.7 %; NEUTROPHILS # (AUTO) 6.3 10^3/uL (1.5-6.6); NEUTROPHILS % (AUTO) 56.4 %; PLT - PLATELET COUNT 355 10^3/uL (130-450); RED BLOOD COUNT 4.47 10^6/uL (4.20-5.40); RED CELL DISTRIBUTION WIDTH 13.1 % (12.0-15.0); WHITE BLOOD COUNT 11.2 x10^3/uL (4.8-10.8)
[2022-08-16] MEDS ORDERED: PROMETHAZINE 25 MG/1 ML VIAL IM STA (20:06)
[2022-08-16] MEDS ORDERED: MORPHINE 10 MG/ML VIAL IM STA (20:07)
[2022-08-16 20:14] LABS: ALBUMIN 3.5 g/dL (3.2-5.5); BILIRUBIN,TOTAL 0.4 mg/dL (0.2-1.0); CALCIUM 8.6 mg/dL (8.5-10.3); CREATININE 0.6 mg/dL (0.4-1.0); MAGNESIUM 1.3 mg/dL (1.7-2.8); PHOSPHORUS 3.5 mg/dL (2.5-4.6); POTASSIUM 2.8 mmol/L (3.5-5.0); TOTAL PROTEIN 7.1 g/dL (6.7-8.2)
[2022-08-16] MEDS ORDERED: HYOSCYAMINE SL 0.125 MG TABLET SL STA (21:41)
[2022-08-16] MEDS ORDERED: oxyCODONE 5 MG TABLET PO STA (21:41)
[2022-08-16] MEDS ORDERED: PSEUDOEPHEDRINE 30 MG TABLET PO STA (21:47)
[2022-08-16] MEDS ORDERED: BENZONATATE 100 MG CAPSULE PO STA (21:47)
[2022-08-16] MEDS ORDERED: oxyCODONE/ACET 5/325 Prepack 4 PO STA (21:50)
--- NOTE | 2022-08-16 21:50 | ED Physician Documentation ---
History of Present Illness - Stated complaint Stated Complaint: HEADACHE, N/D - Chief complaint Chief Complaint: General - History obtained from History obtained from: Patient - History of Present Illness Timing: Today Pain level max: 8 Pain level now: 6 - Additonal information Additional information: Patient is a 27-year-old female who presents to the emergency department with multiple complaints. She has a history of Gettleman syndrome. She states that she has a headache, ongoing for the past 4 days. Nothing seems to make it better or worse. Has rhinorrhea and congestion. Cough, chest pain with coughing. She has right-sided upper abdominal pain and right flank pain. She also complains of body aches. Has nausea but no vomiting. No diarrhea. No fevers. No chills. She states cough medication is not helping at home. Review of Systems Constitutional: denies: Fever, Chills Nose: reports: Rhinorrhea / runny nose, Congestion, Sinus pressure / pain Respiratory: reports: Cough GI: reports: Abdominal Pain, Nausea. 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 : Chronic bladder infection, Frequency, Other HEENT: None Psych: Depression, Anxiety, Bipolar disorder, Post traumatic stress disorder Musculoskeletal: Fatigue, Chronic back pain Derm: None, Eczema - Past Surgical History Past Surgical History: Yes Ortho: ACL reconstruction, Arthroscopic surgery HEENT: Myringotomy (tubes), Tonsil/Adenoidectomy - Present Medications Home Medications: Ambulatory Orders Medication Instructions Recorded Confirmed Magnesium Oxide 3 tab PO BID #120 tablet 09/15/19 02/14/22 Potassium Chloride 40 meq PO BID 11/07/20 02/14/22 Oxycodone HCl/Acetaminophen 1 tab PO Q6H PRN #10 tablet 02/14/22 [Oxycodone-Acetaminophn 7.5-325] Promethazine [Phenergan] 25 mg PO Q6H PRN #10 tab 02/14/22 Promethazine [Phenergan] 25 mg PO Q6H PRN #10 tab 05/29/22 Spironolactone [Aldactone] 25 mg PO DAILY #3 tablet 07/13/22 Benzonatate [Tessalon] 200 mg PO TID PRN #30 cap 08/16/22 Cetirizine HCl/Pseudoephedrine 1 each PO BID PRN #30 ea 08/16/22 [Zyrtec-D Tablet] Promethazine [Phenergan] 25 mg PO Q6H PRN #10 tab 08/16/22 - Allergies Allergies/Adverse Reactions: Allergies Allergy/AdvReac Type Severity Reaction Status Date / Time bismuth subsalicylate Allergy Respiratory Verified 08/16/22 19:04 [From Pepto-Bismol] cinnamon Allergy Anaphylaxis Verified 08/16/22 19:04 ketorolac [From Toradol] Allergy Hives Verified 08/16/22 19:04 lavender (Lavandula Allergy Hives Verified 08/16/22 19:04 angustifolia) lorazepam [From Ativan] Allergy Hives Verified 08/16/22 19:04 ondansetron HCl * Allergy Itching Verified 08/16/22 19:04 [From Zofran (as hydrochloride)] hydromorphone AdvReac Hallucinati Verified 08/16/22 19:04 ons - Social History Does the pt smoke?: Yes Smoking Status: Current every day smoker Does the pt drink ETOH?: No Does the pt have substance abuse?: No - Immunizations Immunizations are current?: Yes Immunizations: Other immun not current - POLST Patient has POLST: No POLST Status: Full Code PD ED PE NORMAL - Vitals Vital signs reviewed: Yes - General General: Alert and oriented X 3, No acute distress - HEENT HEENT: PERRL, Ears normal, Moist mucous membranes, Pharynx benign - Neck Neck: Supple, no meningeal sign - Cardiac Cardiac: RRR, Strong equal pulses - Respiratory Respiratory: No respiratory distress, Clear bilaterally - Abdomen Abdomen: Soft, Non tender, Non distended - Back Back: No CVA TTP, No spinal TTP - Derm Derm: Warm and dry - Neuro Neuro: Alert and oriented X 3 - Psych Psych: Normal mood, Normal affect Results - Vitals Vitals: Vital Signs - 24 hr 08/16/22 08/16/22 08/16/22 18:58 21:03 22:02 Temperature 36.4 C L 36.5 C 36.6 C Heart Rate 83 78 75 Respiratory 16 16 17 Rate Blood Pressure 139/84 H 133/78 H 131/75 H O2 Saturation 98 97 98 Oxygen O2 Source Room air - Labs Labs: Laboratory Tests 08/16/22 08/16/22 08/16/22 19:05 19:53 19:53 WBC 11.2 H RBC 4.47 Hgb 13.0 Hct 37.9 MCV 84.8 MCH 29.1 MCHC 34.3 RDW 13.1 Plt Count 355 MPV 8.4 Neut # (Auto) 6.3 Lymph # (Auto) 3.4 [place] # (Auto) 0.6 Eos # (Auto) 0.7 Baso # (Auto) 0.1 Absolute Nucleated RBC 0.00 Nucleated RBC % 0.0 Sodium 139 Potassium 2.8 L Chloride 100 L Carbon Dioxide 28 Anion Gap 11.0 BUN 10 Creatinine 0.6 Estimated GFR (MDRD) 122 Glucose 96 Calcium 8.6 Phosphorus 3.5 Magnesium 1.3 L Total Bilirubin 0.4 AST 32 ALT 35 Alkaline Phosphatase 59 Total Protein 7.1 Albumin 3.5 Globulin 3.6 Albumin/Globulin Ratio 1.0 Lipase 41 Urine Color YELLOW Urine Clarity CLEAR Urine pH 8.0 H Ur Specific [place] 1.010 Urine Protein TRACE Urine Glucose (UA) NEGATIVE Urine Ketones NEGATIVE Urine Occult Blood MODERATE H Urine Nitrite NEGATIVE Urine Bilirubin NEGATIVE Urine Urobilinogen 0.2 (NORMAL) Ur Leukocyte Esterase NEGATIVE Urine RBC 11-25 H Urine WBC 0-3 Ur Squamous Epith Cells FEW Squamous Urine Bacteria Rare Ur Microscopic Review INDICATED Urine Culture Comments NOT INDICATED Urine HCG, Qual NEGATIVE - Rads (name of study) CT abd/pelvis Radiology: Final report received, EMP read contemporaneously, See rad report PD MEDICAL DECISION MAKING - ED course Complexity details: reviewed results, considered differential, d/w patient ED course: 27-year-old female with what appears to be a viral upper respiratory infection. She is also complaining of abdominal pain. No acute findings on CT scan. No evidence of UTI. Pain well controlled. Nausea well controlled. No vomiting. We will place her on decongestants, cough medication and a small amount of pain medication for home. We will also prescribe her nausea medication. Patient is very well-appearing, nontoxic. Afebrile. No hypoxia. No respiratory distress. Patient counseled regarding signs and symptoms for which I believe and urgent re-evaluation would be necessary. Patient with good understanding of and agreement to plan and is comfortable going home at this time This document was made in part using voice recognition software. While efforts are made to proofread this document, sound alike and grammatical errors may occur. IMPRESSION: 1. No evidence of nephrolithiasis or obstructive uropathy. 2. No evidence of appendicitis. 3. Cholelithiasis without CT evidence of acute cholecystitis. Departure - Departure Disposition: Home, Self Care Clinical Impression: Viral URI with cough, Body aches Condition: Good Instructions: ED Viral Syndrome Follow-Up: your,doctor in 1 week [Other] Prescriptions: Promethazine [Phenergan] 25 mg PO Q6H PRN #10 tab PRN Reason: Nausea / Vomiting Benzonatate [Tessalon] 200 mg PO TID PRN #30 cap PRN Reason: Cough Cetirizine HCl/Pseudoephedrine [Zyrtec-D Tablet] 1 each PO BID PRN #30 ea PRN Reason: nasal congestion Comments: Please follow-up with your doctor for further care. Return if you worsen. Drink plenty of fluids and rest. Your prescriptions were sent to [facility] in [place]. Discharge Date/Time: 08/16/22 22:02
[2022-08-16 22:04] VITALS: BP 131/75
--- NOTE | 2022-08-16 22:10 | CT Report ---
PROCEDURE: Abdomen/Pelvis WO INDICATIONS: R flank pain TECHNIQUE: Noncontrast 5 mm thick sections acquired from the diaphragms to the symphysis. 5 mm coronal and sagi ttal reformats were then performed. For radiation dose reduction, the following was used: automated exposure control, adjustment of mA and/or kV according to patient size. COMPARISON: CT abdomen pelvis 05/29/2022, 02/14/2022. FINDINGS: Image quality: Excellent. Lung bases: There is mild dependant atelectasis. Heart: Heart is normal in size. URINARY: Right Kidney and Ureter: No stones or hydronephrosis. There are small right renal cysts. No hydrou reter. Left Kidney and Ureter: No stones or hydronephrosis. No hydroureter. Bladder: Normal wall thickness. No stones. ABDOMEN: Liver: Noncontrast evaluation of the liver demonstrates no discrete mass. Gallbladder:There are small calcified gallstones within the gallbladder. No gallbladder wall thicken ing or pericholecystic fluid. Biliary ducts: No biliary ductal dilatation. Pancreas: Unremarkable. Spleen: Normal in size. Adrenal Glands: No adrenal nodules. Stomach and Bowel: Stomach, small bowel loops, and colon are normal in caliber and wall thickness. T he appendix is normal in appearance. There are a few colonic diverticula without acute diverticulitis . Peritoneum: No abnormal intraperitoneal fluid. No free air. Ventral Wall: No hernia. Abdominal Nodes: No retroperitoneal or mesenteric adenopathy by size criteria. Vessels: Aorta and inferior vena cava are normal in size. PELVIS: Pelvic Organs: Unremarkable. Pelvic Nodes: No enlarged lymph nodes. Miscellaneous: No inguinal hernias identified. Bones: Visualized osseous structures demonstrate no suspicious focal lesions. IMPRESSION: 1. No evidence of nephrolithiasis or obstructive uropathy. 2. No evidence of appendicitis. 3. Cholelithiasis without CT evidence of acute cholecystitis. Reviewed by: Igor Lazo MD on 08/16/2022 10:09 PM PDT Approved by: Igor Lazo MD on 08/16/2022 10:09 PM PDT Station ID: [id number]
== END 2022-08-16 22:02 | disposition home or self-care (01) ==
LOC: ED 18:54
DX: J06.9 Acute upper respiratory infection, unspecified (principal); R05.9 Cough, unspecified; F17.200 Nicotine dependence, unspecified, uncomplicated
CPT/HCPCS: 36415; 74176; 80053; 81001; 81025; 83690; 83735; 84100; 85025; 96372; 99282; 99284; A9270; 81003; 87086

== ENCOUNTER 2022-09-28 13:48 | Emergency (ER) | payer MEDICAID ==
[2022-09-28] MEDS ORDERED: PROMETHAZINE INJ 25 MG in SODIUM CHLORIDE 0.9% 50 ML IV STA (15:25)
[2022-09-28] MEDS ORDERED: fentaNYL 100 MCG/2 ML VIAL IVP STA ×2 (15:26→17:14)
[2022-09-28] MEDS ORDERED: SODIUM CHLORIDE 0.9% 1,000 ML IV STA (15:28)
--- NOTE | 2022-09-28 15:29 | ED Physician Documentation ---
History of Present Illness - Stated complaint Stated Complaint: JAW PX - Chief complaint Chief Complaint: Heent - Additonal information Additional information: 27-year-old female presents to the emergency department for evaluation of pain and swelling on the right side of her face. She began having some dental pain about 1 week ago. She is scheduled to see a dentist this upcoming Sunday. Despite ibuprofen, Tylenol and Orajel she has had worsening pain. She is now unable to fully open her mouth and has pain that extends down into her neck. She reports a history of a malaligned jaw though she is never been unable to not open her mouth. 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 Review of Systems Constitutional: denies: Fever, Chills Nose: reports: Reviewed and negative, Other (Right-sided facial swelling extending into the neck below the level of the mandible) Throat: reports: Dental pain / toothache, Sore throat Cardiac: reports: Reviewed and negative Respiratory: reports: Reviewed and negative GI: reports: Reviewed and negative : reports: Reviewed and negative Skin: reports: Reviewed and negative Musculoskeletal: reports: Neck pain PD PAST MEDICAL HISTORY - Past Medical History Cardiovascular: Murmur, Arrhythmia Respiratory: Asthma Neuro: Headaches Endocrine/Autoimmune: None GI: GERD, Ulcers 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: Ovarian cysts : Chronic bladder infection, Frequency, Other HEENT: None Psych: Depression, Anxiety, Bipolar disorder, Post traumatic stress disorder Musculoskeletal: Fatigue, Chronic back pain Derm: None, Eczema - Past Surgical History Past Surgical History: Yes Ortho: ACL reconstruction, Arthroscopic surgery HEENT: Myringotomy (tubes), Tonsil/Adenoidectomy - Present Medications Home Medications: Ambulatory Orders Medication Instructions Recorded Confirmed Magnesium Oxide 3 tab PO BID #120 tablet 09/15/19 02/14/22 Potassium Chloride 40 meq PO BID 11/07/20 02/14/22 Oxycodone HCl/Acetaminophen 1 tab PO Q6H PRN #10 tablet 02/14/22 [Oxycodone-Acetaminophn 7.5-325] Promethazine [Phenergan] 25 mg PO Q6H PRN #10 tab 02/14/22 Promethazine [Phenergan] 25 mg PO Q6H PRN #10 tab 05/29/22 Spironolactone [Aldactone] 25 mg PO DAILY #3 tablet 07/13/22 Benzonatate [Tessalon] 200 mg PO TID PRN #30 cap 08/16/22 Cetirizine HCl/Pseudoephedrine 1 each PO BID PRN #30 ea 08/16/22 [Zyrtec-D Tablet] Promethazine [Phenergan] 25 mg PO Q6H PRN #10 tab 08/16/22 Amox/Clav 875/125 [Augmentin] 1 each PO Q12H #20 tablet 09/28/22 Promethazine [Phenergan] 25 mg PO Q6H PRN #10 tab 09/28/22 oxyCODONE [Roxicodone] 5 mg PO TID PRN #10 tablet 09/28/22 - Allergies Allergies/Adverse Reactions: Allergies Allergy/AdvReac Type Severity Reaction Status Date / Time bismuth subsalicylate Allergy Respiratory Verified 09/28/22 14:04 [From Pepto-Bismol] cinnamon Allergy Anaphylaxis Verified 09/28/22 14:04 ketorolac [From Toradol] Allergy Hives Verified 09/28/22 14:04 lavender (Lavandula Allergy Hives Verified 09/28/22 14:04 angustifolia) lorazepam [From Ativan] Allergy Hives Verified 09/28/22 14:04 ondansetron HCl * Allergy Itching Verified 09/28/22 14:04 [From Zofran (as hydrochloride)] hydromorphone AdvReac Hallucinati Verified 09/28/22 14:04 ons - Social History Does the pt smoke?: Yes Smoking Status: Current every day smoker Does the pt drink ETOH?: No Does the pt have substance abuse?: No - Immunizations Immunizations are current?: Yes Immunizations: Other immun not current - POLST Patient has POLST: No POLST Status: Full Code PD ED PE EXPANDED - General General: Alert, In Pain, Other (Morbidly obese) - HEENT HEENT: Pharynx normal, Other (Patient with trismus only able to open her jaw minimally. Right-sided facial swelling that extends below the angle of the right mandible. Normal phonation. Painful swallow but tolerating oral secretions. Uvula is midline. ). No: Tonsillar exudate, Dentition normal (Significant tenderness elicited with palpation of the right lower posterior molar and wisdom tooth no obvious purulent drainage or gumline swelling/abscess) Results - Vitals Vitals: Vital Signs - 24 hr 09/28/22 09/28/22 14:02 17:19 Temperature 36.6 C Heart Rate 123 H 72 Respiratory 20 18 Rate Blood Pressure 157/79 H 155/83 H O2 Saturation 94 100 Oxygen O2 Source Room air - Labs Labs: Laboratory Tests 09/28/22 09/28/22 09/28/22 15:31 15:31 15:31 WBC 13.8 H RBC 4.59 Hgb 13.3 Hct 40.2 MCV 87.6 MCH 29.0 MCHC 33.1 RDW 12.8 Plt Count 439 MPV 8.6 Neut # (Auto) 8.5 H Lymph # (Auto) 3.6 H [place] # (Auto) 0.7 Eos # (Auto) 0.9 H Baso # (Auto) 0.1 Absolute Nucleated RBC 0.00 Nucleated RBC % 0.0 Sodium 136 Potassium 3.0 L Chloride 96 L Carbon Dioxide 29 Anion Gap 11.0 BUN 12 Creatinine 0.7 Estimated GFR (MDRD) 102 Glucose 107 H Calcium 8.4 L Total Bilirubin 0.5 AST 26 ALT 30 Alkaline Phosphatase 64 Total Protein 7.9 Albumin 3.8 Globulin 4.1 Albumin/Globulin Ratio 0.9 L Lipase 42 Serum HCG, Qual NEGATIVE - Rads (name of study) CT max/fac Radiology: Final report received (No acute fracture. No drainable abscess. There are prominent surgical fickle lymph nodes right greater than left with 1 that likely corresponds with palpable abnormality at the site of the BB marker. Tonsils are prominent, particularly the adenoids which may be due to a related process.) PD MEDICAL DECISION MAKING - ED course Complexity details: reviewed results, re-evaluated patient, considered differential, d/w patient ED course: 27-year-old female presents emergency department for evaluation of about 1 week right lower jaw and tooth pain that is gotten progressively worse over time. Patient reports that over the last few days she has been unable to fully open her mouth and she has begun to have some swelling under her mandible. On exam the patient does appear very uncomfortable and does have some mild trismus. I do appreciate a small amount of swelling under the right side of the jaw though no fluctuant abscess was noted. We did obtain a CBC that showed mild leukocytosis of just over 13,000. She does have a history of [place] disease and electrolytes do show an expected mildly low potassium. Given the trismus and the swelling under the right side of the mandible we did obtain a CT maxillofacial to rule out a worrisome abscess. Reassuringly no abscess is seen however she does have a fair amount of lymphadenopathy likely reactive from an none yet clear dental infection. Therefore she will be started on Augmentin. A prescription for oxycodone is being sent to the pharmacy as well as Phenergan. The patient is encouraged Tylenol and ibuprofen. We also discussed emergent return precautions. I am prescribing a short course of short-acting opioid pain medication for this patient. I have reviewed the patients ENERGY ANALYST and no concerning findings were noted. I have discussed that the opioids are for short term therapy only, and will not be refilled from the ED. Departure - Departure Disposition: 01 Home, Self Care Clinical Impression: Dentalgia, Cervical lymphadenopathy Condition: Stable Record reviewed to determine appropriate education?: Yes Prescriptions: Amox/Clav 875/125 [Augmentin] 1 each PO Q12H #20 tablet Promethazine [Phenergan] 25 mg PO Q6H PRN #10 tab PRN Reason: Nausea / Vomiting oxyCODONE [Roxicodone] 5 mg PO TID PRN #10 tablet PRN Reason: Pain Comments: Elayne dior are seen today in the emergency department because you have been having a lot of pain in lower portion of your jaw. You have also begun to have some swelling that extends into your neck with the pain. The CT of your face and neck does not show an obvious fluid collection or abscess however we do see a large number of inflamed lymph nodes. You likely have a dental infection that is the cause of these lymph nodes. I am sending a prescription for some Augmentin to the [facility] in [place]. I am also sending a limited prescription for oxycodone for the severe pain however the emergency department will not be able to refill this. With the antibiotics I would expect that you are having improved symptoms over the next 72 to 96 hours. Do not miss follow-up with your dentist on Sunday. If at any point you develop worsening facial swelling, are unable to adequately swallow or speak then you should return immediately to the ER I am prescribing a short course of narcotic pain medication for you. These are potentially dangerous and addictive medications that should be used carefully. These medications may constipate you. Take an [id number] stool softener (docusate) twice daily with plenty of water while taking these medications. If you go 24 hours without a bowel movement, take [id number] miralax, per package instructions. Do not drink or drive while taking these medications. If you received narcotic or sedating medications while in the emergency department, do not drive for 24 hours. Store this medication in a safe, secure place and out of reach of children. It is a violation of federal law to give or sell this medication to another person or to use in a manner other than prescribed. The ED will not refill narcotic prescriptions, including prescriptions lost or stolen. To dispose of unwanted medications: 1. [facility] at [address] in [place] has a medication drop box. They accept prescription medications (in pill form) Sunday through Sunday 9:00 a.m. to 5:00 p.m. 2. The [facility] [employer] accepts prescription medications (in pill form only) for disposal year round. Call for more information. 3. Contact the [facility] for the next [facility] sponsored prescription drug collection event. , [phone], or [phone]; Note that many narcotic pain relievers also contain Tylenol/acetaminophen. Please ensure that your total dose of acetaminophen from all sources does not exceed 3 g (3000 mg) per day.
[2022-09-28 15:44] LABS: BASOPHILS # (AUTO) 0.1 10^3/uL (0.0-0.1); BASOPHILS % (AUTO) 0.6 %; EOSINOPHILS # (AUTO) 0.9 10^3/uL (0.0-0.7); EOSINOPHILS % (AUTO) 6.6 %; HCT - HEMATOCRIT 40.2 % (37.0-47.0); HGB - HEMOGLOBIN 13.3 g/dL (12.0-16.0); LYMPHOCYTES # (AUTO) 3.6 10^3/uL (1.5-3.5); LYMPHOCYTES % (AUTO) 25.8 %; MEAN CORPUSCULAR HGB CONC 33.1 g/dL (32.0-36.0); MEAN CORPUSCULAR VOLUME 87.6 fL (81.0-99.0); MEAN PLATELET VOLUME 8.6 fL (7.9-10.8); MONOCYTES # (AUTO) 0.7 10^3/uL (0.0-1.0); NEUTROPHILS # (AUTO) 8.5 10^3/uL (1.5-6.6); NEUTROPHILS % (AUTO) 61.5 %; PLT - PLATELET COUNT 439 10^3/uL (130-450); RED BLOOD COUNT 4.59 10^6/uL (4.20-5.40); RED CELL DISTRIBUTION WIDTH 12.8 % (12.0-15.0); WHITE BLOOD COUNT 13.8 x10^3/uL (4.8-10.8)
[2022-09-28 15:57] LABS: ALBUMIN 3.8 g/dL (3.2-5.5); ALBUMIN/GLOBULIN RATIO 0.9 (1.0-2.2); BILIRUBIN,TOTAL 0.5 mg/dL (0.2-1.0); CALCIUM 8.4 mg/dL (8.5-10.3); CREATININE 0.7 mg/dL (0.4-1.0); TOTAL PROTEIN 7.9 g/dL (6.7-8.2)
[2022-09-28 16:06] LABS: HCG,QUALITATIVE BLOOD NEGATIVE
[2022-09-28] MEDS ORDERED: iohexoL-300 100 ML VIAL ONE (16:24)
[2022-09-28 17:20] VITALS: BP 155/83
--- NOTE | 2022-09-28 17:23 | CT Report ---
PROCEDURE: MAXILLOFACIAL W INDICATIONS: Trismus, right-sided swelling extending into neck CONTRAST: 100ml Omni 300 TECHNIQUE: After the administration of intravenous contrast, 3.0 mm axial sections acquired from the mid-neck to the frontal sinuses, with coronal reformatting. For radiation dose reduction, the following was use d: automated exposure control, adjustment of mA and/or kV according to patient size. COMPARISON: None. FINDINGS: Image quality: Excellent Bones: No displaced fracture. Orbital worley are intact. Nasal bone and septum are intact. Mandible is intact. Zygomatic arches and pterygoid plates are intact. No skull base fracture. Sinuses and mastoids: Mild mucosal thickening of the ethmoid air cells. The mastoids are clear. Soft tissues: At the site of palpable abnormality at the BB, there is a prominent lymph node with a f atty hilum measuring 7 mm. There are other prominent right greater than left cervical lymph nodes. No hematoma or large mass identified. The tonsils are prominent, particularly the adenoids. Brain: Unremarkable, partially visualized. IMPRESSION: No acute fracture. No drainable abscess. There are prominent cervical lymph nodes, right greater than left, with one that likely corresponds to the palpable abnormality at the site of the BB marker. The tonsils are prominent, particularly the adenoids, which may be due to a related process. These might be reactive and correlation with clinical context is advised. Reimaging may be obtained if symptoms worsen. Reviewed by: Chele Caceres MD on 09/28/2022 5:22 PM PDT Approved by: Chele Caceres MD on 09/28/2022 5:22 PM PDT Station ID: [id number]
[2022-09-28] MEDS ORDERED: AMOX/CLAV 875 MG/125 MG TABLET PO STA (17:43)
[2022-09-28] MEDS ORDERED: oxyCODONE 5 MG TABLET PO STA (17:43)
[2022-09-28] MEDS ORDERED: iohexoL-300 100 ML VIAL IVP ONE (18:47)
== END 2022-09-28 18:05 | disposition home or self-care (01) ==
LOC: ED 13:48
DX: K08.89 Other specified disorders of teeth and supporting structures (principal); R59.0 Localized enlarged lymph nodes; R68.84 Jaw pain; M54.2 Cervicalgia; R25.2 Cramp and spasm; E80.4 Gilbert syndrome; F17.200 Nicotine dependence, unspecified, uncomplicated
CPT/HCPCS: 36415; 70487; 80053; 83690; 84703; 85025; 96361; 96374; 96375; 96376; 99283; 99284; A9270; J7040; Q9967

== ENCOUNTER 2023-04-25 15:09 | Emergency (ER) | payer MEDICAID ==
[2023-04-25 15:21] VITALS: BP 140/76
--- NOTE | 2023-04-25 15:42 | ED Physician Documentation ---
History of Present Illness - Stated complaint Stated Complaint: BACK PX - Chief complaint Chief Complaint: Back Pain - Additonal information Additional information: 27-year-old female who has a history Gettleman syndrome presents emergency de partment for evaluation of acute low back pain. She states 2 days ago she was getting out of her vehicle and slipped on the sidestep when she fell backwards striking her back. Did not strike her head or lose consciousness. Since then she has had worsening pain in her mid low back. No saddle anesthesia loss of bowel or bladder function. 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 She has taken naproxen, IcyHot without resolution of symptoms. Patient called out of work today and is requesting a note for work. 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: Ovarian cysts : Chronic bladder infection, Frequency, Other HEENT: None Psych: Depression, Anxiety, Bipolar disorder, Post traumatic stress disorder Musculoskeletal: Fatigue, Chronic back pain Derm: None, Eczema - Past Surgical History Past Surgical History: Yes Ortho: ACL reconstruction, Arthroscopic surgery HEENT: Myringotomy (tubes), Tonsil/Adenoidectomy - Present Medications Home Medications: Ambulatory Orders Medication Instructions Recorded Confirmed Magnesium Oxide 3 tab PO BID #120 tablet 09/15/19 02/14/22 Potassium Chloride 40 meq PO BID 11/07/20 02/14/22 Oxycodone HCl/Acetaminophen 1 tab PO Q6H PRN #10 tablet 02/14/22 [Oxycodone-Acetaminophn 7.5-325] Promethazine [Phenergan] 25 mg PO Q6H PRN #10 tab 02/14/22 Promethazine [Phenergan] 25 mg PO Q6H PRN #10 tab 05/29/22 Spironolactone [Aldactone] 25 mg PO DAILY #3 tablet 07/13/22 Benzonatate [Tessalon] 200 mg PO TID PRN #30 cap 08/16/22 Cetirizine HCl/Pseudoephedrine 1 each PO BID PRN #30 ea 08/16/22 [Zyrtec-D Tablet] Promethazine [Phenergan] 25 mg PO Q6H PRN #10 tab 08/16/22 Amox/Clav 875/125 [Augmentin] 1 each PO Q12H #20 tablet 09/28/22 Promethazine [Phenergan] 25 mg PO Q6H PRN #10 tab 09/28/22 oxyCODONE [Roxicodone] 5 mg PO TID PRN #10 tablet 09/28/22 - Allergies Allergies/Adverse Reactions: Allergies Allergy/AdvReac Type Severity Reaction Status Date / Time bismuth subsalicylate Allergy Respiratory Verified 04/25/23 15:17 [From Pepto-Bismol] cinnamon Allergy Anaphylaxis Verified 04/25/23 15:17 ketorolac [From Toradol] Allergy Hives Verified 04/25/23 15:17 lavender (Lavandula Allergy Hives Verified 04/25/23 15:17 angustifolia) lorazepam [From Ativan] Allergy Hives Verified 04/25/23 15:17 ondansetron HCl * Allergy Itching Verified 04/25/23 15:17 [From Zofran (as hydrochloride)] hydromorphone AdvReac Hallucinati Verified 04/25/23 15:17 ons - Social History Does the pt smoke?: Yes Smoking Status: Current every day smoker Does the pt drink ETOH?: No Does the pt have substance abuse?: No - Immunizations Immunizations are current?: Yes Immunizations: Other immun not current - POLST Patient has POLST: No POLST Status: Full Code PD ED PE EXPANDED - General General: Alert, No acute distress, Other - Back Back: Soft tissue tenderness (Soft tissue tenderness across the lower lumbar spine. Reduced forward flexion range of motion. No ecchymosis or abrasion or rash noted. Motor strength 5 of 5 bilateral lower extremities.), Other (Normal gait.) - Derm Derm: Normal color, Warm and dry. No: Abrasion (s) - Neuro Neuro: Alert and Oriented X 3, CNII-XII intact Results - Vitals Vitals: Vital Signs - 24 hr 04/25/23 15:17 Temperature 36.5 C Heart Rate 73 Respiratory 16 Rate Blood Pressure 140/76 H O2 Saturation 100 Oxygen O2 Source Room air - Labs Labs: Laboratory Tests 04/25/23 15:45 Urine HCG, Qual NEGATIVE - Rads (name of study) lumbar spine xr Relevant Findings:: EMP independent interpretation of test (No acute fracture or dislocation) PD Medical Decision Making - ED course Complexity details: reviewed results, d/w patient ED course: 27-year-old female presents emergency department for evaluation of acute low back pain sustained when she was exiting her car 2 days ago and fell striking her back on the threshold to the car. Since then she has been having increased pain. 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 No saddle anesthesia or other red flags. On exam she has a normal gait and motor strength. Generalized tenderness was elicited within the lumbar region without findings of ecchymosis or abrasion noted. I did obtain an 2 view x-ray of the lumbar spine and per my interpretation no acute findings to suggest occult fracture. I suspect contusion as cause of pain. As such patient is going to be discharged home with recommendation to continue naproxen or Tylenol [id number]. If not markedly better may benefit follow-up with PCP or referral to physical therapy. The usual emergent return precautions for worsening symptoms was discussed. Departure - Departure Disposition: 01 Home, Self Care Clinical Impression: Low back pain Qualifiers: Chronicity: acute Back pain laterality: midline Sciatica presence: without sciatica Qualified Code(s): M54.50 - Low back pain, unspecified Condition: Stable Record reviewed to determine appropriate education?: Yes Instructions: ED Low Back Pain Injury Comments: Elayne dior are seen today in the emergency department because you fell getting out of your car 2 days ago and since then you have been having increased pain in your low back. We did do an x-ray of the lumbar spine and I do not have anything to suggest a broken bone or fracture of your vertebrae. If the radiologist finds otherwise we will notify you. I expect that you have simply a contusion or bruise in your back that I think will get better over the next week or so. I recommend you continue the naproxen or Tylenol that you are using at home. Icing your back in the place for your most painful can be helpful. Please discuss this ED visit with your primary care doctor. If not markedly improving over the next week to 10 days you may benefit from referral to physical therapy. Return to the ER if you have sudden severe or different pain, numbness in your genital region or lose control of your bowel or bladder function
[2023-04-25 16:02] LABS: HCG UR QUAL NEGATIVE
--- NOTE | 2023-04-25 16:57 | XRAY Report ---
PROCEDURE: Lumbar Spine 2 View INDICATIONS: paina fter fall TECHNIQUE: 2 views of the lumbar spine were acquired. COMPARISON: None. FINDINGS: Bones: 5 [id number] vertebrae are present. There is normal bony alignment. No vertebral body compression fractures. No suspicious bony lesions. Soft tissues: Overlying bowel gas pattern is normal. No suspicious soft tissue calcifications. IMPRESSION: Lumbar spine without acute fracture or traumatic malalignment. No acute compression frac tures. Reviewed by: Ambrosio Wilkerson MD on 04/25/2023 4:55 PM PDT Approved by: Ambrosio Wilkerson MD on 04/25/2023 4:55 PM PDT Station ID: [id number]
== END 2023-04-25 17:01 | disposition home or self-care (01) ==
LOC: ED 15:09
DX: M54.50 Low back pain, unspecified (principal); W18.30XA Fall on same level, unspecified, initial encounter; F17.200 Nicotine dependence, unspecified, uncomplicated
CPT/HCPCS: 81025; 99283; 99284

== ENCOUNTER 2023-07-12 14:13 | Outpatient (CLI) | payer MEDICAID ==
[2023-07-12 15:24] LABS: CALCIUM 9.3 mg/dL (8.5-10.3); CREATININE 0.6 mg/dL (0.6-1.3); MAGNESIUM 1.2 mg/dL (1.7-2.3)
== END 2023-07-12 14:14 | disposition home or self-care (01) ==
LOC: LAB 14:13
PROVIDERS: ATTEND Obstetrics & Gynecology
DX: N25.89 Other disorders resulting from impaired renal tubular function (principal)
CPT/HCPCS: 36415; 80048; 83735

== ENCOUNTER 2023-07-17 13:53 | Outpatient (CLI) | payer MEDICAID ==
--- NOTE | 2023-07-17 16:10 | Ultrasound Report ---
PROCEDURE: OB First Trimester INDICATIONS: POSITIVE TEST OUTSIDE/PRIOR DATING DATA: Last menstrual period (LMP): 05/08/2023. LMP-based estimated date of delivery (CLARISSA): 02/12/2024. First dating scan (date and location): Today's exam. Estimated date of delivery (CLARISSA) from first dating scan: 02/09/2024. TECHNIQUE: Real-time scanning was performed of the fetus and maternal pelvic organs, with image documentation. COMPARISON: None FINDINGS: Intrauterine gestational sac present. Embryo: Measures 3.5 cm, corresponding to 10 weeks 3 days. Heart rate: 169 bpm. Other: Subchorionic hemorrhage measuring 3.0 x 1.6 x 1.2 cm. Yolk sac present. Measurement variability in dating: +/- 4 weeks by LMP, +/- 7 days by mean sac diameter (use before 6 weeks gestation if crown-rump length not able to be measured), +/- 5 days by crown-rump length (6-12 weeks gestation). Maternal organs: Ovaries appear within normal limits. IMPRESSION: Single living intrauterine at 10 weeks 3 days, CLARISSA of 02/09/2024 on today's exam. Findings a re concordant by clinical dating. Small perigestational hemorrhage measuring 3.0 x 1.6 x 1.2 cm. Reviewed by: Aaron Gutierrez on 07/17/2023 4:09 PM PDT Approved by: Aaron Gutierrez on 07/17/2023 4:09 PM PDT Station ID: [id number]
== END 2023-07-17 13:54 | disposition home or self-care (01) ==
LOC: DI 13:53
PROVIDERS: ATTEND Obstetrics & Gynecology
DX: O20.8 Other hemorrhage in early pregnancy (principal); Z3A.10 10 weeks gestation of pregnancy

== ENCOUNTER 2023-08-13 08:00 | Outpatient (CLI) | payer MEDICAID ==
[2023-08-13 20:27] LABS: CHLAMYDIA TRACHOMATIS DNA NEGATIVE (NEGATIVE); NEISSERIA GONORRHOEAE DNA NEGATIVE (NEGATIVE); TRICHOMONAS VAGINALIS DNA NEGATIVE (NEGATIVE)
== END 2023-08-13 23:59 | disposition home or self-care (01) ==
LOC: LAB.WC 08:00
PROVIDERS: ATTEND Obstetrics & Gynecology
DX: Z11.3 Encounter for screening for infections with a predominantly sexual mode of transmission (principal)
CPT/HCPCS: 87491; 87591; 87661

== ENCOUNTER 2023-08-13 14:16 | Outpatient (CLI) | payer MEDICAID ==
[2023-08-13 14:50] LABS: BASOPHILS # (AUTO) 0.1 10^3/uL (0.0-0.1); BASOPHILS % (AUTO) 0.4 %; EOSINOPHILS # (AUTO) 0.5 10^3/uL (0.0-0.7); EOSINOPHILS % (AUTO) 3.7 %; HCT - HEMATOCRIT 35.2 % (37.0-47.0); HGB - HEMOGLOBIN 12.6 g/dL (12.0-16.0); LYMPHOCYTES % (AUTO) 22.3 %; MEAN CORPUSCULAR HEMOGLOBIN 31.5 pg (27.0-31.0); MEAN CORPUSCULAR HGB CONC 35.8 g/dL (32.0-36.0); MEAN PLATELET VOLUME 8.7 fL (7.9-10.8); MONOCYTES # (AUTO) 0.6 10^3/uL (0.0-1.0); MONOCYTES % (AUTO) 4.5 %; NEUTROPHILS # (AUTO) 9.4 10^3/uL (1.5-6.6); NEUTROPHILS % (AUTO) 68.5 %; PLT - PLATELET COUNT 350 10^3/uL (130-450); RED CELL DISTRIBUTION WIDTH 12.8 % (12.0-15.0); WHITE BLOOD COUNT 13.7 x10^3/uL (4.8-10.8)
[2023-08-13 15:57] LABS: ALBUMIN 3.8 g/dL (3.2-5.5); ALBUMIN/GLOBULIN RATIO 1.1 (1.0-2.2); BILIRUBIN,TOTAL 0.5 mg/dL (0.2-1.0); CALCIUM 9.2 mg/dL (8.5-10.3); CREATININE 0.5 mg/dL (0.6-1.3); MAGNESIUM 1.1 mg/dL (1.7-2.3); POTASSIUM 2.9 mmol/L (3.5-4.5); TOTAL PROTEIN 7.3 g/dL (6.4-8.9)
[2023-08-14 05:12] LABS: HBsAG SCREEN Negative (Negative); HCV AB Non Reactive (Non Reactive); HIV SCREEN 4TH GENERATION Non Reactive (Non Reactive); RPR Non Reactive (Non Reactive)
[2023-08-14 10:09] LABS: VARICELLA-ZOSTER AB IGG 192 index (Immune >165)
== END 2023-08-13 14:17 | disposition home or self-care (01) ==
LOC: LAB 14:16
PROVIDERS: ATTEND Obstetrics & Gynecology
DX: O99.211 Obesity complicating pregnancy, first trimester (principal); O99.891 Other specified diseases and conditions complicating pregnancy; N25.89 Other disorders resulting from impaired renal tubular function; O99.011 Anemia complicating pregnancy, first trimester
CPT/HCPCS: 36415; 80053; 82728; 83735; 85025; 86592; 86762; 86787; 86803; 86850; 86900; 86901; 87340; 87389; 87491; 87591; 87661

== ENCOUNTER 2023-08-31 11:58 | Outpatient (CLI) | payer MEDICAID ==
[2023-08-31 12:42] LABS: CREATININE,URINE 176.7 mg/dL; PROTEIN/CREATININE RATIO,URINE 0.1 (<=0.2)
[2023-08-31 12:43] LABS: MAGNESIUM 1.3 mg/dL (1.7-2.3); PHOSPHORUS 3.3 mg/dL (2.5-5.0)
[2023-08-31 18:51] LABS: ALBUMIN 3.6 g/dL (3.2-5.5); ALBUMIN/GLOBULIN RATIO 1.2 (1.0-2.2); BILIRUBIN,TOTAL 0.4 mg/dL (0.2-1.0); CALCIUM 8.9 mg/dL (8.5-10.3); CREATININE 0.5 mg/dL (0.6-1.3); POTASSIUM 4.3 mmol/L (3.5-4.5); TOTAL PROTEIN 6.7 g/dL (6.4-8.9)
== END 2023-08-31 11:59 | disposition home or self-care (01) ==
LOC: LAB 11:58
PROVIDERS: ATTEND Obstetrics & Gynecology
DX: O09.92 Supervision of high risk pregnancy, unspecified, second trimester (principal); O99.891 Other specified diseases and conditions complicating pregnancy; N25.89 Other disorders resulting from impaired renal tubular function
CPT/HCPCS: 36415; 80053; 82570; 83735; 84100; 84156

== ENCOUNTER 2023-09-13 15:54 | Outpatient (CLI) | payer MEDICAID ==
[2023-09-13 16:27] LABS: MAGNESIUM 1.2 mg/dL (1.7-2.3)
[2023-09-15 19:07] LABS: AFP MOM 2.88 (.); AFP VALUE 98.6 ng/mL (.); DIA VALUE 164.59 pg/mL (.); DSR (BY AGE) 1 IN 943 (.); DSR (SECOND TRIMESTER) 1 IN 10000 (.); GEST. AGE ON COLLECTION DATE 18.3 WEEKS (.); HCG MOM 1.57 (.); HCG VALUE 39105 mIU/mL (.); INSULIN DEP DIABETES No (.); MATERNAL AGE AT EDD 26.7 yr (.); MULTIPLE GESTATION No (.); OPEN SPINA BIFIDA RISK 1 IN 144 (.); RACE Other (.); RESULTS Report (.); TEST RESULTS *Screen Positive* (.); TRISOMY 18 RISK Not increased (.); UE3 MOM 1.12 (.); WEIGHT 245 lbs (.)
== END 2023-09-13 15:55 | disposition home or self-care (01) ==
LOC: LAB 15:54
PROVIDERS: ATTEND Obstetrics & Gynecology
DX: O09.92 Supervision of high risk pregnancy, unspecified, second trimester (principal); O99.891 Other specified diseases and conditions complicating pregnancy; N25.89 Other disorders resulting from impaired renal tubular function
CPT/HCPCS: 36415; 81511; 83735; 84132

== ENCOUNTER 2023-10-01 12:22 | Outpatient (CLI) | payer MEDICAID ==
[2023-10-01 18:05] LABS: % IRON SATURATION 12 % (20-50); IRON 62 ug/dL (50-212); POTASSIUM 2.8 mmol/L (3.5-4.5); TOTAL IRON BINDING CAPACITY 526 ug/dL (250-450); TRANSFERRIN 376 mg/dL (203-362)
[2023-10-01 18:18] LABS: THYROID STIMULATING HORMONE 1.91 uIU/mL (0.34-5.60)
[2023-10-01 18:59] LABS: ESTIMATED AVERAGE GLUCOSE 85 mg/dL (70-100); HEMOGLOBIN A1c% 4.6 % (4.27-6.07)
== END 2023-10-01 12:23 | disposition home or self-care (01) ==
LOC: LAB.N 12:22
PROVIDERS: ATTEND Obstetrics & Gynecology
DX: O99.891 Other specified diseases and conditions complicating pregnancy (principal); N25.89 Other disorders resulting from impaired renal tubular function; O99.211 Obesity complicating pregnancy, first trimester; O99.011 Anemia complicating pregnancy, first trimester; D50.9 Iron deficiency anemia, unspecified
CPT/HCPCS: 36415; 83036; 83540; 83735; 84132; 84443; 84466

== ENCOUNTER 2023-12-03 14:03 | Outpatient (CLI) | payer MEDICAID ==
[2023-12-03 14:28] LABS: HCT - HEMATOCRIT 32.6 % (37.0-47.0); HGB - HEMOGLOBIN 10.8 g/dL (12.0-16.0); MEAN CORPUSCULAR HEMOGLOBIN 30.5 pg (27.0-31.0); MEAN CORPUSCULAR HGB CONC 33.1 g/dL (32.0-36.0); MEAN CORPUSCULAR VOLUME 92.1 fL (81.0-99.0); MEAN PLATELET VOLUME 8.6 fL (7.9-10.8); RED BLOOD COUNT 3.54 10^6/uL (4.20-5.40); RED CELL DISTRIBUTION WIDTH 12.3 % (12.0-15.0); WHITE BLOOD COUNT 17.3 x10^3/uL (4.8-10.8)
[2023-12-03 14:41] LABS: ALBUMIN 3.3 g/dL (3.2-5.5); ALBUMIN/GLOBULIN RATIO 1.1 (1.0-2.2); BILIRUBIN,TOTAL 0.3 mg/dL (0.2-1.0); CALCIUM 8.4 mg/dL (8.5-10.3); CREATININE 0.6 mg/dL (0.6-1.3); MAGNESIUM 1.2 mg/dL (1.7-2.3); POTASSIUM 3.2 mmol/L (3.5-4.5); TOTAL PROTEIN 6.3 g/dL (6.4-8.9)
[2023-12-03 15:00] LABS: FERRITIN 4.3 ng/mL (11.0-306.8)
== END 2023-12-03 14:04 | disposition home or self-care (01) ==
LOC: LAB 14:03
PROVIDERS: ATTEND Obstetrics & Gynecology
DX: O09.92 Supervision of high risk pregnancy, unspecified, second trimester (principal); N25.89 Other disorders resulting from impaired renal tubular function
CPT/HCPCS: 36415; 80053; 82570; 82728; 83540; 83735; 84156; 85027

== ENCOUNTER 2023-12-17 08:00 | Outpatient (CLI) | payer MEDICAID ==
[2023-12-17 22:43] LABS: CHLAMYDIA TRACHOMATIS DNA NEGATIVE (NEGATIVE); NEISSERIA GONORRHOEAE DNA NEGATIVE (NEGATIVE); TRICHOMONAS VAGINALIS DNA NEGATIVE (NEGATIVE)
== END 2023-12-17 23:59 | disposition home or self-care (01) ==
LOC: LAB.WC 08:00
PROVIDERS: ATTEND Obstetrics & Gynecology
DX: Z11.3 Encounter for screening for infections with a predominantly sexual mode of transmission (principal)
CPT/HCPCS: 87491; 87591; 87661

== ENCOUNTER 2023-12-28 15:50 | Outpatient (CLI) | payer MEDICAID ==
[2023-12-28 16:12] VITALS: BP 122/64
[2023-12-28 16:55] LABS: BASOPHILS # (AUTO) 0.1 10^3/uL (0.0-0.1); BASOPHILS % (AUTO) 0.3 %; EOSINOPHILS # (AUTO) 0.5 10^3/uL (0.0-0.7); EOSINOPHILS % (AUTO) 3.4 %; HCT - HEMATOCRIT 32.8 % (37.0-47.0); HGB - HEMOGLOBIN 10.8 g/dL (12.0-16.0); LYMPHOCYTES # (AUTO) 2.4 10^3/uL (1.5-3.5); LYMPHOCYTES % (AUTO) 16.4 %; MEAN CORPUSCULAR HGB CONC 32.9 g/dL (32.0-36.0); MEAN CORPUSCULAR VOLUME 91.1 fL (81.0-99.0); MEAN PLATELET VOLUME 8.6 fL (7.9-10.8); MONOCYTES # (AUTO) 0.9 10^3/uL (0.0-1.0); MONOCYTES % (AUTO) 6.3 %; NEUTROPHILS # (AUTO) 10.4 10^3/uL (1.5-6.6); NEUTROPHILS % (AUTO) 71.1 %; PLT - PLATELET COUNT 316 10^3/uL (130-450); RED CELL DISTRIBUTION WIDTH 12.8 % (12.0-15.0); WHITE BLOOD COUNT 14.7 x10^3/uL (4.8-10.8)
[2023-12-28] MEDS: ACETAMINOPHEN 500 MG TABLET PO PRN (16:56)
[2023-12-28 17:19] LABS: ALBUMIN 3.3 g/dL (3.2-5.5); ALBUMIN/GLOBULIN RATIO 1.1 (1.0-2.2); BILIRUBIN,TOTAL 0.3 mg/dL (0.2-1.0); CALCIUM 8.7 mg/dL (8.5-10.3); CREATININE 0.6 mg/dL (0.6-1.3); POTASSIUM 3.3 mmol/L (3.5-4.5); TOTAL PROTEIN 6.2 g/dL (6.4-8.9)
--- NOTE | 2023-12-28 21:14 | PROCEDURE REPORT ---
- HPI Diagnosis/Indication for NST: Other (Gittelman's syndrome in . 33w3d.) Current EDU 02/12/24 Gestation 33 Weeks and 3 Days 2 Para 1 Vital Signs Temperature 97.9 F 12/28/23 15:57 Heart Rate 81 12/28/23 15:57 Temperature 97.9 F 12/28/23 15:59 Heart Rate 82 12/28/23 15:59 Respiratory Rate 19 12/28/23 15:59 Blood Pressure 122/64 12/28/23 15:59 O2 Saturation If not protocol: Oxygen Flow, liters/minute - NST Procedure NST Procedure Start Date 12/28/23 Start Time 15:53 Stop Time 16:37 Vibroacoustic Stimulation Used No Patient States Movement Yes just back from 07/03 BPP. NST reviewed in real time. moderate variability. baseline 135. Acels. maybe one variabile decel but not clear. early on and then fine. no other questions. - Results and Plan Findings/Impression: reactive NST labs ordered and they were pretty good for her. Plan: f/u for care as scheduled.
== END 2023-12-28 17:02 | disposition home or self-care (01) ==
LOC: FBP 15:50 → WFO 15:50
PROVIDERS: ATTEND Obstetrics & Gynecology
DX: O99.891 Other specified diseases and conditions complicating pregnancy (principal); N25.89 Other disorders resulting from impaired renal tubular function; O09.93 Supervision of high risk pregnancy, unspecified, third trimester; Z3A.33 33 weeks gestation of pregnancy
CPT/HCPCS: 36415; 59025; 76819; 80053; 83735; 85025; A9270

== ENCOUNTER 2023-12-31 13:39 | Outpatient (CLI) | payer MEDICAID ==
[2023-12-31 14:25] LABS: CREATININE,URINE 82.6 mg/dL; PROTEIN/CREATININE RATIO,URINE 0.2 (<=0.2)
[2023-12-31 14:28] VITALS: BP 119/63
--- NOTE | 2023-12-31 18:16 | PROCEDURE REPORT ---
- HPI Diagnosis/Indication for NST: Other (Gitelman syndrome) Current EDU 02/12/24 Gestation 33 Weeks and 6 Days 2 Para 1 Vital Signs Temperature 98.2 F 12/31/23 13:55 Heart Rate 85 12/31/23 13:55 Respiratory Rate 16 12/31/23 13:55 Blood Pressure 119/63 12/31/23 13:55 Temperature 98.2 F 12/31/23 13:55 Heart Rate 85 12/31/23 13:55 Respiratory Rate 16 12/31/23 13:55 Blood Pressure 119/63 12/31/23 13:55 O2 Saturation If not protocol: Oxygen Flow, liters/minute - NST Procedure NST Procedure Start Date 12/31/23 Start Time 14:00 Stop Time 14:40 Vibroacoustic Stimulation Used No Patient States Movement Yes - Results and Plan Plan: Patient is a 28-year-old -0-0-1 at 33 weeks 6 days gestation here for NST. NST Performed 12/31/2023 NST Read 12/31/2023 FHT: 140 bpm baseline, moderate variability, accelerations present, no decelerations. Reactive NST [place]: Quiescent Diagnosis 33 weeks gestation Gitelman syndrome Continue with scheduled NST.
== END 2023-12-31 14:50 | disposition home or self-care (01) ==
LOC: WFO 13:39 → FBP 13:49 → WFO 14:50
PROVIDERS: ATTEND Obstetrics & Gynecology
DX: O99.891 Other specified diseases and conditions complicating pregnancy (principal); N25.89 Other disorders resulting from impaired renal tubular function; O09.93 Supervision of high risk pregnancy, unspecified, third trimester; Z3A.33 33 weeks gestation of pregnancy
CPT/HCPCS: 59025; 82570; 84156

== ENCOUNTER 2024-01-07 16:19 | Outpatient (CLI) | payer MEDICAID ==
--- NOTE | 2024-01-07 16:48 | PROCEDURE REPORT ---
- HPI Current EDU 02/12/24 Gestation 34 Weeks and 6 Days 2 Para 1 Vital Signs Temperature 98.2 F 01/07/24 16:26 Heart Rate 81 01/07/24 16:26 Respiratory Rate 18 01/07/24 16:26 Blood Pressure 120/66 01/07/24 16:26 Temperature 98.2 F 01/07/24 16:26 Heart Rate 81 01/07/24 16:26 Respiratory Rate 18 01/07/24 16:26 Blood Pressure 120/66 01/07/24 16:26 O2 Saturation If not protocol: Oxygen Flow, liters/minute Patient is a 28-year-old female at 34 weeks gestation here for NST. NST Performed 01/07/2024 NST Read 01/07/2024 FHT: 130 bpm baseline, moderate variability, accelerations present, no decelerations. Reactive NST [place]: Quiescent Diagnosis 34 weeks gestation Gettleman syndrome: Potassium normal. Magnesium mildly low, but stable from prior Continue with scheduled NST. - NST Procedure NST Procedure Start Time 14:00 Stop Time 14:40
[2024-01-07 17:40] LABS: ALBUMIN 3.4 g/dL (3.2-5.5); ALBUMIN/GLOBULIN RATIO 1.1 (1.0-2.2); BILIRUBIN,TOTAL 0.4 mg/dL (0.2-1.0); CALCIUM 8.9 mg/dL (8.5-10.3); CREATININE 0.7 mg/dL (0.6-1.3); POTASSIUM 3.7 mmol/L (3.5-4.5); TOTAL PROTEIN 6.5 g/dL (6.4-8.9)
[2024-01-07 17:53] VITALS: BP 120/66
== END 2024-01-07 17:32 | disposition home or self-care (01) ==
LOC: WFO 16:19 → FBP 16:21 → WFO 17:32
PROVIDERS: ATTEND Obstetrics & Gynecology
DX: O99.891 Other specified diseases and conditions complicating pregnancy (principal); N25.89 Other disorders resulting from impaired renal tubular function; Z3A.34 34 weeks gestation of pregnancy
CPT/HCPCS: 36415; 59025; 80053; 83735

== ENCOUNTER 2024-01-10 16:35 | Outpatient (CLI) | payer MEDICAID ==
--- NOTE | 2024-01-10 16:55 | PROCEDURE REPORT ---
- HPI Diagnosis/Indication for NST: Other (Gitelman Syndrome) Current EDU 02/12/24 Gestation 35 Weeks and 2 Days 2 Para 1 Vital Signs Temperature 98.1 F 01/10/24 17:30 Heart Rate 75 01/10/24 17:30 Respiratory Rate 19 01/10/24 17:30 Blood Pressure 116/64 01/10/24 17:30 - NST Procedure NST Procedure Start Time 16:31 Stop Time 16:52 - Results and Plan Plan: Patient is a 28-year-old -0-0-1 at 35 weeks 2 days gestation presenting to triage for NST, but has noticed increased swelling in her feet. She has good movement, no leaking, no vaginal bleeding. She denies headache, right upper quadrant pain, changes in vision. She does complain of mid back pain that is off and on. Uses heating pad and Tylenol for help. This seems to be worse at nighttime. While she has no symptoms, she is worried about preeclampsia as she has a history of this. OB history: -0-0-1 1. 05/17/2021: 39 weeks, , [facility], 8 pounds 13 ounces, male, preeclampsia Course LMP: 05/08/2023 CLARISSA by LMP: 02/12/2024 Initial US Date 07/17/2023, US Age 10 weeks 3 days, CLARISSA by ultrasound: 02/09/2024 Final CLARISSA: 02/12/2024 by LMP consistent with 10-week ultrasound Problems: BMI 40 Gitelman syndrome- Patternator Damaso Yates at [facility] last . Intermittent visits. Encouraged follow-up with MFM and nephrology Did refer to [facility] where she delivered last time. Will deliver there. Very inconsistent taking her electrolytes. Encouraged lab draws and consistent supplementation. History of preeclampsia Anxiety/Depression Asthma History of anemia History cervical shortening <26w Tobacco use - Encouraged cessation, down to 1/2 ppd Pre- Weight: BMI: 40 Blood type: A+ Antibody negative CBC: PLT 350 HCT 35.2 HGB 12.6 RUB: 42 VZV: 192 HBsAg Negative HepC NR RPR/AB-EIA: N-R HIV: NR PAP:11/18/2020 DUe GC/CT: 08/13/2023 Negative HSV:Denies in self and partner Genetic testing:QUAD Positive Placenta: Anterior w/o Previa Cord: 3VC MICA:Normal EFW: 400g 97th%ile 10/01- A1c 4.6%% No early Glucola yet. Ordered 09/13 50gm OGCT: 3HR GTT: TDAP: 12/03 Breast Pump: 12/03 3rd trimester H/H 12/03 10.8/32.6 PLT 336 GBS: Surgical history: ACL reconstruction Myringotomy Tonsil/adenoidectomy. Social history: Denies alcohol. Working on quitting smoking, but still present. Decreased marijuana use. Physical Exam Constitutional: alert, no acute distress, well hydrated, well developed, well nourished, appropriate dress. Cardiovascular: Regular rate and rhythm. Respiratory: no respiratory distress. Abdomen: nondistended, nontender, no guarding. Back: Pain not reproducible Extremities: Mild swelling, but does not appear different than our clinic visits Psych: affect and mood appropriate, normal interaction, good eye contact. FHT: 135 beats per baseline, moderate variability, no accelerations, no decelerations. Nonreactive NST [place]: Quiescent BPP: 05/03: (MICA 16.7 cm, no points for breathing, present but not sustained.) Total 05/05 Labs: Platelets: 321, AST/ALT: 16/13, creatinine: 0.7, protein/creatinine ratio: 0.2 Assessment and plan Nonreactive NST -Discussed concerns with nonreactive NST and 05/03 BPP. While she did have breathing although not sustained, and had a nonreactive NST, recommended extended surveillance, but patient does not have childcare for her son and refuses to stay. -Discussed that she should have a repeat NST/BPP tomorrow, and that she will have one performed at [facility]. If they do not do one, she should return here for assessment. -Discussed movement assessment and expectations. Gitelman syndrome -Doing as well as ever with her supplements. Most recent potassium 3.6, magnesium 1.6. 35 today weeks gestation -Encouraged following up with OB provider. Has an appointment tomorrow with [facility].w Elevated blood pressure without diagnosis of hypertension -Elevated blood pressure today of 142/60 and 140/73 on repeat. First elevated blood pressure of . -Labs not concerning for preeclampsia.
[2024-01-10 17:11] LABS: BASOPHILS % (AUTO) 0.3 %; EOSINOPHILS # (AUTO) 0.4 10^3/uL (0.0-0.7); EOSINOPHILS % (AUTO) 2.9 %; HCT - HEMATOCRIT 34.7 % (37.0-47.0); HGB - HEMOGLOBIN 11.2 g/dL (12.0-16.0); LYMPHOCYTES # (AUTO) 2.7 10^3/uL (1.5-3.5); LYMPHOCYTES % (AUTO) 20.9 %; MEAN CORPUSCULAR HEMOGLOBIN 30.1 pg (27.0-31.0); MEAN CORPUSCULAR HGB CONC 32.3 g/dL (32.0-36.0); MEAN CORPUSCULAR VOLUME 93.3 fL (81.0-99.0); MEAN PLATELET VOLUME 9.1 fL (7.9-10.8); MONOCYTES % (AUTO) 7.8 %; NEUTROPHILS # (AUTO) 8.6 10^3/uL (1.5-6.6); PLT - PLATELET COUNT 321 10^3/uL (130-450); RED BLOOD COUNT 3.72 10^6/uL (4.20-5.40); RED CELL DISTRIBUTION WIDTH 13.8 % (12.0-15.0); WHITE BLOOD COUNT 12.8 x10^3/uL (4.8-10.8)
[2024-01-10 17:20] LABS: ALBUMIN 3.3 g/dL (3.2-5.5); ALBUMIN/GLOBULIN RATIO 1.1 (1.0-2.2); BILIRUBIN,TOTAL 0.3 mg/dL (0.2-1.0); CALCIUM 8.5 mg/dL (8.5-10.3); CREATININE 0.7 mg/dL (0.6-1.3); POTASSIUM 3.6 mmol/L (3.5-4.5); TOTAL PROTEIN 6.4 g/dL (6.4-8.9)
[2024-01-10 18:02] LABS: CREATININE,URINE 197.3 mg/dL; PROTEIN/CREATININE RATIO,URINE 0.2 (<=0.2)
[2024-01-10 19:33] VITALS: BP 142/60; O2SAT 100
--- NOTE | 2024-01-10 20:48 | Ultrasound Report ---
PROCEDURE: OB Biophysical Profile INDICATIONS: Non-Reactive NST OUTSIDE/PRIOR DATING DATA: Last menstrual period (LMP): 05/08/2023. LMP-based estimated date of delivery (CLARISSA): 02/12/2024. First dating scan (date and location): 07/17/2023. Estimated date of delivery (CLARISSA) from first dating scan: 02/09/2024. The below data below was generated using the clinical CLARISSA of 02/12/2024 revised TECHNIQUE: Real-time scanning was performed of the fetus, with image documentation and biometric zayda surements. Biophysical profile was also obtained. Endovaginal scanning: Not performed COMPARISON: OB ultrasound 12/28/2023. FINDINGS: General: A single living intrauterine gestation is present. Presentation: Vertex Placenta: Placental position is anterior, without previa. Several placental lakes. Amniotic fluid index: 16.7 cm, normal for gestational age. Largest pocket 4.3 cm heart rate: 137 beats per minute. Maternal cervical canal: Not identified. Estimated gestational age from initial scan: 35 weeks 2 days Biophysical profile: Tone: 2 points. Movement: 2 points. Respiration: 0 points. Largest pocket of fluid: 2 points. Largest pocket 4.3 cm. IMPRESSION: 1. [place] living intrauterine at 35 weeks 2 days based on prior dating. 2. Normal placenta and amniotic fluid. Several placental lakes. 3. Biophysical profile 6 out of 8. respirations or not observed. Reviewed by: Gama Jenkins MD on 01/10/2024 8:47 PM PST Approved by: Gama Jenkins MD on 01/10/2024 8:47 PM PST Station ID: [id number]
== END 2024-01-10 19:35 | disposition home or self-care (01) ==
LOC: WFO 16:35 → FBP 16:36 → WFO 19:35
PROVIDERS: ATTEND Obstetrics & Gynecology
DX: O99.891 Other specified diseases and conditions complicating pregnancy (principal); O09.93 Supervision of high risk pregnancy, unspecified, third trimester; N25.89 Other disorders resulting from impaired renal tubular function; M54.9 Dorsalgia, unspecified; O99.333 Smoking (tobacco) complicating pregnancy, third trimester; F17.210 Nicotine dependence, cigarettes, uncomplicated; O99.513 Diseases of the respiratory system complicating pregnancy, third trimester; J45.909 Unspecified asthma, uncomplicated; R03.0 Elevated blood-pressure reading, without diagnosis of hypertension
CPT/HCPCS: 36415; 59025; 80053; 82570; 84156; 85025; 99215

== ENCOUNTER 2024-01-14 13:57 | Outpatient (CLI) | payer MEDICAID ==
[2024-01-14 14:29] VITALS: BP 134/78
[2024-01-14] MEDS: ACETAMINOPHEN 500 MG TABLET PO PRN (14:42)
--- NOTE | 2024-01-14 14:51 | PROCEDURE REPORT ---
- HPI Current EDU 02/12/24 Gestation 35 Weeks and 6 Days 2 Para 1 Vital Signs Temperature 98.2 F 01/14/24 14:10 Heart Rate 71 01/14/24 14:10 Respiratory Rate 18 01/14/24 14:10 Blood Pressure 134/78 H 01/14/24 14:10 Temperature 98.2 F 01/14/24 14:10 Heart Rate 71 01/14/24 14:10 Respiratory Rate 18 01/14/24 14:10 Blood Pressure 134/78 H 01/14/24 14:10 O2 Saturation If not protocol: Oxygen Flow, liters/minute - NST Procedure NST Procedure Start Date 01/14/24 Start Time 14:10 Stop Time 14:40 Vibroacoustic Stimulation Used No Patient States Movement Yes - Results and Plan Plan: NST Performed 01/14/24 NST Read 01/14/24 FHT: 125 bpm baseline, moderate variability, accelerations present, no decelerations. Reactive NST Diagnosis 35 weeks gestation Gitelman Syndrome Continue with scheduled NST.
[2024-01-14 15:09] LABS: BASOPHILS # (AUTO) 0.1 10^3/uL (0.0-0.1); BASOPHILS % (AUTO) 0.4 %; EOSINOPHILS # (AUTO) 0.4 10^3/uL (0.0-0.7); EOSINOPHILS % (AUTO) 2.8 %; HCT - HEMATOCRIT 32.9 % (37.0-47.0); HGB - HEMOGLOBIN 10.9 g/dL (12.0-16.0); LYMPHOCYTES # (AUTO) 2.6 10^3/uL (1.5-3.5); MEAN CORPUSCULAR HGB CONC 33.1 g/dL (32.0-36.0); MEAN CORPUSCULAR VOLUME 90.6 fL (81.0-99.0); MONOCYTES # (AUTO) 0.8 10^3/uL (0.0-1.0); MONOCYTES % (AUTO) 5.5 %; NEUTROPHILS # (AUTO) 9.9 10^3/uL (1.5-6.6); NEUTROPHILS % (AUTO) 71.5 %; PLT - PLATELET COUNT 314 10^3/uL (130-450); RED BLOOD COUNT 3.63 10^6/uL (4.20-5.40); RED CELL DISTRIBUTION WIDTH 13.6 % (12.0-15.0); WHITE BLOOD COUNT 13.8 x10^3/uL (4.8-10.8)
[2024-01-14 15:21] LABS: ALBUMIN 3.2 g/dL (3.2-5.5); ALBUMIN/GLOBULIN RATIO 1.1 (1.0-2.2); BILIRUBIN,TOTAL 0.3 mg/dL (0.2-1.0); CALCIUM 8.7 mg/dL (8.5-10.3); POTASSIUM 3.5 mmol/L (3.5-4.5); TOTAL PROTEIN 6.1 g/dL (6.4-8.9)
[2024-01-14 15:22] LABS: CREATININE,URINE 116.7 mg/dL; PROTEIN/CREATININE RATIO,URINE 0.3 (<=0.2)
== END 2024-01-14 15:20 | disposition home or self-care (01) ==
LOC: WFO 13:57 → FBP 14:02 → WFO 15:20
PROVIDERS: ATTEND Obstetrics & Gynecology
DX: O09.93 Supervision of high risk pregnancy, unspecified, third trimester (principal); O99.891 Other specified diseases and conditions complicating pregnancy; N25.89 Other disorders resulting from impaired renal tubular function; Z3A.35 35 weeks gestation of pregnancy
CPT/HCPCS: 36415; 59025; 80053; 82570; 84156; 85025; A9270

== ENCOUNTER 2024-01-28 16:46 | Outpatient (CLI) | payer MEDICAID ==
[2024-01-28 20:49] LABS: BASOPHILS % (AUTO) 0.5 %; EOSINOPHILS % (AUTO) 4.1 %; HCT - HEMATOCRIT 23.4 % (37.0-47.0); HGB - HEMOGLOBIN 7.6 g/dL (12.0-16.0); LYMPHOCYTES % (AUTO) 20.7 %; MEAN CORPUSCULAR HEMOGLOBIN 31.3 pg (27.0-31.0); MEAN CORPUSCULAR HGB CONC 32.5 g/dL (32.0-36.0); MEAN CORPUSCULAR VOLUME 96.3 fL (81.0-99.0); MEAN PLATELET VOLUME 8.9 fL (7.9-10.8); MONOCYTES % (AUTO) 5.8 %; PLT - PLATELET COUNT 408 10^3/uL (130-450); RED BLOOD COUNT 2.43 10^6/uL (4.20-5.40); RED CELL DISTRIBUTION WIDTH 14.9 % (12.0-15.0); WHITE BLOOD COUNT 12.3 x10^3/uL (4.8-10.8)
[2024-01-28 21:03] LABS: ABNORMAL LYMPHS % (MANUAL) 0 %; ALBUMIN 3.1 g/dL (3.2-5.5); ALBUMIN/GLOBULIN RATIO 1.1 (1.0-2.2); BILIRUBIN,TOTAL 0.2 mg/dL (0.2-1.0); CALCIUM 8.7 mg/dL (8.5-10.3); CREATININE 0.7 mg/dL (0.6-1.3); MAGNESIUM 1.4 mg/dL (1.7-2.3); POTASSIUM 3.2 mmol/L (3.5-4.5); TOTAL PROTEIN 5.8 g/dL (6.4-8.9)
[2024-01-28 22:10] LABS: BAND NEUTROPHILS % (MANUAL) 2 %; DIFFERENTIAL COMMENT MANUAL DIFFERENTIAL; EOSINOPHILS # (MANUAL) 0.7 10^3/uL (0-0.7); LYMPHOCYTES # (MANUAL) 2.8 10^3/uL (1.5-3.5); LYMPHOCYTES % (MANUAL) 23 %; MONOCYTES # (MANUAL) 0.1 10^3/uL (0.0-1.0); NEUTROPHILS # (MANUAL) 8.6 10^3/uL (1.5-6.6); PLATELET ESTIMATE, MANUAL NORMAL (130-450,000) (NORMAL); PLATELET MORPHOLOGY NORMAL APPEARANCE (NORMAL); RBC MORPHOLOGY (MULTIPLE) NORMAL APPEARANCE (NORMAL)
== END 2024-01-28 16:47 | disposition home or self-care (01) ==
LOC: LAB.N 16:46
PROVIDERS: ATTEND Obstetrics & Gynecology
DX: N25.89 Other disorders resulting from impaired renal tubular function (principal); D50.0 Iron deficiency anemia secondary to blood loss (chronic)
CPT/HCPCS: 36415; 80053; 83735; 85025

== ENCOUNTER 2024-01-29 15:12 | Emergency (ER) | payer MEDICAID ==
--- NOTE | 2024-01-29 16:01 | ED Physician Documentation ---
PD HPI FEMALE - Stated complaint Stated Complaint: POST SURG COMP,HIGH BP, DIZZINESS,MIGRAINE, - Chief complaint Chief Complaint: Neuro - History obtained from History obtained from: Patient - History of Present Illness Timing - onset: How many days ago (had due to failure to progress at [facility] 7 days ago and discharged from there 4 days ago. Has been having lower abd cramping, vaginal bleeding, nausea, headache. Has had elevated BP. Feeling lightheaded worse today. Persisting vag bleeding 2-3 pads every few hours. Here for evaluation.) Timing - duration: Days Timing - details: Gradual onset, Still present Associated symptoms: Abdominal pain, Vaginal bleeding. No: Fever, Chest/shoulder pain, Vaginal discharge Contributing factors: Other (7 days , with borderline BP prior to delivery.Was not on BP meds.) Similar symptoms before: Has not had sx before Recently seen: Surgery Review of Systems Constitutional: denies: Fever, Chills Nose: denies: Rhinorrhea / runny nose, Congestion Throat: denies: Sore throat Respiratory: denies: Cough GI: reports: Abdominal Pain, Nausea, Diarrhea. 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: Ovarian cysts : Chronic bladder infection, Frequency, Other HEENT: None Psych: Depression, Anxiety, Bipolar disorder, Post traumatic stress disorder Musculoskeletal: Fatigue, Chronic back pain Derm: None, Eczema - Past Surgical History Past Surgical History: Yes Ortho: ACL reconstruction, Arthroscopic surgery HEENT: Myringotomy (tubes), Tonsil/Adenoidectomy - Present Medications Home Medications: Ambulatory Orders Medication Instructions Recorded Confirmed Magnesium Oxide 3 tab PO BID #120 tablet 09/15/19 02/14/22 Potassium Chloride 40 meq PO BID 11/07/20 02/14/22 Oxycodone HCl/Acetaminophen 1 tab PO Q6H PRN #10 tablet 02/14/22 [Oxycodone-Acetaminophn 7.5-325] Promethazine [Phenergan] 25 mg PO Q6H PRN #10 tab 02/14/22 Promethazine [Phenergan] 25 mg PO Q6H PRN #10 tab 05/29/22 Spironolactone [Aldactone] 25 mg PO DAILY #3 tablet 07/13/22 Benzonatate [Tessalon] 200 mg PO TID PRN #30 cap 08/16/22 Cetirizine HCl/Pseudoephedrine 1 each PO BID PRN #30 ea 08/16/22 [Zyrtec-D Tablet] Promethazine [Phenergan] 25 mg PO Q6H PRN #10 tab 08/16/22 Amox/Clav 875/125 [Augmentin] 1 each PO Q12H #20 tablet 09/28/22 Promethazine [Phenergan] 25 mg PO Q6H PRN #10 tab 09/28/22 oxyCODONE [Roxicodone] 5 mg PO TID PRN #10 tablet 09/28/22 - Allergies Allergies/Adverse Reactions: Allergies Allergy/AdvReac Type Severity Reaction Status Date / Time bismuth subsalicylate Allergy Respiratory Verified 01/29/24 15:42 [From Pepto-Bismol] cinnamon Allergy Anaphylaxis Verified 01/29/24 15:42 ketorolac [From Toradol] Allergy Hives Verified 01/29/24 15:42 lavender (Lavandula Allergy Hives Verified 01/29/24 15:42 angustifolia) lorazepam [From Ativan] Allergy Hives Verified 01/29/24 15:42 ondansetron HCl * Allergy Itching Verified 01/29/24 15:42 [From Zofran (as hydrochloride)] hydromorphone AdvReac Hallucinati Verified 01/29/24 15:42 ons - Social History Does the pt smoke?: No Smoking Status: Never smoker Does the pt drink ETOH?: No Does the pt have substance abuse?: No - Immunizations Immunizations are current?: Yes Immunizations: Other immun not current - POLST Patient has POLST: No POLST Status: Full Code PD ED PE NORMAL - Vitals Vital signs reviewed: Yes (BP elevated at 155/65, then high at next reading at 180s systolic. ) - General General: Alert and oriented X 3, Well developed/nourished - Neck Neck: Supple, no meningeal sign, No adenopathy - Cardiac Cardiac: RRR, No murmur - Respiratory Respiratory: No respiratory distress, Clear bilaterally - Abdomen Abdomen: Normal bowel sounds - Female Female : Deferred Results - Vitals Vitals: Vital Signs - 24 hr 01/29/24 01/29/24 01/29/24 15:44 16:13 16:30 Temperature 36.9 C Heart Rate 82 83 70 Respiratory 24 20 20 Rate Blood Pressure 155/65 H 185/100 H 167/123 H O2 Saturation 99 99 100 01/29/24 01/29/24 01/29/24 16:46 16:50 16:55 Temperature Heart Rate 74 76 76 Respiratory 20 20 20 Rate Blood Pressure 127/90 H 133/74 H 137/79 H O2 Saturation 100 99 100 01/29/24 01/29/24 01/29/24 17:00 17:18 17:30 Temperature Heart Rate 74 72 67 Respiratory 16 20 20 Rate Blood Pressure 124/59 L 125/73 122/74 O2 Saturation 100 100 100 01/29/24 01/29/24 01/29/24 18:24 19:00 20:09 Temperature Heart Rate 80 93 72 Respiratory 20 22 20 Rate Blood Pressure 148/90 H 140/80 H 101/69 O2 Saturation 100 100 100 Oxygen O2 Source Room air - Labs Labs: Laboratory Tests 01/29/24 01/29/24 01/29/24 16:25 16:25 16:25 WBC 12.5 H RBC 2.59 L Hgb 7.9 L Hct 25.1 L MCV 96.9 MCH 30.5 MCHC 31.5 L RDW 15.4 H Plt Count 402 MPV 8.6 Neut # (Auto) 7.8 H Lymph # (Auto) 2.8 [place] # (Auto) 0.7 Eos # (Auto) 0.6 Baso # (Auto) 0.1 Absolute Nucleated RBC 0.00 Band Neuts % (Manual) Not Reportable Abnorm Lymph % (Manual) Not Reportable Nucleated RBC % 0.0 Neutrophils # (Manual) Not Reportable Lymphocytes # (Manual) Not Reportable Monocytes # (Manual) Not Reportable Eosinophils # (Manual) Not Reportable Basophils # (Manual) Not Reportable Differential Comment MANUAL=AUTO DIFF Platelet Estimate NORMAL (130-450,000) Platelet Morphology NORMAL APPEARANCE RBC Morph Micro Appear NORMAL APPEARANCE Sodium 140 Potassium 3.7 Chloride 105 Carbon Dioxide 31 Anion Gap 4.0 L BUN 18 Creatinine 0.7 Estimated GFR (MDRD) 101 Glucose 100 Calcium 8.5 Phosphorus 3.3 Magnesium 1.7 Total Bilirubin 0.2 AST 74 H ALT 81 H Alkaline Phosphatase 183 H Total Protein 5.8 L Albumin 3.1 L Globulin 2.7 Albumin/Globulin Ratio 1.1 Lipase 27 Blood Type A POSITIVE Antibody Screen NEGATIVE PD Medical Decision Making - ED course Complexity details: reviewed results (elevated LFTs with HTN WILKINSON and nausea, post . C/W pre-eclampsia. Given Labetalol and Mag promptly in ED once IV established. ), considered differential (post bleeding. elevated BP concerning for pre-eclamspsia. ), d/w patient, d/w marine consultant (Dr. Cross, corrections cadet LEGAL MANAGER, who came to ED to see pt, and then called [facility] and arranged direct admission transfer. Pt in agreement. ) Departure - Departure Disposition: 02 Transfer Acute Care Hosp Clinical Impression: bleeding, Pre-eclampsia, , Anemia due to blood loss Condition: Stable Record reviewed to determine appropriate education?: Yes Forms: PCP List Discharge Date/Time: 01/29/24 21:07
[2024-01-29 16:30] LABS: BASOPHILS # (AUTO) 0.1 10^3/uL (0.0-0.1); BASOPHILS % (AUTO) 0.4 %; EOSINOPHILS # (AUTO) 0.6 10^3/uL (0.0-0.7); EOSINOPHILS % (AUTO) 4.4 %; HCT - HEMATOCRIT 25.1 % (37.0-47.0); HGB - HEMOGLOBIN 7.9 g/dL (12.0-16.0); LYMPHOCYTES # (AUTO) 2.8 10^3/uL (1.5-3.5); MEAN CORPUSCULAR HEMOGLOBIN 30.5 pg (27.0-31.0); MEAN CORPUSCULAR HGB CONC 31.5 g/dL (32.0-36.0); MEAN CORPUSCULAR VOLUME 96.9 fL (81.0-99.0); MEAN PLATELET VOLUME 8.6 fL (7.9-10.8); MONOCYTES # (AUTO) 0.7 10^3/uL (0.0-1.0); MONOCYTES % (AUTO) 5.8 %; NEUTROPHILS # (AUTO) 7.8 10^3/uL (1.5-6.6); NEUTROPHILS % (AUTO) 62.1 %; PLT - PLATELET COUNT 402 10^3/uL (130-450); RED BLOOD COUNT 2.59 10^6/uL (4.20-5.40); RED CELL DISTRIBUTION WIDTH 15.4 % (12.0-15.0); WHITE BLOOD COUNT 12.5 x10^3/uL (4.8-10.8)
[2024-01-29] MEDS: SODIUM CHLORIDE 0.9% 1,000 ML IV STA (16:34)
[2024-01-29] MEDS: MAGNESIUM SULFATE 2 GRAM 2 GM/50 ML BAG IV ONE ×2 (16:34→18:40)
[2024-01-29] MEDS: LABETALOL 20 MG/4 ML SYRINGE IVP STA (16:34)
[2024-01-29 16:46] LABS: ALBUMIN 3.1 g/dL (3.2-5.5); ALBUMIN/GLOBULIN RATIO 1.1 (1.0-2.2); BILIRUBIN,TOTAL 0.2 mg/dL (0.2-1.0); CALCIUM 8.5 mg/dL (8.5-10.3); CREATININE 0.7 mg/dL (0.6-1.3); MAGNESIUM 1.7 mg/dL (1.7-2.3); PHOSPHORUS 3.3 mg/dL (2.5-5.0); POTASSIUM 3.7 mmol/L (3.5-4.5); TOTAL PROTEIN 5.8 g/dL (6.4-8.9)
[2024-01-29 16:50] VITALS: O2SAT 100
[2024-01-29 18:19] LABS: DIFFERENTIAL COMMENT MANUAL=AUTO DIFF; PLATELET ESTIMATE, MANUAL NORMAL (130-450,000) (NORMAL); PLATELET MORPHOLOGY NORMAL APPEARANCE (NORMAL); RBC MORPHOLOGY (MULTIPLE) NORMAL APPEARANCE (NORMAL)
[2024-01-29] MEDS: LABETALOL 100 MG TABLET PO STA (18:50)
--- NOTE | 2024-01-29 19:43 | Ultrasound Report ---
PROCEDURE: Pelvic Limited INDICATIONS: pelvic pain, R, patient is status post 01/22/2024 TECHNIQUE: Real-time transabdominal scanning was performed of the pelvic organs, with image documentation. COMPARISON: None. FINDINGS: Limited evaluation of the uterus demonstrates no gross abnormality. Trace fluid free fluid at the C-s ection incision site. IMPRESSION: Trace free fluid at the incision site. Reviewed by: Zahira Acuña MD on 01/29/2024 7:41 PM PST Approved by: Zahira Acuña MD on 01/29/2024 7:41 PM PST Station ID: [id number]
[2024-01-29] MEDS: MAGNESIUM SULFATE IN WATER 20 GM/500 ML IV.SOLN IV SCH (19:55)
[2024-01-29] MEDS: MORPHINE 2 MG/ML CARPUJECT IVP STA (19:56)
[2024-01-29] MEDS ORDERED: PROMETHAZINE 25 MG/1 ML VIAL ONE (20:03)
[2024-01-29] MEDS: PROMETHAZINE INJ 25 MG in SODIUM CHLORIDE 0.9% 50 ML IV STA (20:05)
[2024-01-29 20:16] VITALS: BP 101/69
--- NOTE | 2024-01-30 20:45 | PROVIDER PROGRESS NOTE ---
Progress Note patient seen while here. about 1 week pp. bps very elevated. AST in 70s. so qualifies as severe preE. talked with MFM at [facility]. they agree to accept her as a transfer for magnesium seizure prophylaxis. will start magnesium here. discussed with patient and Dr. Mcdonnell. Info given to him about Accepting MD name and unit to call for report.
== END 2024-01-29 21:07 | disposition short-term general hospital (02) ==
LOC: ED 15:12
DX: O72.1 Other immediate postpartum hemorrhage (principal); O90.81 Anemia of the puerperium; O14.95 Unspecified pre-eclampsia, complicating the puerperium
CPT/HCPCS: 36415; 76857; 80053; 83690; 83735; 84100; 85025; 86850; 86900; 86901; 96365; 96375; 96376; 99285; A9270; J7040

== ENCOUNTER 2024-02-21 13:21 | Emergency (ER) | payer MEDICAID ==
[2024-02-21 14:15] LABS: BASOPHILS # (AUTO) 0.1 10^3/uL (0.0-0.1); BASOPHILS % (AUTO) 0.7 %; EOSINOPHILS # (AUTO) 0.7 10^3/uL (0.0-0.7); EOSINOPHILS % (AUTO) 6.6 %; HCT - HEMATOCRIT 38.9 % (37.0-47.0); HGB - HEMOGLOBIN 12.5 g/dL (12.0-16.0); LYMPHOCYTES # (AUTO) 2.9 10^3/uL (1.5-3.5); LYMPHOCYTES % (AUTO) 26.3 %; MEAN CORPUSCULAR HEMOGLOBIN 29.2 pg (27.0-31.0); MEAN CORPUSCULAR HGB CONC 32.1 g/dL (32.0-36.0); MEAN CORPUSCULAR VOLUME 90.9 fL (81.0-99.0); MEAN PLATELET VOLUME 8.3 fL (7.9-10.8); MONOCYTES # (AUTO) 0.7 10^3/uL (0.0-1.0); NEUTROPHILS # (AUTO) 6.7 10^3/uL (1.5-6.6); NEUTROPHILS % (AUTO) 59.8 %; PLT - PLATELET COUNT 412 10^3/uL (130-450); RED BLOOD COUNT 4.28 10^6/uL (4.20-5.40); RED CELL DISTRIBUTION WIDTH 13.5 % (12.0-15.0); WHITE BLOOD COUNT 11.2 x10^3/uL (4.8-10.8)
[2024-02-21 14:28] LABS: ALBUMIN 4.2 g/dL (3.2-5.5); ALBUMIN/GLOBULIN RATIO 1.3 (1.0-2.2); BILIRUBIN,TOTAL 0.4 mg/dL (0.2-1.0); CALCIUM 9.8 mg/dL (8.5-10.3); CREATININE 0.7 mg/dL (0.6-1.3); POTASSIUM 3.3 mmol/L (3.5-4.5); TOTAL PROTEIN 7.5 g/dL (6.4-8.9)
--- NOTE | 2024-02-21 15:02 | ED Physician Documentation ---
History of Present Illness - Stated complaint Stated Complaint: HBP,N/V,DIZZINESS - Chief complaint Chief Complaint: Cardiac - History obtained from History obtained from: Patient - Additonal information Additional information: G2 now P2 who delivered via January 22 and had trouble with preeclampsia and went to [facility] from here on January 28 for elevated blood pressures and was treated for that and also had her gallbladder out reportedly there. Since then she feels like despite taking labetalol 200 mg p.o. 3 times daily she is still feeling bad with headaches and vertigo and generally just not feeling well. She denies chest pain. There is some pedal edema but it is better. No shortness of breath. No abdominal pain. 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: Ovarian cysts : Chronic bladder infection, Frequency, Other HEENT: None Psych: Depression, Anxiety, Bipolar disorder, Post traumatic stress disorder Musculoskeletal: Fatigue, Chronic back pain Derm: None, Eczema - Past Surgical History Past Surgical History: Yes Ortho: ACL reconstruction, Arthroscopic surgery HEENT: Myringotomy (tubes), Tonsil/Adenoidectomy - Present Medications Home Medications: Ambulatory Orders Medication Instructions Recorded Confirmed Magnesium Oxide 3 tab PO BID #120 tablet 09/15/19 02/14/22 Potassium Chloride 40 meq PO BID 11/07/20 02/14/22 Oxycodone HCl/Acetaminophen 1 tab PO Q6H PRN #10 tablet 02/14/22 [Oxycodone-Acetaminophn 7.5-325] Promethazine [Phenergan] 25 mg PO Q6H PRN #10 tab 02/14/22 Promethazine [Phenergan] 25 mg PO Q6H PRN #10 tab 05/29/22 Spironolactone [Aldactone] 25 mg PO DAILY #3 tablet 07/13/22 Benzonatate [Tessalon] 200 mg PO TID PRN #30 cap 08/16/22 Cetirizine HCl/Pseudoephedrine 1 each PO BID PRN #30 ea 08/16/22 [Zyrtec-D Tablet] Promethazine [Phenergan] 25 mg PO Q6H PRN #10 tab 08/16/22 Amox/Clav 875/125 [Augmentin] 1 each PO Q12H #20 tablet 09/28/22 Promethazine [Phenergan] 25 mg PO Q6H PRN #10 tab 09/28/22 oxyCODONE [Roxicodone] 5 mg PO TID PRN #10 tablet 09/28/22 Enalapril Maleate [Vasotec] 10 mg PO DAILY #30 tablet 02/21/24 Meclizine HCl [Motion Sickness] 25 mg PO Q6H PRN #20 tablet 02/21/24 - Allergies Allergies/Adverse Reactions: Allergies Allergy/AdvReac Type Severity Reaction Status Date / Time bismuth subsalicylate Allergy Respiratory Verified 02/21/24 13:33 [From Pepto-Bismol] cinnamon Allergy Anaphylaxis Verified 02/21/24 13:33 ketorolac [From Toradol] Allergy Hives Verified 02/21/24 13:33 lavender (Lavandula Allergy Hives Verified 02/21/24 13:33 angustifolia) lorazepam [From Ativan] Allergy Hives Verified 02/21/24 13:33 ondansetron HCl * Allergy Itching Verified 02/21/24 13:33 [From Zofran (as hydrochloride)] hydromorphone AdvReac Hallucinati Verified 02/21/24 13:33 ons - Social History Does the pt smoke?: Yes Smoking Status: Current every day smoker Does the pt drink ETOH?: No Does the pt have substance abuse?: No - Immunizations Immunizations are current?: Yes Immunizations: Other immun not current - POLST Patient has POLST: No POLST Status: Full Code PD ED PE NORMAL - Vitals Vital signs reviewed: Yes - General General: Alert and oriented X 3, No acute distress - HEENT HEENT: PERRL, EOMI - Neck Neck: Supple, no meningeal sign, No bony TTP - Cardiac Cardiac: RRR, No murmur - Respiratory Respiratory: No respiratory distress, Clear bilaterally - Abdomen Abdomen: Non tender - Extremities Extremities: Other (trace b pedal edema) - Neuro Neuro: Alert and oriented X 3 Results - Vitals Vitals: Vital Signs - 24 hr 02/21/24 13:33 Temperature 36.5 C Heart Rate 75 Respiratory 16 Rate Blood Pressure 160/84 H O2 Saturation 99 Oxygen O2 Source Room air - Labs Labs: Laboratory Tests 02/21/24 02/21/24 14:09 14:09 WBC 11.2 H RBC 4.28 Hgb 12.5 Hct 38.9 MCV 90.9 MCH 29.2 MCHC 32.1 RDW 13.5 Plt Count 412 MPV 8.3 Neut # (Auto) 6.7 H Lymph # (Auto) 2.9 [place] # (Auto) 0.7 Eos # (Auto) 0.7 Baso # (Auto) 0.1 Absolute Nucleated RBC 0.00 Nucleated RBC % 0.0 Sodium 138 Potassium 3.3 L Chloride 103 Carbon Dioxide 26 Anion Gap 9.0 BUN 22 H Creatinine 0.7 Estimated GFR (MDRD) 101 Glucose 79 Calcium 9.8 Total Bilirubin 0.4 AST 22 ALT 24 Alkaline Phosphatase 75 Total Protein 7.5 Albumin 4.2 Globulin 3.3 Albumin/Globulin Ratio 1.3 PD Medical Decision Making - ED course ED course: 28-year-old woman with elevated blood pressures. She is in the period. But kind of out of the immediate period. Her examination is normal other than hypertension and trace pedal edema she is trying to breast- feed. I discussed the case by phone with our on-call OB, Dr. Cross. We discussed her labs which include an unremarkable CBC and CMP that actually for her is very good with potassium only mildly low at 3.3. Dr. Cross felt that given the timeframe she is no longer really considered to be a issue and recommended care with antihypertensives as though she was not . She is breast-feeding which limits is a little bit, and we do not want to use any potassium wasting diuretics obviously. Departure - Departure Disposition: 01 Home, Self Care Clinical Impression: Hypertension Qualifiers: Hypertension type: primary hypertension Qualified Code(s): I10 - Essential (primary) hypertension Condition: Good Record reviewed to determine appropriate education?: Yes Instructions: ED Hypertension Conf Out Of Control Prescriptions: Meclizine HCl [Motion Sickness] 25 mg PO Q6H PRN #20 tablet PRN Reason: Dizziness Enalapril Maleate [Vasotec] 10 mg PO DAILY #30 tablet Comments: Continue the labetalol, I am adding a second medication for your blood pressure. I did discuss the case by phone with our on-call OB. This is safe in breast- feeding. Call your doctor to arrange a follow-up appointment, make the next available appointment. In the interim, return anytime if worse or if new symptoms develop. I did I sent your prescriptions electronically to [facility] in [place]. Reasonable for you to follow-up with your embedded engineer, but your electrolytes are actually looking pretty good today, specifically your potassium is 3.3.
[2024-02-21 15:12] LABS: BILIRUBIN,URINE NEGATIVE (NEGATIVE); CLARITY,URINE CLEAR (CLEAR); GLUCOSE, URINE (UA) NEGATIVE (NEGATIVE); KETONES,URINE (UA) NEGATIVE (NEGATIVE); LEUKOCYTE ESTERASE, URINE NEGATIVE (NEGATIVE); NITRITE,URINE NEGATIVE (NEGATIVE); OCCULT BLOOD,URINE SMALL (NEGATIVE); PROTEIN,URINE 30 mg/dL (NEGATIVE); UROBILINOGEN,URINE 0.2 (NORMAL) E.U./dL (NORMAL)
[2024-02-21 15:19] LABS: BACTERIA,URINE None Seen /HPF (None Seen); SQUAMOUS EPITHELIAL CELL,UR RARE Squamous (<= Few); WBC,URINE 0-3 /HPF (0-5)
[2024-02-21 15:20] VITALS: BP 122/74; O2SAT 98
== END 2024-02-21 15:20 | disposition home or self-care (01) ==
LOC: ED 13:21
DX: O10.03 Pre-existing essential hypertension complicating the puerperium (principal); O99.335 Smoking (tobacco) complicating the puerperium; F17.200 Nicotine dependence, unspecified, uncomplicated; Z79.899 Other long term (current) drug therapy
CPT/HCPCS: 36415; 80053; 81001; 81003; 85025; 87086; 99283

== ENCOUNTER 2024-07-03 15:00 | Outpatient (CLI) | payer MEDICAID ==
[2024-07-03 17:52] LABS: BASOPHILS # (AUTO) 0.1 10^3/uL (0.0-0.1); BASOPHILS % (AUTO) 0.7 %; EOSINOPHILS # (AUTO) 0.9 10^3/uL (0.0-0.7); EOSINOPHILS % (AUTO) 8.7 %; HCT - HEMATOCRIT 39.1 % (37.0-47.0); HGB - HEMOGLOBIN 13.2 g/dL (12.0-16.0); LYMPHOCYTES # (AUTO) 2.8 10^3/uL (1.5-3.5); LYMPHOCYTES % (AUTO) 27.5 %; MEAN CORPUSCULAR HEMOGLOBIN 29.7 pg (27.0-31.0); MEAN CORPUSCULAR HGB CONC 33.8 g/dL (32.0-36.0); MEAN CORPUSCULAR VOLUME 87.9 fL (81.0-99.0); MEAN PLATELET VOLUME 8.9 fL (7.9-10.8); MONOCYTES # (AUTO) 0.6 10^3/uL (0.0-1.0); MONOCYTES % (AUTO) 5.9 %; NEUTROPHILS # (AUTO) 5.7 10^3/uL (1.5-6.6); NEUTROPHILS % (AUTO) 56.8 %; PLT - PLATELET COUNT 399 10^3/uL (130-450); RED BLOOD COUNT 4.45 10^6/uL (4.20-5.40); RED CELL DISTRIBUTION WIDTH 13.1 % (12.0-15.0); WHITE BLOOD COUNT 10.1 x10^3/uL (4.8-10.8)
[2024-07-03 18:10] LABS: ALBUMIN 4.2 g/dL (3.2-5.5); ALBUMIN/GLOBULIN RATIO 1.6 (1.0-2.2); BILIRUBIN,TOTAL 0.2 mg/dL (0.2-1.0); CALCIUM 9.1 mg/dL (8.5-10.3); CREATININE 0.7 mg/dL (0.6-1.3); POTASSIUM 3.1 mmol/L (3.5-4.5); TOTAL PROTEIN 6.8 g/dL (6.4-8.9)
== END 2024-07-03 15:15 | disposition home or self-care (01) ==
LOC: LAB.N 15:00
PROVIDERS: ATTEND Family Medicine
DX: R10.9 Unspecified abdominal pain (principal)
CPT/HCPCS: 36415; 80053; 83690; 85025